=== PATIENT | female | born 1945 | race Caucasian/White ===

== ENCOUNTER → 2016-05-30 | Outpatient (CLI) | payer BC ==
[~2016-05-30] MED LIST: ACET-1256 PO; CALCIUM CITRATE PO; CHOL100027 PO; CHOL2000 PO; CIPR-255 PO; CYAN10005 PO; DENO60SO SC; DOXE100C4 PO; FESO8TAB PO; FURO-85 PO; GABA-113 PO; LSX20 PO; METO25TA56 PO; MIRA1TAB3 PO; MULT-360 PO; MULT-506 PO; ONDA4TAB10 SL; OXYC1TAB3 PO; OXYC7.5T65 PO; PHEN-1042 PO; PYRI100T4 PO; PYRI50TA77 PO; SNQ50 PO; ULT/50 PO; WARF-246 PO; WARF-284 PO
[2016-05-30 15:25] LABS: ALT/SGPT 25 U/L (12-78); AST/SGOT 19 U/L (15-37); BLOOD UREA NITROGEN 17 mg/dl (7-18); BUN/CREATININE RATIO 18.4 (10-20); CARBON DIOXIDE 31 mmol/L (21-32); CHLORIDE 105 mmol/L (98-107); CHOLESTEROL 163 mg/dl (0-200); CREATININE 0.92 mg/dl (0.60-1.20); GLUCOSE 112 mg/dl (70-99); POTASSIUM 4.3 mmol/L (3.5-5.1); SODIUM 142 mmol/L (136-145); TRIGLYCERIDES 124 mg/dl (0-150); VERY LOW DENSITY LIPOPROT CALC 25 mg/dl
[2016-05-30 15:27] LABS: ALB/GLOB RATIO 0.9 (0.9-2); ALKALINE PHOSPHATASE 77 U/L (45-117); CHOLESTEROL/HDL RATIO 3.9; HDL CHOLESTEROL 42 mg/dl; LDL CHOLESTEROL CALCULATED 96 mg/dl
[2016-05-31 05:49] LABS: ESTIMATED AVERAGE GLUCOSE 103 mg/dl; HA1C FLAG Normal (Normal)
== END | disposition home or self-care (01) ==
LOC: C.LAB1850 13:16
PROVIDERS: ATTEND Internal Medicine
DX: M81.0 Age-related osteoporosis without current pathological fracture (principal); R73.01 Impaired fasting glucose; E55.9 Vitamin D deficiency, unspecified

== ENCOUNTER → 2016-06-11 | Outpatient (CLI) | payer BC | END | disposition home or self-care (01) | LOC: C.MAMM 15:38 | PROVIDERS: ATTEND Internal Medicine | DX: M81.0 Age-related osteoporosis without current pathological fracture (principal); M85.89 Other specified disorders of bone density and structure, multiple sites ==

== ENCOUNTER 2016-06-12 02:07 | Emergency (ER) | payer BC ==
[~2016-06-12] VITALS: Ht 168.9 cm; Wt 124.0 kg
[~2016-06-12 02:07] MED LIST changes: -CHOL2000 PO; -DOXE100C4 PO; -FESO8TAB PO; -FURO-85 PO; -MIRA1TAB3 PO; -MULT-360 PO; -ONDA4TAB10 SL; -OXYC1TAB3 PO; -OXYC7.5T65 PO; -PYRI100T4 PO
[2016-06-12 02:13] VITALS: TEMP 36.4; Ht 168.9 cm; Wt 124.0 kg
[2016-06-12] MEDS ORDERED: SODIUM CHLORIDE 0.9% 1000ML 1,000 ML IV STA (02:37)
[2016-06-12] MEDS ORDERED: ONDANSETRON INJ 2 MG/ML 2 ML VIAL IV STA (02:37)
[2016-06-12] MEDS ORDERED: HYDROmorphone INJ 1 MG/ML SYR IV STA (02:37)
[2016-06-12 03:07] LABS: BASO % 0.1 %; BASO ABS # 0.01 K/uL (0-0.2); COMPLETE YES; EOS % 0.7 %; HEMATOCRIT 41.9 % (37-47); IG% 0.2 %; LYMPH % 8.9 %; LYMPH ABS # 0.73 K/uL (1.2-3.4); MEAN CORPUSCULAR HEMOGLOBIN 33.8 pg (25-34); MEAN CORPUSCULAR HGB CONC 35.6 g/dl (32-36); MEAN PLATELET VOLUME 10.7 fL (7.4-10.4); MONO % 3.5 %; NEUT % 86.6 %; PLATELET COUNT 120 K/uL (130-400); RED BLOOD COUNT 4.41 M/uL (4.2-5.4)
[2016-06-12 03:29] LABS: BUN/CREATININE RATIO 17.2 (10-20); CALCIUM 8.8 mg/dl (8.5-10.1); CREATININE 1.1 mg/dl (0.60-1.20); POTASSIUM 4.1 mmol/L (3.5-5.1)
[2016-06-12 03:50] LABS: URINE APPEARANCE CLEAR (CLEAR); URINE BILIRUBIN NEG (NEG); URINE COLOR YELLOW; URINE EPITHELIAL CELL AUTO >30 /lpf (0-5); URINE NITRITE NEG (NEG); URINE PH 6.5 (4.5-7.5); URINE SPECIFIC GRAVITY 1.024 (1.000-1.030); UROBILINOGEN NEG (NEG); ZZUR CULT IF INDIC CLEAN CATCH YES
[2016-06-12 03:51] LABS: MANUAL MICROSCOPIC REQUIRED? NO; REVIEW REQ? YES
[2016-06-12] MEDS ORDERED: MoRPHine SULFATE 4 MG/ML 1 ML CARP\\VIAL IV STA (04:10)
[2016-06-12] MEDS ORDERED: ONDANSETRON HOME PACK 4MG OD TAB PO ONE (04:15)
[2016-06-12] MEDS ORDERED: OXYCODONE IR HOME PACK PO ONE (04:15)
--- NOTE | 2016-06-12 04:15 | EMERGENCY ROOM VISIT NOTE ---
History Report prepared by Carlton: Low Harding Under the Supervision of: Dr. Pablito Gay M.D. First contact with patient: 02:22 Chief Complaint: ABDOMINAL PAIN Stated Complaint: LWR ABDOMINAL PAIN SPEADS TO LEFT SIDE,NAUSEA History of Present Illness The patient is a 70 year old female who presents to the Emergency Room with complaints of constant upper abdominal pain beginning five hours ago. She states that her pain occasionally radiates into her left side and back. She states that her pain began suddenly. The patient also complains of dry heaves. She has a history of similar symptoms occurring with kidney stones in the past, though the pain was located more on her sides. She denies any leg swelling, or chest pain. The patient has a history of a gastric bypass surgery. Source of History: patient Onset: five hours ago Position: abdomen (upper) Timing: constant Associated Symptoms: No chest pain Note: The patient also complains of dry heaves. She denies any leg swelling. Review of Systems See HPI for pertinent positives & negatives. A total of 10 systems reviewed and were otherwise negative. Past Medical & Surgical Medical Problems: (1) Atrial fibrillation (2) Benign hypertension (3) Diabetes mellitus (4) gastric bypass (5) panelectomy (6) Replacement of total knee joint Family History No pertinent family history stated. Social History Smoking Status: Never Smoker Alcohol Use: none Drug Use: none Marital Status: Housing Status: lives with significant other Occupation Status: unemployed Current/Historical Medications Scheduled Cholecalciferol (Vitamin D3), 2,000 UNIT PO BID Cyanocobalamin (Vitamin B-12), 1,000 MCG PO QAM Denosumab (Prolia), 1 DOSE SC Q6MON Doxepin Hcl (Doxepin), 100 MG PO QPM Gabapentin (Neurontin), 300 MG PO HS Metoprolol Tartrate (Lopressor) (Lopressor), 25 MG PO BID Multiple Minerals W/ Vitamins (Calcium Citrate +), 400 MG PO DAILY Multivitamin (Multivitamin), 1 TAB PO QAM Ondasetron Odt (Zofran Odt), 4-8 MG SL Q6H Pyridoxine Hcl (Vitamin B 6), 200 MG PO QAM Tramadol Hcl (Ultram), 50 MG PO BID Warfarin Sodium (Warfarin Sodium), 5 MG PO 6XWK Warfarin Sodium (Warfarin Sodium), 7.5 MG PO FRI Scheduled PRN Acetaminophen (Tylenol), 1,000 MG PO DAILY PRN for PRN Furosemide (Lasix), 20 MG PO DAILY PRN for EDEMA Oxycodone Immediate Rel Tab (Roxicodone Ir), 1-2 TAB PO Q4H PRN for Severe Pain Allergies Coded Allergies: Adhesives (Verified Allergy, Intermediate, RASH, BLISTERING, 06/12/16) PAPER TAPE OK Alendronate (Verified Allergy, Unknown, SICK TO STOMACH, 06/12/16) Latex (Unverified Allergy, Unknown, per PCP/cardio note, 06/12/16) Physical Exam Vital Signs Date Time Temp Pulse Resp B/P Pulse Ox O2 Delivery O2 Flow Rate FiO2 06/12/16 04:30 68 18 110/55 93 Room Air 06/12/16 03:33 80 18 149/72 94 Room Air 06/12/16 02:13 36.4 74 20 157/99 93 Room Air Physical Exam GENERAL: Patient is uncomfortable appearing and in moderate distress. HEENT: No acute trauma, normocephalic atraumatic, mucous membranes moist, no nasal congestion, no scleral icterus. NECK: No stridor, no adenopathy, no meningismus, trachea is midline. LUNGS: No dyspnea. Clear to auscultation and equal bilaterally. No wheeze, no rhonchi. HEART: Regular rate and rhythm. No murmurs, rubs, gallops appreciated. ABDOMEN: Soft, bowel sounds positive, no masses appreciated, no peritonitis. Vague left lateral abdominal tenderness to palpation. BACK: No midline tenderness, no CVA tenderness EXTREMITIES: Normal motion all extremities, no cyanosis, no edema. NEUROLOGIC: Alert and oriented, no acute motor or sensory deficits, no focal weakness, cranial nerves grossly intact. SKIN: No rash, no jaundice, no diaphoresis. Medical Decision & Procedures ER Provider Diagnostic Interpretation: CT results per statrad and my review. CT ABDOMEN & PELVIS: Compared to 01/13/15. Nephrolithiasis with a 4 mm obstructing stone in the proximal left ureter with moderate left hydronephrosis. Left perinephric stranding/fluid. Distended gallbladder with cholelithiasis. Moderate amount of stool in the colon. Additional incidental findings including varices, splenomegaly, and prior gastric bypass surgery. Laboratory Results 06/12/16 02:50 Red Blood Count 4.41, Mean Corpuscular Volume 95.0, Mean Corpuscular Hemoglobin 33.8, Mean Corpuscular Hemoglobin Concent 35.6, Mean Platelet Volume 10.7, Neutrophils (%) (Auto) 86.6, Lymphocytes (%) (Auto) 8.9, Monocytes (%) (Auto) 3.5, Eosinophils (%) (Auto) 0.7, Basophils (%) (Auto) 0.1, Neutrophils # (Auto) 7.09, Lymphocytes # (Auto) 0.73, Monocytes # (Auto) 0.29, Eosinophils # (Auto) 0.06, Basophils # (Auto) 0.01 06/12/16 02:50 Test 06/12/16 02:50 06/12/16 03:25 White Blood Count 8.20 K/uL (4.8-10.8) Red Blood Count 4.41 M/uL (4.2-5.4) Hemoglobin 14.9 g/dL (12.0-16.0) Hematocrit 41.9 % (37-47) Mean Corpuscular Volume 95.0 fL (80-100) Mean Corpuscular Hemoglobin 33.8 pg (25-34) Mean Corpuscular Hemoglobin Concent 35.6 g/dl (32-36) Platelet Count 120 K/uL (130-400) Mean Platelet Volume 10.7 fL (7.4-10.4) Neutrophils (%) (Auto) 86.6 % Lymphocytes (%) (Auto) 8.9 % Monocytes (%) (Auto) 3.5 % Eosinophils (%) (Auto) 0.7 % Basophils (%) (Auto) 0.1 % Neutrophils # (Auto) 7.09 K/uL (1.4-6.5) Lymphocytes # (Auto) 0.73 K/uL (1.2-3.4) Monocytes # (Auto) 0.29 K/uL (0.11-0.59) Eosinophils # (Auto) 0.06 K/uL (0-0.5) Basophils # (Auto) 0.01 K/uL (0-0.2) RDW Standard Deviation 47.9 fL (36.4-46.3) RDW Coefficient of Variation 13.8 % (11.5-14.5) Immature Granulocyte % (Auto) 0.2 % Immature Granulocyte # (Auto) 0.02 K/uL (0.00-0.02) Anion Gap 8.0 mmol/L (3-11) Est Creatinine Clear Calc Drug Dose 66.3 ml/min Estimated GFR () 59.7 Estimated GFR (Non- 51.5 BUN/Creatinine Ratio 17.2 (10-20) Calcium Level 8.8 mg/dl (8.5-10.1) Total Bilirubin 0.8 mg/dl (0.2-1) Direct Bilirubin 0.2 mg/dl (0-0.2) Aspartate Amino Transf (AST/SGOT) 21 U/L (15-37) Alanine Aminotransferase (ALT/SGPT) 24 U/L (12-78) Alkaline Phosphatase 77 U/L (45-117) Total Protein 7.4 gm/dl (6.4-8.2) Albumin 3.5 gm/dl (3.4-5.0) Lipase 72 U/L (73-393) Urine Color YELLOW Urine Appearance CLEAR (CLEAR) Urine pH 6.5 (4.5-7.5) Urine Specific [place] 1.024 (1.000-1.030) Urine Protein NEG (NEG) Urine Glucose (UA) NEG (NEG) Urine Ketones 2+ (NEG) Urine Occult Blood NEG (NEG) Urine Nitrite NEG (NEG) Urine Bilirubin NEG (NEG) Urine Urobilinogen NEG (NEG) Urine Leukocyte Esterase TRACE (NEG) Urine WBC (Auto) 1-5 /hpf (0-5) Urine RBC (Auto) 0-4 /hpf (0-4) Urine Hyaline Casts (Auto) 5-10 /lpf (0-5) Urine Epithelial Cells (Auto) >30 /lpf (0-5) Urine Bacteria (Auto) 2+ (NEG) Laboratory results as reviewed by me. Medications Administered Medications (Trade) Dose Ordered Sig/Tico Route Start Time Stop Time Status Last Admin Dose Admin Sodium Chloride (Nss 1000ml) 1,000 ml @ 999 mls/hr Q1H1M STAT IV 06/12/16 02:37 06/12/16 03:37 DC 06/12/16 03:03 999 MLS/HR Hydromorphone HCl (Dilaudid Inj) 1 mg NOW STAT IV 06/12/16 02:37 06/12/16 02:38 DC 06/12/16 03:03 1 MG Ondansetron HCl (Zofran Inj) 4 mg NOW STAT IV 06/12/16 02:37 06/12/16 02:38 DC 06/12/16 03:03 4 MG Morphine Sulfate (MoRPHine SULFATE INJ) 2 mg NOW STAT IV 06/12/16 04:10 06/12/16 04:11 DC 06/12/16 04:21 2 MG Oxycodone HCl (Roxicodone Immediate Rel 5MG Home Pack) 1 homepack UD ONCE PO 06/12/16 04:15 06/12/16 04:16 DC 06/12/16 04:21 1 HOMEPACK Ondansetron HCl (ZOFRAN ODT 4MG Home Pack) 1 homepack UD ONCE PO 06/12/16 04:15 06/12/16 04:16 DC 06/12/16 04:21 1 HOMEPACK ED Course 0232: The patient was evaluated in room B6. A complete history and physical exam was performed. 0237: Ordered Zofran Inj 4 mg IV, Dilaudid Inj 1 mg IV, Sodium Chloride 1000 ml @ 999 mls/hr. 0410: Ordered Morphine Sulfate 2 mg IV. 0415: Ordered Zofran Odt 4 mg homepack PO, Roxicodone Immediate Rel 5 mg homepack PO. Reevaluated the patient. She feels much better and would like to go home. She notes that she only has mild pain right now. The patient will follow up with her PCP. Discussed results and discharge instructions: she verbalized understanding and agreement. The patient is ready for discharge. Medical Decision Differential: Renal Colic, Pyelonephritis, Hydronephrosis, Appendicitis, Diverticulitis, Retroperitoneal Bleed/Infection, Aortic Pathology, MSK, Neurologic Pathology, amongst other pathologies entertained. 70 yr old female arrives for evaluation of left abdominal to left flank pain sudden onset with nausea and vomiting. CT with proximal left ureteral stone. Pain resolved with above and patient wishes to go home. No evidence of infection and patient denies any UTI symptoms. Abdomen is without peritonitis. Distended stone filled GB but she is not having symptoms consistent with cholecystitis nor impacted stone. She will discuss this with her PCP. Discussed BP being elevated on this visit as well. She is stable, feeling well and wants to get home. States she doesn't tolerate flomax well. Discussed symptoms requiring return. Impression Primary Impression: Ureteral calculus, left Additional Impressions: Hydronephrosis of left kidney Asymptomatic gallstones Hypertension Scribe Attestation The scribe's documentation has been prepared under my direction and personally reviewed by me in its entirety. I confirm that the note above accurately reflects all work, treatment, procedures, and medical decision making performed by me. Departure Information Dispostion Home / Self-Care Prescriptions Ondasetron Odt (ZOFRAN ODT) 4 Mg Tab 4-8 MG SL Q6H for Nausea, #15 TAB Prov: Pablito Gay M.D. 06/12/16 Oxycodone Immediate Rel Tab (ROXICODONE IR) 5 Mg Tab 1-2 TAB PO Q4H Y for Severe Pain, #15 TAB Prov: Pablito Gay M.D. 06/12/16 Referrals Nohemi Gunter C.R.N.PFrance (PCP) Patient Instructions Kidney Stones - [facility], My [facility] Additional Instructions It is very important you follow up with your primary care provider for further evaluation. You were found to have a large gallbladder with stones in it. This could be an early infection but with the location of your pain it is very unlikely. Please discuss having further testing of your gallbladder done with your primary care provider. Your blood pressure was elevated during this visit. This is quite common in many people who are being evaluated in the Emergency Department for many reasons. However, it is important that you have your Primary Care Provider recheck your blood pressure and discuss whether treatment will be needed. long term care social worker elevated blood pressure can lead to strokes, heart attacks, kidney failure amongst other medical issues. If you develop severe headaches, chest pain, weakness in arms or legs, or other concerning symptoms call 911. You have received a narcotic pain medication prescription. These medications may cause drowsiness and should not be used with other sedative medications. Do not drive, drink alcohol, perform dangerous activities, nor make important decisions after taking these medications. [facility] use or inappropriate use may lead to addiction. These medications cause constipation. Problem Qualifiers Additional Impressions: Hypertension Hypertension type: essential hypertension Qualified Codes: I10 - Essential ( primary) hypertension
[2016-06-12] MEDS ORDERED: ONDA4TAB10 SL (04:17)
[2016-06-12] MEDS ORDERED: OXYC1TAB3 PO (04:17)
[2016-06-12] MEDS ORDERED: CHOL2000 PO (04:21)
[2016-06-12] MEDS ORDERED: DOXE100C4 PO (04:23)
[2016-06-12] MEDS ORDERED: FURO-85 PO (04:23)
[2016-06-12] MEDS ORDERED: MULT-360 PO (04:24)
[2016-06-12 04:30] VITALS: BP 110/55; PULSE 68; O2SAT 93
--- NOTE | 2016-06-12 07:24 | DIAGNOSTIC IMAGING REPORT ---
CT SCAN OF THE ABDOMEN AND PELVIS WITHOUT IV CONTRAST CLINICAL HISTORY: Left flank pain. COMPARISON STUDY: Abdominal CT dated 01/13/2015. TECHNIQUE: CT scan of the abdomen and pelvis is performed from the lung bases to the proximal femora. Images are reviewed in the axial, sagittal, and coronal planes. IV contrast was not administered for this examination as per the referring clinician. The examination is degraded by large body habitus, and by streak artifact from the body wall abutting the CT gantry. The examination is also degraded by streak artifact from the arms which could not be elevated above the abdomen. Automated dose control exposure was utilized. CT DOSE: 2085.12 mGy.cm FINDINGS: Lung bases: The heart is mildly enlarged and without pericardial effusion. The lung bases are clear. Liver: Evaluation of the liver is degraded by streak artifact. The unenhanced liver is normal in size, contour, and attenuation. There is no intrahepatic biliary ductal dilatation. Gallbladder: The gallbladder is distended and filled with numerous gallstones. Spleen: The spleen is enlarged, measuring 15 cm in length. Numerous collateral vessels are seen in the left upper quadrant. 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 Pancreas: The unenhanced pancreas is moderately atrophic and grossly unremarkable. Adrenal glands: Unremarkable. Kidneys: The unenhanced kidneys demonstrate cortical atrophy. There is a 7 mm obstructing calculus in the proximal left ureter seen on axial image #246 at the level of L4. This causes mild to moderate left sided hydronephrosis. There are least 8 additional nonobstructing calculi within the left kidney and left renal pelvis measuring up to 13 mm. There are at least 2 nonobstructing right renal calculi measuring up to 3 mm. There is no evidence of contour deforming renal mass lesion. A retroaortic left renal vein is incidentally noted. Abdominal vasculature: The abdominal aorta is normal in course and caliber noting mild to moderate atherosclerotic calcification. Stomach and bowel: There is a tiny hiatal hernia. There are postoperative changes consistent with a Danielle-en-Y gastric bypass procedure. No bowel obstruction is seen. There is moderate colonic fecal retention. The appendix is not identified. Peritoneum: There is no intraperitoneal free air or abdominal ascites. Lymphadenopathy: None. Pelvic viscera: The bladder is normal in appearance. The uterus is surgically absent. No adnexal lesion is seen. Numerous phleboliths are identified in the pelvis. Findings suggest pelvic floor prolapse. Skeletal structures: The skeletal structures are osteopenic. There is moderate lumbosacral spondylosis. Degenerative change and partial fusion is noted in the sacroiliac joints. No lytic or blastic lesions are seen. Postoperative change is noted in the right proximal femur. IMPRESSION: 1. Significantly streak artifact degraded examination. 2. There is a 7 mm obstructing calculus in the left proximal ureter. This causes mild to moderate left-sided hydronephrosis. 3. Additional bilateral nonobstructing renal calculi as above. 4. There are postoperative changes consistent with a Danielle-en-Y gastric bypass procedure. No bowel obstruction is seen. 5. Moderate constipation. 6. Numerous collateral vessels are seen in the left upper quadrant and a splenorenal shunt is again noted. 7. The gallbladder is distended and there are numerous calcified gallstones. There is no convincing CT evidence of acute cholecystitis. If further assessment of the gallbladder is desired then ultrasound would be appropriate. 8. Cardiomegaly. 9. Splenomegaly. 10. Additional findings as above. Electronically signed by: Vince New M.D. 06/12/2016 7:22 AM Dictated Date/Time: 06/12/2016 7:13 AM
[2016-08-02] MEDS ORDERED: MIRA1TAB3 PO (14:39)
[2016-08-30] MEDS ORDERED: FESO8TAB PO (11:37)
[2016-08-30] MEDS ORDERED: PYRI100T4 PO (11:37)
[2016-09-06] MEDS ORDERED: OXYC7.5T65 PO (11:24)
== END 2016-06-12 04:33 | disposition home or self-care (01) ==
LOC: C.EDB 02:09
DX: N20.1 Calculus of ureter (principal); N13.30 Unspecified hydronephrosis; K80.20 Calculus of gallbladder without cholecystitis without obstruction; I10 Essential (primary) hypertension; I48.91 Unspecified atrial fibrillation; E11.9 Type 2 diabetes mellitus without complications; Z98.84 Bariatric surgery status; Z96.659 Presence of unspecified artificial knee joint; Z79.01 Long term (current) use of anticoagulants; Z79.899 Other long term (current) drug therapy

== ENCOUNTER → 2016-08-15 | Day surgery (SDC) | payer BC ==
[2016-08-02 14:37] VITALS: BMI 42.0
[~2016-08-15] VITALS: Ht 167.6 cm; Wt 120.9 kg
[~2016-08-15] MED LIST changes: -CALCIUM CITRATE PO; -CHOL100027 PO; +CHOL2000 PO; -CIPR-255 PO; +DOXE100C4 PO; +FESO8TAB PO; +FURO-85 PO; +LIDOCAINE HCL 2% 2 ML VIAL (20MG/ML) ONE; -LSX20 PO; +MIRA1TAB3 PO; +MULT-360 PO; +ONDA4TAB10 SL; +OXYC7.5T65 PO; -PHEN-1042 PO; +PROPOFOL IV EMULSION 10 MG/ML 20 ML VIAL IV ONE; +PYRI100T4 PO; -SNQ50 PO; +SODIUM CHLORIDE 0.9% 500ML 500 ML IV ONE
[2016-08-15 12:20] VITALS: Ht 167.6 cm; Wt 120.9 kg
--- NOTE | 2016-08-15 12:43 | Endo History and Physical ---
History & Physical Date of Service: Aug 15, 2016. Chief Complaint: F/U SCREENING Referring Physician: MALINI CHACKO History of Present Illness 70 yo CF who presents for screening colonoscopy. Past Medical History Atrial Fibrillation, Osteoporosis, Arthritis, CVA/TIA, Other Past Surgical History Hx Cardiac Surgery: No Hx Internal Defibrillator: No Hx Pacemaker: No Hx Abdominal Surgery: Yes (GASTRIC BYPASS, PANNICULECTOMY, ) Hx of Implantable Prosthesis: No Hx Post-Op Nausea and Vomiting: No Hx Cancer Surgery: No Hx Thoracic Surgery: No Hx Orthopedic: Yes (RT TKA, ORIF RT FEMUR, LEFT TSA) Hx Urinary Tract Surgery: Yes (CYSTOSCOPY WITH LITHOTRIPSY) Family History None Social History Smoking Status: Never Smoker Hx Substance Use: No Hx Alcohol Use: Yes (RARELY) Allergies Coded Allergies: Adhesives (Verified Allergy, Intermediate, RASH, BLISTERING, 08/15/16) PAPER TAPE OK Alendronate (Verified Allergy, Unknown, SICK TO STOMACH, 08/15/16) Latex (Unverified Allergy, Unknown, per PCP/cardio note, 08/15/16) Current Medications Reported Home Medications Medications Dose Route/Sig Max Daily Dose Days Date Category Dose Instructions Myrbetriq Er (Mirabegron) 50 Mg Tab 50 Mg PO QAM 08/02/16 Reported Calcium Citrate + (Multiple Minerals W/ Vitamins) 1 Tab Tab 400 Mg PO DAILY AFTERNOON 06/12/16 Reported Lasix (Furosemide) 20 Mg Tab 20 Mg PO DAILY PRN 06/12/16 Reported Doxepin (Doxepin Hcl) 100 Mg Cap 100 Mg PO QPM 06/12/16 Reported Vitamin D3 (Cholecalciferol) 2,000 Unit Cap 2,000 Unit PO BID 90 06/12/16 Reported Zofran Odt (Ondansetron HCl) 4 Mg Tab 4-8 Mg SL Q6H 06/12/16 Rx Tylenol (Acetaminophen) 500 Mg Tab 1,000 Mg PO DAILY PRN 07/20/14 Reported Warfarin Sodium 7.5 Mg Tab 7.5 Mg PO Fridays07/20/14 Reported Warfarin Sodium 5 Mg Tab 5 Mg PO 6XWK 07/20/14 Reported EVERY DAY EXCEPT FRIDAYS Prolia (Denosumab) 60 Mg/Ml Daina 1 Dose SC Q6MON 07/20/14 Reported Vitamin B 6 (Pyridoxine Hcl) 50 Mg Tab 200 Mg PO QAM 10/9/13 Reported Lopressor (Metoprolol Tartrate) 25 Mg Tab 25 Mg PO BID 12/09/12 Reported Vitamin B-12 (Cyanocobalamin) 1,000 Mcg Tab 1,000 Mcg PO QAM 12/09/12 Reported Ultram (Tramadol Hcl) 50 Mg Tab 50 Mg PO BID 01/08/12 Reported PRN PAIN Multivitamin (Multivitamins) Tab 1 Tab PO QAM 09/08/08 Reported Neurontin (Gabapentin) 300 Mg Cap 300 Mg PO HS 09/08/08 Reported Vital Signs Weight (Kilograms): 120.91 Height (Feet): 5 Height (Inches): 6 Physical Exam General Appearance: WD/WN, no apparent distress Respiratory/Chest: Auscultation: breath sounds normal Cardiovascular: Heart Auscultation: RRR Abdomen: Bowel Sounds: normal Inspection & Palpation: soft, non-distended, no tenderness, guarding & rebound Assessment and Plan Assessment: 70 yo CF who presents for screening colonoscopy. Plan: Proceed with colonoscopy.
--- NOTE | 2016-08-15 13:59 | Discharge Instructions ---
Endoscopy Patient Instructions Date / Procedure(s) Performed Aug 15, 2016. Colonoscopy Allergy Information Coded Allergies: Adhesives (Verified Allergy, Intermediate, RASH, BLISTERING, 08/15/16) PAPER TAPE OK Alendronate (Verified Allergy, Unknown, SICK TO STOMACH, 08/15/16) Latex (Unverified Allergy, Unknown, per PCP/cardio note, 08/15/16) Discharge Date / Findings Aug 15, 2016. Ascending colon polyp Diverticulosis Internal hemorrhoids Medication Instructions Stopped Medication(s): COUMADIN OK to resume all medications today as prescribed. Reported Home Medications Medications Dose Route/Sig Max Daily Dose Days Date Category Dose Instructions Myrbetriq Er (Mirabegron) 50 Mg Tab 50 Mg PO QAM 08/02/16 Reported Calcium Citrate + (Multiple Minerals W/ Vitamins) 1 Tab Tab 400 Mg PO DAILY AFTERNOON 06/12/16 Reported Lasix (Furosemide) 20 Mg Tab 20 Mg PO DAILY PRN 06/12/16 Reported Doxepin (Doxepin Hcl) 100 Mg Cap 100 Mg PO QPM 06/12/16 Reported Vitamin D3 (Cholecalciferol) 2,000 Unit Cap 2,000 Unit PO BID 90 06/12/16 Reported Zofran Odt (Ondansetron HCl) 4 Mg Tab 4-8 Mg SL Q6H 06/12/16 Rx Tylenol (Acetaminophen) 500 Mg Tab 1,000 Mg PO DAILY PRN 07/20/14 Reported Warfarin Sodium 7.5 Mg Tab 7.5 Mg PO Fridays07/20/14 Reported Warfarin Sodium 5 Mg Tab 5 Mg PO 6XWK 07/20/14 Reported EVERY DAY EXCEPT FRIDAYS Prolia (Denosumab) 60 Mg/Ml Daina 1 Dose SC Q6MON 07/20/14 Reported Vitamin B 6 (Pyridoxine Hcl) 50 Mg Tab 200 Mg PO QAM 12/09/12 Reported Lopressor (Metoprolol Tartrate) 25 Mg Tab 25 Mg PO BID 12/09/12 Reported Vitamin B-12 (Cyanocobalamin) 1,000 Mcg Tab 1,000 Mcg PO QAM 12/09/12 Reported Ultram (Tramadol Hcl) 50 Mg Tab 50 Mg PO BID 01/08/12 Reported PRN PAIN Multivitamin (Multivitamins) Tab 1 Tab PO QAM 09/08/08 Reported Neurontin (Gabapentin) 300 Mg Cap 300 Mg PO HS 09/08/08 Reported Provider Instructions Activity Restrictions - No exercising or heavy lifting for 24 hours. - Do not drink alcohol the day of the procedure. - Do not drive a car or operate machinery until the day after the procedure. - Do not make any important decisions or sign important papers in 24 hours after the procedure. Following Day: - Return to full activity which may include returning to work/school. Diet Start your diet with liquids and light foods (jello, soup, juice, toast). Then eat your usual diet if not nauseated. Treatment For Common After Affects For mild abdominal pain, bloating, or excessive gas: - Rest - Eat lightly - Lie on right side Follow-Up Information Follow-up with MALINI CHACKO as scheduled Anesthesia Information What You Should Know You have had a procedure that required some medicine to reduce anxiety and discomfort. This treatment is called moderate sedation. After receiving the treatment, you may be sleepy, but you will be able to breathe on your own. The effects of the treatment may last for several hours. Follow these instructions along with Activity/Diet recommendations noted above: * Do NOT do anything where dizziness or clumsiness would be dangerous. * Rest quietly at home today, then you can be up and about tomorrow. * Have a responsible person stay with you the rest of today. * You may have had an I.V. today. If so, you may take the dressing off later today. Recommendations Call your doctor if: * Trouble breathing * Continuous vomiting for more than 24 hours * Temperature above 101 degrees * Severe abdominal pain or bloating * Pain not relieved by pain medicine ordered * There is increased drainage or redness from any incision * A large amount of rectal bleeding greater than 2-3 tablespoons. (If you had a polyp/s removed or have hemorrhoids, a small amount of blood - from the rectum is to be expected.) * You have any unanswered questions or concerns. IN THE EVENT OF A SERIOUS EMERGENCY, GO TO THE NEAREST EMERGENCY ROOM Your discharge instructions were prepared by provider Juanjose Leung. Patient Instructions Signature Page Ami Hagen Patient (or Guardian) Signature/Date: I have read and understand the instructions given to me by my caregivers. Caregiver/RN/Doctor Signature/Date: The above-named patient and/or guardian has received patient instructions on this date. + Original Patient Signature Page (only) stays with chart. Please make copy for patient.
--- NOTE | 2016-08-15 14:05 | Anesthesiology Progress Note ---
Anesthesia Post Op Note Date & Time Aug 15, 2016 at 14:05 Vital Signs Pain Intensity: 0 Vital Signs Past 12 Hours Date Time Temp Pulse Resp B/P (MAP) Pulse Ox O2 Delivery O2 Flow Rate FiO2 08/15/16 12:40 36.6 69 20 145/71 (95) 95 Room Air Notes Mental Status: alert / awake / arousable, participated in evaluation Pt Amnestic to Procedure: Yes Nausea / Vomiting: adequately controlled Pain: adequately controlled Airway Patency, RR, SpO2: stable & adequate BP & HR: stable & adequate Hydration State: stable & adequate Anesthetic Complications: no major complications apparent
--- NOTE | 2016-08-15 14:07 | GI REPORT ---
Procedure Date: 08/15/2016 1:32 PM Procedure: Colonoscopy Indications: Screening for colorectal malignant neoplasm Medicines: Monitored Anesthesia Care Complications: No immediate complications. Estimated Blood Loss: Estimated blood loss: none. Procedure: Pre-Anesthesia Assessment: - Prior to the procedure, a History and Physical was performed, and patient medications and allergies were reviewed. The patient's tolerance of previous anesthesia was also reviewed. The risks and benefits of the procedure and the sedation options and risks were discussed with the patient. All questions were answered, and informed consent was obtained. Prior Anticoagulants: The patient has taken Coumadin (warfarin), last dose was 5 days prior to procedure. ASA Grade Assessment: III - A patient with severe systemic disease. After reviewing the risks and benefits, the patient was deemed in satisfactory condition to undergo the procedure. After I obtained informed consent, the scope was passed under direct vision. Throughout the procedure, the patient's blood pressure, pulse, and oxygen saturations were monitored continuously. The scope was introduced through the anus and advanced to the terminal ileum. The colonoscopy was performed without difficulty. The patient tolerated the procedure well. The quality of the bowel preparation was good. The terminal ileum, ileocecal valve, appendiceal orifice, and rectum were photographed. Findings: A 5 mm polyp was found in the ascending colon. The polyp was sessile. The polyp was removed with a hot snare. Resection and retrieval were complete. Multiple small-mouthed diverticula were found in the sigmoid colon. Non-bleeding internal hemorrhoids were found during retroflexion. The hemorrhoids were mild. Impression: - One 5 mm polyp in the ascending colon, removed with a hot snare. Resected and retrieved. - Diverticulosis in the sigmoid colon. - Non-bleeding internal hemorrhoids. Recommendation: - Resume previous diet. - Continue present medications. - Repeat colonoscopy for surveillance based on pathology results. - Return to primary care physician as previously scheduled. Juanjose Leung DO 08/15/2016 2:07:12 PM This report has been signed electronically. Note Initiated On: 08/15/2016 1:32 PM I attest to the content of the Intraoperative Record and orders documented therein, exceptions below
[2016-08-15 14:21] VITALS: BP 108/65; PULSE 65; O2SAT 95
== END | disposition home or self-care (01) ==
LOC: C.GI 12:00
PROVIDERS: ATTEND Internal Medicine
DX: Z12.11 Encounter for screening for malignant neoplasm of colon (principal); D12.2 Benign neoplasm of ascending colon; K57.30 Diverticulosis of large intestine without perforation or abscess without bleeding; K64.8 Other hemorrhoids; I48.91 Unspecified atrial fibrillation; M81.0 Age-related osteoporosis without current pathological fracture; Z86.73 Personal history of transient ischemic attack (TIA), and cerebral infarction without residual deficits; Z98.84 Bariatric surgery status; Z79.01 Long term (current) use of anticoagulants; Z79.899 Other long term (current) drug therapy

== ENCOUNTER → 2016-08-21 | Outpatient (CLI) | payer BC ==
[~2016-08-21] MED LIST changes: -LIDOCAINE HCL 2% 2 ML VIAL (20MG/ML) ONE; -PROPOFOL IV EMULSION 10 MG/ML 20 ML VIAL IV ONE; -SODIUM CHLORIDE 0.9% 500ML 500 ML IV ONE
--- NOTE | 2016-08-21 17:48 | DIAGNOSTIC IMAGING REPORT ---
KUB CLINICAL HISTORY: URINARY URGENCY KIDNEY STONES COMPARISON STUDY: 12/15/2015 , CT scan dated 06/12/2016 FINDINGS: There are calcifications project over the left renal shadow consistent with calculi. There are left upper quadrant suture lines, likely secondary to a prior gastric bypass. There is moderate fecal retention. There is sigmoid distention. There are mildly dilated left mid abdominal small bowel loops. There is a 5 mm calcification within the left abdomen at the L3-4 level. This could represent a proximal left ureteral calculus. There are multiple pelvic basin calcifications, likely representing phleboliths. Impression: 1. Suspected left-sided nephrolithiasis 2. 5 mm calcification within the left administered at the L3-4 level. This could represent a proximal left ureteral calculus. 3. Mild gaseous distention of the bowel, slightly more pronounced on the prior study. This may represent an ileus. Electronically signed by: Elliott Vidal M.D. 08/21/2016 5:47 PM Dictated Date/Time: 08/21/2016 5:43 PM
== END | disposition home or self-care (01) ==
LOC: C.RAD 17:04
PROVIDERS: ATTEND Urology
DX: R39.15 Urgency of urination (principal); R93.8 Abnormal findings on diagnostic imaging of other specified body structures

== ENCOUNTER → 2016-08-28 | Outpatient (CLI) | payer BC | END | disposition home or self-care (01) | LOC: C.LABSPEC 17:05 | PROVIDERS: ATTEND Nurse Practitioner Adult Health | DX: N20.0 Calculus of kidney (principal) ==

== ENCOUNTER → 2016-09-05 | Outpatient (CLI) | payer BC ==
[~2016-09-05] MED LIST changes: -MIRA1TAB3 PO; -MULT-360 PO; -ONDA4TAB10 SL; -PYRI50TA77 PO
--- NOTE | 2016-09-05 18:12 | DIAGNOSTIC IMAGING REPORT ---
K[facility] CLINICAL HISTORY: Nephrolithiasis. COMPARISON STUDY: 08/21/2016 FINDINGS: The renal shadows are largely obscured overlying bowel gas and fecal material. There is moderate fecal retention. There is a prominent gas-filled central abdominal bowel loop, likely representing sigmoid colon. This measures 14 cm transversely. There are postsurgical changes of a presumed gastric bypass. Pelvic basin calcifications remain similar to the preceding study. The previously queried proximal left ureteral calculus is not visualized the current study. IMPRESSION: 1. Limited study due to overlying bowel gas and fecal material. No definite urinary tract calculi identified 2. Moderate fecal retention. Electronically signed by: Elliott Vidal M.D. 09/05/2016 6:11 PM Dictated Date/Time: 09/05/2016 6:08 PM
== END | disposition home or self-care (01) ==
LOC: C.RAD 16:50
PROVIDERS: ATTEND Nurse Practitioner Adult Health
DX: N20.0 Calculus of kidney (principal); K59.00 Constipation, unspecified

== ENCOUNTER → 2016-09-06 | Day surgery (SDC) | payer BC ==
[2016-08-30 11:37] VITALS: Ht 167.6 cm; Wt 122.5 kg
--- NOTE | 2016-08-30 12:17 | PAT Medication Instructions ---
Service Date Aug 30, 2016. Current Home Medication List Acetaminophen (Tylenol), 1,000 MG PO DAILY PRN for PRN Cholecalciferol (Vitamin D3), 2,000 UNIT PO QPM Cyanocobalamin (Vitamin B-12), 1,000 MCG PO QAM Denosumab (Prolia), 1 DOSE SC Q6MON Doxepin Hcl (Doxepin), 100 MG PO QPM Fesoterodine Fumarate (Toviaz), 1 TAB PO QPM Furosemide (Lasix), 20 MG PO DAILY PRN for EDEMA Gabapentin (Neurontin), 300 MG PO HS Metoprolol Tartrate (Lopressor) (Lopressor), 25 MG PO BID Multivitamin (Multivitamin), 1 TAB PO QAM Pyridoxine (Vitamin B6), 100 MG PO QPM Tramadol Hcl (Ultram), 50 MG PO BID Warfarin Sodium (Warfarin Sodium), 5 MG PO 6XWK Warfarin Sodium (Warfarin Sodium), 7.5 MG PO FRIDAYS Medication Instructions For Your Scheduled Surgery Denosumab (Prolia), 1 DOSE SC Q6MON (continue as usual) Warfarin Sodium (Warfarin Sodium) (hold 5 days prior to surgery per surgeon instructions) - Hold the following medications the morning of surgery: Multivitamin (Multivitamin), 1 TAB PO QAM Furosemide (Lasix), 20 MG PO DAILY PRN for EDEMA Cyanocobalamin (Vitamin B-12), 1,000 MCG PO QAM - Take the following medications the morning of surgery with a sip of water: Tramadol Hcl (Ultram), 50 MG PO BID (can take up to four hours prior to surgery if needed) Metoprolol Tartrate (Lopressor) (Lopressor), 25 MG PO BID Acetaminophen (Tylenol), 1,000 MG PO DAILY PRN for PRN (if needed) - Take the following medications as scheduled the night before surgery: Tramadol Hcl (Ultram), 50 MG PO BID Pyridoxine (Vitamin B6), 100 MG PO QPM Metoprolol Tartrate (Lopressor) (Lopressor), 25 MG PO BID Gabapentin (Neurontin), 300 MG PO HS Fesoterodine Fumarate (Toviaz), 1 TAB PO QPM Doxepin Hcl (Doxepin), 100 MG PO QPM Cholecalciferol (Vitamin D3), 2,000 UNIT PO QPM Acetaminophen (Tylenol), 1,000 MG PO DAILY PRN for PRN If you have any questions please call us at [phone] or [phone] ( [place]) or [phone]
[2016-08-30 12:47] LABS: HEMATOCRIT 40.2 % (37-47); MEAN CELL VOLUME 100.5 fL (80-100); MEAN CORPUSCULAR HEMOGLOBIN 33.8 pg (25-34); MEAN CORPUSCULAR HGB CONC 33.6 g/dl (32-36); MEAN PLATELET VOLUME 10.3 fL (7.4-10.4); PLATELET COUNT 125 K/uL (130-400); WHITE BLOOD COUNT 4.66 K/uL (4.8-10.8)
--- NOTE | 2016-08-30 12:47 | DIAGNOSTIC IMAGING REPORT ---
CHEST 2 VIEWS ROUTINE HISTORY: Preop. COMPARISON: Chest 07/20/2014. FINDINGS: No pneumothorax. The heart remains borderline enlarged. Mild diffuse interstitial thickening, unchanged. This is likely chronic. No new focal lung consolidations. No evidence for pulmonary edema. Left shoulder arthroplasty. Old right humeral neck fracture and osteoarthritis at the glenohumeral joint remains unchanged. IMPRESSION: No significant change compared to the prior study. No acute process. Electronically signed by: Luis Parada M.D. 08/30/2016 12:46 PM Dictated Date/Time: 08/30/2016 12:44 PM
[2016-08-30 13:15] LABS: BUN/CREATININE RATIO 18.7 (10-20); CALCIUM 9.1 mg/dl (8.5-10.1); CREATININE 0.78 mg/dl (0.60-1.20); POTASSIUM 4.2 mmol/L (3.5-5.1)
[~2016-09-06] VITALS: Ht 167.6 cm; Wt 122.5 kg
[~2016-09-06] MED LIST changes: +ATROPINE SULFATE 0.1 MG/ML 5ML SYR IV PRN; +CIPROFLOXACIN 400MG / D5W IV SCH; +DEXAMETHASONE SOD INJ 4 MG/ML VIAL IV PRN; +DEXAMETHASONE SOD INJ 4 MG/ML VIAL ONE; +EpHEDrine SULFATE INJ 50 MG/ML AMP IV PRN; +EpHEDrine SULFATE INJ 50 MG/ML AMP ONE; +FENTANYL CITRATE INJ 50 MCG/1 ML 2 ML VIAL IV PRN; +FENTANYL CITRATE INJ 50 MCG/1 ML 2 ML VIAL ONE; +KETOROLAC TROMETHAMINE 30 MG/ML VIAL IV. PRN; +LABETALOL HCL IV 5 MG/ML 20ML IV PRN; +LACTATED RINGER'S 1000ML 1,000 ML IV SCH; +LIDOCAINE HCL 2% 2 ML VIAL (20MG/ML) ONE; +METOCLOPRAMIDE HCL INJ 5 MG/ML 2 ML VIAL IV PRN; +MIDAZOLAM HCL 1 MG/ML 2ML VIAL ONE; +MoRPHine SULFATE 10 MG/ML CARP/VIAL IV PRN; +ONDANSETRON INJ 2 MG/ML 2 ML VIAL IV PRN; +ONDANSETRON INJ 2 MG/ML 2 ML VIAL ONE; +OXYCODONE/ACETAMINOPHEN 5-325 TAB PO PRN; +PHENYLEPHRINE 100MCG/ML 5ML SYR IV PRN; +PROPOFOL IV EMULSION 10 MG/ML 20 ML VIAL IV ONE; +SODIUM CHLORIDE 0.9% INJ 10 ML VIAL ONE
[2016-09-06 09:22] LABS: INR 1.2 (0.9-1.1); PROTHROMBIN TIME (PATIENT) 13.1 SECONDS (9.0-12.0)
--- NOTE | 2016-09-06 09:57 | History & Physical Bridge Note ---
H&P Re-Evaluation Bridge Note: I have examined the patient, reviewed the History & Physical and in the interval since the performance of the History & Physical I have noted the following changes of clinical significance: No changes noted
--- NOTE | 2016-09-06 11:26 | Discharge Instructions ---
Discharge Instructions Date of Service Sep 06, 2016. Admission Reason for Admission: Stones Discharge Discharge Diagnosis / Problem: L renal stones s/p ESWL Discharge Goals Goal(s): Decrease discomfort, Improve function, Improve disease control, Therapeutic intervention Activity Recommendations Activity Limitations: as noted below Lifting Limitations: no more than 25 pounds, gradually increase as tolerated ( x 3-5 days) Exercise/Sports Limitations: rest today, gradually increase as tolerated (x 3- 5 days) May Resume Sexual Activity: when tolerated Shower/Bathe: no limitations Driving or Machine Use: resume 1 day after discharge . Instructions / Follow-Up Instructions / Follow-Up Follow-up as planned in office with [facility] Xray before visit Discharge Diet Recommended Diet: Regular Diet (good fluid intake) Procedures Procedures Performed: Left Extracorporeal Shock Wave Lithotripsy Pending Studies Studies pending at discharge: no Medical Emergencies . Who to Call and When: Medical Emergencies: If at any time you feel your situation is an emergency, please call 911 immediately. . Non-Emergent Contact Non-Emergency issues call your: Urologist Call Non-Emergent contact if: you have a fever, temperature is above 101, your pain is not controlled, your pain is worsening, your pain is unusual for you, your pain is concerning you, you have any medication questions . . "Provider Documentation" section prepared by Saman Santiago. . VTE Core Measure Inpt VTE Proph given/why not?: SCD's [place] Drug Monitoring Program Search Results: patient reviewed within database, see additional documentation (last narcotic Rx Jun 2016 via ER, regular tramadol)
--- NOTE | 2016-09-06 11:33 | [facility] Post Operative Brief Note ---
Immediate Operative Summary Operative Date Sep 06, 2016. Pre-Operative Diagnosis Left Renal Calculi Post-Operative Diagnosis Same Procedure(s) Performed Left Extracorporeal Shock Wave Lithotripsy Surgeon Dr. Madian Santiago Home Demonstrator Surgeon(s) None Estimated Blood Loss 0 Findings Good stone fragmentation on fluoro Specimens 0 Drains NA Anesthesia [facility] Complication(s) None Disposition Recovery Room / PACU
--- NOTE | 2016-09-06 11:35 | [facility] Operative Report ---
Operative Report Operative Date Sep 06, 2016. Pre-Operative Diagnosis Left Renal Calculi Post-Operative Diagnosis Same Procedure(s) Performed Left Extracorporeal Shock Wave Lithotripsy Surgeon Dr. Madina Santiago Government Relations Manager Surgeon(s) None Estimated Blood Loss 0 Findings Good fragmentation of lower pole renal stones Specimens 0 Drains NA Anesthesia [facility] Complication(s) None Disposition Recovery Room / PACU Indications Left renal stones Description of Procedure : The patient was brought to the litho suite. He was correctly identified and the stone was visualized on his most recent x-rays. After the correct time out was performed the patient was positioned over the therapy head. An adequate level of anesthesia was administered. The extracorporeal shockwave lithotripsy treatment was then commenced. Please see the [facility] sheet for complete treatment summary. After completion of the procedure the patient was taken to the recovery room in stable condition. I attest to the content of the Intraoperative Record and any orders documented therein. Any exceptions are noted below.
[2016-09-06 12:00] VITALS: TEMP 37
[2016-09-06 12:24] VITALS: BP 117/71; PULSE 66; O2SAT 95
--- NOTE | 2016-09-06 12:31 | Anesthesia Progress Nt - [facility] ---
Anesthesia Post Op Note Date & Time Sep 06, 2016 at 12:31 Vital Signs Pain Intensity: 0 Vital Signs Past 12 Hours Date Time Temp Pulse Resp B/P (MAP) Pulse Ox O2 Delivery O2 Flow Rate FiO2 09/06/16 12:24 66 16 117/71 (86) 94 Room Air 09/06/16 12:00 37.0 72 16 112/70 (84) 94 Room Air 09/06/16 11:56 120/66 09/06/16 11:55 36.9 14 93 Room Air 09/06/16 11:52 69 13 09/06/16 11:52 69 13 93 09/06/16 11:51 69 13 115/66 93 09/06/16 11:51 69 13 09/06/16 11:46 72 14 91 09/06/16 11:46 72 14 09/06/16 11:45 124/72 09/06/16 11:43 76 14 09/06/16 11:43 76 14 94 09/06/16 11:41 106/58 09/06/16 11:38 78 15 09/06/16 11:38 77 15 97 09/06/16 11:35 137/71 09/06/16 11:34 124/74 09/06/16 11:33 36.5 78 16 124/74 98 Mask 6 09/06/16 09:11 132/65 (87) 09/06/16 08:36 36.7 65 18 181/117 (138) 94 Room Air Notes Mental Status: alert / awake / arousable, participated in evaluation Pt Amnestic to Procedure: Yes Nausea / Vomiting: adequately controlled Pain: adequately controlled Airway Patency, RR, SpO2: stable & adequate BP & HR: stable & adequate Hydration State: stable & adequate Anesthetic Complications: no major complications apparent
== END | disposition home or self-care (01) ==
LOC: X.SURG 08:25
PROVIDERS: ATTEND Urology
DX: N20.0 Calculus of kidney (principal); M19.90 Unspecified osteoarthritis, unspecified site; E66.01 Morbid (severe) obesity due to excess calories; I10 Essential (primary) hypertension; M81.0 Age-related osteoporosis without current pathological fracture; E11.42 Type 2 diabetes mellitus with diabetic polyneuropathy; I48.0 Paroxysmal atrial fibrillation; Z98.84 Bariatric surgery status; Z86.73 Personal history of transient ischemic attack (TIA), and cerebral infarction without residual deficits; Z90.710 Acquired absence of both cervix and uterus; Z79.01 Long term (current) use of anticoagulants

== ENCOUNTER → 2016-09-15 | Outpatient (CLI) | payer BC ==
[~2016-09-15] MED LIST changes: -ATROPINE SULFATE 0.1 MG/ML 5ML SYR IV PRN; -CIPROFLOXACIN 400MG / D5W IV SCH; -DEXAMETHASONE SOD INJ 4 MG/ML VIAL IV PRN; -DEXAMETHASONE SOD INJ 4 MG/ML VIAL ONE; -EpHEDrine SULFATE INJ 50 MG/ML AMP IV PRN; -EpHEDrine SULFATE INJ 50 MG/ML AMP ONE; -FENTANYL CITRATE INJ 50 MCG/1 ML 2 ML VIAL IV PRN; -FENTANYL CITRATE INJ 50 MCG/1 ML 2 ML VIAL ONE; -KETOROLAC TROMETHAMINE 30 MG/ML VIAL IV. PRN; -LABETALOL HCL IV 5 MG/ML 20ML IV PRN; -LACTATED RINGER'S 1000ML 1,000 ML IV SCH; -LIDOCAINE HCL 2% 2 ML VIAL (20MG/ML) ONE; -METOCLOPRAMIDE HCL INJ 5 MG/ML 2 ML VIAL IV PRN; -MIDAZOLAM HCL 1 MG/ML 2ML VIAL ONE; -MoRPHine SULFATE 10 MG/ML CARP/VIAL IV PRN; -ONDANSETRON INJ 2 MG/ML 2 ML VIAL IV PRN; -ONDANSETRON INJ 2 MG/ML 2 ML VIAL ONE; -OXYCODONE/ACETAMINOPHEN 5-325 TAB PO PRN; -PHENYLEPHRINE 100MCG/ML 5ML SYR IV PRN; -PROPOFOL IV EMULSION 10 MG/ML 20 ML VIAL IV ONE; -SODIUM CHLORIDE 0.9% INJ 10 ML VIAL ONE
--- NOTE | 2016-09-15 19:39 | DIAGNOSTIC IMAGING REPORT ---
KUB CLINICAL HISTORY: N20.0 Nephrolithiasis COMPARISON STUDY: 09/05/2016 FINDINGS: Persistent increase in bowel content consistent with fecal stasis. Distention appears described is considerably diminished and/or complex resolved. Mild reactive ileus. Due to the extensive overlying bowel content accurate evaluation of nephrocalcinosis is not possible. IMPRESSION: 1. Extensive fecal material throughout the colon effectively obscuring the kidneys. 2. Considerable fecal load throughout the colon consistent with fecal stasis. 3. Mild nonobstructive ileus. The above report was generated using voice recognition software. It may contain grammatical, syntax or spelling errors. Electronically signed by: Luis Villegas M.D. 09/15/2016 7:38 PM Dictated Date/Time: 09/15/2016 7:36 PM
== END ==
LOC: C.RAD 19:08
PROVIDERS: ATTEND Nurse Practitioner Adult Health
DX: N20.0 Calculus of kidney (principal)

== ENCOUNTER → 2016-09-16 | Outpatient (CLI) | payer BC | END | disposition home or self-care (01) | LOC: C.LABSPEC 11:03 | PROVIDERS: ATTEND Nurse Practitioner Adult Health | DX: N20.1 Calculus of ureter (principal) ==

== ENCOUNTER → 2016-09-23 | Outpatient (CLI) | payer BC ==
[~2016-09-23] MED LIST changes: +OPTIRAY 300 IV PRN
--- NOTE | 2016-09-23 17:56 | DIAGNOSTIC IMAGING REPORT ---
IVP CLINICAL HISTORY: Left ureteral calculus. COMPARISON STUDY: IVP December 15, 2015, CT of the abdomen and pelvis June 12, 2016 and KUB September 15, 2016. TECHNIQUE: Injury, document preparer microfilming KUB was obtained. Intravenous pyelogram was then performed following intravenous injection of 100 cc of Optiray 300. FINDINGS: Manager Quality images demonstrate innumerable left renal calculi that measure up to 8 mm. No ureteral calculi are identified on this exam. Pelvic calcifications are unchanged and reflect phleboliths. There is no hydronephrosis or hydroureter. This study is compromised by suboptimal penetration. There is a suspected 4 mm right renal calculus. No upper tract filling defects are identified. Bladder is suboptimally assessed on this exam but no post void residual was noted. IMPRESSION: 1. Extensive left-sided nephrolithiasis and a 4 mm right renal calculus. No ureteral calculi identified. 2. No hydronephrosis or hydroureter. Electronically signed by: Zaire Mcduffie M.D. 09/23/2016 5:55 PM Dictated Date/Time: 09/23/2016 3:24 PM
== END | disposition home or self-care (01) ==
LOC: C.RAD 13:54
PROVIDERS: ATTEND Nurse Practitioner Adult Health
DX: N20.0 Calculus of kidney (principal)

== ENCOUNTER → 2017-01-06 | Outpatient (CLI) | payer BC ==
[~2017-01-06] MED LIST changes: -OPTIRAY 300 IV PRN
[2017-01-06 17:59] LABS: BASO % 0.6 %; BASO ABS # 0.03 K/uL (0-0.2); COMPLETE YES; EOS % 2.8 %; HEMATOCRIT 41.8 % (37-47); LYMPH % 28.3 %; LYMPH ABS # 1.39 K/uL (1.2-3.4); MEAN CELL VOLUME 100.5 fL (80-100); MEAN CORPUSCULAR HEMOGLOBIN 34.4 pg (25-34); MEAN CORPUSCULAR HGB CONC 34.2 g/dl (32-36); MEAN PLATELET VOLUME 10.7 fL (7.4-10.4); MONO % 9.3 %; PLATELET COUNT 142 K/uL (130-400); RED BLOOD COUNT 4.16 M/uL (4.2-5.4); WHITE BLOOD COUNT 4.92 K/uL (4.8-10.8)
[2017-01-06 18:08] LABS: ALT/SGPT 27 U/L (12-78); AST/SGOT 21 U/L (15-37); BLOOD UREA NITROGEN 20 mg/dl (7-18); BUN/CREATININE RATIO 21.5 (10-20); CARBON DIOXIDE 27 mmol/L (21-32); CHLORIDE 108 mmol/L (98-107); CREATININE 0.93 mg/dl (0.60-1.20); GLUCOSE 108 mg/dl (70-99); POTASSIUM 3.8 mmol/L (3.5-5.1); SODIUM 141 mmol/L (136-145)
[2017-01-06 18:11] LABS: ALB/GLOB RATIO 0.9 (0.9-2); ALKALINE PHOSPHATASE 88 U/L (45-117); CHOLESTEROL 133 mg/dl (0-200); HDL CHOLESTEROL 45 mg/dl; LDL CHOLESTEROL CALCULATED 68 mg/dl; TRIGLYCERIDES 98 mg/dl (0-150); VERY LOW DENSITY LIPOPROT CALC 20 mg/dl
== END | disposition home or self-care (01) ==
LOC: C.LABBFT 15:00
PROVIDERS: ATTEND Nurse Practitioner
DX: Z11.59 Encounter for screening for other viral diseases (principal); N20.0 Calculus of kidney; R73.01 Impaired fasting glucose; K90.9 Intestinal malabsorption, unspecified

== ENCOUNTER → 2017-02-20 | Outpatient (CLI) | payer BC ==
[2017-02-20 16:34] LABS: CALCIUM 9.1 mg/dl (8.5-10.1)
[2017-02-20 16:45] LABS: CALCIUM URINE 16.9 mg/dl
[2017-02-25 17:16] LABS: ALBUMIN 3.5 G/DL (3.8-4.8); GAMMA GLOBULIN 1.2 G/DL (0.8-1.7); TOTAL PROTEIN 6.5 G/DL (6.2-8.3)
== END | disposition home or self-care (01) ==
LOC: C.LAB1850 15:09
PROVIDERS: ATTEND Internal Medicine Rheumatology
DX: M81.0 Age-related osteoporosis without current pathological fracture (principal); E55.9 Vitamin D deficiency, unspecified; Z87.81 Personal history of (healed) traumatic fracture; K91.89 Other postprocedural complications and disorders of digestive system

== ENCOUNTER → 2017-03-20 | Outpatient (CLI) | payer BC ==
[~2017-03-20] MED LIST changes: -OXYC7.5T65 PO
--- NOTE | 2017-03-20 15:07 | DIAGNOSTIC IMAGING REPORT ---
KUB HISTORY: N39.0 UTI (urinary tract infection)[id number] COMPARISON: KUB 09/15/2016. FINDINGS: Distended loop of bowel within the midabdomen. This measures up to 12 cm in diameter. This was demonstrated to be focal distention of the sigmoid colon on the 06/12/[address] and is similar in appearance. Large amount of well-formed stool seen throughout the colon rectum, unchanged. Multiple left renal calculi which are partially obscured by the overlying bowel. The right kidney is most obscured by overlying bowel. No definite right renal or ureteral calculi identified. Multiple pelvic calcifications remain unchanged and likely represent phleboliths. No pneumoperitoneum or pneumatosis. IMPRESSION: 1. Left-sided nephrolithiasis is again noted. No ureteral calculi identified. 2. Distended loop of large bowel within the midabdomen consistent with the sigmoid colon. This is similar to the most recent abdomen and pelvis CT. 3. Large amount well-formed stool seen throughout the colon and rectum. Electronically signed by: Luis Parada M.D. 03/20/2017 3:05 PM Dictated Date/Time: 03/20/2017 2:59 PM
== END | disposition home or self-care (01) ==
LOC: C.RAD 14:42
PROVIDERS: ATTEND Urology
DX: N39.0 Urinary tract infection, site not specified (principal); N20.0 Calculus of kidney

== ENCOUNTER → 2017-05-28 | Outpatient (CLI) | payer BC ==
[2017-05-28 16:44] LABS: HEMOGLOBIN A1C 5.1 % (4.5-5.6)
[2017-05-28 17:08] LABS: HEMOGLOBIN 14.3 g/dL (12.0-16.0); MEAN CELL VOLUME 98.6 fL (80-100); MEAN CORPUSCULAR HEMOGLOBIN 33.6 pg (25-34); MEAN PLATELET VOLUME 10.2 fL (7.4-10.4); PLATELET COUNT 114 K/uL (130-400); RED CELL DISTRIBUTION WIDTH CV 14.2 % (11.5-14.5); RED CELL DISTRIBUTION WIDTH SD 50.5 fL (36.4-46.3); WHITE BLOOD COUNT 4.48 K/uL (4.8-10.8)
[2017-05-28 17:34] LABS: ALBUMIN 3.4 gm/dl (3.4-5.0); ALT/SGPT 25 U/L (12-78); BLOOD UREA NITROGEN 17 mg/dl (7-18); CALCIUM 8.8 mg/dl (8.5-10.1); CARBON DIOXIDE 29 mmol/L (21-32); CHOLESTEROL 154 mg/dl (0-200); CREATININE 0.82 mg/dl (0.60-1.20); GLUCOSE 107 mg/dl (70-99); SODIUM 139 mmol/L (136-145)
[2017-05-28 17:38] LABS: ALKALINE PHOSPHATASE 80 U/L (45-117); AST/SGOT 23 U/L (15-37); LDL CHOLESTEROL CALCULATED 87 mg/dl; TOTAL PROTEIN 7.3 gm/dl (6.4-8.2)
== END | disposition home or self-care (01) ==
LOC: C.LAB1850 15:56
PROVIDERS: ATTEND Nurse Practitioner
DX: E55.9 Vitamin D deficiency, unspecified (principal); R73.01 Impaired fasting glucose; D69.6 Thrombocytopenia, unspecified; I10 Essential (primary) hypertension

== ENCOUNTER → 2017-06-26 | Outpatient (CLI) | payer BC | END | disposition home or self-care (01) | LOC: C.LABSPEC 16:46 | PROVIDERS: ATTEND Urology | DX: N39.0 Urinary tract infection, site not specified (principal) ==

== ENCOUNTER 2020-06-12 03:30 | Inpatient (IN) ==
[2020-06-12] MEDS ORDERED: SODIUM CHLORIDE 0.9% 1000ML 1,000 ML IV ONE ×3 (03:38→04:55)
--- NOTE | 2020-06-12 03:45 | Emergency Department Note ---
Impression & Plan Septic shock, Acute UTI (urinary tract infection), Lactic acidosis, Atrial fibrillation with RVR ED Provider Note Name: LAURA EVANS Age: 74 Sex: F Arrives Via: Ambulance Informant: Patient, EMS, ED Provider: Pablito Gay MD Chief Complaint: AMS Impression: Septic Shock Acute UTI Lactic Acidosis Atrial Fibrillation with RVR Medical Decision Makin yr old female with history afib on coumadin, previous cva, htn, neuropathy amongst others arrives for evaluation of worsening confusion since 5pm yesterday. Feels febrile though no fever on initial check. Is quite tachy and irregular on arrival. Per concern she did not take her evening medications. As presenting with high concern for sepsis blood cultures and lactate obtained while IV fluids started. Initially 1 L given and with OK BP given 5mg IV lopressor which brought HR down to 120s and patient immediately much more conversant and interactive. Sent to CT where head negative for acute findings. On return from CT HR starting to come back up, thus further fluids ordered. Bp started trending down and around this time Lactic Acid returned significantly elevated. Broad spectrum abx ordered along with a 3rd L NSS bolus. Known CHF but in setting of septic shock and dehydrated by exam felt this was necessary. Given the patients BMI >30, IBW was used to calculate the primary 30ml/kg fluid bolus and further fluids added to continue resuscitation. BP starting to trend up a bit and HR stable in 110s-120s irregular. Trop positive likely secondary to sepsis rather than primary acs at this time. Patient without chest pain and is not significantly short of breath. Per patient and she passed a kidney stone last week. States she has had no back nor flank pain since. She has no pain currently. Her abdominal exam is benign without peritonitis. No nuchal rigidity and I do not feel LP indicated at this time. Previously mentioned buttock ulcer being followed in clinic does not seem to be factor at this time. While awaiting admission patient started complaining of back pain for which I ordered CT abd/pel wo con. On my review of CT it appears there is a left ureteral obstructing stone. I contacted [facility] to make them aware of findings and the likely need for Urology evaluation once final read CT completed. Prior Medical Record and Triage/Nursing Notes reviewed by Me Additional history obtained from chart Differentials:Viral syndrome, otitis, pharyngitis, pneumonia, influenza, meningitis, urinary tract infection, sepsis, bacteremia, as well as other pathologies. Vital Signs: reviewed and remarkable for febrile, tachy Interventions: Saline lock, nss bolus, cefepime iv, vanco iv, lopressor iv Labs:Reviewed and remarkable for lactic acidosis, ua dirty Imaging:X ray results are stated below per my interpretation: Chest: 1 view: possible infiltrate RLL, no effusion, enlarged cardiac border. EKG:Per My Interpretation: Indication AMS: Afib RVR [address] abnormalities, qtc 499. EKG from 08/30/16 there is acute changes with previous being NSR. Cardiac/Tele Monitoring: Cardiac Monitoring: An Order was placed for continuous cardiac monitoring. The monitor shows a rate of 120 with an afib rhythm. Consults:Dr Mekhi ALVARADO hospitalist Zachary from [facility] team aware of critically ill patient. Plan: Disposition:Hospitalization. Condition: Critically ill History of Present Illness:74 yr old female arrives for evaluation of ams. 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 Continued confusion throughout the night thus called 911 due to no improvement. Patient may have fallen earlier while using walker b ut this was after confusion started. She was noted to be febrile and tachycardic for EMS without hypoxia. Patient is known to be on coumadin and metoprolol, though no meds CAR STORER reported. Unknown if any sick contacts. ROS patient states everything is positive and I am unable to get proper ROS comp leted. ROS: Unable to obtain as all systems positive on discussion and patient is confused. Past Medical History:Paroxysmal Afib, Chronic pain, htn, stroke, kidney stones, neuropathy Past Surgical History:See Below Family History:See Below Social History:See Below Home Medications:See Below Allergies:adhesive, alendronate, latex Vitals:Blood Pressure: 120/60, Pulse 146, RR 20, T 36.7C, O2 95% on 2L NC Physical Exam: GENERAL: Patient is chronically unwell appearing and in mild distress. Periodically moaning loudly though unclear why or where uncomfortable. Warm to touch EYES: No scleral icterus, unremarkable pupils. ENT: Mucous membranes moist, no nasal congestion. NECK: No masses appreciated, nomeningismus, trachea is midline. RESPIRATORY: No dyspnea. Clear to auscultation and equal bilaterally. No wheeze, no rhonchi. CARDIOVASCULAR: Irregular.No murmurs, rubs, gallops appreciated. GASTROINTESTINAL: Extensive old scarring. Abdomen soft, non-tender, no peritonitis.Bowel sounds positive.No masses appreciated. : Large amount of stool throughout perineal area. BACK: No midline tenderness, no CVA tenderness EXTREMITIES: Normal motion all extremities, no cyanosis, no edema. NEUROLOGIC: Confused, periodically yelling out, says yes to everything, no acute motor or sensory deficits, no focal weakness, cranial nerves grossly intact. SKIN: No rash, no jaundice, no diaphoresis. PSYCH: Confused GCS: 14 ED Course: Times/Reassessments: multiple bedside evaluations, patient vastly improved with initial fluids/Lopressor, though after some time BP started trending down, further fluids initiated with broad spectrum abx Critical Care: I have personally spent 45 minutes of critical care time in the direct management of this patient. Septic Shock with afib RVR, hypotension and lactic acidosis. This was a life/limb threatening event. This 45 minutes is in excess of all separately billable procedures. Pablito Gay MD Past Med/Surg History Medical History (Updated 06/12/20 @ 09:19 by Lizette Churchill MD) Anticoagulant long-term use Atrial fibrillation with RVR Hypertension Incontinence of urine Lactic acidosis Paroxysmal atrial fibrillation Septic shock Stroke x2. both 10 years ago. pt w/ intermittent numbness to right hand. no neurologist. Ureteral stone with hydronephrosis Surgical History History of colonoscopy w/ polypectomy History of dilatation and curettage History of gastric bypass History of hysterectomy History of surgery right leg r/t femur injury History of total knee replacement rt knee History of total shoulder replacement left Hx of cataract surgery right Family History Grandfather Family history of diabetes mellitus Daughter Family history of esophageal cancer Other Coronary heart disease Ovarian cancer Denies family history of Prostate cancer Lung cancer Colorectal cancer Social History Smoking Status: Never smoker Second Hand Exposure: No; Hx Alcohol Use: No Hx Substance Use: No Preferred Language: Marshallese Communication Ability: Effective Vegetable Grader Required: No Beliefs That Will Affect Care: None Current Living Situation: Spouse Feels Safe at Home: Yes Seatbelt Use: always Assistive Devices: Oxygen - Continuous Allergies Allergies Allergy/AdvReac Type Severity Reaction Status Date / Time adhesive Allergy Intermediate RASH, Verified 05/25/20 15:10 BLISTERING alendronate sodium Allergy Unknown SICK TO Verified 05/25/20 15:10 STOMACH latex Allergy Unknown SKIN Verified 05/25/20 15:10 TEARING Home Meds Home Medications Medication Instructions Recorded Confirmed cyanocobalamin (vitamin B-12) 1,000 mcg PO QAM 01/19/18 05/25/20 [Vitamin B-12] denosumab [Prolia] 1 dose SUBCUT UD 01/19/18 05/25/20 multivitamin 1 tab PO QAM 01/19/18 05/25/20 acetaminophen 500 mg tablet 1,000 mg PO TID tab 10/07/18 05/25/20 cholecalciferol (vitamin D3) 50 2,000 unit PO DAILY tab 10/07/18 05/25/20 mcg (2,000 unit) tablet nystatin-triamcinolone 100,000 1 appln TOPICAL BID PRN #1 gm 01/25/19 05/25/20 unit/g-0.1 % topical cream warfarin 5 mg tablet 5 mg PO QPM 04/13/19 05/25/20 Previous Rx's Medication Instructions Recorded doxepin 25 mg capsule See Rx Instructions PO HS PRN #180 01/25/19 cap metoprolol tartrate 50 mg tablet 50 mg PO BID #180 tab 07/06/19 warfarin 5 mg tablet 5 mg PO DAILY #100 tab 07/06/19 menthol 0.44 %-zinc oxide 20.6 % 1 applic TOPICAL QID PRN #71 g 11/03/19 topical ointment furosemide 20 mg tablet 20 mg PO DAILY PRN #90 tab 02/22/20 nystatin 100,000 unit/gram topical See Rx Instructions TOPICAL DAILY 02/22/20 powder #60 g acetaminophen 300 mg-codeine 30 mg See Rx Instructions PO Q6H PRN 03/21/20 tablet #240 tab gabapentin 300 mg capsule 300 mg PO QPM #90 cap 05/03/20 Results & Data (ED) Vital Signs Vital Signs - 24 hr 06/12/20 03:49 06/12/20 03:54 06/12/20 04:23 Temperature 36.7 C Temperature Source Oral Pulse Rate 148 H Pulse Rate [Bilateral Apical] 121 H Respiratory Rate 20 20 Blood Pressure 126/66 Blood Pressure [Left Arm] 105/48 L Blood Pressure Mean 86 Blood Pressure Mean [Left Arm] 67 Blood Pressure Position Lying Pulse Oximetry 90 94 93 Oxygen Delivery Method Room Air Nasal Cannula Nasal Cannula Oxygen Flow Rate 2 Sepsis Recent Fever Within 48 Hours No Sepsis New/Unexplained Change in Mental Status N/A Sepsis Action Taken by Nursing No Action Required 06/12/20 04:50 06/12/20 05:14 06/12/20 05:20 Temperature Temperature Source Pulse Rate Pulse Rate [Bilateral Apical] 122 H 120 H 120 H Respiratory Rate 20 20 20 Blood Pressure Blood Pressure [Left Arm] 77/59 L 82/56 L 82/52 L Blood Pressure Mean Blood Pressure Mean [Left Arm] 65 64 62 Blood Pressure Position Pulse Oximetry 96 95 96 Oxygen Delivery Method Nasal Cannula Nasal Cannula Nasal Cannula Oxygen Flow Rate 2 2 2 Sepsis Recent Fever Within 48 Hours Sepsis New/Unexplained Change in Mental Status Sepsis Action Taken by Nursing 06/12/20 05:43 Temperature Temperature Source Pulse Rate Pulse Rate [Bilateral Apical] 122 H Respiratory Rate 20 Blood Pressure Blood Pressure [Left Arm] 82/59 L Blood Pressure Mean Blood Pressure Mean [Left Arm] 66 Blood Pressure Position Pulse Oximetry 96 Oxygen Delivery Method Nasal Cannula Oxygen Flow Rate Sepsis Recent Fever Within 48 Hours Sepsis New/Unexplained Change in Mental Status Sepsis Action Taken by Nursing Laboratory Data Result diagrams: 06/12/20 04:11 06/12/20 15:48 Lab Results 06/12/20 06/12/20 06/12/20 Range/Units 03:45 03:45 04:11 WBC (4.8-10.8) K/uL RBC (4.2-5.4) M/uL Hgb (12.0-16.0) g/dL Hct (37-47) % MCV (80-100) fL MCH (25-34) pg MCHC (32-36) g/dL RDW Std Deviation (36.4-46.3) fL RDW Coeff of Sonia (11.5-14.5) % Plt Count (130-400) K/uL MPV (7.4-10.4) fL Immature Gran % (Auto) % Neut % (Auto) % Lymph % (Auto) % Jones % (Auto) % Eos % (Auto) % Baso % (Auto) % Neut # (Auto) (1.4-6.5) K/uL Lymph # (Auto) (1.2-3.4) K/uL Jones # (Auto) (0.11-0.59) K/uL Eos # (Auto) (0-0.5) K/uL Baso # (Auto) (0-0.2) K/uL Immature Gran # (Auto) (0.00-0.02) K/uL Platelet Estimate (Normal) RBC Morphology Peripher Smr Path Cons PT (9.0-12.0) Seconds INR (0.9-1.1) Sodium (136-145) mmol/L Potassium (3.5-5.1) mmol/L Chloride (98-107) mmol/L Carbon Dioxide (21-32) mmol/L Anion Gap (3-11) BUN (7-18) mg/dl Creatinine (0.6-1.2) mg/dl Est Cr Clr Drug Dosing ml/min Est GFR ( Amer) Est GFR (Non-Af Amer) BUN/Creatinine Ratio (10-20) Glucose (70-99) mg/dl Lactate 6.5 H* (0.4-2.0) mmol/L Calcium (8.5-10.1) mg/dl Magnesium (1.8-2.4) mg/dl Total Bilirubin (0.2-1) mg/dl Direct Bilirubin (0-0.2) mg/dl AST (15-37) U/L ALT (12-78) U/L Alkaline Phosphatase (45-117) U/L Troponin I (0-0.045) ng/ml Total Protein (6.4-8.2) gm/dl Albumin (3.4-5.0) gm/dl Lipase (73-393) U/L Procalcitonin (0-0.5) ng/ml COVID-19 Eval Order [facility]Rsv at [facility] SARS-CoV-2 (PCR) NEGATIVE (Negative) Influenza Type A (PCR) Negative (Neg) Influenza Type B (PCR) Negative (Neg) RSV (RT-PCR) Negative (Neg) 06/12/20 06/12/20 06/12/20 Range/Units 04:11 04:11 04:11 WBC 13.90 H (4.8-10.8) K/uL RBC 4.54 (4.2-5.4) M/uL Hgb 15.6 (12.0-16.0) g/dL Hct 45.1 (37-47) % MCV 99.3 (80-100) fL MCH 34.4 H (25-34) pg MCHC 34.6 (32-36) g/dL RDW Std Deviation 51.7 H (36.4-46.3) fL RDW Coeff of Sonia 14.4 (11.5-14.5) % Plt Count 79 L (130-400) K/uL MPV 10.7 H (7.4-10.4) fL Immature Gran % (Auto) 0.4 % Neut % (Auto) 95.1 % Lymph % (Auto) 1.4 % Jones % (Auto) 3.1 % Eos % (Auto) 0.0 % Baso % (Auto) 0.0 % Neut # (Auto) 13.22 H (1.4-6.5) K/uL Lymph # (Auto) 0.19 L (1.2-3.4) K/uL Jones # (Auto) 0.43 (0.11-0.59) K/uL Eos # (Auto) 0.00 (0-0.5) K/uL Baso # (Auto) 0.00 (0-0.2) K/uL Immature Gran # (Auto) 0.06 H (0.00-0.02) K/uL Platelet Estimate Decreased L (Normal) RBC Morphology Unremarkable Peripher Smr Path Cons PT 28.7 H (9.0-12.0) Seconds INR 3.1 H (0.9-1.1) Sodium 141 (136-145) mmol/L Potassium 3.4 L (3.5-5.1) mmol/L Chloride 108 H (98-107) mmol/L Carbon Dioxide 23 (21-32) mmol/L Anion Gap 10.0 (3-11) BUN 26 H (7-18) mg/dl Creatinine 1.54 H (0.6-1.2) mg/dl Est Cr Clr Drug Dosing 41.9 ml/min Est GFR ( Amer) 38.7 Est GFR (Non-Af Amer) 33.4 BUN/Creatinine Ratio 17.2 (10-20) Glucose 164 H (70-99) mg/dl Lactate (0.4-2.0) mmol/L Calcium 8.4 L (8.5-10.1) mg/dl Magnesium 1.6 L (1.8-2.4) mg/dl Total Bilirubin 1.3 H (0.2-1) mg/dl Direct Bilirubin 0.5 H (0-0.2) mg/dl AST 49 H (15-37) U/L ALT 29 (12-78) U/L Alkaline Phosphatase 69 (45-117) U/L Troponin I 0.187 H* (0-0.045) ng/ml Total Protein 7.3 (6.4-8.2) gm/dl Albumin 3.2 L (3.4-5.0) gm/dl Lipase 68 L (73-393) U/L Procalcitonin (0-0.5) ng/ml COVID-19 Eval Order SARS-CoV-2 (PCR) (Negative) Influenza Type A (PCR) (Neg) Influenza Type B (PCR) (Neg) RSV (RT-PCR) (Neg) 06/12/20 06/12/20 Range/Units 04:11 05:55 WBC (4.8-10.8) K/uL RBC (4.2-5.4) M/uL Hgb (12.0-16.0) g/dL Hct (37-47) % MCV (80-100) fL MCH (25-34) pg MCHC (32-36) g/dL RDW Std Deviation (36.4-46.3) fL RDW Coeff of Sonia (11.5-14.5) % Plt Count (130-400) K/uL MPV (7.4-10.4) fL Immature Gran % (Auto) % Neut % (Auto) % Lymph % (Auto) % Jones % (Auto) % Eos % (Auto) % Baso % (Auto) % Neut # (Auto) (1.4-6.5) K/uL Lymph # (Auto) (1.2-3.4) K/uL Jones # (Auto) (0.11-0.59) K/uL Eos # (Auto) (0-0.5) K/uL Baso # (Auto) (0-0.2) K/uL Immature Gran # (Auto) (0.00-0.02) K/uL Platelet Estimate (Normal) RBC Morphology Peripher Smr Path Cons PT (9.0-12.0) Seconds INR (0.9-1.1) Sodium (136-145) mmol/L Potassium (3.5-5.1) mmol/L Chloride (98-107) mmol/L Carbon Dioxide (21-32) mmol/L Anion Gap (3-11) BUN (7-18) mg/dl Creatinine (0.6-1.2) mg/dl Est Cr Clr Drug Dosing ml/min Est GFR ( Amer) Est GFR (Non-Af Amer) BUN/Creatinine Ratio (10-20) Glucose (70-99) mg/dl Lactate 4.1 H* (0.4-2.0) mmol/L Calcium (8.5-10.1) mg/dl Magnesium (1.8-2.4) mg/dl Total Bilirubin (0.2-1) mg/dl Direct Bilirubin (0-0.2) mg/dl AST (15-37) U/L ALT (12-78) U/L Alkaline Phosphatase (45-117) U/L Troponin I (0-0.045) ng/ml Total Protein (6.4-8.2) gm/dl Albumin (3.4-5.0) gm/dl Lipase (73-393) U/L Procalcitonin 19.20 H (0-0.5) ng/ml COVID-19 Eval Order SARS-CoV-2 (PCR) (Negative) Influenza Type A (PCR) (Neg) Influenza Type B (PCR) (Neg) RSV (RT-PCR) (Neg) Administered Medications Cyanocobalamin (Cyanocobalamin 500 Mcg Tablet (Vitamin B-12)) 1,000 mcg PO QAM MICHAEL Stop: 07/12/20 08:59 Last Admin: 06/12/20 09:00 Dose: Not Given Documented by: [id number] Gabapentin (Gabapentin 100 Mg Cap) 100 mg PO QPM MICHAEL Stop: 07/12/20 20:59 Last Admin: 06/12/20 19:49 Dose: Not Given Documented by: [id number] Norepinephrine Bitartrate (Levophed/D5w) 8 mg in 508 mls @ 24.003 mls/hr IV .[id number] MICHAEL; Protocol Stop: 07/12/20 06:14 Last Titration: 06/12/20 08:15 Dose: 0 mcg/kg/min, 0 mls/hr Documented by: [id number] Admin: 06/12/20 06:14 Dose: 0.05 mcg/kg/min, 24 mls/hr Documented by: [id number] Cosigned by: [id number] Piperacillin Sod/Tazobactam (Sod 4.5 gm/ Dextrose) 120 mls @ 30 mls/hr IV Q8H MICHAEL; Protocol Stop: 06/22/20 11:59 Last Infusion: 06/12/20 23:32 Dose: 0 mls/hr Documented by: [id number] Admin: 06/12/20 20:00 Dose: 30 mls/hr Documented by: [id number] Infusion: 06/12/20 16:37 Dose: 0 mls/hr Documented by: [id number] Admin: 06/12/20 12:34 Dose: 30 mls/hr Documented by: [id number] Parenteral Electrolytes (Normosol-R) 1,000 mls @ 100 mls/hr IV .Q10H MICHAEL Stop: 07/12/20 08:59 Last Admin: 06/12/20 20:00 Dose: 100 mls/hr Documented by: [id number] Infusion: 06/12/20 20:00 Dose: 100 mls/hr Documented by: [id number] Admin: 06/12/20 10:31 Dose: 100 mls/hr Documented by: [id number] Metoprolol Tartrate (Metoprolol Tartrate 25 Mg Tab) 25 mg PO BID MICHAEL Stop: 07/12/20 20:59 Last Admin: 06/12/20 19:48 Dose: Not Given Documented by: [id number] Multivitamins (Multivitamin Tab) 1 tab PO QAM MICHAEL Stop: 07/12/20 08:59 Last Admin: 06/12/20 09:00 Dose: Not Given Documented by: [id number] Nystatin (Nystatin Powder 15gm Btl) 1 appln EXT DAILY MICHAEL Stop: 07/12/20 08:59 Last Admin: 06/12/20 10:36 Dose: 1 appln Documented by: [id number] Ondansetron HCl (Ondansetron Inj 2 Mg/Ml 2 Ml Vial) 4 mg IV Q6H PRN PRN Reason: Nausea And Vomiting Stop: 07/12/20 17:16 Last Admin: 06/12/20 17:27 Dose: 4 mg Documented by: [id number] Vitamin D (Cholecalciferol 1,000 Units 25 Mcg Tab) 2,000 units PO DAILY MICHAEL Stop: 07/12/20 08:59 Last Admin: 06/12/20 09:00 Dose: Not Given Documented by: [id number] Discontinued Medications Sodium Chloride (Nss 1000ml) 1,000 mls @ 999 mls/hr IV .Q1H1M ONE Stop: 06/12/20 04:38 Last Infusion: 06/12/20 05:16 Dose: 0 mls/hr Documented by: [id number] Admin: 06/12/20 04:01 Dose: 999 mls/hr Documented by: [id number] Cefepime HCl (Maxipime) 2,000 mg in 20 mls @ 5 mls/min IV NOW STA Stop: 06/12/20 04:39 Last Admin: 06/12/20 04:46 Dose: 5 mls/min Documented by: [id number] Sodium Chloride (Nss 1000ml) 1,000 mls @ 999 mls/hr IV .Q1H1M ONE Stop: 06/12/20 05:43 Last Infusion: 06/12/20 05:44 Dose: 0 mls/hr Documented by: [id number] Admin: 06/12/20 04:49 Dose: 999 mls/hr Documented by: [id number] Sodium Chloride (Nss 1000ml) 1,000 mls @ 999 mls/hr IV .Q1H1M ONE Stop: 06/12/20 05:55 Last Infusion: 06/12/20 06:01 Dose: 0 mls/hr Documented by: [id number] Admin: 06/12/20 05:08 Dose: 999 mls/hr Documented by: [id number] Vancomycin HCl 2,500 mg/ (Sodium Chloride) 550 mls @ 180 mls/hr IV NOW ONE Stop: 06/12/20 08:03 Last Infusion: 06/12/20 08:57 Dose: 0 mls/hr Documented by: [id number] Admin: 06/12/20 05:10 Dose: 180 mls/hr Documented by: [id number] Acetaminophen (Ofirmev) 1,000 mg in 100 mls @ 400 mls/hr IV NOW STA Stop: 06/12/20 06:07 Last Infusion: 06/12/20 06:18 Dose: 0 mls/hr Documented by: [id number] Admin: 06/12/20 06:00 Dose: 400 mls/hr Documented by: [id number] Sodium Chloride (Nss 1000ml) 1,000 mls @ 125 mls/hr IV .Q8H MICHAEL Stop: 07/12/20 05:59 Last Infusion: 06/12/20 10:41 Dose: 0 mls/hr Documented by: [id number] Infusion: 06/12/20 08:58 Dose: 0 mls/hr Documented by: [id number] Admin: 06/12/20 06:00 Dose: 125 mls/hr Documented by: [id number] Magnesium Sulfate/Dextrose (Magnesium Sulfate / D5w) 1 gm in 100 mls @ 50 mls/hr IV Q2H MICHAEL Stop: 06/12/20 10:59 Last Infusion: 06/12/20 12:25 Dose: 0 mls/hr Documented by: [id number] Admin: 06/12/20 10:17 Dose: 50 mls/hr Documented by: [id number] Potassium Chloride (K Jeff / Wtr) 10 meq in 100 mls @ 100 mls/hr IV Q1H MICHAEL Stop: 06/12/20 08:44 Last Infusion: 06/12/20 11:25 Dose: 0 mls/hr Documented by: [id number] Admin: 06/12/20 10:17 Dose: 100 mls/hr Documented by: [id number] Potassium Chloride (K Jeff / Wtr) 10 meq in 100 mls @ 100 mls/hr IV ONE STA Stop: 06/12/20 07:40 Last Infusion: 06/12/20 10:36 Dose: 0 mls/hr Documented by: [id number] Admin: 06/12/20 08:10 Dose: 100 mls/hr Documented by: [id number] Magnesium Sulfate/Dextrose (Magnesium Sulfate / D5w) 1 gm in 100 mls @ 50 mls/hr IV ONE STA Stop: 06/12/20 08:41 Last Infusion: 06/12/20 10:42 Dose: 0 mls/hr Documented by: [id number] Admin: 06/12/20 08:11 Dose: 50 mls/hr Documented by: [id number] Sodium Chloride (Nss 1000ml) 1,000 mls @ 200 mls/hr IV .Q5H MICHAEL Stop: 07/12/20 07:38 Last Admin: 06/12/20 08:50 Dose: Not Given Documented by: [id number] Famotidine 20 mg/ Syringe 5 mls @ 2.5 mls/min IV Q12H ONE Stop: 06/12/20 08:01 Last Admin: 06/12/20 09:36 Dose: 2.5 mls/min Documented by: [id number] Sodium Chloride (Nss 1000ml) 500 mls @ 999 mls/hr IV .Q31M ONE Stop: 06/12/20 22:03 Last Infusion: 06/12/20 22:01 Dose: 0 mls/hr Documented by: [id number] Admin: 06/12/20 21:20 Dose: 999 mls/hr Documented by: [id number] Metoprolol Tartrate (Metoprolol Tartrate 1 Mg/Ml Vial) 5 mg IV NOW STA Stop: 06/12/20 03:48 Last Admin: 06/12/20 04:00 Dose: 5 mg Documented by: [id number] Metoprolol Tartrate (Metoprolol Tartrate 25 Mg Tab) 25 mg PO ONE ONE Stop: 06/12/20 13:42 Last Admin: 06/12/20 14:51 Dose: 25 mg Documented by: [id number] Piperacillin Sod/Tazobactam Sod (Piperacillin/Tazobactam 4.5 Gm/120ml D5w) Confirm Administered Dose 4.5 gm .ROUTE .STK-MED ONE Stop: 06/12/20 06:41 Last Admin: 06/12/20 06:41 Dose: 4.5 gm Documented by: [id number] Discharge Plan Visit Data Chief Complaint: Altered Mental Status Stated Complaint: ALTERED MENTAL STATUS ED Provider: Pablito Gay Discharge Problem: Septic shock, Acute UTI (urinary tract infection), Lactic acidosis, Atrial fibrillation with RVR Patient Disposition: Admitted As Inpatient Discharge Instructions Interventions: ED Discharge Assessment Last Done: 06/12/20 06:56
[2020-06-12] MEDS ORDERED: METOPROLOL TARTRATE 1 MG/ML VIAL IV STA (03:47)
[2020-06-12 03:58] LABS: Appearance Urine Cloudy (Clear); Bacteria Urine Automated 4+ (Negative); Bilirubin Urine Negative (Negative); Blood Urine 3+ (Negative); Color Urine Dark Yellow; Glucose Urine UA Negative (Negative); Ketones Urine 1+ (Negative); Leukocyte Esterase Urine Trace (Negative); Nitrite Urine Positive (Negative); Protein Urine 2+ (Negative); Specific Gravity Urine 1.022 (1.000-1.030); Urobilinogen Urine Negative (Negative)
[2020-06-12 04:30] LABS: Cast Urine Automated 0 /lpf (0-5)
[2020-06-12 04:31] LABS: INR 3.1 (0.9-1.1); Prothrombin Time 28.7 Seconds (9.0-12.0)
[2020-06-12] MEDS ORDERED: CEFEPIME 2,000 MG/20 ML VIAL IV STA (04:36)
[2020-06-12 04:39] LABS: Albumin Level 3.2 gm/dl (3.4-5.0); BUN Creatinine Ratio 17.2 (10-20); Bilirubin Direct 0.5 mg/dl (0-0.2); Calcium 8.4 mg/dl (8.5-10.1); Creatinine Clr Calc Pharmacy 41.9 ml/min; Est GFR (African American) 38.7; Est GFR (Non-African American) 33.4; Magnesium 1.6 mg/dl (1.8-2.4); Potassium 3.4 mmol/L (3.5-5.1)
[2020-06-12 04:42] LABS: Influenza A virus by PCR Negative (Neg); Influenza B virus by PCR Negative (Neg); RSV by PCR Negative (Neg); SARS CoV2 RNA(COVID-19) InHosp NEGATIVE (Negative)
[2020-06-12 04:45] LABS: Bilirubin,Total 1.3 mg/dl (0.2-1); Total Protein 7.3 gm/dl (6.4-8.2); Troponin I 0.187 ng/ml (0-0.045)
[2020-06-12] MEDS ORDERED: VANCOMYCIN CONSULT ACTIVE PRN ×2 (04:49→06:30)
[2020-06-12] MEDS ORDERED: VANCOMYCIN HCL 2,000 MG in SODIUM CHLORIDE 0.9% 500 ML IV ONE (04:49)
[2020-06-12 04:52] LABS: Hematocrit (blood only) 45.1 % (37-47); Hemoglobin 15.6 g/dL (12.0-16.0); Mean Corpuscular Hemoglobin 34.4 pg (25-34); Mean Corpuscular Hgb Conc 34.6 g/dL (32-36); Mean Corpuscular Volume 99.3 fL (80-100); Mean Platelet Volume 10.7 fL (7.4-10.4); Platelet Count 79 K/uL (130-400); RDW Coefficient of Variation 14.4 % (11.5-14.5); RDW Standard Deviation 51.7 fL (36.4-46.3); Red Blood Count 4.54 M/uL (4.2-5.4)
[2020-06-12 04:53] LABS: Immature Granulocytes # (auto) 0.06 K/uL (0.00-0.02); Immature Granulocytes % (auto) 0.4 %; Lymphocytes # (auto) 0.19 K/uL (1.2-3.4); Lymphocytes % (auto) 1.4 %; Monocytes # (auto) 0.43 K/uL (0.11-0.59); Monocytes % (auto) 3.1 %; Neutrophils # (auto) 13.22 K/uL (1.4-6.5); Neutrophils % (auto) 95.1 %; Platelet Estimate Decreased (Normal); RBC Morphology Unremarkable
[2020-06-12] MEDS ORDERED: VANCOMYCIN HCL 2,500 MG in SODIUM CHLORIDE 0.9% 500 ML IV ONE (05:00)
[2020-06-12] MEDS ORDERED: ACETAMINOPHEN 1,000 MG/100 ML VIAL IV STA (05:53)
[2020-06-12] MEDS ORDERED: SODIUM CHLORIDE 0.9% 1000ML 1,000 ML IV SCH ×2 (06:00→07:39)
[2020-06-12] MEDS ORDERED: STAT IV Infusion **Titration per Protocol STA (06:05)
[2020-06-12] MEDS: NOREPINEPHRINE/D5W 8 MG/508 ML BAG IV SCH (06:14)
[2020-06-12] MEDS ORDERED: PIPERACILL/TAZOBAC CONSULT ACTIVE PRN (06:30)
--- NOTE | 2020-06-12 06:31 | History & Physical Report ---
Date of Service June 12, 2020 Assessment & Plan (1) Septic shock: Septic shock/secondary to UTI/recent passage of kidney stone/admit to intensive care unit- Follow urine culture and sensitivities Follow blood culture and sensitivity received vancomycin IV and cefepime IV in ED. Admit on vancomycin IV and Zosyn IV per pharmacokinetic monitoring Received 2 L normal saline in the ED, will continue NSS at 200 mils per hour Levophed infusion being started in the ED Order CT of abdomen pelvis chest with possible additional kidney stones Consult eye care professional and staff Present on Admission?: Yes (2) Acute UTI (urinary tract infection): See above Present on Admission?: Yes (3) Atrial fibrillation with RVR: Hold metoprolol due to hypotension. Continue fluid resuscitation Give magnesium sulfate 2 g IV for magnesium 1.6 Give standard 10 mEq potassium chloride riders x2 for potassium 3.4. Monitor closely with creatinine 1.54, which should be okay after having received 2 L normal saline Present on Admission?: Yes (4) Impaired fasting glucose: Placed on ICU hyperglycemic protocol Present on Admission?: Yes (5) Hypertension: Holding all meds due to hypotension Present on Admission?: Yes (6) Anticoagulant long-term use: INR 3.1 upon admission. I want to repeat INR prior to dosing warfarin for the day, or would likely change to IV heparin Present on Admission?: Yes (7) Admitted to intensive care unit: See above Present on Admission?: Yes History of Present Illness Chief Complaint: The patient presents to the emergency department with her , with complaint of worsening confusion over the past 24 hours, passage of a kidney stone during the during that interval, and increased urinary frequency and abdominal/pelvic discomfort. Primary Care Provider: TEX Fountain The patient is a 74-year-old female with a past medical history including intertrigo, mild cognitive impairment, pressure ulcer, urinary incontinence, intestinal malabsorption, idiopathic peripheral neuropathy, impaired fasting glucose, nephrolithiasis, venous insufficiency, vitamin D deficiency, stroke, overactive bladder, osteoporosis, osteoarthritis, hypertension, atrial fibrillation, long-term use of anticoagulation, paroxysmal atrial fibrillation and shoulder DJD. She is reports that she not uncommonly will pass kidney stone, and did pass one earlier in the day prior to arrival in the ED. In the emergency department despite adequate fluid resuscitation with 2+ liters of IV fluid, patient systolic blood pressure dropped into the upper 70s low 80s, Levophed was started, and patient was taken to the ICU for further treatment Allergies Allergy/AdvReac Type Severity Reaction Status Date / Time adhesive Allergy Intermediate RASH, Verified 05/25/20 15:10 BLISTERING alendronate sodium Allergy Unknown SICK TO Verified 05/25/20 15:10 STOMACH latex Allergy Unknown SKIN Verified 05/25/20 15:10 TEARING Home Medications Medication Instructions Recorded Confirmed Type cyanocobalamin (vitamin B-12) 1,000 mcg PO QAM 01/19/18 05/25/20 History [Vitamin B-12] denosumab [Prolia] 1 dose SUBCUT UD 01/19/18 05/25/20 History multivitamin 1 tab PO QAM 01/19/18 05/25/20 History acetaminophen 500 mg tablet 1,000 mg PO TID tab 10/07/18 05/25/20 History cholecalciferol (vitamin D3) 50 2,000 unit PO DAILY tab 10/07/18 05/25/20 History mcg (2,000 unit) tablet doxepin 25 mg capsule See Rx Instructions PO HS PRN #180 01/25/19 05/25/20 Rx cap nystatin-triamcinolone 100,000 1 appln TOPICAL BID PRN #1 gm 01/25/19 05/25/20 History unit/g-0.1 % topical cream warfarin 5 mg tablet 5 mg PO QPM 04/13/19 05/25/20 History metoprolol tartrate 50 mg tablet 50 mg PO BID #180 tab 07/06/19 05/25/20 Rx warfarin 5 mg tablet 5 mg PO DAILY #100 tab 07/06/19 05/25/20 Rx menthol 0.44 %-zinc oxide 20.6 % 1 applic TOPICAL QID PRN #71 g 11/03/19 05/25/20 Rx topical ointment furosemide 20 mg tablet 20 mg PO DAILY PRN #90 tab 02/22/20 05/25/20 Rx nystatin 100,000 unit/gram topical See Rx Instructions TOPICAL DAILY 02/22/20 05/25/20 Rx powder #60 g acetaminophen 300 mg-codeine 30 mg See Rx Instructions PO Q6H PRN 03/21/20 05/25/20 Rx tablet #240 tab gabapentin 300 mg capsule 300 mg PO QPM #90 cap 05/03/20 05/25/20 Rx Past Med/Surg History Medical History (Updated 06/12/20 @ 06:34 by Samir Gaming MD) Incontinence of urine Stroke x2. both 10 years ago. pt w/ intermittent numbness to right hand. no neurologist. Surgical History History of colonoscopy w/ polypectomy History of dilatation and curettage History of gastric bypass History of hysterectomy History of surgery right leg r/t femur injury History of total knee replacement rt knee History of total shoulder replacement left Hx of cataract surgery right Family History (Updated 01/10/20 @ 15:25 by TEX Vasquez) Grandfather Family history of diabetes mellitus Daughter Family history of esophageal cancer Other Coronary heart disease Ovarian cancer Denies family history of Prostate cancer Lung cancer Colorectal cancer Social History Smoking Status: Never smoker Second Hand Exposure: No; Hx Alcohol Use: No Hx Substance Use: No Preferred Language: Turkish Communication Ability: Effective Pump Rebuilder Required: No Beliefs That Will Affect Care: None Current Living Situation: Spouse Feels Safe at Home: Yes Seatbelt Use: always Assistive Devices: Cane Review of Systems Review of Systems: The patient denies chest pain, palpitations, cough, lower extremity swelling, fevers, chills, sweats, nausea, vomiting, diarrhea , constipation, blood in urine or stool, lightheadedness, dizziness, headache, memory loss, loss of consciousness, rash, abnormal bruising or bleeding, focal weakness, numbness or tingling in arms or legs, generalized arthralgias or myalgias, back or neck pain, or night sweats. The review of systems is otherwise negative other than for that already noted above, and at least 10 systems have been reviewed. Physical Exam Physical Exam: The patient is awake, alert, responds slowly to questions, normocephalic and atraumatic, lying in bed and in no acute distress. HEENT--PERRL, EOMI, mucous membranes and oropharynx dry. Neck--supple. No JVD. No bruits. Thyroid normal, trachea midline, no adenopathy. Heart--normal S1 and S2. No murmurs, rubs or gallops. Lungs--decreased breath sounds throughout. No respiratory distress, no accessory muscle use. Abdomen--normal bowel sounds and soft. Nontender. Nondistended, morbidly obese Extremities--no cyanosis or clubbing. 1+ bilateral pretibial pitting edema. Dermatologic--scattered mild eczematous rash Neurologic--cranial nerves II through XII grossly intact. Rheumatologic-limited range of motion due to body habitus Psychiatric--normal affect. Results & Data Results & Data ([facility]) Vital Signs (Past 12 Hours) Vital Signs Temp Pulse Pulse Resp BP BP Pulse Ox 06/12/20 05:43 122 H 20 82/59 L 96 06/12/20 05:20 120 H 20 82/52 L 96 06/12/20 05:14 120 H 20 82/56 L 95 06/12/20 04:50 122 H 20 77/59 L 96 06/12/20 04:23 121 H 20 105/48 L 93 06/12/20 03:54 94 06/12/20 03:49 98.1 F 148 H 20 126/66 90 Laboratory Results Laboratory Results WBC 13.90 K/uL (4.8-10.8) H 06/12/20 04:11 RBC 4.54 M/uL (4.2-5.4) 06/12/20 04:11 Hgb 15.6 g/dL (12.0-16.0) 06/12/20 04:11 Hct 45.1 % (37-47) 06/12/20 04:11 MCV 99.3 fL (80-100) 06/12/20 04:11 MCH 34.4 pg (25-34) H 06/12/20 04:11 MCHC 34.6 g/dL (32-36) 06/12/20 04:11 RDW Std Deviation 51.7 fL (36.4-46.3) H 06/12/20 04:11 RDW Coeff of Sonia 14.4 % (11.5-14.5) 06/12/20 04:11 Plt Count 79 K/uL (130-400) L 06/12/20 04:11 MPV 10.7 fL (7.4-10.4) H 06/12/20 04:11 Immature Gran % (Auto) 0.4 % 06/12/20 04:11 Neut % (Auto) 95.1 % 06/12/20 04:11 Lymph % (Auto) 1.4 % 06/12/20 04:11 [place] % (Auto) 3.1 % 06/12/20 04:11 Eos % (Auto) 0.0 % 06/12/20 04:11 Baso % (Auto) 0.0 % 06/12/20 04:11 Neut # (Auto) 13.22 K/uL (1.4-6.5) H 06/12/20 04:11 Lymph # (Auto) 0.19 K/uL (1.2-3.4) L 06/12/20 04:11 [place] # (Auto) 0.43 K/uL (0.11-0.59) 06/12/20 04:11 Eos # (Auto) 0.00 K/uL (0-0.5) 06/12/20 04:11 Baso # (Auto) 0.00 K/uL (0-0.2) 06/12/20 04:11 Immature Gran # (Auto) 0.06 K/uL (0.00-0.02) H 06/12/20 04:11 Platelet Estimate Decreased (Normal) L 06/12/20 04:11 RBC Morphology Unremarkable 06/12/20 04:11 PT 28.7 Seconds (9.0-12.0) H 06/12/20 04:11 INR 3.1 (0.9-1.1) H 06/12/20 04:11 Sodium 141 mmol/L (136-145) 06/12/20 04:11 Potassium 3.4 mmol/L (3.5-5.1) L 06/12/20 04:11 Chloride 108 mmol/L (98-107) H 06/12/20 04:11 Carbon Dioxide 23 mmol/L (21-32) 06/12/20 04:11 Anion Gap 10.0 (3-11) 06/12/20 04:11 BUN 26 mg/dl (7-18) H 06/12/20 04:11 Creatinine 1.54 mg/dl (0.6-1.2) H 06/12/20 04:11 Est Cr Clr Drug Dosing 41.9 ml/min 06/12/20 04:11 Est GFR ( Amer) 38.7 06/12/20 04:11 Est GFR (Non-Af Amer) 33.4 06/12/20 04:11 BUN/Creatinine Ratio 17.2 (10-20) 06/12/20 04:11 Glucose 164 mg/dl (70-99) H 06/12/20 04:11 Lactate 4.1 mmol/L (0.4-2.0) H* 06/12/20 05:55 Calcium 8.4 mg/dl (8.5-10.1) L 06/12/20 04:11 Magnesium 1.6 mg/dl (1.8-2.4) L 06/12/20 04:11 Total Bilirubin 1.3 mg/dl (0.2-1) H 06/12/20 04:11 Direct Bilirubin 0.5 mg/dl (0-0.2) H 06/12/20 04:11 AST 49 U/L (15-37) H 06/12/20 04:11 ALT 29 U/L (12-78) 06/12/20 04:11 Alkaline Phosphatase 69 U/L (45-117) 06/12/20 04:11 Troponin I 0.187 ng/ml (0-0.045) H* 06/12/20 04:11 Total Protein 7.3 gm/dl (6.4-8.2) 06/12/20 04:11 Albumin 3.2 gm/dl (3.4-5.0) L 06/12/20 04:11 Lipase 68 U/L (73-393) L 06/12/20 04:11 Procalcitonin 19.20 ng/ml (0-0.5) H 06/12/20 04:11 Urine Color Dark Yellow 06/12/20 Unknown Urine Appearance Cloudy (Clear) A 06/12/20 Unknown Urine pH 5.0 (4.5-7.5) 06/12/20 Unknown Ur Specific [place] 1.022 (1.000-1.030) 06/12/20 Unknown Urine Protein 2+ (Negative) H 06/12/20 Unknown Urine Glucose (UA) Negative (Negative) 06/12/20 Unknown Urine Ketones 1+ (Negative) H 06/12/20 Unknown Urine Blood 3+ (Negative) H 06/12/20 Unknown Urine Nitrite Positive (Negative) A 04/12/21 Unknown Urine Bilirubin Negative (Negative) 06/12/20 Unknown Urine Urobilinogen Negative (Negative) 06/12/20 Unknown Ur Leukocyte Esterase Trace (Negative) H 06/12/20 Unknown Urine WBC (Auto) 10-30 /hpf (0-5) H 06/12/20 Unknown Urine RBC (Auto) 10-30 /hpf (0-4) H 06/12/20 Unknown U Hyaline Cast (Auto) 0 /lpf (0-5) 06/12/20 Unknown U Epithel Cells (Auto) 10-20 /lpf (0-5) H 06/12/20 Unknown Urine Bacteria (Auto) 4+ (Negative) H 06/12/20 Unknown COVID-19 Eval Order CovFluRsv at [facility] 06/12/20 03:45 SARS-CoV-2 (PCR) NEGATIVE (Negative) 06/12/20 03:45 Influenza Type A (PCR) Negative (Neg) 06/12/20 03:45 Influenza Type B (PCR) Negative (Neg) 06/12/20 03:45 RSV (RT-PCR) Negative (Neg) 06/12/20 03:45 Code Status & VTE Plan Code Status Full code VTE Prophylaxis Plan VTE Prophylaxis will be ordered: Yes Critical Care Time Critical Care Time: Yes Total Critical Care Time: 45 Total critical care time was 45 minutes PG Care Time/CCT Total # of Minutes Spent Total Time Spent with Patient: Total time spent is greater than 50% in coordination of care (as documented) at patient's floor/unit and/or counseling patient: Critical Care Time: Yes Total Critical Care Time: 45 Coding Level of Care Code 58946 Initial Inpt Care Lvl 3 Diagnoses Septic shock A41.9; R65.21 Acute UTI (urinary tract infection) N39.0 Atrial fibrillation with RVR I48.91 Impaired fasting glucose R73.01 Hypertension I10 Anticoagulant long-term use Z79.01 Admitted to intensive care unit Z78.9 Additional Codes Critical Care Time - Critical Care Time: Yes ([id number]) Time Spent (min) 45
[2020-06-12] MEDS ORDERED: PIPERACILLIN/TAZOBACTAM 4.5 GM/120ML D5W ONE (06:40)
[2020-06-12] MEDS ORDERED: POTASSIUM CHLORIDE / WTR 10 MEQ/100 ML PLCT IV STA (06:41)
[2020-06-12] MEDS ORDERED: MAGNESIUM SULFATE / D5W 1 GM/100 ML BAG IV STA (06:42)
[2020-06-12] MEDS ORDERED: PIPERACILLIN/TAZOBACTAM 4.5 GM in DEXTROSE 5% 100 ML IV STA (06:47)
--- NOTE | 2020-06-12 06:56 | XRay Report ---
XR chest 1V portable HISTORY: 74 years-old Female ams acutely altered mental status COMPARISON: Chest radiograph 08/30/2016 TECHNIQUE: Portable AP view of the chest FINDINGS: Cardiac silhouette is enlarged. Mild bibasilar densities. Pulmonary vascular congestion. No pneumotho rax, large pleural effusion or overt pulmonary edema. Degenerative changes of the right shoulder and spine. Reverse left shoulder total joint arthroplasty. IMPRESSION: 1. Cardiomegaly. 2. Mild bibasilar opacities suggestive of atelectasis. ACT 112: Negative or not required by law. The above report was generated using voice recognition software. It may contain grammatical, syntax o r spelling errors. Electronically signed by: Carson Henry M.D. 06/12/2020 6:55 AM
--- NOTE | 2020-06-12 06:58 | CT Scan Report ---
CT head/brain wo con CLINICAL HISTORY: 74 years-old Female with AMS. Acutely altered mental status TECHNIQUE: Multiple axial CT images of the head were obtained without contrast. A dose lowering tech nique was utilized adhering to the principles of ALARA. CT DOSE: 614.27 mGy.cm COMPARISON: None. FINDINGS: No acute intracranial hemorrhage, midline shift, intracranial mass, hydrocephalus, territorial ischem ia or abnormal extra-axial collection. Mild age-related involutional changes. The calvarium is intact. Mastoid air cells are clear. Moderate mucoperiosteal thickening of the left maxillary sinus with partially calcified 12 mm area of polypoid mucosal thickening. Mild mucosal thi ckening of the ethmoid air cells. Prior bilateral lens repair. IMPRESSION: No acute intracranial abnormality. ACT 112: Negative or not required by law. The above report was generated using voice recognition software. It may contain grammatical, syntax o r spelling errors. Electronically signed by: Carson Henry M.D. 06/12/2020 6:57 AM
--- NOTE | 2020-06-12 07:11 | CT Scan Report ---
ABDOMEN AND PELVIS CT WITHOUT CONTRAST CT DOSE: 2046.33 mGy.cm HISTORY: Acute low back pain low back pain TECHNIQUE: Multiaxial CT images of the abdomen and pelvis were performed without contrast. A dose lo wering technique was utilized adhering to the principles of ALARA. COMPARISON STUDY: CT abdomen and pelvis 06/12/2016 FINDINGS: Cardiomegaly. Mild bibasilar densities suggestive of atelectasis. Limited exam secondary to upper ext remity positioning and lack of contrast. Patient body habitus also limits the study with portions of the anatomy outside the [id number]. There is no pneumatosis or pneumoperitoneum. Splenomegaly, 15. 3 cm. Collateral vessels of the abdominal left upper quadrant redemonstrated with associated splenore nal shunt. Retroaortic left renal vein. Unremarkable appearance of the mildly atrophic pancreas. Unre markable adrenal glands. Distended gallbladder with layering cholelithiasis in the gallbladder neck. This appears similar to comparison study. No definitive gallbladder wall thickening. Trace pericholec ystic infiltration. Unremarkable liver. Bilateral perinephric stranding. Punctate nonobstructing calculus of the inferior pole right kidney. There is a 1.3 x 1.0 x 1.4 cm calculus of the superior pole left kidney. 2 additional left-sided mena l calculi measure up to 9 mm. Mild to moderate left-sided hydroureteronephrosis secondary to an obstr ucting 7 x 5 x 7 mm calculus of the left hemipelvis present at the level of the left mid sacrum. Part ially decompressed urinary bladder. Hysterectomy with pelvic floor relaxation and rectocele. No adnex al mass lesion. Calcified plaque the abdominal aorta without aneurysm. No adenopathy. Prior Danielle-en-Y gastric bypass. No bowel obstruction or bowel wall thickening. The appendix is not vi sualized. No secondary signs of acute appendicitis. Unremarkable soft tissues. Degenerative changes o f the spine, pelvis and hips. Partially imaged ORIF hardware of the proximal right femur. IMPRESSION: 1. Mild to moderate left-sided hydroureteronephrosis secondary to an obstructing 7 mm calculus of the distal left ureter. 2. Left greater than right nonobstructing bilateral nephrolithiasis. 3. Cholelithiasis with distended gallbladder appears similar to the [address] evidence of acute cholecystitis. 4. No bowel obstruction or bowel wall thickening. 5. Additional findings as above. ACT 112: Negative or not required by law. The above report was generated using voice recognition software. It may contain grammatical, syntax o r spelling errors. Electronically signed by: Carson Henry M.D. 06/12/2020 7:10 AM
[2020-06-12] MEDS ORDERED: DOXEPIN HCL 25 MG CAPSULE PO PRN (07:39)
[2020-06-12] MEDS ORDERED: ICU PROTOCOL FOR HYPERGLYCEMIA PRN (07:39)
[2020-06-12] MEDS ORDERED: ALBUT/IPRATROP 3MG/0.5MG NEB 3 ML VIAL INH PRN (07:39)
[2020-06-12] MEDS ORDERED: POTASSIUM CHLORIDE / WTR 10 MEQ/100 ML PLCT IV SCH (07:45)
[2020-06-12] MEDS ORDERED: FAMOTIDINE 20 MG in SYRINGE 3 ML IV ONE (08:00)
[2020-06-12] MEDS ORDERED: ETOMIDATE 2 MG/ML 20 ML VIAL IV ONE (08:15)
--- NOTE | 2020-06-12 08:23 | Urology Consultation ---
Date of Consultation June 12, 2020 Assessment & Plan (1) Ureteral stone with hydronephrosis: 74yo F admitted with acute UTI/Sepsis secondary to an obstructing 7mm left ureteral calculus with hydronephrosis. -Plan of care reviewed with Dr. Ferreira. -Afebrile. -Labs reviewed, Wbc elevated to 13.9 and creatinine 1.54. -Urine and blood cultures pending, continue broad spectrum antibiotics. -CT abdomen pelvis reviewed and interpreted with Dr. Ferreira and remarkable for ureteral obstruction with significant hydronephrosis. -Keep NPO. -Given her acute UTI/Sepsis in the context of an obstructing 7mm stone, will proceed with OR for Cystoscopy, Left stent placement depending on findings. Risks and benefits to be reviewed with patient by . OR notified. On IV Vanco and Zosyn. ATTENDING NOTE. Independently assessed, evaluated, and interviewed. Agree with above note. Risks and benefits discussed at length for procedure. These include bleeding, infection, injury to surrounding tissues or organs, and risks associated with anesthesia. Patient states understanding and agrees to proceed. Will sign consent and schedule. On pressors. On volume replacement. Critical management. Septic. Broad sp ectrum abx. Plan to proceed with emergent Cystoscopy with left stent. (2) Septic shock: (3) Acute UTI (urinary tract infection): History of Present Illness Attending Physician: Darrius Ascencio DO History of Present Illness 74yo F with a PMHx including intertrigo, mild cognitive impairment, pressure ulcer, urinary incontinence, intestinal malabsorption, idiopathic peripheral neuropathy, impaired fasting glucose, nephrolithiasis, venous insufficiency, vitamin D deficiency, stroke, overactive bladder, osteoporosis, osteoarthritis, hypertension, atrial fibrillation, long-term use of anticoagulation, paroxysmal atrial fibrillation and shoulder DJD who presented to the ED with her with complaints of worsening confusion over the past 24 hours. She also reported recent passage of a kidney stone, increased urinary frequency, and abdominal/pelvic discomfort. On presentation to the ER, she was Afebrile, Wbc 13.90, Hgb 15.6, Cr 1.54. 2+ liters of IVF given. Levophed infusion started. IV Vanco and Cefepime given in ED. CT abdomen pelvis IMPRESSION: 1. Mild to moderate left-sided hydroureteronephrosis secondary to an obstructing 7 mm calculus of the distal left ureter. 2. Left greater than right nonobstructing bilateral nephrolithiasis. 3. Cholelithiasis with distended gallbladder appears similar to the [address] evidence of acute cholecystitis. 4. No bowel obstruction or bowel wall thickening. 5. Additional findings as above. Urgent/emergent consultation for acutely ill and septic patient with UTI/Pyelo, discomfort, and ill feelings. Patient developed sudden onset of pain into flank going down and radiating into groin and back in waves comes and goes. Can be severe at times. Altered mental status due to acute illness Discussed and reviewed patient's personal medical, surgical, social, and family history for any history of issues, infections, and disease. Also, discussed patient's medical/surgery history especially related to any history of urinary issues or stone disease. Patient is undergoing intense/critical management for acute illness and is being admitted to undergo critical care. Hospitalist/ICU team has admitted and is undergoing observation with broad spectrum IV antibiotics. Patient examined at bedside this morning with Dr. Ferreira. Awake, resting in bed on arrival. No acute distress. Answering questions appropriately. No fever or chills. No nausea or vomiting. She reports some b/l lower back pain. Denies flank and suprapubic pain. Denies hematuria and dysuria. She reports she is mostly incontinent of urine. She goes through 6-9ppd. Hx of nephrolithiasis. She previously followed with Dr. Santiago. She has been made NPO. On IV Vanco and Zosyn. Urine and blood cultures pending. Covid test negative. Allergies Allergy/AdvReac Type Severity Reaction Status Date / Time adhesive Allergy Intermediate RASH, Verified 05/25/20 15:10 BLISTERING alendronate sodium Allergy Unknown SICK TO Verified 05/25/20 15:10 STOMACH latex Allergy Unknown SKIN Verified 05/25/20 15:10 TEARING Home Medications Medication Instructions Recorded Confirmed Type cyanocobalamin (vitamin B-12) 1,000 mcg PO QAM 01/19/18 05/25/20 History [Vitamin B-12] denosumab [Prolia] 1 dose SUBCUT UD 01/19/18 05/25/20 History multivitamin 1 tab PO QAM 01/19/18 05/25/20 History acetaminophen 500 mg tablet 1,000 mg PO TID tab 10/07/18 05/25/20 History cholecalciferol (vitamin D3) 50 2,000 unit PO DAILY tab 10/07/18 05/25/20 History mcg (2,000 unit) tablet doxepin 25 mg capsule See Rx Instructions PO HS PRN #180 01/25/19 05/25/20 Rx cap nystatin-triamcinolone 100,000 1 appln TOPICAL BID PRN #1 gm 01/25/19 05/25/20 History unit/g-0.1 % topical cream warfarin 5 mg tablet 5 mg PO QPM 04/13/19 05/25/20 History metoprolol tartrate 50 mg tablet 50 mg PO BID #180 tab 07/06/19 05/25/20 Rx warfarin 5 mg tablet 5 mg PO DAILY #100 tab 07/06/19 05/25/20 Rx menthol 0.44 %-zinc oxide 20.6 % 1 applic TOPICAL QID PRN #71 g 11/03/19 05/25/20 Rx topical ointment furosemide 20 mg tablet 20 mg PO DAILY PRN #90 tab 02/22/20 05/25/20 Rx nystatin 100,000 unit/gram topical See Rx Instructions TOPICAL DAILY 02/22/20 05/25/20 Rx powder #60 g acetaminophen 300 mg-codeine 30 mg See Rx Instructions PO Q6H PRN 03/21/20 05/25/20 Rx tablet #240 tab gabapentin 300 mg capsule 300 mg PO QPM #90 cap 05/03/20 05/25/20 Rx Patient History Medical History (Updated 06/12/20 @ 08:21 by Toño Ferreira DO) Incontinence of urine Stroke x2. both 10 years ago. pt w/ intermittent numbness to right hand. no neurologist. Surgical History History of colonoscopy w/ polypectomy History of dilatation and curettage History of gastric bypass History of hysterectomy History of surgery right leg r/t femur injury History of total knee replacement rt knee History of total shoulder replacement left Hx of cataract surgery right Family History Grandfather Family history of diabetes mellitus Daughter Family history of esophageal cancer Other Coronary heart disease Ovarian cancer Denies family history of Prostate cancer Lung cancer Colorectal cancer Social History Smoking Status: Never smoker Second Hand Exposure: No; Hx Alcohol Use: No Hx Substance Use: No Preferred Language: Romansh Communication Ability: Effective Digital Associate Required: No Beliefs That Will Affect Care: None Current Living Situation: Spouse Feels Safe at Home: Yes Seatbelt Use: always Assistive Devices: Cane Review of Systems Review of Systems: All systems reviewed & are unremarkable except as noted in HPI & below Limited due to patient illness Physical Exam Physical Exam: General: Acutely ill. Undergoing critical care management for acute severe infection HEENT: Normocephalic Atraumatic. Inspection normal. Cranial Nerves 2-12 Grossly intact. Nares are clear. Neck is supple. Normal inspection of face. Normal inspection of neck. Neurologic: No deficits on inspection. Baseline for motor function and sensory. Psychologic: Anxious, acute delirium secondary to illness Respiratory: Mild labored. No use of accessory muscles. No severe dyspnea. Cardiovascular: tachycardia Skin: Leth[place] and Dry. No rashes or visible lesions. Febrile Extremities: Moving without issues. No motor deficits on inspection Lymphatics: Mild edema Abdomen: Mildly distended. No rebound or guarding. Mild suprapubic/flank tenderness Results & Data ([facility]) Vital Signs (Past 12 Hours) Vital Signs Temp Pulse Pulse Resp BP BP Pulse Ox 06/12/20 06:51 121 H 20 97/54 L 94 06/12/20 06:32 120 H 20 95/67 L 94 06/12/20 05:43 122 H 20 82/59 L 96 06/12/20 05:20 120 H 20 82/52 L 96 06/12/20 05:14 120 H 20 82/56 L 95 06/12/20 04:50 122 H 20 77/59 L 96 06/12/20 04:23 121 H 20 105/48 L 93 06/12/20 03:54 94 06/12/20 03:49 36.7 C 148 H 20 126/66 90 PG Care Time/CCT Total # of Minutes Spent Total Time Spent with Patient: Total time spent is greater than 50% in coordination of care (as documented) at patient's floor/unit and/or counseling patient: Coding Level of Care Code 88038 Initial Inpt Care Lvl 3 Diagnoses Ureteral stone with hydronephrosis N13.2 Septic shock A41.9; R65.21 Acute UTI (urinary tract infection) N39.0
--- NOTE | 2020-06-12 08:25 | Critical Care Consultation ---
Date of Consultation June 12, 2020 Assessment & Plan (1) Septic shock: Reason Critically Ill: Ami is a 74-year-old female with a known history of nephrolithiasis, persistent atrial fibrillation on metoprolol and Warfarin, chronic venous insufficiency, hypertension, s/p Danielle-en-Y gastric bypass, and previous stroke who presented for ongoing AMS since 06/11, subsequently found to be in septic shock with suspected origin from obstructing stone in left renal pelvis. Infectious Disease # Septic Shock from Urologic Source -- - with evidence of end-organ damage: metabolic encephalopathy, PETR, consumptive coagulopathy, elevated troponins - Suspected origination from obstructing L sided renal calculus resulting in hydroureteronephrosis as demonstrated on CT-A/P - Admission WBCs to ~14 with L shift, Lactate 4.1, procalc 19.2 - BP support -- now normotensive with MAPs in 80s - s/p 3L NSS in ED - continue Normosol 100cc/hr with close monitoring for fluid overload - Will trial discontinuation of Levophed 0.8 -- resume as needed - Await BCX, UCX - Continue broad spectrum coverage for now -- Zosyn - Discontinue vancomycin -- can consider re-adding based on cultures - CBCd, lactate, procalc qAM - Uro consult as below - Trend fever curve Neuro Sedation: None Analgesia: Tylenol # Metabolic encephalopathy - Likely 2/2 ongoing urosepsis with septic shock and metabolic derangements - Low suspicion home RX could be contributory -- low dose gabapentin, Doxepin nightly - Replete K (3.4) and Mg (1.6) - Regular MS checks - CMP, Mg, Ca qAM - Sepsis treatment as above # History of CVA - Noted on review of chart -- occurred > 10 years ago, no neurologist - Residual deficits noted as intermittent numbness to R hand - Reduce nightly gabapentin 300 --> 100mg qPM Other: Hold nightly doxepin Cardiac # Hypotension -- secondary to septic shock - Suspected 2/2 septic shock in setting of obstructing renal stone - Continue normosol 100cc/hr with monitoring for overload - Trial off Levophed -- resume p.r.n. - Hold home metoprolol # Permanent AF, now with RVR -- follows with Dr. Dorman - Noted to be in AF w/ RVR on admission - Suspect RVR component is secondary to infectious/inflammatory state - Will continue supportive measures for now -- hydration - Hold home metoprolol - Replete lytes as above # Elevated Troponin -- Patient did report mild chest discomfort while in ED, resolved here - Appreciated on admission to 0.187 - Suspect 2/2 demand ischemia in setting of septic shock - Trend troponins - TTE ordered Respiratory # Acute Hypoxemic Respiratory Failure - Mildly tachypneic in low 20s with SpO2 >94% on 2L NC - CXR with evidence of pulmonary vascular congestion, bibasilar consolidations - atelectasis vs. ?possible effusion - In setting of RVR and septic shock, obtain echo as above - Continue oximetry - Careful rehydration - consider diuresis if needed GI - # Diet - In lieu of upcoming urologic procedure, will make NPO - Advance as tolerated thereafter RENAL/LYTES - # Obstructing ureteral calculus with hydroureteronephrosis - Patient with known history of nephrolithiasis - CT-A/P demonstrating 7mm obstructing stone w/i L renal pelvis with numerous other b/l nephroliths - Consult urology -- anticipate stenting - Continue gentle hydration # PETR -- baseline Cr 0.8 - BUN 26, Cr 1.5, ratio 17.2 - Suspect intrarenal origin - likely ATN from septic shock, HoTN - Continue gentle diuresis - Procedure as above - Mcmahon to monitor UOP - CMP qAM as above - Renal dosing for meds # Hypokalemia, Hypomagnesiemia -- 3.4 and 1.6 respectively - Replete as needed - No concerns at this time. - Mcmahon in place ENDO - ICU Hyperglycemia protocol HEME - - Stable H&H # Thrombocytopenia (79) - Suspect consumptive coagulopathy in setting of septic shock - In setting of supratherapeutic INR (3.1) --> peripheral smear to r/o DIC - CBC qAM # Supratherapeutic INR - On Coumadin for AFib - Given INR 3.1 upon arrival, will hold for now - Can consider transitioning to Heparin gtt / switching back to warfarin when appropriate - PT/INR qAM INTEGUMENTARY - No concerns at this time LINES/IV ACCESS - 2x 20-gauge PIVs in place - If need for further pressors, consider central line placement DVT PROPHYLAXIS - - Given supratherapeutic INR hold home Warfarin for now - Can consider transitioning to Heparin gtt / switching back to warfarin when appropriate Thank you for allowing us to be part of this patient's care. Please refer to Dr. Perez's documentation for any further recommendations. (2) Ureteral stone with hydronephrosis: (3) Atrial fibrillation with RVR: (4) Mild cognitive impairment: (5) Idiopathic peripheral neuropathy: (6) Nephrolithiasis: (7) Venous insufficiency: (8) Atrial fibrillation: (9) Osteoarthritis: (10) Stroke: (11) Anticoagulant long-term use: Supervising Physician Co-Signing Physician Notes Dr. Dela Cruz was the resident-physician during care of patient. I separately evaluated patient for jacobs portions of the history and the exam. I was present during the critical portion of medical decision making, and I discussed the case with the resident. I generally agree with the findings and plan except for any additions/exceptions noted. 74-year-old female with recurrent kidney stones presented to the hospital due to septic shock from a complicated UTI and obstructive uropathy. She briefly required pressors in the ICU and Levophed was titrated off. She is also in atrial fibrillation with rapid ventricular response. I will restart half dose metoprolol tartrate 25 mg twice daily compared to her home dose of 50 twice daily. Hold warfarin today. INR is therapeutic. And consider restarting tomorrow. She received a double-J stent by urology. She is doing well post operatively. Continue broad-spectrum antibiotics with Zosyn. MRSA screen was negative. Vancomycin was discontinued. Urine cultures and blood cultures pending. I have personally spent 33 minutes of critical care time in the direct management of this patient. This is a life/limb threatening event. This includes time spent evaluating patient, direct bedside care, chart review, placing orders, interpretation of diagnostic studies, discussion with consultants, patient, and/or family members regarding treatment decisions, as well as other required patient management activities. This time is exclusive of all separately billable procedures, and teaching time and separate from and in addition to any other critical care service time. History of Present Illness Attending Physician: Darrius Ascencio DO Ami is a 74-year-old female with a known history of nephrolithiasis, persistent atrial fibrillation on metoprolol and Warfarin, chronic venous insufficiency, hypertension, s/p Danielle-en-Y gastric bypass, and previous stroke who presented to [facility] ER on 06/12 early in the AM for evaluation of confusion since 5PM yesterday. Patient notes that approx. 1 week ago, passed a kidney stone without much difficulty. Since that time, she personally reported feeling mostly OK, however over the last two days did start feeling more ill/febrile. Since 5PM yesterday, experienced progressive confusion - while she personally doesn't remember much, denies any syncope, weakness in one part of her body, sensory disturbances. called 911. EMS noted that she was febrile and tachycardic. Upon arrival to ED, she was found to be hypotensive to the ~70/40s as well as in AFib w/ RVR. No temperature elevation upon her initial assessment. Labs obtained did demonstrate lactate elevation to 4.1, leukocytosis to 19 with left shift, procalc 19.2. UA notable for 2+ protein, 3+ blood, trace LE, nitrites, 10-30 WBCs, 4+ bacteria. Thrombocytopenia 79, supratherapeutic INR 3.1, troponin elevated to 0.18. ECG demonstrating AF w/ RVR, PVCs, unchanged RBBB. Given concern for possible septic shock, she was started on IVF, cefepime (later changed to Zosyn), and vanc. BCX, UCX also obtained. CT-Head negative. CT-A/P revealing of [id number] obstructing calculus within the left hemipelvis resulting in mild-moderate L hydroureteronephrosis, as well as other b/l nonobstructive nephrolithiasis. Stat uro consult was arranged. BPs trended downward again towards 70-80s/40-50s requiring an additional 2L NSS and initiation of Levophed 0.5, which she did respond well to. Miller Apprentice consulted for further management of septic shock, AFib RVR. Upon arrival here, endorses pain in her back, L>R. Also endorsed now-resolved mild substernal CP in the ER. Endorses mild SOB while supine. No double vision. Allergies Allergy/AdvReac Type Severity Reaction Status Date / Time adhesive Allergy Intermediate RASH, Verified 05/25/20 15:10 BLISTERING alendronate sodium Allergy Unknown SICK TO Verified 05/25/20 15:10 STOMACH latex Allergy Unknown SKIN Verified 05/25/20 15:10 TEARING Home Medications Medication Instructions Recorded Confirmed Type cyanocobalamin (vitamin B-12) 1,000 mcg PO QAM 01/19/18 05/25/20 History [Vitamin B-12] denosumab [Prolia] 1 dose SUBCUT UD 01/19/18 05/25/20 History multivitamin 1 tab PO QAM 01/19/18 05/25/20 History acetaminophen 500 mg tablet 1,000 mg PO TID tab 10/07/18 05/25/20 History cholecalciferol (vitamin D3) 50 2,000 unit PO DAILY tab 10/07/18 05/25/20 History mcg (2,000 unit) tablet doxepin 25 mg capsule See Rx Instructions PO HS PRN #180 01/25/19 05/25/20 Rx cap nystatin-triamcinolone 100,000 1 appln TOPICAL BID PRN #1 gm 01/25/19 05/25/20 History unit/g-0.1 % topical cream warfarin 5 mg tablet 5 mg PO QPM 04/13/19 05/25/20 History metoprolol tartrate 50 mg tablet 50 mg PO BID #180 tab 07/06/19 05/25/20 Rx warfarin 5 mg tablet 5 mg PO DAILY #100 tab 07/06/19 05/25/20 Rx menthol 0.44 %-zinc oxide 20.6 % 1 applic TOPICAL QID PRN #71 g 11/03/19 05/25/20 Rx topical ointment furosemide 20 mg tablet 20 mg PO DAILY PRN #90 tab 02/22/20 05/25/20 Rx nystatin 100,000 unit/gram topical See Rx Instructions TOPICAL DAILY 02/22/20 05/25/20 Rx powder #60 g acetaminophen 300 mg-codeine 30 mg See Rx Instructions PO Q6H PRN 03/21/20 05/25/20 Rx tablet #240 tab gabapentin 300 mg capsule 300 mg PO QPM #90 cap 05/03/20 05/25/20 Rx Patient History Medical History (Updated 06/12/20 @ 09:19 by Lizette Churchill MD) Anticoagulant long-term use Atrial fibrillation with RVR Hypertension Incontinence of urine Lactic acidosis Paroxysmal atrial fibrillation Septic shock Stroke x2. both 10 years ago. pt w/ intermittent numbness to right hand. no neurologist. Ureteral stone with hydronephrosis Surgical History History of colonoscopy w/ polypectomy History of dilatation and curettage History of gastric bypass History of hysterectomy History of surgery right leg r/t femur injury History of total knee replacement rt knee History of total shoulder replacement left Hx of cataract surgery right Family History Grandfather Family history of diabetes mellitus Daughter Family history of esophageal cancer Other Coronary heart disease Ovarian cancer Denies family history of Prostate cancer Lung cancer Colorectal cancer Social History Smoking Status: Never smoker Second Hand Exposure: No; Hx Alcohol Use: No Hx Substance Use: No Preferred Language: Yakut Communication Ability: Effective Resident Service Coordinator Required: No Beliefs That Will Affect Care: None Current Living Situation: Spouse Feels Safe at Home: Yes Seatbelt Use: always Assistive Devices: Cane and Glasses Review of Systems Constitutional: no chills and no sweats Eyes: no diplopia Ear, Nose, Mouth, Throat: no sore throat and no dysphagia Respiratory: + dyspnea (mild) Cardiovascular: + chest pain (resolved, was mild prior) Gastrointestinal: no nausea and no vomiting (did experience nausea last night) Genitourinary: no dysuria, no urinary frequency and no urinary urgency Musculoskeletal: + back pain Neurologic: + generalized weakness and + confusion; no headache(s) Physical Exam Constitutional: + ill appearing and + diaphoretic Eyes: PERRL, conjunctivae normal, anicteric sclerae ENMT: external ear and nose normal, oropharynx normal mucous membranes mildly dry appearing Neck: trachea midline, no thyromegaly Respiratory: normal respiratory effort, lungs clear to auscultation Cardiovascular: tachycardic with irregular rhythm. s1/s2 present without m/r/g Gastrointestinal (Abdomen): hypoactive BS. Small ecchymoses on abdomen. Abdomen is soft, nontender, and nondistended to palpation. Mild flank pain, L worse than R. Skin: no rashes, warm and dry Neurologic: Oriented to person, place, reason for admission; not oriented to time. CN II-XII grossly in-tact. No dysarthria or aphasia. Upper extremity strength is grossly equal, ~4/5 b/l. Sensation to light touch is grossly intact in upper and lower extremities. Biceps, brachioradialis, Achilles reflexes 1+ b/l. Evidence of TKA on right - patellar reflex on left 1+. Results & Data Results & Data ([facility]) Vital Signs (Past 12 Hours) Vital Signs Temp Pulse Pulse Resp BP BP Pulse Ox 06/12/20 06:51 121 H 20 97/54 L 94 06/12/20 06:32 120 H 20 95/67 L 94 06/12/20 05:43 122 H 20 82/59 L 96 06/12/20 05:20 120 H 20 82/52 L 96 06/12/20 05:14 120 H 20 82/56 L 95 06/12/20 04:50 122 H 20 77/59 L 96 06/12/20 04:23 121 H 20 105/48 L 93 06/12/20 03:54 94 06/12/20 03:49 36.7 C 148 H 20 126/66 90 Vital signs labs and imaging reviewed. Resident Activity Tracking Resident Involvement: Resident Care Provided Care Provided: [facility]
[2020-06-12] MEDS: CHOLECALCIFEROL 1,000 UNITS 25 MCG TAB PO SCH (09:00)
[2020-06-12] MEDS: MULTIVITAMIN TAB PO SCH (09:00)
[2020-06-12] MEDS: CYANOCOBALAMIN 500 MCG TABLET (VITAMIN B-12) PO SCH (09:00)
[2020-06-12] MEDS ORDERED: VANCOMYCIN HCL 1,000 MG in SODIUM CHLORIDE 0.9% 250 ML IV SCH (09:00)
[2020-06-12] MEDS ORDERED: MAGNESIUM SULFATE / D5W 1 GM/100 ML BAG IV SCH (09:00)
[2020-06-12] MEDS ORDERED: ACETAMINOPHEN HOME PACK 500 MG TABLET PO SCH (09:00)
[2020-06-12] MEDS ORDERED: ONDANSETRON INJ 2 MG/ML 2 ML VIAL ONE (09:08)
[2020-06-12] MEDS ORDERED: LIDOCAINE HCL 2% 2 ML VIAL/AMP(20MG/ML) INFIL ONE (09:08)
[2020-06-12] MEDS ORDERED: PROPOFOL IV EMULSION 10 MG/ML 20 ML VIAL IV ONE (09:08)
[2020-06-12] MEDS ORDERED: fentaNYL citrate 100 MCG/2 ML VIAL ONE (09:08)
--- NOTE | 2020-06-12 09:20 | Anesthesiology Consultation ---
Date of Service June 12, 2020 History Surgery Operation Date: 06/12/20 12:25 Proposed Procedures p Cystoscopy Ureteral Stent Insertion Left - Toño Ferreira, Height/Weight Height: 5 ft 2 in Weight: 126 kg Allergies Allergy/AdvReac Type Severity Reaction Status Date / Time adhesive Allergy Intermediate RASH, Verified 05/25/20 15:10 BLISTERING alendronate sodium Allergy Unknown SICK TO Verified 05/25/20 15:10 STOMACH latex Allergy Unknown SKIN Verified 05/25/20 15:10 TEARING Medications Home Medications Medication Instructions Recorded Confirmed Last Taken cyanocobalamin (vitamin B-12) 1,000 mcg PO QAM 01/19/18 05/25/20 02/17/18 12:00 [Vitamin B-12] denosumab [Prolia] 1 dose SUBCUT UD 01/19/18 05/25/20 02/03/18 multivitamin 1 tab PO QAM 01/19/18 05/25/20 02/17/18 12:00 acetaminophen 500 mg tablet 1,000 mg PO TID tab 10/07/18 05/25/20 Unknown cholecalciferol (vitamin D3) 50 2,000 unit PO DAILY tab 10/07/18 05/25/20 Unknown mcg (2,000 unit) tablet doxepin 25 mg capsule See Rx Instructions PO HS PRN #180 01/25/19 05/25/20 Unknown cap nystatin-triamcinolone 100,000 1 appln TOPICAL BID PRN #1 gm 01/25/19 05/25/20 Unknown unit/g-0.1 % topical cream warfarin 5 mg tablet 5 mg PO QPM 04/13/19 05/25/20 Unknown metoprolol tartrate 50 mg tablet 50 mg PO BID #180 tab 07/06/19 05/25/20 Unknown warfarin 5 mg tablet 5 mg PO DAILY #100 tab 07/06/19 05/25/20 Unknown menthol 0.44 %-zinc oxide 20.6 % 1 applic TOPICAL QID PRN #71 g 11/03/19 05/25/20 Unknown topical ointment furosemide 20 mg tablet 20 mg PO DAILY PRN #90 tab 02/22/20 05/25/20 Unknown nystatin 100,000 unit/gram topical See Rx Instructions TOPICAL DAILY 02/22/20 05/25/20 Unknown powder #60 g acetaminophen 300 mg-codeine 30 mg See Rx Instructions PO Q6H PRN 03/21/20 05/25/20 Unknown tablet #240 tab gabapentin 300 mg capsule 300 mg PO QPM #90 cap 05/03/20 05/25/20 Unknown Active Medications Generic Name Dose Route Start Last Admin Trade Name Fretyra PRN Reason Stop Dose Admin Sodium Chloride 1,000 mls @ 125 mls/hr 06/12/20 06:00 06/12/20 08:58 Nss 1000ml IV 07/12/20 05:59 0 mls/hr .Q8H MICHAEL Infusion Norepinephrine Bitartrate 8 mg in 508 mls @ 24.003 mls/hr 06/12/20 06:15 06/12/20 08:15 Levophed/D5w IV 07/12/20 06:14 0 mcg/kg/min .[id number] MICHAEL 0 mls/hr Titration Protocol 0.05 MCG/KG/MIN Sodium Chloride 1,000 mls @ 200 mls/hr 06/12/20 07:39 06/12/20 08:50 Nss 1000ml IV 07/12/20 07:38 Not Given .Q5H MICHAEL NPO Date Last Intake of Fluids: 06/11/20 Time Last Intake of Fluids: 23:55 Date Last Intake of Solids: 06/11/20 Time Last Intake of Solids: 23:55 Past Medical History Medical History (Updated 06/12/20 @ 09:19 by Lizette Churchill MD) Anticoagulant long-term use Atrial fibrillation with RVR Hypertension Incontinence of urine Lactic acidosis Paroxysmal atrial fibrillation Septic shock Stroke x2. both 10 years ago. pt w/ intermittent numbness to right hand. no neurologist. Ureteral stone with hydronephrosis Past Family History Family History Grandfather Family history of diabetes mellitus Daughter Family history of esophageal cancer Other Coronary heart disease Ovarian cancer Denies family history of Prostate cancer Lung cancer Colorectal cancer Past Surgical History Surgical History History of colonoscopy w/ polypectomy History of dilatation and curettage History of gastric bypass History of hysterectomy History of surgery right leg r/t femur injury History of total knee replacement rt knee History of total shoulder replacement left Hx of cataract surgery right Social History Smoking Status: Never smoker Hx Alcohol Use: No Hx Substance Use: No substance use type: does not use Physical Exam Vital Signs Last Vital Signs Temp 37 C 06/12/20 08:55 Pulse 103 H 06/12/20 08:55 Resp 22 06/12/20 08:55 BP 106/68 06/12/20 08:55 Pulse Ox 96 06/12/20 08:55 Testing Laboratory Results 06/12/20 04:11 06/12/20 04:11 PT 28.7 Seconds (9.0-12.0) H 06/12/20 04:11 INR 3.1 (0.9-1.1) H 06/12/20 04:11 Urine Color Dark Yellow 06/12/20 Unknown Urine Appearance Cloudy (Clear) A 06/12/20 Unknown Urine pH 5.0 (4.5-7.5) 06/12/20 Unknown Ur Specific Thornton 1.022 (1.000-1.030) 06/12/20 Unknown Urine Protein 2+ (Negative) H 06/12/20 Unknown Urine Glucose (UA) Negative (Negative) 06/12/20 Unknown Urine Ketones 1+ (Negative) H 06/12/20 Unknown Urine Nitrite Positive (Negative) A 06/12/20 Unknown Ur Leukocyte Esterase Trace (Negative) H 06/12/20 Unknown Urine WBC (Auto) 10-30 /hpf (0-5) H 06/12/20 Unknown Urine RBC (Auto) 10-30 /hpf (0-4) H 06/12/20 Unknown U Hyaline Cast (Auto) 0 /lpf (0-5) 06/12/20 Unknown U Epithel Cells (Auto) 10-20 /lpf (0-5) H 06/12/20 Unknown Urine Bacteria (Auto) 4+ (Negative) H 06/12/20 Unknown 06/12/20 07:54 POC Glucose 156 H Electrocardiogram Date: 06/12/20 Undetermined rhythm Right axis deviation Incomplete right bundle branch block Right ventricular hypertrophy Marked ST abnormality, possible inferolateral subendocardial injury Abnormal ECG When compared with ECG of 30-AUG-2016 12:26, Current undetermined rhythm precludes rhythm comparison, needs review Incomplete right bundle branch block has replaced Right bundle branch block 25mm/s 10mm/mV 150Hz 9.0.9 12SL 241 JES: 10 Referred by: REFERRED SELF Unconfirmed Chest X-Ray Date: 06/12/20 IMPRESSION: 1. Cardiomegaly. 2. Mild bibasilar opacities suggestive of atelectasis.
[2020-06-12] MEDS ORDERED: ONDANSETRON INJ 2 MG/ML 2 ML VIAL IV PRN (09:36)
[2020-06-12] MEDS ORDERED: fentaNYL citrate 100 MCG/2 ML VIAL IV PRN (09:36)
[2020-06-12] MEDS ORDERED: HYDROmorphone INJ 1 MG/ML SYRINGE IV PRN (09:36)
[2020-06-12] MEDS ORDERED: ATROPINE SULFATE 0.1 MG/ML 10ML SYR IV PRN (09:36)
[2020-06-12] MEDS ORDERED: ePHEDrine sulfate 50 MG/ML AMP IV PRN (09:36)
[2020-06-12] MEDS ORDERED: ESMOLOL HCL INJ 10 MG/ML 10ML VIAL IV ONE (09:50)
--- NOTE | 2020-06-12 10:06 | Operative Report ---
PG Post Operative Report Pre & Post Diagnosis Operation Date: 06/12/20 12:25 Pre-Op Diagnosis: Ureteral stone with hydronephrosis Post-Op Diagnosis: Ureteral stone with hydronephrosis I identified the patient and participated in the time-out.: Yes Procedure Operation Date: 06/12/20 12:25 Actual Procedures p Cystoscopy with Left Stone extraction, Retrograde pyelogram, aspiration, and Ureteral Stent Insertion Left(Left) - Toño Ferreira, Surgeon Toño Ferreira, II, DO Hearing Aid Repairer None Estimated Blood Loss 1 Findings Consistent with Post-Op Diagnosis Stent placed in good position. Severe hydronephrosis. Dark red cloudy urine renal pelvis. Small stone at UO removed. Specimens Urine Left renal Pelvis Ureteral Stone Left UO Drains 6 Fr Multilength on left 18 Fr silicon kumar Anesthesia Type MAC Complications none Disposition Disposition: Recovery Room Indications Patient with obstruction. Risks and benefits discussed at length. Description of Procedure Patient was consented and brought back to the operating room. Patient was placed under anesthesia in the supine position and moved to the dorsal lithotomy position. Patient was prepped and draped in the regular sterile fashion. A time out was completed. A 30degree Cystoscope was placed into the bladder and the entire bladder was examined. The UO's were identified. A small stone was discovered in the UO and it was grasped and removed from the left UO. The UO was cannulized with a catheter which was then manipulated up to the renal pelvis past the large midureteral stone, urine was aspirated, and a retrograde pyelogram was completed. A wire was then placed. With the wire in place, a 6 Fr Double J stent was placed. It was confirmed with fluoroscopy. With the stent in place, the bladder was emptied. The scope was removed. A 18 Fr Silicon kumar was placed. The patient was cleaned, aroused from anesthesia, and transferred to the pacu in stable condition having tolerated the procedure well with no complications. I was present and participated in all aspects of the procedure. The patient will be monitored in the PACU until transferred. I attest to the content of the Intraoperative Record and any orders documented therein. Any exceptions are noted below.
[2020-06-12] MEDS: NORMOSOL-R 1,000 ML IV SCH ×2 (10:31→20:00)
--- NOTE | 2020-06-12 10:32 | Fluoroscopy Report ---
FL KUB CLINICAL HISTORY: CYSTO LT STENT COMPARISON STUDY: CT of the abdomen and pelvis June 12, 2020. FLUOROSCOPY TIME: 53 seconds. FLUOROSCOPIC IMAGES: 3 FINDINGS: Fluoroscopy was provided during cytoscopy, left retrograde exam with ureteral stent inserti on. Stent is appropriately positioned. IMPRESSION: Fluoroscopy provided during cystoscopy, left retrograde exam and left ureteral stent ins ertion. ACT 112: Negative or not required by law. Electronically signed by: Zaire Mcduffie M.D. 06/12/2020 10:30 AM
[2020-06-12] MEDS: NYSTATIN POWDER 15GM BTL EXT SCH (10:36)
--- NOTE | 2020-06-12 12:00 | Anesthesiology Progress Note ---
Date of Service June 12, 2020 Anesthesia Post Procedure Vital Signs Vital Signs: Temp Pulse Pulse Resp BP BP Pulse Ox 06/12/20 10:14 26 H 109/79 90 06/12/20 09:00 107 H 20 121/83 93 06/12/20 08:55 37 C 103 H 22 106/68 96 06/12/20 08:30 103 H 30 H 106/68 94 06/12/20 08:00 104 H 29 H 111/73 92 06/12/20 07:39 06/12/20 07:30 107 H 26 H 103/54 L 92 06/12/20 07:15 36.6 C 103 H 20 92 06/12/20 07:14 122 H 29 H 123/71 92 06/12/20 06:51 121 H 20 97/54 L 94 06/12/20 06:32 120 H 20 95/67 L 94 06/12/20 05:43 122 H 20 82/59 L 96 06/12/20 05:20 120 H 20 82/52 L 96 06/12/20 05:14 120 H 20 82/56 L 95 06/12/20 04:50 122 H 20 77/59 L 96 06/12/20 04:23 121 H 20 105/48 L 93 06/12/20 03:54 94 06/12/20 03:49 36.7 C 148 H 20 126/66 90 Pulse Ox 06/12/20 10:14 06/12/20 09:00 06/12/20 08:55 06/12/20 08:30 06/12/20 08:00 06/12/20 07:39 94 06/12/20 07:30 06/12/20 07:15 06/12/20 07:14 06/12/20 06:51 06/12/20 06:32 06/12/20 05:43 06/12/20 05:20 06/12/20 05:14 06/12/20 04:50 06/12/20 04:23 06/12/20 03:54 06/12/20 03:49 Pain Intensity Generalized: Pain Intensity: 3 Transfer of Care Handoff Completed per policy Notes Mental Status: alert / awake / arousable and participated in evaluation Patient Amnestic to Procedure: Yes Nausea / Vomiting: adequately controlled Pain: adequately controlled Airway Patency, RR, SpO2: stable & adequate BP & HR: stable & adequate Hydration State: stable & adequate Anesthetic Complications: no major complications apparent and Pt Satisfied with anesthetic care
[2020-06-12] MEDS: PIPERACILLIN/TAZOBACTAM 4.5 GM in DEXTROSE 5% 100 ML IV SCH ×2 (12:34→20:00)
[2020-06-12] MEDS ORDERED: METOPROLOL TARTRATE 25 MG TAB PO ONE (13:41)
--- NOTE | 2020-06-12 13:42 | Billing Data ---
Date of Service June 12, 2020 Coding Level of Care Code Critical Care 1st 30-74 mins Time Spent (min) 35
--- NOTE | 2020-06-12 14:03 | XCELERA ---
[id number]
--- NOTE | 2020-06-12 15:47 | History & Physical Bridge Note ---
Date of Service June 12, 2020 History & Physical Bridge Note I have examined the patient, reviewed the History & Physical and in the interval since the performance of the History & Physical I have noted the following changes of clinical significance: patient taken for cystoscopy, left ureteral stent, left stone extraction by Dr. Ferreira she is doing better, less pain, she is alert making smith colored urine via kumar no fever, she is off the levophed at this time appreciate industry segment specialist consultation checking labs this afternoon
[2020-06-12 16:50] LABS: Troponin I 0.511 ng/ml (0-0.045)
[2020-06-12 17:02] LABS: BUN Creatinine Ratio 18.2 (10-20); Calcium 7.4 mg/dl (8.5-10.1); Creatinine Clr Calc Pharmacy 36.5 ml/min; Est GFR (African American) 32.7; Est GFR (Non-African American) 28.2; Potassium 4.2 mmol/L (3.5-5.1)
[2020-06-12] MEDS: ONDANSETRON INJ 2 MG/ML 2 ML VIAL IV PRN (17:27)
[2020-06-12] MEDS: METOPROLOL TARTRATE 25 MG TAB PO SCH (19:48)
[2020-06-12] MEDS: GABAPENTIN 100 MG CAP PO SCH (19:49)
[2020-06-12] MEDS ORDERED: GABAPENTIN 300 MG CAP PO SCH (21:00)
[2020-06-12] MEDS ORDERED: SODIUM CHLORIDE 0.9% 1000ML 500 ML IV ONE (21:33)
[2020-06-13] MEDS ORDERED: fentaNYL citrate 100 MCG/2 ML VIAL IV ONE (03:28)
[2020-06-13] MEDS: NOREPINEPHRINE/D5W 8 MG/508 ML BAG IV SCH (03:39)
[2020-06-13] MEDS: PIPERACILLIN/TAZOBACTAM 4.5 GM in DEXTROSE 5% 100 ML IV SCH ×3 (03:40→20:14)
[2020-06-13] MEDS ORDERED: METOPROLOL TARTRATE 1 MG/ML VIAL IV STA (04:07)
[2020-06-13] MEDS: NORMOSOL-R 1,000 ML IV SCH (04:51)
--- NOTE | 2020-06-13 05:31 | Electrocardiogram Report ---
Test Reason : Blood Pressure : / mmHG Vent. Rate : 171 BPM Atrial Rate : 032 BPM P-R Int : 000 ms QRS Dur : 098 ms QT Int : 296 ms P-R-T Axes : 000 111 266 degrees QTc Int : 499 ms Atrial fibrillation with rapid ventricular response Right axis deviation Incomplete right bundle branch block Right ventricular hypertrophy Nonspecific ST and T wave abnormality Abnormal ECG When compared with ECG of 30-AUG-2016 12:26, Atrial fibrillation has replaced Sinus rhythm Incomplete right bundle branch block has replaced Right bundle branch block HR has increased by 103 bpm Confirmed by Froy Mims ([id number]) on 06/13/2020 5:31:34 AM Referred By: REFERRED SELF Confirmed By:Froy Mims
[2020-06-13 05:53] LABS: Hematocrit (blood only) 43.8 % (37-47); Hemoglobin 14.6 g/dL (12.0-16.0); Mean Corpuscular Hemoglobin 34.1 pg (25-34); Mean Corpuscular Hgb Conc 33.3 g/dL (32-36); Mean Corpuscular Volume 102.3 fL (80-100); Mean Platelet Volume 11.8 fL (7.4-10.4); Platelet Count 46 K/uL (130-400); RDW Coefficient of Variation 15.5 % (11.5-14.5); Red Blood Count 4.28 M/uL (4.2-5.4); White Blood Count 24.84 K/uL (4.8-10.8)
--- NOTE | 2020-06-13 05:54 | Electrocardiogram Report ---
Test Reason : Blood Pressure : / mmHG Vent. Rate : 097 BPM Atrial Rate : 088 BPM P-R Int : 000 ms QRS Dur : 136 ms QT Int : 394 ms P-R-T Axes : 000 074 004 degrees QTc Int : 500 ms Atrial fibrillation Right bundle branch block Abnormal ECG When compared with ECG of 12-JUN-2020 03:45, HR has decreased by [address] no longer depressed in Inferior leads ST no longer depressed in Anterolateral leads T wave inversion less evident in Inferior leads Confirmed by Froy Mims ([id number]) on 06/13/2020 5:54:17 AM Referred By: REFERRED SELF Confirmed By:Froy Mims
[2020-06-13 06:01] LABS: Basophils # (auto) 0.01 K/uL (0-0.2); Dohle Bodies 1+; Eosinophils # (auto) 0.01 K/uL (0-0.5); Immature Granulocytes # (auto) 0.68 K/uL (0.00-0.02); Immature Granulocytes % (auto) 2.7 %; Lymphocytes # (auto) 0.72 K/uL (1.2-3.4); Lymphocytes % (auto) 2.9 %; Monocytes # (auto) 1.25 K/uL (0.11-0.59); Neutrophils # (auto) 22.17 K/uL (1.4-6.5); Neutrophils % (auto) 89.4 %; Toxic Vacuolation 1+
[2020-06-13 06:06] LABS: Albumin Level 2.6 gm/dl (3.4-5.0); BUN Creatinine Ratio 19.3 (10-20); Bilirubin Direct 0.5 mg/dl (0-0.2); Calcium 7.1 mg/dl (8.5-10.1); Creatinine Clr Calc Pharmacy 28.2 ml/min; Est GFR (African American) 23.9; Est GFR (Non-African American) 20.7; Magnesium 2.2 mg/dl (1.8-2.4); Potassium 4.1 mmol/L (3.5-5.1)
[2020-06-13 06:08] LABS: Partial Thromboplastin Ratio 1.7; Prothrombin Time 36.5 Seconds (9.0-12.0)
[2020-06-13 06:09] LABS: Bilirubin,Total 1.3 mg/dl (0.2-1); Phosphorus 5.8 mg/dl (2.5-4.9); Total Protein 6.5 gm/dl (6.4-8.2)
--- NOTE | 2020-06-13 06:57 | Critical Care Progress Note ---
Date of Service June 13, 2020 Assessment & Plan (1) Ureteral stone with hydronephrosis: Ami is a 74-year-old female with a known history of nephrolithiasis, persistent atrial fibrillation on metoprolol and Warfarin, chronic venous insufficiency, hypertension, s/p Danielle-en-Y gastric bypass, and previous stroke who presented for ongoing AMS since 06/11, subsequently found to be in septic shock with suspected origin from obstructing stone in left renal pelvis. Infectious Disease # Septic Shock from Urologic Source -- with evidence of end-organ damage: metabolic encephalopathy, PETR, consumptive coagulopathy, elevated troponins - Suspected origination from obstructing L sided renal calculus resulting in hydroureteronephrosis as demonstrated on CT-A/P - Increasing leukocytosis with left shift appreciated (14 --> 25) - BCX, UCX demonstrating GNBs -- await characterization, sensitivities - Hemodynamic support: - BPs 80-90s/40-50s overnight, requiring 500cc bolus with good response - mIVF - 100cc/hr - Not requiring Levophed -Continue Zosyn, narrow as cultures characterize - Continue to trend fever curve RENAL/LYTES # Obstructing ureteral calculus with hydroureteronephrosis - Patient with known history of nephrolithiasis - CT-A/P demonstrating 7mm obstructing stone w/i L renal pelvis with numerous other b/l nephroliths - Now s/p double-J stent placement by urology - Analgesia # Intrarenal PETR -- baseline Cr 0.8 - Rising Cr on daily labs - 1.5 --> 2.3 ; BUN/Cr 19 - Suspect intrarenal origin - likely infection-driven w/ ATN from septic shock, also possibly worsened by contrast from procedure - Also considered - TTP, HUS, ?EHEC - UOP still poor - 0.2 mL/kg/hr - Continue careful observation right now. Monitor UOP. - Renal dosing for meds # Hypokalemia, Hypomagnesiemia -- 3.4 and 1.6 respectively - Replete as needed Cardiac # Hypotension -- secondary to septic shock - Normotensive at present -- however did require 500cc bolus last night for pressures 80-90s/40-50s - Will stop normosol for now as pressures have improved # Permanent AF, with RVR -- follows with Dr. Dorman - Noted to be in AF w/ RVR on admission - Suspect RVR component is secondary to infectious/inflammatory state - Resume home metoprolol 25mg PO b.i.d. # Elevated Troponin -- Patient did report mild chest discomfort while in ED, resolved here - Appreciated on admission, peaked at 0.51 early AM of 06/12, now downtrending - Suspect 2/2 demand ischemia in setting of septic shock, contribution from PETR Respiratory # Acute Hypoxemic Respiratory Failure - Tachypneic in mid-20s now requiring 3Lpm NC, increased from 2Lpm yesterday - W/U as follows: - CXR with evidence of pulmonary vascular congestion, bibasilar consolidations - atelectasis vs. possible effusion - Echo demonstrating normal LV size/function. EF 60-65% w/o RWMAs - I+Os demonstrating poor UOP -- approx. 0.2mL/kg/hr over last 24. - Physical exam revealing of 2+ pitting edema in lower extremities - As there may be a component of volume overload --> attempt Lasix 20 IV x 1 + d/c mIVF - Continuous pulse oximetry Neuro Sedation: None Analgesia: Tylenol # Metabolic encephalopathy -- stable; increased confusion noted last night with good resolution - Likely 2/2 ongoing urosepsis with septic shock and metabolic derangements - Regular MS checks - CMP, Mg, Ca qAM - Sepsis treatment as above # History of CVA - Noted on review of chart -- occurred > 10 years ago, no neurologist - Residual deficits noted as intermittent numbness to R hand - Gabapentin 100mg qHS Other: Hold nightly doxepin GI -- no major concerns at this point # Diet - Heart healthy diet # Transaminitis - AST 362, ALT 99 this AM - In setting of septic shock, do suspect this transient transaminitis is likely shock liver vs. toxin hepatitis - Rhabdo considered given AST predominance and renal failure but seems less likely given urine appearance and lack of new pain / swelling -- will add on CPK for tomorrow AM labs - As below, TTP also considered as possibility should this continue to increase despite supportive therapy - Trend daily - No concerns at this time. - Mcmahon in place ENDO - ICU Hyperglycemia protocol HEME - Stable H&H # Thrombocytopenia (79) - Suspect consumptive coagulopathy in setting of septic shock as primary etiology - However, in setting of mild transaminitis, abdominal pain, and fever, also consider- TTP, ITP, HUS, EHEC - Peripheral smear without schistocytes - lower concern for DIC - CBC qAM # Supratherapeutic INR - On Coumadin for AFib -- suspect delayed warfarin effect as primary etiology - INR 3.1 --> 4 - Suspect delayed Warfarin effect as primary etiology - DIC seems less likely at this time given stable H&H, normal smear, clinical a ppearance - Can consider transitioning to Heparin gtt / switching back to warfarin when appropriate - PT/INR qAM INTEGUMENTARY - No concerns at this time LINES/IV ACCESS - 2x 20-gauge PIVs in place - If need for further pressors, consider central line placement DVT PROPHYLAXIS - - Given supratherapeutic INR hold home Warfarin for now (4 on labs today) - Can consider transitioning to Heparin gtt / switching back to warfarin when appropriate Thank you for allowing us to be part of this patient's care. Please refer to Dr. Perez's documentation for any further recommendations. (2) Mild cognitive impairment: (3) Idiopathic peripheral neuropathy: (4) Nephrolithiasis: (5) Venous insufficiency: (6) Atrial fibrillation: (7) Osteoarthritis: (8) Stroke: Admission and Anticipated Discharge Date Admission Date: June 12, 2020 Supervising Physician Co-Signing Physician Notes Dr. Dela Cruz was the resident-physician during care of patient. I separately evaluated patient for jacobs portions of the history and the exam. I was present during the critical portion of medical decision making, and I discussed the case with the resident. I generally agree with the findings and plan except for any additions/exceptions noted. Patient now growing gram-negative rods from her urine and blood cultures. Hypotension has resolved. She has ongoing and worsening PETR. We will give a dose of 20 mg IV Lasix today to help improve her urine output. We are stopping IV fluids. We are restarting her regular dose of metoprolol with atrial fibrillation with rapid ventricular response. Continue with Zosyn and narrow coverage as culture data returns. She also has altered mental status likely related to sepsis and metabolic encephalopathy. We will continue to reorient the patient and provide delirium precautions. CT head obtained overnight with no acute findings. Ongoing thrombocytopenia is noted likely due to coagulopathy from sepsis. No schistocytes seen on the peripheral smear. We will hold on warfarin as her INR is supratherapeutic. She is on this for atrial fibrillation. LFTs are mildly elevated likely related to hypotension. Will trend. Subjective Last night, BPs did trend downwards towards the 80-90/40 range with good improvement following a 1-time 500cc bolus NSS. Also reporting persistent pain in her back- unchanged since yesterday. She did get fentanyl last night x 1 which helped significantly from her perspective. Denies any chest pain this AM. Notes mild SOB. Limited history could be obtained otherwise given mentation. Review of Systems Review of Systems: as per HPI Physical Exam Constitutional: + ill appearing and + diaphoretic Neck: Neck veins flat. Given body habitus, technically difficult to assess for JVD - however, no appreciable distention seen. Respiratory: Mildly increased respiratory effort with symmetric expansion of the chest. Lungs CTAB w/o crackles or wheezes Cardiovascular: Tachycardic with irregular rhythm. S1/S2 present w/o m/r/g. Gastrointestinal (Abdomen): Normoactive BS. Abdomen is soft, nontender, and nondistended to palpation. Skin: Scattered petechiae appreciated in the right and left shoulder regions. Psychiatric: Patient oriented to person only. Did know she was in a hospital, but not where. Did not know year or time of day. Did identify president. No true aphasia but certainly confused throughout conversation - increased latency of speech with some incorrect word choices / repetition. Genitourinary: Mcmahon draining yellow urine. Results & Data Results & Data ([facility]) Vital Signs (Past 12 Hours) Vital Signs Temp Pulse Resp BP Pulse Ox 06/13/20 06:15 36.6 C 111 H 27 H 113/62 95 06/13/20 05:45 115 H 33 H 108/72 94 06/13/20 05:15 106 H 29 H 116/67 94 06/13/20 05:00 108 H 27 H 103/59 L 96 06/13/20 04:13 117 H 107/58 L 06/13/20 04:00 36.6 C 125 H 21 107/58 L 93 06/13/20 03:30 36.6 C 127 H 32 H 115/63 94 06/13/20 03:04 124 H 37 H 113/67 06/13/20 03:00 135 H 31 H 113/67 04/13/21 02:00 123 H 28 H 100/51 L 93 06/13/20 00:59 37.0 C 120 H 29 H 99/51 L 93 06/13/20 00:30 36.9 C 116 H 26 H 103/45 L 93 06/13/20 00:00 111 H 24 88/48 L 93 06/12/20 23:30 109 H 26 H 112/54 L 93 06/12/20 23:00 36.8 C 95 H 23 90/49 L 93 06/12/20 22:30 104 H 23 95/46 L 94 06/12/20 22:01 36.8 C 107 H 27 H 99/45 L 93 06/12/20 22:00 106 H 23 91/44 L 94 06/12/20 21:30 103 H 28 H 87/50 L 93 06/12/20 21:00 105 H 34 H 85/46 L 91 06/12/20 20:00 37.2 C 105 H 32 H 110/59 L 92 06/12/20 19:10 37.6 C H 103 H 28 H 95/54 L 92 Resident Activity Tracking Resident Involvement: Resident Care Provided Care Provided: Adult Hospital Medicine
--- NOTE | 2020-06-13 07:11 | CT Scan Report ---
CT head/brain wo con CLINICAL HISTORY: 74 years-old Female with Headache, AMS. Acute headache with altered mental status TECHNIQUE: Multiple axial CT images of the head were obtained without contrast. A dose lowering tech nique was utilized adhering to the principles of ALARA. CT DOSE: 614.27 mGy.cm COMPARISON: Head CT 06/12/2020 FINDINGS: No acute intracranial hemorrhage, midline shift, intracranial mass, hydrocephalus, territorial ischem ia or abnormal extra-axial collection. Mild age-related involutional changes. The calvarium is intact . Mastoid air cells are clear. Moderate mucoperiosteal thickening of the left maxillary sinus with pa rtially calcified 12 mm area of polypoid mucosal thickening. Mild mucosal thickening of the ethmoid a ir cells. Prior bilateral lens repair. IMPRESSION: No acute intracranial abnormality. ACT 112: Negative or not required by law. The above report was generated using voice recognition software. It may contain grammatical, syntax o r spelling errors. Electronically signed by: Carson Henry M.D. 06/13/2020 7:09 AM
[2020-06-13] MEDS ORDERED: FUROSEMIDE 20 MG in SYRINGE 0 ML IV ONE (09:30)
[2020-06-13] MEDS: NYSTATIN POWDER 15GM BTL EXT SCH (10:32)
[2020-06-13] MEDS: METOPROLOL TARTRATE 25 MG TAB PO SCH ×2 (10:32→20:14)
[2020-06-13] MEDS: CYANOCOBALAMIN 500 MCG TABLET (VITAMIN B-12) PO SCH (10:33)
[2020-06-13] MEDS: CHOLECALCIFEROL 1,000 UNITS 25 MCG TAB PO SCH (10:34)
[2020-06-13] MEDS: MULTIVITAMIN TAB PO SCH (10:34)
[2020-06-13] MEDS: FAMOTIDINE 20 MG in SYRINGE 3 ML IV SCH (10:35)
--- NOTE | 2020-06-13 11:25 | Hospitalist Progress Note ---
Date of Service June 13, 2020 Assessment & Plan (1) Septic shock: Septic shock/secondary to UTI/recent passage of kidney stone/admit to intensive care unit- urine and blood cultures growing gram neg bacilli off of Levophed since yesterday fluids stopped this morning, did get a 500cc bolus last night continue Zosyn until final cultures come back, h/o E coli infection no longer in shock but she does have severe sepsis with acute kidney injury, low platelets (2) Acute kidney injury: Cr continues to rise from 1.3 to 1.7 to 2.29 urine output is suboptimal, off fluids for now electrolytes stable treat infection, supportive care and follow BMP closely renally dose medications (3) Acute UTI (urinary tract infection): due to ureteral stone, hydronephrosis urine and blood culture with GN bacilli continue zosyn for now no fever, WBC is 24k (4) Atrial fibrillation with RVR: initially RVR due to infection HR is better, resumed metoprolol INR is 4.0 (5) Impaired fasting glucose: Placed on ICU hyperglycemic protocol management per pharmacy sugars better today (6) Hypertension: BP stable, back on metoprolol for afib (7) Anticoagulant long-term use: INR 3.1 upon admission. up to 4.0 despite holding Coumadin can start heparin drip once INR is < 2 (8) Thrombocytopenia: consumptive due to sepsis, follow closely (9) Elevated INR: Admission and Anticipated Discharge Date Admission Date: June 12, 2020 Subjective patient feels weak, short of breath this morning, no appetite no fever/chills, BP was soft over night and required a 500cc bolus, fluids stopped this morning Cr rising to 2.29, K 4.1, Mg 2.2, Phos 5.8 WBC up to 24k, 46k, INR 4.[address] Perez, keep ICU status for now urine culture growing gram negative bacilli and both sets of blood cultures growing gram negative bacilli Review of Systems Review of Systems: All systems reviewed & are unremarkable except as noted in Subjective Constitutional: + fatigue and + weakness; no fever Respiratory: + dyspnea and + dyspnea on exertion; no cough, no sputum production and no wheezing Cardiovascular: no chest pain, no palpitations and no edema Gastrointestinal: + early satiety (no appetite); no abdominal pain, no nausea, no vomiting, no constipation and no diarrhea/loose stools Physical Exam Constitutional: + ill appearing and + obese; no acute distress Neck: trachea midline, no thyromegaly + thick neck Respiratory: normal respiratory effort, lungs clear to auscultation Cardiovascular: Rate/Rhythm: + tachycardic and + irregularly irregular Heart Sounds: normal S1 and normal S2; no murmur Vessels: no JVD Extremities: normal capillary refill; no edema Gastrointestinal (Abdomen): normal bowel sounds, soft, nontender, no hepatosplenomegaly Musculoskeletal: no cyanosis or clubbing, extremities motor strength 5/5 Skin: no rashes, warm and dry + ecchymosis Neurologic: patellar DTR's 2+ bilat, sensation intact and PERRL, EOMI, accommodation nl, no face palsy, no dysarthria Psychiatric: A+Ox3, euthymic affect Lymphatic: no cervical or axillary lymphadenopathy Results & Data Results & Data ([facility]) Vital Signs (Past 12 Hours) Vital Signs Temp Pulse Resp BP Pulse Ox 06/13/20 06:15 36.6 C 111 H 27 H 113/62 95 06/13/20 05:45 115 H 33 H 108/72 94 06/13/20 05:15 106 H 29 H 116/67 94 06/13/20 05:00 108 H 27 H 103/59 L 96 06/13/20 04:13 117 H 107/58 L 06/13/20 04:00 36.6 C 125 H 21 107/58 L 93 06/13/20 03:30 36.6 C 127 H 32 H 115/63 94 06/13/20 03:04 124 H 37 H 113/67 06/13/20 03:00 135 H 31 H 113/67 06/13/20 02:00 123 H 28 H 100/51 L 93 06/13/20 00:59 37.0 C 120 H 29 H 99/51 L 93 06/13/20 00:30 36.9 C 116 H 26 H 103/45 L 93 06/13/20 00:00 111 H 24 88/48 L 93 06/12/20 23:30 109 H 26 H 112/54 L 93 Laboratory Results Laboratory Results - last 24 hr 06/12/20 06/12/20 06/12/20 09:59 12:45 15:48 WBC RBC Hgb Hct MCV MCH MCHC RDW Std Deviation RDW Coeff of Sonia Plt Count MPV Immature Gran % (Auto) Neut % (Auto) Lymph % (Auto) [place] % (Auto) Eos % (Auto) Baso % (Auto) Neut # (Auto) Lymph # (Auto) [place] # (Auto) Eos # (Auto) Baso # (Auto) Immature Gran # (Auto) Toxic Vacuolation Dohle Bodies PT INR APTT PTT Ratio Sodium Potassium Chloride Carbon Dioxide Anion Gap BUN Creatinine Est Cr Clr Drug Dosing Est GFR ( Amer) Est GFR (Non-Af Amer) BUN/Creatinine Ratio Glucose POC Glucose 134 H Calcium Phosphorus Magnesium 2.0 Total Bilirubin Direct Bilirubin AST ALT Alkaline Phosphatase Troponin I 0.511 H* Total Protein Albumin Stone Source Pending Stone Weight Pending Stone Composition Pending Stone Composition 2 Pending 06/12/20 06/12/20 06/13/20 15:48 23:59 04:43 WBC 24.84 H RBC 4.28 Hgb 14.6 Hct 43.8 MCV 102.3 H MCH 34.1 H MCHC 33.3 RDW Std Deviation 58.0 H RDW Coeff of Sonia 15.5 H Plt Count 46 L MPV 11.8 H Immature Gran % (Auto) 2.7 Neut % (Auto) 89.4 Lymph % (Auto) 2.9 [place] % (Auto) 5.0 Eos % (Auto) 0.0 Baso % (Auto) 0.0 Neut # (Auto) 22.17 H Lymph # (Auto) 0.72 L [place] # (Auto) 1.25 H Eos # (Auto) 0.01 Baso # (Auto) 0.01 Immature Gran # (Auto) 0.68 H Toxic Vacuolation 1+ Dohle Bodies 1+ PT INR APTT PTT Ratio Sodium 142 Potassium 4.2 D Chloride 109 H Carbon Dioxide 22 Anion Gap 11.0 BUN 32 H Creatinine 1.77 H Est Cr Clr Drug Dosing 36.5 Est GFR ( Amer) 32.7 Est GFR (Non-Af Amer) 28.2 BUN/Creatinine Ratio 18.2 Glucose 141 H POC Glucose 107 H Calcium 7.4 L Phosphorus Magnesium Total Bilirubin Direct Bilirubin AST ALT Alkaline Phosphatase Troponin I Total Protein Albumin Stone Source Stone Weight Stone Composition Stone Composition 2 06/13/20 06/13/20 06/13/20 04:43 04:43 04:43 WBC RBC Hgb Hct MCV MCH MCHC RDW Std Deviation RDW Coeff of Sonia Plt Count MPV Immature Gran % (Auto) Neut % (Auto) Lymph % (Auto) [place] % (Auto) Eos % (Auto) Baso % (Auto) Neut # (Auto) Lymph # (Auto) [place] # (Auto) Eos # (Auto) Baso # (Auto) Immature Gran # (Auto) Toxic Vacuolation Dohle Bodies PT 36.5 H INR 4.0 H APTT 46.0 H* PTT Ratio 1.7 Sodium 142 Potassium 4.1 Chloride 109 H Carbon Dioxide 23 Anion Gap 10.0 BUN 44 H Creatinine 2.29 H D Est Cr Clr Drug Dosing 28.2 Est GFR ( Amer) 23.9 Est GFR (Non-Af Amer) 20.7 BUN/Creatinine Ratio 19.3 Glucose 102 H POC Glucose Calcium 7.1 L Phosphorus 5.8 H Magnesium 2.2 Total Bilirubin 1.3 H Direct Bilirubin 0.5 H AST 362 H ALT 99 H Alkaline Phosphatase 55 Troponin I 0.500 H* Total Protein 6.5 Albumin 2.6 L Stone Source Stone Weight Stone Composition Stone Composition 2 06/13/20 06/13/20 05:56 07:27 WBC RBC Hgb Hct MCV MCH MCHC RDW Std Deviation RDW Coeff of Sonia Plt Count MPV Immature Gran % (Auto) Neut % (Auto) Lymph % (Auto) [place] % (Auto) Eos % (Auto) Baso % (Auto) Neut # (Auto) Lymph # (Auto) [place] # (Auto) Eos # (Auto) Baso # (Auto) Immature Gran # (Auto) Toxic Vacuolation Dohle Bodies PT INR APTT PTT Ratio Sodium Potassium Chloride Carbon Dioxide Anion Gap BUN Creatinine Est Cr Clr Drug Dosing Est GFR ( Amer) Est GFR (Non-Af Amer) BUN/Creatinine Ratio Glucose POC Glucose 106 H 110 H Calcium Phosphorus Magnesium Total Bilirubin Direct Bilirubin AST ALT Alkaline Phosphatase Troponin I Total Protein Albumin Stone Source Stone Weight Stone Composition Stone Composition 2 Microbiology 06/12/20 Unknown Urine,Ureter Urine Culture - Preliminary Gram negative bacilli 06/12/20 04:11 Blood Aerobic Blood Culture - Preliminary Gram negative bacilli 06/12/20 04:11 Blood Anaerobic Blood Culture - Preliminary Gram negative bacilli 06/12/20 04:38 Blood Aerobic Blood Culture - Preliminary Gram negative bacilli 06/12/20 04:38 Blood Anaerobic Blood Culture - Preliminary Gram negative bacilli 06/12/20 Unknown Urine,Straight Cath Urine Culture - Preliminary Gram negative bacilli Medications Administered Current Inpatient Medications Albuterol (Albut/Ipratrop 3mg/0.5mg Neb 3 Ml Vial) 3 ml INH Q2H PRN PRN Reason: Dyspnea Stop: 07/12/20 07:38 Cyanocobalamin (Cyanocobalamin 500 Mcg Tablet (Vitamin B-12)) 1,000 mcg PO QAM [facility] Stop: 07/12/20 08:59 Last Admin: 06/13/20 10:33 Dose: 1,000 mcg Documented by: Gabapentin (Gabapentin 100 Mg Cap) 100 mg PO QPM MICHAEL Stop: 07/12/20 20:59 Last Admin: 06/12/20 19:49 Dose: Not Given Documented by: Piperacillin Sod/Tazobactam (Sod 4.5 gm/ Dextrose) 120 mls @ 30 mls/hr IV Q8H [facility]; Protocol Stop: 06/22/20 11:59 Last Infusion: 06/13/20 09:06 Dose: Infused Documented by: Famotidine 20 mg/ Syringe 5 mls @ 2.5 mls/min IV QAM [facility] Stop: 07/13/20 08:59 Last Admin: 06/13/20 10:35 Dose: 2.5 mls/min Documented by: Metoprolol Tartrate (Metoprolol Tartrate 25 Mg Tab) 25 mg PO BID [facility] Stop: 07/12/20 20:59 Last Admin: 06/13/20 10:32 Dose: 25 mg Documented by: Miscellaneous (Icu Protocol For Hyperglycemia) 1 ea N/A PRN PRN; Protocol PRN Reason: Hyperglycemia Protocol Stop: 06/14/20 07:38 Miscellaneous Information (Piperacill/Tazobac Consult Active) 1 ea N/A UD PRN PRN Reason: Consult Stop: 07/12/20 06:29 Multivitamins (Multivitamin Tab) 1 tab PO QAM [facility] Stop: 07/12/20 08:59 Last Admin: 06/13/20 10:34 Dose: 1 tab Documented by: Nystatin (Nystatin Powder 15gm Btl) 1 appln EXT DAILY [facility] Stop: 07/12/20 08:59 Last Admin: 06/13/20 10:32 Dose: 1 appln Documented by: Ondansetron HCl (Ondansetron Inj 2 Mg/Ml 2 Ml Vial) 4 mg IV Q6H PRN PRN Reason: Nausea And Vomiting Stop: 07/12/20 17:16 Last Admin: 06/12/20 17:27 Dose: 4 mg Documented by: Vitamin D (Cholecalciferol 1,000 Units 25 Mcg Tab) 2,000 units PO DAILY MICHAEL Stop: 07/12/20 08:59 Last Admin: 06/13/20 10:34 Dose: 2,000 units Documented by: PG Care Time/CCT Total # of Minutes Spent Total Time Spent with Patient: Total time spent is greater than 50% in coordination of care (as documented) at patient's floor/unit and/or counseling patient: Coding Level of Care Code 44690 Subseq Hosp Care Lvl 3 Diagnoses Septic shock A41.9; R65.21 Acute kidney injury N17.9 Acute UTI (urinary tract infection) N39.0 Atrial fibrillation with RVR I48.91 Impaired fasting glucose R73.01 Hypertension I10 Anticoagulant long-term use Z79.01 Thrombocytopenia D69.6 Elevated INR R79.1
--- NOTE | 2020-06-13 11:39 | Billing Data ---
Date of Service June 13, 2020 Coding Level of Care Code 39786 Subseq Hosp Care Lvl 3
--- NOTE | 2020-06-13 12:13 | Urology Progress Note ---
Date of Service June 13, 2020 Assessment & Plan (1) Acute UTI (urinary tract infection): (2) Acute kidney injury: (3) Ureteral stone with hydronephrosis: 74yo F admitted with acute UTI/Sepsis secondary to an obstructing 7mm left ureteral calculus with hydronephrosis. - Postop day #1 s/p Cystoscopy with Left Stone extraction, Retrograde pyelogram, aspiration, and Ureteral Stent Insertion with Dr. Ferreira - Afebrile - Labs reviewed, Wbc elevated to 24.84 today and creatinine up to 2.29 - Will continue to trend - Urine and blood cultures preliminary gram negative bacilli - Tolerating Mcmahon catheter, maintain for now - Continue supportive care and antibiotic therapy, follow cultures - Will continue to follow Admission and Anticipated Discharge Date Admission Date: June 12, 2020 Subjective Pt examined at bedside this AM. Awake, alert, appears fatigued. Resting in bed on arrival. No reports of pain at this time. No fevers or chills. Denies nausea/vomiting. Mcmahon catheter intact, draining yellow urine. She reports a poor appetite. Denies CP/SOB. Chart review: Afebrile, Wbc 24.84 (previously 13.91), Hgb 14.6, Cr 2.29 (previously 1.77) Urine and blood cultures growing gram neg bacilli On IV Zosyn Off of Levophed since yesterday Review of Systems Constitutional: as per Subjective / HPI Gastrointestinal: as per Subjective / HPI Genitourinary: as per Subjective / HPI Physical Exam Constitutional: + ill appearing and + obese; no acute distress Respiratory: no respiratory distress and no labored breathing Gastrointestinal (Abdomen): Percussion/Palpation: abdomen soft; abdomen nontender and no guarding Musculoskeletal: Head/Neck/Chest: normocephalic Skin: no rashes, warm and dry Neurologic: awake Psychiatric: Orientation: alert and oriented to person Genitourinary: Mcmahon catheter intact Results & Data ([facility]) Vital Signs (Past 12 Hours) Vital Signs Temp Pulse Resp BP Pulse Ox 06/13/20 06:15 36.6 C 111 H 27 H 113/62 95 06/13/20 05:45 115 H 33 H 108/72 94 06/13/20 05:15 106 H 29 H 116/67 94 06/13/20 05:00 108 H 27 H 103/59 L 96 06/13/20 04:13 117 H 107/58 L 06/13/20 04:00 36.6 C 125 H 21 107/58 L 93 06/13/20 03:30 36.6 C 127 H 32 H 115/63 94 06/13/20 03:04 124 H 37 H 113/67 06/13/20 03:00 135 H 31 H 113/67 06/13/20 02:00 123 H 28 H 100/51 L 93 06/13/20 00:59 37.0 C 120 H 29 H 99/51 L 93 06/13/20 00:30 36.9 C 116 H 26 H 103/45 L 93 PG Care Time/CCT Total # of Minutes Spent Total Time Spent with Patient: Total time spent is greater than 50% in coordination of care (as documented) at patient's floor/unit and/or counseling patient: Coding Level of Care Code 25660 Subseq Hosp Care Lvl 2 Diagnoses Acute UTI (urinary tract infection) N39.0 Acute kidney injury N17.9 Ureteral stone with hydronephrosis N13.2
[2020-06-13] MEDS ORDERED: FUROSEMIDE 60 MG in SYRINGE 0 ML IV ONE (14:45)
--- NOTE | 2020-06-13 14:55 | Nephrology Consultation ---
Date of Consultation June 13, 2020 Assessment & Plan (1) Acute kidney injury: Admitted with Confusion, back pain due to left sided hydronephrosis, sepsis with UTI. Initially Cr 1.5 with b/l cr 0.8. Cr worsened to 2.3, electrolyte acceptable. UO has been low. PETR most likely secondary to pre renal etiology vs ATN with urosepsis, hypotension. Has been on IV fluid with net + >7 L and having some SOB. --OK to use diuretics as UO has been low. --hopefully renal function will start to improve in next 24 /48 hours, continue hemodynamic support --no other w/u indicated at this time. --unclear etiology for abdominal pain, no cholecystitis on CT. ? gastritis Will follow Thank you for the consult. (2) Hydronephrosis concurrent with and due to calculi of kidney and ureter: (3) Acute UTI (urinary tract infection): History of Present Illness Reason for Consultation: PETR Attending Physician: Darrius Ascencio DO History of Present Illness Mrs Ami Hagen with past medical history of nephrolithiasis, no CKD admitted to the hospital with urosepsis and obstructive uropathy. Nephrology consult was requested to manage PETR. EMR records were reviewed in detail during visit. Ami was brought to ER on 06/12/20 as she was found to be confused at home. On arrival she was found to be hypotensive and tachycardic, BP was as low as 85/46. She required pressor briefly. Lactate was elevated at 6.5 -->4.1. She was given IV bolus with improvement in her mental status. CT head was unremarkable. However immediately after arrival she started complaining of lower back pain, CT abdomen pelvis without contrast showed showed left-sided hydronephrosis with 7 mm left ureteral stone in addition to bilateral multiple nephrolithiasis. Urinalysis showed low-grade proteinuria, microscopic hematuria and 4+ bacteriuria, eventually culture was growing Gram-negative bacilli. She was empirically started on vancomycin and Zosyn. Lab showed PETR initially creatinine was 1.5 ( b/l cr 0.8) ,further worsened to 2.3 this morning. Urine output has been minimum, 7.6 L positive. She was taken to OR yesterday, had cystoscopy, stone extraction and left ureteral stent placed. Currently lethargic but awake, alert. BP improved , off of pressor. Continues to be somewhat confused and c/o mild SOB and abdominal pain. Allergies Allergy/AdvReac Type Severity Reaction Status Date / Time adhesive Allergy Intermediate RASH, Verified 05/25/20 15:10 BLISTERING alendronate sodium Allergy Unknown SICK TO Verified 05/25/20 15:10 STOMACH latex Allergy Unknown SKIN Verified 05/25/20 15:10 TEARING Home Medications Medication Instructions Recorded Confirmed Type cyanocobalamin (vitamin B-12) 1,000 mcg PO QAM 01/19/18 05/25/20 History [Vitamin B-12] denosumab [Prolia] 1 dose SUBCUT UD 01/19/18 05/25/20 History multivitamin 1 tab PO QAM 01/19/18 05/25/20 History acetaminophen 500 mg tablet 1,000 mg PO TID tab 10/07/18 05/25/20 History cholecalciferol (vitamin D3) 50 2,000 unit PO DAILY tab 10/07/18 05/25/20 History mcg (2,000 unit) tablet doxepin 25 mg capsule See Rx Instructions PO HS PRN #180 01/25/19 05/25/20 Rx cap nystatin-triamcinolone 100,000 1 appln TOPICAL BID PRN #1 gm 01/25/19 05/25/20 History unit/g-0.1 % topical cream warfarin 5 mg tablet 5 mg PO QPM 04/13/19 05/25/20 History metoprolol tartrate 50 mg tablet 50 mg PO BID #180 tab 07/06/19 05/25/20 Rx warfarin 5 mg tablet 5 mg PO DAILY #100 tab 07/06/19 05/25/20 Rx menthol 0.44 %-zinc oxide 20.6 % 1 applic TOPICAL QID PRN #71 g 11/03/19 05/25/20 Rx topical ointment furosemide 20 mg tablet 20 mg PO DAILY PRN #90 tab 02/22/20 05/25/20 Rx nystatin 100,000 unit/gram topical See Rx Instructions TOPICAL DAILY 02/22/20 05/25/20 Rx powder #60 g acetaminophen 300 mg-codeine 30 mg See Rx Instructions PO Q6H PRN 03/21/20 05/25/20 Rx tablet #240 tab gabapentin 300 mg capsule 300 mg PO QPM #90 cap 05/03/20 05/25/20 Rx Patient History Medical History (Updated 06/13/20 @ 15:13 by Opal Contreras MD) Anticoagulant long-term use Atrial fibrillation with RVR Hydronephrosis concurrent with and due to calculi of kidney and ureter Hypertension Incontinence of urine Lactic acidosis Paroxysmal atrial fibrillation Septic shock Stroke x2. both 10 years ago. pt w/ intermittent numbness to right hand. no neurologist. Ureteral stone with hydronephrosis Surgical History History of colonoscopy w/ polypectomy History of dilatation and curettage History of gastric bypass History of hysterectomy History of surgery right leg r/t femur injury History of total knee replacement rt knee History of total shoulder replacement left Hx of cataract surgery right Family History Grandfather Family history of diabetes mellitus Daughter Family history of esophageal cancer Other Coronary heart disease Ovarian cancer Denies family history of Prostate cancer Lung cancer Colorectal cancer Social History Smoking Status: Never smoker Second Hand Exposure: No; Hx Alcohol Use: No Hx Substance Use: No Preferred Language: Bengali Communication Ability: Impaired Composition Roll Maker And Cutter Required: No Beliefs That Will Affect Care: None Current Living Situation: Spouse Feels Safe at Home: Yes Seatbelt Use: always Assistive Devices: Oxygen - Continuous Review of Systems Review of Systems: Unobtainable due to cognitive status Physical Exam Constitutional: WD/WN, vitals as above + ill appearing, + obese and + lethargic; no acute distress Eyes: PERRL, conjunctivae normal, anicteric sclerae ENMT: Ears: no hearing impairment Neck: trachea midline Respiratory: normal respiratory effort, lungs clear to auscultation no cough Auscultation: no crackles, no rales and no wheezes Cardiovascular: RRR, no murmur, no edema Gastrointestinal (Abdomen): Inspection/Auscultation: abdomen normal to inspection and normal bowel sounds Percussion/Palpation: + abdomen tender and abdomen soft; no guarding and abdomen not rigid Musculoskeletal: Extremities: extremities normal to inspection Skin: no rashes, warm and dry Neurologic: + confused; no focal motor deficits Psychiatric: A+Ox3, euthymic affect Results & Data ([facility]) Vital Signs (Past 12 Hours) Vital Signs Temp Pulse Resp BP Pulse Ox 06/13/20 06:15 36.6 C 111 H 27 H 113/62 95 06/13/20 05:45 115 H 33 H 108/72 94 06/13/20 05:15 106 H 29 H 116/67 94 06/13/20 05:00 108 H 27 H 103/59 L 96 06/13/20 04:13 117 H 107/58 L 06/13/20 04:00 36.6 C 125 H 21 107/58 L 93 06/13/20 03:30 36.6 C 127 H 32 H 115/63 94 06/13/20 03:04 124 H 37 H 113/67 06/13/20 03:00 135 H 31 H 113/67 PG Care Time/CCT Total # of Minutes Spent Total Time Spent with Patient: Total time spent is greater than 50% in coordination of care (as documented) at patient's floor/unit and/or counseling patient: Coding Level of Care Code 44842 Initial Inpt Care Lvl 3 Diagnoses Acute kidney injury N17.9 Hydronephrosis concurrent with and due to calculi of kidney and ureter N13.2 Acute UTI (urinary tract infection) N39.0
[2020-06-13 19:46] LABS: BUN Creatinine Ratio 17.2 (10-20); Calcium 7.2 mg/dl (8.5-10.1); Creatinine Clr Calc Pharmacy 20.6 ml/min; Est GFR (African American) 16.3; Est GFR (Non-African American) 14.1; Potassium 4.4 mmol/L (3.5-5.1)
[2020-06-13] MEDS: GABAPENTIN 100 MG CAP PO SCH (20:14)
[2020-06-13] MEDS ORDERED: FUROSEMIDE 100 MG in SYRINGE 0 ML IV ONE (23:10)
[2020-06-14] MEDS: PIPERACILLIN/TAZOBACTAM 4.5 GM in DEXTROSE 5% 100 ML IV SCH (03:53)
[2020-06-14 04:55] LABS: Hematocrit (blood only) 42.3 % (37-47); Hemoglobin 14.5 g/dL (12.0-16.0); Mean Corpuscular Hemoglobin 34.8 pg (25-34); Mean Corpuscular Hgb Conc 34.3 g/dL (32-36); Mean Corpuscular Volume 101.4 fL (80-100); RDW Coefficient of Variation 15.8 % (11.5-14.5); RDW Standard Deviation 59.5 fL (36.4-46.3); Red Blood Count 4.17 M/uL (4.2-5.4); White Blood Count 21.22 K/uL (4.8-10.8)
[2020-06-14 04:58] LABS: Mean Platelet Volume 11.8 fL (7.4-10.4); Platelet Count 43 K/uL (130-400)
[2020-06-14 05:13] LABS: Albumin Level 2.4 gm/dl (3.4-5.0); Creatinine Clr Calc Pharmacy 17.8 ml/min; Est GFR (African American) 13.7; Est GFR (Non-African American) 11.8; Magnesium 2.3 mg/dl (1.8-2.4); Potassium 4.6 mmol/L (3.5-5.1)
[2020-06-14 05:15] LABS: Basophils # (auto) 0.01 K/uL (0-0.2); Dohle Bodies 1+; Echinocytes 1+; Eosinophils # (auto) 0.01 K/uL (0-0.5); Immature Granulocytes # (auto) 0.09 K/uL (0.00-0.02); Immature Granulocytes % (auto) 0.4 %; Lymphocytes # (auto) 0.94 K/uL (1.2-3.4); Lymphocytes % (auto) 4.4 %; Monocytes % (auto) 3.8 %; Neutrophils # (auto) 19.37 K/uL (1.4-6.5); Neutrophils % (auto) 91.4 %
[2020-06-14 05:20] LABS: Partial Thromboplastin Ratio 1.8; Prothrombin Time 44.4 Seconds (9.0-12.0)
[2020-06-14 05:27] LABS: Partial Thromboplastin Time 47.5 Seconds (21.0-31.0)
[2020-06-14 05:29] LABS: Bilirubin Direct 0.5 mg/dl (0-0.2); Phosphorus 7.4 mg/dl (2.5-4.9); Total Protein 6.6 gm/dl (6.4-8.2)
--- NOTE | 2020-06-14 06:18 | Electrocardiogram Report ---
Test Reason : Blood Pressure : / mmHG Vent. Rate : 117 BPM Atrial Rate : 082 BPM P-R Int : 000 ms QRS Dur : 134 ms QT Int : 366 ms P-R-T Axes : 000 052 000 degrees QTc Int : 510 ms Atrial fibrillation with rapid ventricular response with premature ventricular or aberrantly conducte d complexes Right bundle branch block Abnormal ECG When compared with ECG of 12-JUN-2020 11:09, No significant change was found Confirmed by Froy Mims [id number]) on 06/14/2020 6:18:30 AM Referred By: REFERRED SELF Confirmed By:Froy Mims
--- NOTE | 2020-06-14 08:09 | Critical Care Progress Note ---
Date of Service June 14, 2020 Assessment & Plan (1) Ureteral stone with hydronephrosis: Ami is a 74-year-old female with a known history of nephrolithiasis, persistent atrial fibrillation on metoprolol and Warfarin, chronic venous insufficiency, hypertension, s/p Danielle-en-Y gastric bypass, and previous stroke who presented for ongoing AMS since 06/11, subsequently found to be in septic shock with suspected origin from obstructing stone in left renal pelvis. Infectious Disease # Septic Shock from Urologic Source -- with evidence of end-organ damage: metabolic encephalopathy, PETR, consumptive coagulopathy, elevated troponins - Suspected origination from obstructing L sided renal calculus resulting in hydroureteronephrosis as demonstrated on CT-A/P - Leukocytosis with left shift appreciated (14 --> 25), persistent through this AM - BCX, UCX demonstrating mora-sensative E. coli - Hemodynamic support: Not requiring Levophed or fluids - Zosyn --> CFTX given characterization - Repeat BCX RENAL/LYTES # Obstructing ureteral calculus with hydroureteronephrosis - Patient with known history of nephrolithiasis - CT-A/P demonstrated 7mm obstructing stone w/i L renal pelvis with numerous other b/l nephroliths - Now s/p double-J stent placement by urology - US Abdomen to visualize kidneys # Acute Kidney Injury -- likely prerenal in origin, baseline Cr 0.8 - Rising Cr on daily labs - 1.5 --> 2.3 --> 3.6 // BUN at 62 this AM - Suspect intrarenal origin - likely infection-driven w/ ATN from septic shock, also possibly worsened by contrast from procedure - UOP still persistently poor - Nephrology consulted for participation in care - Received 100mg IV Lasix last night - Bumex 4mg IV today - Renal dosing for meds # Hyperphosphatemia, hypocalcemia - Suspect due to acute renal failure - Anticipate possible addition of a phosphate binder Cardiac # Hypotension -- secondary to septic shock - Normotensive at present -- continue to monitor # Permanent AF, with RVR -- follows with Dr. Dorman - Noted to be in AF w/ RVR on admission, continuing throughout -- rates primarily <110-120 at this point - Suspect RVR component is secondary to infectious/inflammatory state - Given NPO, transition and increase dose to tartrate 5mg IV t.i.d. # Elevated Troponin -- Patient did report mild chest discomfort while in ED, resolved here - Appreciated on admission, peaked at 0.51 early AM of 06/12, now downtrending - Suspect 2/2 demand ischemia in setting of septic shock, contribution from PETR Respiratory # Acute Hypoxemic, Hypercapnic Respiratory Failure - Decreasing respiratory rate overnight - now 15-20, SpO2s stable on NC previously - Now with hypercapnic predominance -- pCO2 50, pH 7.25 - W/U as follows: - CXR with evidence of pulmonary vascular congestion, bibasilar consolidations - atelectasis vs. possible effusion - Echo demonstrating normal LV size/function. EF 60-65% w/o RWMAs - I+Os with persistently poor UOP despite diuresis - Net positive +7L since admission - Physical exam revealing of 2+ pitting edema in lower extremities, JVD, hepatojugular reflex - Suspect this is likely d/t volume overload in the setting of acute and worsening renal failure - Will transition to BiPAP for continued support - Continuous pulse oximetry Neuro Sedation: None Analgesia: Tylenol # Metabolic encephalopathy -- worsening; increased confusion noted last night with good resolution - Responsive to tactile stimuli, but unable to respond to questions - Likely 2/2 ongoing urosepsis with septic shock and metabolic derangements, i ncluding acidosis - Repeat BCX, ammonia level - Regular MS checks - Sepsis treatment as above # History of CVA - Noted on review of chart -- occurred > 10 years ago, no neurologist - Residual deficits noted as intermittent numbness to R hand - Gabapentin 100mg qHS Other: Hold nightly doxepin GI -- no major concerns at this point # Diet - NPO -- don't suspect she is adequately able to protect her airway with current mentation # Transaminitis - With some improvement this morning; AST 283/ALT 105 - In setting of septic shock, do suspect this transient transaminitis is likely shock liver vs. toxin hepatitis - Rhabdo seems unlikely given CPK ~3000 despite AST predominance, but considered - As below, TTP also considered as possibility; however, MAHA not appreciated and does seem less likely - Trend daily # Abdominal Pain - Grimacing and moaning to palpation of abdomen today - no rebound or guarding - While could certainly be d/t recent stones/obstruction, other causes considered - including acalculous cholecystitis - Initial CT-A/P demonstrated mildly distended gallbladder - Obtain repeat US-Abdomen complete to visualize kidneys and gallbladder - No concerns at this time. - Mcmahon in place, monitor UOP ENDO - ICU Hyperglycemia protocol HEME - Stable H&H # Thrombocytopenia (43) - Suspect consumptive coagulopathy in setting of septic shock as primary etiology - However, in setting of mild transaminitis, abdominal pain, and fever, also consider- TTP, ITP, HUS, EHEC - Peripheral smear without schistocytes - lower concern for DIC - Without visualized active bleeding - Continue to monitor # Supratherapeutic INR (5) - Was on Coumadin for AFib -- suspect delayed warfarin effect as primary etiology - INR 3.1 --> 4 --> 5 - Suspect delayed Warfarin effect as primary etiology in setting of consumptive coagulopathy - DIC seems less likely at this time given stable H&H, normal smear, clinical appearance - Will do a one-time dose of Vitamin K 2.5mg IV - PT/INR qAM INTEGUMENTARY - No concerns at this time LINES/IV ACCESS - 2x 20-gauge PIVs in place - If need for further pressors, consider central line placement DVT PROPHYLAXIS - - Supratherapeutic INR - plan as above - Can consider transitioning to Heparin gtt / switching back to warfarin when appropriate Thank you for allowing us to be part of this patient's care. Please refer to Dr. Perez's documentation for any further recommendations. (2) Mild cognitive impairment: (3) Idiopathic peripheral neuropathy: (4) Nephrolithiasis: (5) Venous insufficiency: (6) Atrial fibrillation: (7) Osteoarthritis: (8) Stroke: Admission and Anticipated Discharge Date Admission Date: June 12, 2020 Supervising Physician Co-Signing Physician Notes Dr. Dela Cruz was the resident-physician during care of patient. I separately evaluated patient for jacobs portions of the history and the exam. I was present during the critical portion of medical decision making, and I discussed the case with the resident. I generally agree with the findings and plan except for any additions/exceptions noted. Patient has ongoing PETR with worsening creatinine and decreased urine output overnight. She is status post 100 mg Lasix overnight with minimal urine output. I did personally discuss the case with the nephrology attending and we agreed upon 4 mg of IV Bumex as a trial to help improve her urine output. She likely has ongoing ischemic ATN. She may require dialysis if she has no significant increase in her urine output in the next 12 to 24 hours. She also has worsening hypercapnic respiratory failure and has been placed on a BiPAP. She also has a concommitent metabolic acidosis and we are going to give her 2 A of bicarb and initiate a slow bicarb drip at 75 cc an hour. She has a high likelihood of respiratory decompensation and requiring mechanical ventilation. Will discuss with her family. I have personally spent 33 minutes of critical care time in the direct management of this patient. This is a life/limb threatening event. This includes time spent evaluating patient, direct bedside care, chart review, placing orders, interpretation of diagnostic studies, discussion with consultants, patient, and/or family members regarding treatment decisions, as well as other required patient management activities. This time is exclusive of all separately billable procedures, and teaching time and separate from and in addition to any other critical care service time. Subjective Patient did receive an additional 100 mg Lasix IV last night, with a urine output of only approximately 75 cc. Otherwise no acute events overnight reported. At the bedside this morning, patient does moan to tactile stimuli and occasionally responds, but is mostly unable to answer questions. She does follow some commands, including taking deep breaths, squeezing my hands. While she initially did not endorse pain, on reassessment she endorsed having some abdominal pain. Review of Systems Review of Systems: Unobtainable due to cognitive status Physical Exam Constitutional: Ill-appearing 74-year-old female who is lying back in her hospital bed, somnolent upon my arrival. While she does respond with nodding to some tactile stimuli, she infrequently responds to questions. No acute distress. Eyes: Pupils are equal, round, and reactive to light. Neck: Jugular venous distention is appreciated to about 2 to 3 fingerbreadths above the clavicle. Hepatojugular reflex is positive. Respiratory: Mildly increased respiratory effort with symmetric expansion of the chest. No use of accessory muscles. Auscultation does reveal intermittent crackles heard primarily throughout the lower lung deluna, with diminished breath sounds throughout. Cardiovascular: Tachycardic with irregular rhythm. S1 and S2 are present without murmurs rubs or gallops. Gastrointestinal (Abdomen): Hypoactive bowel sounds. Abdomen is mildly distended, with intermittent nonspecific tenderness primarily on the right upper and lower quadrants. No rebound or guarding. Results & Data Results & Data ([facility]) Vital Signs (Past 12 Hours) Vital Signs Temp Pulse Resp BP Pulse Ox 06/14/20 06:00 108 H 20 117/71 96 06/14/20 05:30 110 H 17 94 06/14/20 05:00 98 H 16 106/64 94 06/14/20 04:30 112 H 21 94 06/14/20 04:00 36.9 C 110 H 20 97/61 L 95 06/14/20 03:30 117 H 26 H 95 06/14/20 03:00 108 H 20 108/69 96 06/14/20 02:30 113 H 21 95 06/14/20 02:00 100 H 24 102/77 95 06/14/20 01:30 107 H 26 H 95 06/14/20 01:00 102 H 21 120/72 96 06/14/20 00:30 110 H 28 H 95 06/14/20 00:00 37.2 C 99 H 22 117/92 95 06/13/20 23:30 117 H 26 H 94 06/13/20 23:00 120 H 20 108/69 93 06/13/20 22:30 118 H 26 H 95 06/13/20 22:00 113 H 20 108/67 95 06/13/20 21:30 107 H 20 94 06/13/20 21:00 117 H 26 H 101/74 94 06/13/20 20:30 117 H 28 H 95 Resident Activity Tracking Resident Involvement: Resident Care Provided Care Provided: Adult Hospital Medicine
[2020-06-14] MEDS ORDERED: PHYTONADIONE 2.5 MG in SODIUM CHLORIDE 0.9% 50 ML IV ONE (08:15)
[2020-06-14 08:42] LABS: iSTAT Arterial Blood Gas HCO3 22 meg/L (19-24); iSTAT Arterial Blood Gas pCO2 50 mmHg (35-46); iSTAT Arterial Blood Gas pH 7.25 (7.35-7.45); iSTAT Arterial Blood Gas pO2 81 mmHg (80-95); iSTAT Carbon Dioxide 24 mmol/L (24-31); iSTAT Hematocrit 42 % (37-47); iSTAT Hemoglobin 14.3 g/dl (12.0-16.0); iSTAT Potassium 4.5 mmol/L (3.3-5.0); iSTAT Sodium 139 mmol/L (135-144)
[2020-06-14] MEDS ORDERED: METOPROLOL TARTRATE 25 MG TAB PO SCH (09:00)
--- NOTE | 2020-06-14 09:23 | Urology Progress Note ---
Date of Service June 14, 2020 Assessment & Plan (1) Acute kidney injury: (2) Acute UTI (urinary tract infection): (3) Ureteral stone with hydronephrosis: 74yo F admitted with acute UTI/Sepsis secondary to an obstructing 7mm left ureteral calculus with hydronephrosis. - Postop day #2 s/p Cystoscopy with Left Stone extraction, Retrograde pyelogram, aspiration, and Ureteral Stent Insertion with Dr. Ferreira - Plan of care reviewed with Dr. Álvarez - Patient without clinical improvement post stent placement - Remains afebrile - Labs reviewed, Wbc 19.65. Creatinine up to 3.63. Nephrology following, will continue to trend - Urine and blood cultures with E.coli, mora sensitive -Repeat blood cultures pending - Abdominal ultrasound showed no hydronephrosis; Left-sided nephrolithiasis - Maintain Mcmahon catheter - Continue supportive care and antibiotic therapy - Will continue to follow Admission and Anticipated Discharge Date Admission Date: June 12, 2020 Subjective Pt examined at bedside this AM in ICU. Minimally responsive. Lethargic and confused. Currently on BIPAP. Mcmahon catheter intact- draining clear, yellow urine Chart review: Afebrile Wbc 21.22 (previously 24.84) Hgb 14.5 Cr 3.63 (previously 3.14) Urine and blood cultures with E.coli (mora sensitive), on IV Ceftriaxone Repeat blood cultures pending Decreased urine output overnight - 75ml Abdominal ultrasound 06/14: 1. Distended gallbladder containing multiple small stones. No gallbladder wall thickening. This remains unchanged. 2. Left-sided nephrolithiasis. No hydronephrosis. 3. Small right pleural effusion. Review of Systems Review of Systems: Unobtainable due to cognitive status Physical Exam Constitutional: + ill appearing, + obese and + lethargic; no acute distress Respiratory: no labored breathing and does not use accessory muscles Gastrointestinal (Abdomen): Inspection/Auscultation: abdomen normal to ins pection Percussion/Palpation: abdomen soft Musculoskeletal: Head/Neck/Chest: normocephalic Skin: no rashes, warm and dry Neurologic: + obtunded Genitourinary: Mcmahon catheter intact Results & Data ([facility]) Vital Signs (Past 12 Hours) Vital Signs Temp Pulse Resp BP Pulse Ox 06/14/20 08:30 104 H 22 94 06/14/20 06:00 108 H 20 117/71 96 06/14/20 05:30 110 H 17 94 06/14/20 05:00 98 H 16 106/64 94 06/14/20 04:30 112 H 21 94 06/14/20 04:00 36.9 C 110 H 20 97/61 L 95 06/14/20 03:30 117 H 26 H 95 06/14/20 03:00 108 H 20 108/69 96 06/14/20 02:30 113 H 21 95 06/14/20 02:00 100 H 24 102/77 95 06/14/20 01:30 107 H 26 H 95 06/14/20 01:00 102 H 21 120/72 96 06/14/20 00:30 110 H 28 H 95 06/14/20 00:00 37.2 C 99 H 22 117/92 95 06/13/20 23:30 117 H 26 H 94 06/13/20 23:00 120 H 20 108/69 93 06/13/20 22:30 118 H 26 H 95 06/13/20 22:00 113 H 20 108/67 95 06/13/20 21:30 107 H 20 94 PG Care Time/CCT Total # of Minutes Spent Total Time Spent with Patient: Total time spent is greater than 50% in coordination of care (as documented) at patient's floor/unit and/or counseling patient: Coding Level of Care Code 77611 Subseq Hosp Care Lvl 2 Diagnoses Acute kidney injury N17.9 Acute UTI (urinary tract infection) N39.0 Ureteral stone with hydronephrosis N13.2
[2020-06-14] MEDS: MULTIVITAMIN TAB PO SCH (09:54)
[2020-06-14] MEDS: CYANOCOBALAMIN 500 MCG TABLET (VITAMIN B-12) PO SCH (09:54)
[2020-06-14] MEDS: CHOLECALCIFEROL 1,000 UNITS 25 MCG TAB PO SCH (09:54)
[2020-06-14] MEDS: FAMOTIDINE 20 MG in SYRINGE 3 ML IV SCH (10:06)
[2020-06-14] MEDS: cefTRIAXone SODIUM 2,000 MG in DEXTROSE 5% 50 ML IV SCH (10:06)
[2020-06-14] MEDS: METOPROLOL TARTRATE 1 MG/ML VIAL IV SCH ×2 (10:07→18:26)
[2020-06-14] MEDS: NYSTATIN POWDER 15GM BTL EXT SCH (10:08)
[2020-06-14] MEDS ORDERED: BUMETANIDE 4 MG in SYRINGE 0 ML IV ONE (10:20)
--- NOTE | 2020-06-14 10:37 | Ultrasound Report ---
ABDOMINAL ULTRASOUND COMPLETE HISTORY: Left-sided abdominal pain. visualize gallbladder, kidneys - not eaten. COMPARISON: Abdomen and pelvis CT 06/12/2020. FINDINGS: Pancreas: The pancreatic head and tail are obscured by overlying bowel gas. The remaining portions of the pancreas are within normal limits. Liver: Unremarkable. Gallbladder: Distended gallbladder containing multiple small stones. This remains unchanged. No gallb ladder wall thickening. CBD: 7 mm. This is at the upper limits of normal for age. Kidneys: No hydronephrosis. A few small right renal cysts measuring up to 1.2 cm. Left-sided nephroli thiasis with the dominant stone measuring 8 mm. Spleen: Normal in size. Aorta: The visualized aorta is normal in caliber. IVC: Patent. Miscellaneous: Small right pleural effusion. IMPRESSION: 1. Distended gallbladder containing multiple small stones. No gallbladder wall thickening. This remai ns unchanged. 2. Left-sided nephrolithiasis. No hydronephrosis. 3. Small right pleural effusion. ACT 112: Negative or not required by law. Electronically signed by: Luis Parada M.D. 06/14/2020 10:36 AM
--- NOTE | 2020-06-14 10:46 | Nephrology Progress Note ---
Date of Service June 14, 2020 Assessment & Plan (1) Acute kidney injury: Admitted with Confusion, back pain due to left sided hydronephrosis, sepsis with UTI. Initially Cr 1.5 with b/l cr 0.8. Cr worsened to 2.3, electrolyte acceptable. UO has been low. PETR most likely secondary to dense ATN with urosepsis, hypotension. Rapid worsening of renal function with creatinine up to 3.6 today compared to 2.3 yesterday. Urine output continues to be low, net positive, blood pressure stable. --Bumex 4 mg IV x1 dose now continue to monitor urine output, if no increase in urine output in next few hours, will plan for urgent dialysis with temporary dialysis catheter this afternoon. Will follow Thank you for the consult. (2) Hydronephrosis concurrent with and due to calculi of kidney and ureter: (3) Acute UTI (urinary tract infection): Admission and Anticipated Discharge Date Admission Date: June 12, 2020 Subjective Ami has been overall doing poorly, minimally responsive. Currently on BiPAP. Renal function continues to worsen rapidly, creatinine 3.6, potassium normal, urine output has been low for more than 24 hours despite getting Lasix 100 mg IV yesterday. Blood pressure has been relatively stable. Afebrile. Review of Systems Review of Systems: Unobtainable due to mental health condition Physical Exam Constitutional: + ill appearing and + lethargic; no acute distress Respiratory: no cough Auscultation: + diminished lung sounds; no crackles and no rales Cardiovascular: RRR, no murmur, no edema Gastrointestinal (Abdomen): Inspection/Auscultation: abdomen normal to inspection and normal bowel sounds Percussion/Palpation: + abdomen tender and abdomen soft; no guarding and abdomen not rigid Neurologic: + obtunded Results & Data ([facility]) Vital Signs (Past 12 Hours) Vital Signs Temp Pulse Resp BP Pulse Ox Pulse Ox 06/14/20 10:07 99 H 114/68 06/14/20 08:30 104 H 22 94 06/14/20 08:00 95 H 06/14/20 07:00 94 06/14/20 06:00 108 H 20 117/71 96 06/14/20 05:30 110 H 17 94 06/14/20 05:00 98 H 16 106/64 94 06/14/20 04:30 112 H 21 94 06/14/20 04:00 36.9 C 110 H 20 97/61 L 95 06/14/20 03:30 117 H 26 H 95 06/14/20 03:00 108 H 20 108/69 96 06/14/20 02:30 113 H 21 95 06/14/20 02:00 100 H 24 102/77 95 06/14/20 01:30 107 H 26 H 95 06/14/20 01:00 102 H 21 120/72 96 06/14/20 00:30 110 H 28 H 95 06/14/20 00:00 37.2 C 99 H 22 117/92 95 06/13/20 23:30 117 H 26 H 94 06/13/20 23:00 120 H 20 108/69 93 PG Care Time/CCT Total # of Minutes Spent Total Time Spent with Patient: Total time spent is greater than 50% in coordination of care (as documented) at patient's floor/unit and/or counseling patient: Coding Level of Care Code 80372 Subseq Hosp Care Lvl 3 Diagnoses Acute kidney injury N17.9 Hydronephrosis concurrent with and due to calculi of kidney and ureter N13.2 Acute UTI (urinary tract infection) N39.0
--- NOTE | 2020-06-14 10:53 | Billing Data ---
Date of Service June 14, 2020 Coding Level of Care Code Critical Care 1st 30-74 mins Time Spent (min) 33
[2020-06-14] MEDS ORDERED: SODIUM BICARB 8.4% INJ 50 MEQ/50 ML SYR IV ONE (10:58)
[2020-06-14] MEDS ORDERED: STAT IV STA (11:00)
[2020-06-14 11:13] LABS: iSTAT Arterial Blood Gas HCO3 21 meg/L (19-24); iSTAT Arterial Blood Gas pCO2 49 mmHg (35-46); iSTAT Arterial Blood Gas pH 7.25 (7.35-7.45); iSTAT Arterial Blood Gas pO2 80 mmHg (80-95); iSTAT Carbon Dioxide 23 mmol/L (24-31)
[2020-06-14] MEDS ORDERED: SODIUM BICARBONATE 8.4% INJ 50 MEQ/50 ML VIAL IV ONE (11:48)
[2020-06-14] MEDS: SODIUM BICARBONATE 8.4% 150 MEQ in DEXTROSE 5% 1,000 ML IV SCH (11:50)
--- NOTE | 2020-06-14 11:58 | Hospitalist Progress Note ---
Date of Service June 14, 2020 Assessment & Plan (1) Septic shock: Septic shock/secondary to UTI/recent passage of kidney stone/admit to intensive care unit- urine and blood cultures growing gram neg bacilli - E coli, mora sensitive off of Levophed for two days fluids stopped downgrade to Rocephin from Zosyn based on sensitivities no longer in shock but she does have severe sepsis with acute kidney injury, low platelets (2) Acute kidney injury: Cr continues to rise from 1.3 to 1.7 to 2.29 and now 3.6, BUN is 60's K is stable urine output is suboptimal, challenged with Bumex 4mg IV but not a great response likely going to need a temp HD catheter and HD this afternoon for ultrafiltration treat infection, supportive care and follow BMP closely renally dose medications (3) Acute UTI (urinary tract infection): due to ureteral stone, hydronephrosis urine and blood culture with GN bacilli - E coli continue ceftriaxone IV no fever, WBC is 21k (4) Atrial fibrillation with RVR: initially RVR due to infection HR is better, continue metoprolol INR is 5 (5) Impaired fasting glucose: Placed on ICU hyperglycemic protocol management per pharmacy sugars better today (6) Hypertension: BP stable, back on metoprolol for afib (7) Anticoagulant long-term use: INR 3.1 upon admission. up to 5 despite holding Coumadin can start heparin drip once INR is < 2 (8) Thrombocytopenia: consumptive due to sepsis, follow closely, down to 43k (9) Elevated INR: (10) Altered mental status: multifactorial, CO2 retention and PETR and infection place on BIPAP, pH is 7.2 ICU managing Admission and Anticipated Discharge Date Admission Date: June 12, 2020 Subjective patient is lethargic and confused this morning, blood gas with CO2 retention, placed on BIPAP Cr is rising, went from 2.3 to 3.6, not making urine appreciate nephrology recommendations, gave Bumex 4mg IV but not responding yet likely will need temp HD catheter and HD this afternoon urine/blood cultures with E coli, mora sensitive reviewed labs, WBC is 21k, Hb 14.5, plts 43k, INR 5.0 K 4.5, Cr 3.6, BUN 62, AST 283, ALT [address] Perez, he is managing Review of Systems Review of Systems: Unobtainable due to reduced consciousness (lethargic) Physical Exam Constitutional: + ill appearing, + obese and + lethargic; no acute distress Neck: trachea midline, no thyromegaly + thick neck Respiratory: normal respiratory effort, lungs clear to auscultation Cardiovascular: Rate/Rhythm: regular rate and + irregularly irregular Heart Sounds: normal S1 and normal S2; no murmur Vessels: no JVD Extremities: normal capillary refill; no edema Gastrointestinal (Abdomen): normal bowel sounds, soft, nontender, no hepatosplenomegaly Musculoskeletal: Head/Neck/Chest: normocephalic, head atraumatic and neck supple Extremities: + abnormal strength (generalized weakness) Skin: no rashes, warm and dry + ecchymosis Neurologic: CN's II-XI intact bilaterally; no focal motor deficits Psychiatric: Orientation: oriented to person; + not alert (lethargic), + not oriented to place and + not oriented to time Lymphatic: no cervical or axillary lymphadenopathy Results & Data Results & Data ([facility]) Vital Signs (Past 12 Hours) Vital Signs Temp Pulse Resp BP Pulse Ox Pulse Ox 06/14/20 10:58 99 H 26 H 96 06/14/20 10:07 99 H 114/68 06/14/20 08:30 104 H 22 94 06/14/20 08:00 95 H 06/14/20 07:00 94 06/14/20 06:00 108 H 20 117/71 96 06/14/20 05:30 110 H 17 94 06/14/20 05:00 98 H 16 106/64 94 06/14/20 04:30 112 H 21 94 06/14/20 04:00 36.9 C 110 H 20 97/61 L 95 06/14/20 03:30 117 H 26 H 95 06/14/20 03:00 108 H 20 108/69 96 06/14/20 02:30 113 H 21 95 06/14/20 02:00 100 H 24 102/77 95 06/14/20 01:30 107 H 26 H 95 06/14/20 01:00 102 H 21 120/72 96 06/14/20 00:30 110 H 28 H 95 06/14/20 00:00 37.2 C 99 H 22 117/92 95 Laboratory Results Laboratory Results - last 24 hr 0406/13/20 06/13/20 11:44 16:24 19:22 WBC RBC Hgb POC Hgb Hct POC Hct MCV MCH MCHC RDW Std Deviation RDW Coeff of Sonia Plt Count MPV Immature Gran % (Auto) Neut % (Auto) Lymph % (Auto) Keith % (Auto) Eos % (Auto) Baso % (Auto) Neut # (Auto) Lymph # (Auto) Keith # (Auto) Eos # (Auto) Baso # (Auto) Immature Gran # (Auto) Dohle Bodies Echinocytes PT INR APTT PTT Ratio POC pH POC pCO2 POC pO2 POC HCO3 POC Total CO2 POC Base Excess POC ABG O2 Sat POC Sodium Sodium 138 POC Potassium Potassium 4.4 Chloride 108 H Carbon Dioxide 23 Anion Gap 8.0 BUN 54 H Creatinine 3.14 H D Est Cr Clr Drug Dosing 20.6 Est GFR ( Amer) 16.3 Est GFR (Non-Af Amer) 14.1 BUN/Creatinine Ratio 17.2 Glucose 177 H POC Glucose 108 H 136 H Lactate Calcium 7.2 L Phosphorus Magnesium Total Bilirubin Direct Bilirubin AST ALT Alkaline Phosphatase Ammonia Total Creatine Kinase Total Protein Albumin 06/14/20 06/14/20 06/14/20 04:43 04:43 04:43 WBC 21.22 H RBC 4.17 L Hgb 14.5 POC Hgb Hct 42.3 POC Hct MCV 101.4 H MCH 34.8 H MCHC 34.3 RDW Std Deviation 59.5 H RDW Coeff of Sonia 15.8 H Plt Count 43 L MPV 11.8 H Immature Gran % (Auto) 0.4 Neut % (Auto) 91.4 Lymph % (Auto) 4.4 Keith % (Auto) 3.8 Eos % (Auto) 0.0 Baso % (Auto) 0.0 Neut # (Auto) 19.37 H Lymph # (Auto) 0.94 L Keith # (Auto) 0.80 H Eos # (Auto) 0.01 Baso # (Auto) 0.01 Immature Gran # (Auto) 0.09 H Dohle Bodies 1+ Echinocytes 1+ PT 44.4 H INR 5.0 H APTT 47.5 H* PTT Ratio 1.8 POC pH POC pCO2 POC pO2 POC HCO3 POC Total CO2 POC Base Excess POC ABG O2 Sat POC Sodium Sodium 140 POC Potassium Potassium 4.6 Chloride 107 Carbon Dioxide 24 Anion Gap 9.0 BUN 62 H Creatinine 3.63 H D Est Cr Clr Drug Dosing 17.8 Est GFR ( Amer) 13.7 Est GFR (Non-Af Amer) 11.8 BUN/Creatinine Ratio 17.0 Glucose 134 H POC Glucose Lactate Calcium 7.0 L Phosphorus 7.4 H D Magnesium 2.3 Total Bilirubin 1.0 Direct Bilirubin 0.5 H AST 283 H ALT 105 H Alkaline Phosphatase 65 Ammonia Total Creatine Kinase 3266 H Total Protein 6.6 Albumin 2.4 L 06/14/20 06/14/20 06/14/20 08:20 08:45 08:45 WBC RBC Hgb POC Hgb 14.3 Hct POC Hct 42 MCV MCH MCHC RDW Std Deviation RDW Coeff of Sonia Plt Count MPV Immature Gran % (Auto) Neut % (Auto) Lymph % (Auto) Keith % (Auto) Eos % (Auto) Baso % (Auto) Neut # (Auto) Lymph # (Auto) Keith # (Auto) Eos # (Auto) Baso # (Auto) Immature Gran # (Auto) Dohle Bodies Echinocytes PT INR APTT PTT Ratio POC pH 7.25 L POC pCO2 50 H POC pO2 81 POC HCO3 22 POC Total CO2 24 POC Base Excess -5.0 POC ABG O2 Sat 94.0 POC Sodium 139 Sodium POC Potassium 4.5 Potassium Chloride Carbon Dioxide Anion Gap BUN Creatinine Est Cr Clr Drug Dosing Est GFR ( Amer) Est GFR (Non-Af Amer) BUN/Creatinine Ratio Glucose POC Glucose Lactate 1.8 Calcium Phosphorus Magnesium Total Bilirubin Direct Bilirubin AST ALT Alkaline Phosphatase Ammonia 25.7 Total Creatine Kinase Total Protein Albumin 06/14/20 06/14/20 10:55 11:19 WBC RBC Hgb POC Hgb Hct POC Hct MCV MCH MCHC RDW Std Deviation RDW Coeff of Sonia Plt Count MPV Immature Gran % (Auto) Neut % (Auto) Lymph % (Auto) Keith % (Auto) Eos % (Auto) Baso % (Auto) Neut # (Auto) Lymph # (Auto) Keith # (Auto) Eos # (Auto) Baso # (Auto) Immature Gran # (Auto) Dohle Bodies Echinocytes PT INR APTT PTT Ratio POC pH 7.25 L POC pCO2 49 H POC pO2 80 POC HCO3 21 POC Total CO2 23 L POC Base Excess -6.0 POC ABG O2 Sat 93.0 POC Sodium Sodium POC Potassium Potassium Chloride Carbon Dioxide Anion Gap BUN Creatinine Est Cr Clr Drug Dosing Est GFR ( Amer) Est GFR (Non-Af Amer) BUN/Creatinine Ratio Glucose POC Glucose 122 H Lactate Calcium Phosphorus Magnesium Total Bilirubin Direct Bilirubin AST ALT Alkaline Phosphatase Ammonia Total Creatine Kinase Total Protein Albumin Medications Administered Current Inpatient Medications Albuterol (Albut/Ipratrop 3mg/0.5mg Neb 3 Ml Vial) 3 ml INH Q2H PRN PRN Reason: Dyspnea Stop: 07/12/20 07:38 Cyanocobalamin (Cyanocobalamin 500 Mcg Tablet (Vitamin B-12)) 1,000 mcg PO QAM [facility] Stop: 07/12/20 08:59 Last Admin: 06/14/20 09:54 Dose: Not Given Documented by: Gabapentin (Gabapentin 100 Mg Cap) 100 mg PO QPM MICHAEL Stop: 07/12/20 20:59 Last Admin: 06/13/20 20:14 Dose: 100 mg Documented by: Famotidine 20 mg/ Syringe 5 mls @ 2.5 mls/min IV QAM [facility] Stop: 07/13/20 08:59 Last Admin: 06/14/20 10:06 Dose: 2.5 mls/min Documented by: Ceftriaxone Sodium 2,000 mg/ (Dextrose) 70 mls @ 100 mls/hr IV DAILY [facility]; Protocol Stop: 06/28/20 08:59 Last Infusion: 06/14/20 10:56 Dose: Infused Documented by: Sodium Bicarbonate 150 meq/ (Dextrose) 1,150 mls @ 80 mls/hr IV .[id number] [facility] Stop: 07/14/20 10:59 Last Admin: 06/14/20 11:50 Dose: 80 mls/hr Documented by: Metoprolol Tartrate (Metoprolol Tartrate 1 Mg/Ml Vial) 5 mg IV Q8H MICHAEL Stop: 07/14/20 08:59 Last Admin: 06/14/20 10:07 Dose: 5 mg Documented by: Multivitamins (Multivitamin Tab) 1 tab PO QAM [facility] Stop: 07/12/20 08:59 Last Admin: 06/14/20 09:54 Dose: Not Given Documented by: Nystatin (Nystatin Powder 15gm Btl) 1 appln EXT DAILY [facility] Stop: 07/12/20 08:59 Last Admin: 06/14/20 10:08 Dose: 1 appln Documented by: Ondansetron HCl (Ondansetron Inj 2 Mg/Ml 2 Ml Vial) 4 mg IV Q6H PRN PRN Reason: Nausea And Vomiting Stop: 07/12/20 17:16 Last Admin: 06/12/20 17:27 Dose: 4 mg Documented by: Sodium Bicarbonate (Sodium Bicarbonate 8.4% Inj 50 Meq/50 Ml Vial) 100 meq IV ONCE ONE Stop: 06/14/20 11:49 Vitamin D (Cholecalciferol 1,000 Units 25 Mcg Tab) 2,000 units PO DAILY MICHAEL Stop: 07/12/20 08:59 Last Admin: 06/14/20 09:54 Dose: Not Given Documented by: PG Care Time/CCT Total # of Minutes Spent Total Time Spent with Patient: Total time spent is greater than 50% in coordination of care (as documented) at patient's floor/unit and/or counseling patient: Coding Level of Care Code 06481 Subseq Hosp Care Lvl 3 Diagnoses Septic shock A41.9; R65.21 Acute kidney injury N17.9 Acute UTI (urinary tract infection) N39.0 Atrial fibrillation with RVR I48.91 Impaired fasting glucose R73.01 Hypertension I10 Anticoagulant long-term use Z79.01 Thrombocytopenia D69.6 Elevated INR R79.1 Altered mental status R41.82
[2020-06-14] MEDS ORDERED: RAPID SEQUENCE INDUCTION BAG ONE (13:30)
[2020-06-14 13:32] LABS: Hematocrit (blood only) 40.5 % (37-47); Hemoglobin 13.6 g/dL (12.0-16.0); Mean Corpuscular Hemoglobin 34.1 pg (25-34); Mean Corpuscular Hgb Conc 33.6 g/dL (32-36); Mean Corpuscular Volume 101.5 fL (80-100); RDW Coefficient of Variation 15.6 % (11.5-14.5); RDW Standard Deviation 58.3 fL (36.4-46.3); Red Blood Count 3.99 M/uL (4.2-5.4); White Blood Count 19.65 K/uL (4.8-10.8)
[2020-06-14 13:40] LABS: iSTAT Arterial Blood Gas HCO3 24 meg/L (19-24); iSTAT Arterial Blood Gas pCO2 49 mmHg (35-46); iSTAT Arterial Blood Gas pO2 80 mmHg (80-95); iSTAT Carbon Dioxide 25 mmol/L (24-31)
[2020-06-14 13:42] LABS: Basophils # (auto) 0.01 K/uL (0-0.2); Basophils % (auto) 0.1 %; Eosinophils # (auto) 0.02 K/uL (0-0.5); Eosinophils % (auto) 0.1 %; Immature Granulocytes # (auto) 0.09 K/uL (0.00-0.02); Immature Granulocytes % (auto) 0.5 %; Lymphocytes # (auto) 0.51 K/uL (1.2-3.4); Lymphocytes % (auto) 2.6 %; Mean Platelet Volume 11.6 fL (7.4-10.4); Monocytes # (auto) 0.81 K/uL (0.11-0.59); Monocytes % (auto) 4.1 %; Neutrophils # (auto) 18.21 K/uL (1.4-6.5); Neutrophils % (auto) 92.6 %; Platelet Count 42 K/uL (130-400)
[2020-06-14] MEDS ORDERED: STAT IV Infusion **Titration per Protocol STA (13:42)
[2020-06-14 13:50] LABS: INR 3.8 (0.9-1.1); Prothrombin Time 34.5 Seconds (9.0-12.0)
--- NOTE | 2020-06-14 14:02 | Procedure Note ---
Procedure Note Date of Service June 14, 2020 Note INTUBATION PROCEDURE NOTE: Dr. Fly Perez A time-out was completed verifying correct patient, procedure, site, positioning. Patient was evaluated and required intubation for altered mental status and acute hypercapnic respiratory failure. Sedative agent used: 25 mg of etomidate Paralysis agent used: None Emergent consent was implied given patients rapidly declining clinical status and need for airway protection. Number of attempts: 1 The patient was prepared in the appropriate fashion. Sedation was achieved utilizing 25 mg of etomidate. The patient was easily ventilated using [id number] to achieve adequate oxygenation. A 7.5 Nepalese endotracheal tube was placed under video laryngoscope guidance to 22 cm at the lip. The stylette was removed and balloon was inflated with 10mL of air. Appropriate Colorimetric change was appreciated. Bilateral breath sounds were heard without air sounds in the abdomen. Post intubation Chest X-ray ordered Patient tolerated the procedure well and there were no immediate complications. Coding CPT Codes Resuscitation - Resuscitation: 11315 Endotracheal Intubation, emergency ([id number]) [facility] Procedure Codes (Charges) Resuscitation Resuscitation: 65677 Endotracheal Intubation, emergency
[2020-06-14 14:10] LABS: Echinocytes 1+
[2020-06-14] MEDS ORDERED: SODIUM CHLORIDE 0.9% 250 ML IV PRN (14:10)
[2020-06-14] MEDS: fentaNYL DRIP 1,250 MCG/250 ML BAG IV SCH (14:19)
[2020-06-14] MEDS: DEXMEDETOMIDINE HCL 200 MCG in SODIUM CHLORIDE 0.9% 48 ML IV SCH ×2 (14:21→20:59)
--- NOTE | 2020-06-14 14:26 | XRay Report ---
XR chest 1V portable HISTORY: 74 years-old Female s/p intubation acute respiratory failure COMPARISON: Chest radiograph 06/12/2020 TECHNIQUE: Supine AP view the chest FINDINGS: Endotracheal tube overlies the midline, 5.2 cm superior to the meg. Enteric tube courses below the diaphragm distal tip not visualized. Cardiomegaly with pulmonary vascular congestion and progressive interstitial coarsening. Layering ple ural effusions with new bibasilar consolidation. Degenerative changes of the spine and right shoulder . Versed left shoulder total joint arthroplasty. IMPRESSION: 1. Endotracheal and enteric tube placement as above. 2. Cardiomegaly with pulmonary edema. 3. Layering pleural effusions with progressive bibasilar consolidation suggestive of atelectasis vers us pneumonitis. ACT 112: Negative or not required by law. The above report was generated using voice recognition software. It may contain grammatical, syntax o r spelling errors. Electronically signed by: Carson Henry M.D. 06/14/2020 2:25 PM
--- NOTE | 2020-06-14 14:33 | XRay Report ---
KUB CLINICAL HISTORY: s/p OG tube COMPARISON STUDY: CT of the abdomen and pelvis June 12, 2020. FINDINGS: The tip of the orogastric tube is within the body of the stomach. Left ureteral stent is in place. Several left renal calculi measure up to 1.3 cm. There is a probable 5 mm mid left ureteral c alculus adjacent to the stent. IMPRESSION: 1. Tip of orogastric tube within the body of the stomach. 2. Left ureteral stent in place. Left-sided nephrolithiasis and a suspected 5 mm mid left ureteral ca lculus. ACT 112: Negative or not required by law. Electronically signed by: Zaire Mcduffie M.D. 06/14/2020 2:32 PM
--- NOTE | 2020-06-14 16:57 | Procedure Note ---
Procedure Note Date of Service June 14, 2020 Note Right-sided dialysis IJdual-lumen catheter: Procedure: Internal Jugular Central Line Placement Indication: Central Drug Administration, Poor Venous Access, Multiple Lab Draws Necessary, etc. Anesthesia: Continuous Precedex and fentanyl were running none/5 lidocaine 1% Consent was signed and placed on the chart prior to procedure. Indication, risks, and benefits were explained at length. A time-out was completed verifying correct patient, procedure, site, positioning, and implants(s) or special equipment if applicable. Patients right neck was cleansed and draped in the typical sterile fashion using Chloraprep. The Internal Jugular Vein and Carotid Artery were identified using ultrasound. The superficial tissue was anesthetized using 5 mL of 1% lidocaine without epinephrine under direct visualization with the ultrasound. After adequate anesthetization was achieved, the Internal Jugular vein was cannulated under direct ultrasound guidance using an introducer needle on a syringe. Good venous blood return was maintained prior to removal of syringe from introducer needle. Using Seldinger Technique, a guide wire was advanced through the introducer needle without resistance. The introducer needle was removed and ultrasound images were obtained of the guide wire within the Internal Jugular Vein and saved to the patients medical record. A small incision was made in penetrating fashion at the guide wire insertion site utilizing an 11 blade scalpel. The dilator was advanced to the vessel without resistance. The dilator was exchanged for the double lumen catheter which was advanced into the vessel without resistance. The guide wire was removed intact from the catheter without issue. Claves were placed on each catheter tip with confirmation of good blood flow from each lumen. Each port was easily flushed with sterile saline. The catheter was placed at 15 cm and sutured in place. BioPatch was applied to the catheter and a sterile Tegaderm dressing was applied over the catheter with careful attention to sterility. Patient tolerated procedure well. No immediate complications were met. Postprocedure chest x-ray is pending. Images obtained are saved for permanent record Coding CPT Codes Tubes, Drains, and Vasc Access - Tubes, Drains, and Vasc Access: [id number] Insertion of cannula for hemodialysis ([id number]) Tubes, Drains, and Vasc Access - Tubes, Drains, and Vasc Access: [id number] Ultrasonic Guide For Needle Placement ([id number]) [facility] Procedure Codes (Charges) Tubes, Drains, and Vasc Access Procedure 1: Tubes, Drains, and Vasc Access: [id number] Insertion of cannula for hemodialysis Procedure 2: Tubes, Drains, and Vasc Access: [id number] Ultrasonic Guide For Needle Placement
[2020-06-14 16:59] LABS: Hepatitis B Surface Ab Quant < 3.10 mIU/mL (>or=10mIU/mL Immune); Hepatitis B Surface Antibody Non-Immune
[2020-06-14 17:09] LABS: Hepatitis B Surf Ag Rflx Conf Neg (Neg)
--- NOTE | 2020-06-14 17:11 | XRay Report ---
XR chest 1V portable CLINICAL HISTORY: HD cath verification COMPARISON STUDY: Chest radiograph performed earlier today. FINDINGS: There is no pneumothorax following placement of a dual lumen right internal jugular dialysi s catheter. Catheter tip projects over the cavoatrial junction. Tip of endotracheal tube is 3.8 cm ab ove the meg. Tip of nasogastric tube is below the lower aspect of this image but at least within t he stomach. Small bilateral pleural effusions persist. Bibasilar opacities, greater on the left, have slightly progressed. There is mild pulmonary edema. IMPRESSION: 1. No pneumothorax following placement of a right internal jugular dual lumen catheter. 2. Increase in bibasilar opacities which could reflect pneumonia or atelectasis. 3. Satisfactory positioning of lines and tubes. 4. Mild pulmonary edema. ACT 112: Negative or not required by law. Electronically signed by: Zaire Mcduffie M.D. 06/14/2020 5:10 PM
[2020-06-15] MEDS: METOPROLOL TARTRATE 1 MG/ML VIAL IV SCH ×3 (01:28→16:13)
[2020-06-15] MEDS: SODIUM BICARBONATE 8.4% 150 MEQ in DEXTROSE 5% 1,000 ML IV SCH (01:42)
[2020-06-15] MEDS: DEXMEDETOMIDINE HCL 400 MCG in 0.9 % SODIUM CHLORIDE 96 ML IV SCH ×2 (02:02→08:45)
[2020-06-15] MEDS: DEXMEDETOMIDINE HCL 200 MCG in SODIUM CHLORIDE 0.9% 48 ML IV SCH (02:13)
[2020-06-15 03:46] LABS: Component 2 DNR; Source URETER
[2020-06-15 04:56] LABS: Hematocrit (blood only) 38.6 % (37-47); Hemoglobin 13.1 g/dL (12.0-16.0); Mean Corpuscular Hgb Conc 33.9 g/dL (32-36); Mean Corpuscular Volume 100.3 fL (80-100); RDW Standard Deviation 55.3 fL (36.4-46.3); Red Blood Count 3.85 M/uL (4.2-5.4); White Blood Count 12.15 K/uL (4.8-10.8)
[2020-06-15 05:08] LABS: Mean Platelet Volume 11.4 fL (7.4-10.4); Platelet Count 42 K/uL (130-400)
[2020-06-15 05:21] LABS: INR 1.5 (0.9-1.1); Partial Thromboplastin Ratio 1.1; Partial Thromboplastin Time 29.8 Seconds (21.0-31.0); Prothrombin Time 14.6 Seconds (9.0-12.0)
[2020-06-15 05:28] LABS: iSTAT Arterial Blood Gas HCO3 24 meg/L (19-24); iSTAT Arterial Blood Gas pCO2 42 mmHg (35-46); iSTAT Arterial Blood Gas pH 7.37 (7.35-7.45); iSTAT Arterial Blood Gas pO2 64 mmHg (80-95); iSTAT Carbon Dioxide 25 mmol/L (24-31)
[2020-06-15] MEDS: fentaNYL DRIP 1,250 MCG/250 ML BAG IV SCH (05:30)
[2020-06-15 05:31] LABS: Albumin Level 2.2 gm/dl (3.4-5.0); BUN Creatinine Ratio 13.7 (10-20); Calcium 7.1 mg/dl (8.5-10.1); Creatinine Clr Calc Pharmacy 19.7 ml/min; Est GFR (African American) 15.9; Est GFR (Non-African American) 13.7; Magnesium 2.2 mg/dl (1.8-2.4); Potassium 3.7 mmol/L (3.5-5.1)
[2020-06-15 05:36] LABS: Bilirubin Direct 0.7 mg/dl (0-0.2); Bilirubin,Total 1.6 mg/dl (0.2-1); Phosphorus 4.2 mg/dl (2.5-4.9); Total Protein 6.3 gm/dl (6.4-8.2)
[2020-06-15 05:38] LABS: Basophils # (auto) 0.01 K/uL (0-0.2); Basophils % (auto) 0.1 %; Dohle Bodies 1+; Eosinophils # (auto) 0.11 K/uL (0-0.5); Eosinophils % (auto) 0.9 %; Immature Granulocytes # (auto) 0.04 K/uL (0.00-0.02); Immature Granulocytes % (auto) 0.3 %; Lymphocytes # (auto) 0.51 K/uL (1.2-3.4); Lymphocytes % (auto) 4.2 %; Monocytes # (auto) 0.97 K/uL (0.11-0.59); Neutrophils # (auto) 10.51 K/uL (1.4-6.5); Neutrophils % (auto) 86.5 %
--- NOTE | 2020-06-15 07:50 | XRay Report ---
XR chest 1V portable HISTORY: hypoxia, resp failure COMPARISON: Chest 06/14/2020. FINDINGS: The endotracheal tube terminates 2.9 cm from the meg. The nasogastric tube terminates be low the diaphragm. The tip is not included on this study. Right jugular catheter terminates at the SV C. No pneumothorax. Cardiomegaly and mild interstitial pulmonary edema persists. There are small bila teral pleural effusions and bibasilar densities which are also unchanged. There are low lung volumes. Postoperative changes again noted within the left shoulder. IMPRESSION: 1. Satisfactory support line placement. 2. No change in the pulmonary edema, small bilateral pleural effusions, and bibasilar densities. ACT 112: Negative or not required by law. Electronically signed by: Luis Parada M.D. 06/15/2020 7:49 AM
--- NOTE | 2020-06-15 08:03 | Critical Care Progress Note ---
Date of Service June 15, 2020 Assessment & Plan (1) Ureteral stone with hydronephrosis: Ami is a 74-year-old female with a known history of nephrolithiasis, persistent atrial fibrillation on metoprolol and Warfarin, chronic venous insufficiency, hypertension, s/p Danielle-en-Y gastric bypass, and previous stroke who presented for ongoing AMS since 06/11, subsequently found to be in septic shock with suspected origin from obstructing stone in left renal pelvis. Her course has been complicated by acute renal failure requiring hemodialysis x 1. Infectious Disease # Septic Shock from Urologic Source -- with evidence of end-organ damage: metabolic encephalopathy, PETR, consumptive coagulopathy, elevated troponins - Suspected origination from obstructing L sided renal calculus resulting in hydroureteronephrosis as demonstrated on CT-A/P - Leukocytosis appreciated, now downtrending (20 --> 12.1 this AM) - BCX, UCX demonstrating mora-sensative E. coli - Hemodynamic support: Not requiring Levophed or fluids - Continue daily CFTX - Trend repeat BCX RENAL/LYTES # Obstructing ureteral calculus with hydroureteronephrosis - Patient with known history of nephrolithiasis - CT-A/P demonstrated 7mm obstructing stone w/i L renal pelvis with numerous other b/l nephroliths - Now s/p double-J stent placement by urology - US Abdomen to visualize kidneys # Acute Kidney Injury -- likely prerenal in origin, baseline Cr 0.8 - Suspect prerenal vs. intrarenal origin - likely infection-driven w/ ATN from septic shock, also possibly worsened by contrast from procedure - Cr at 3.2 this AM from 3.6 yesterday, s/p HD; BUN at 44 from 62 - Nephrology consulted for participation in care - Despite Bumex 4mg IV x 1 06/14 and Lasix total 160mg IV on 06/13, UOP remained minimal - Urgent HD yesterday --> removed ~3.5 L of fluid - Anticipate another round of dialysis today - UOP still persistently poor through this AM - strict I+Os - Renal dosing for meds # Hyperphosphatemia - Resolved on labs this AM s/p HD Cardiac # Hypotension -- secondary to septic shock - Normotensive at present -- continue to monitor # Permanent AF, with RVR -- RVR resolved - Noted to be in AF w/ RVR on admission, continued initially throughout admission - likely precipitated by septic shock - Now out of RVR - rates stable in the 70-80s - Continue Lopressor 5mg IV t.i.d. until tomorrow - if passes swallow study, then convert back to PO # Elevated Troponin -- Patient did report mild chest discomfort while in ED, resolved here - Appreciated on admission, peaked at 0.51 early AM of 06/12, downtrended - Suspect 2/2 demand ischemia in setting of septic shock with exacerbation by PETR - No longer trending Respiratory # Acute Hypoxemic, Hypercapnic Respiratory Failure - Did require intubation and mechanical ventilation yesterday (from BiPAP) for progressing hypercapnia, hypoxemia, and AMS - Suspect secondary to volume overload in setting of acute and worsening renal failure - Persistently poor UOP despite diuresis - Net positive ~5.5 L since admission, even after dialysis - With continued evidence of volume overload on exam (pitting edema, JVD) - Echo demonstrating normal LV size/function. EF 60-65% w/o RWMAs - Given stability on ventilator and hemodynamic perspective, anticipate trial of extubation today - Continuous pulse oximetry Neuro Sedation, Analgesia: Overnight on Precedex, Fentanyl while intubated, ventilated # Metabolic encephalopathy -- unable to assess at this time on sedation/analgesia; increased confusion up to point of intubation - Likely 2/2 hypercapnia and acidosis with ongoing urosepsis with septic shock and metabolic derangements - Responsive to tactile stimuli, but unable to respond to questions - Ammonia level grossly WNL - Infectious treatment as above - Regular MS checks # History of CVA - Noted on review of chart -- occurred > 10 years ago, no neurologist - Residual deficits noted as intermittent numbness to R hand - Hold gabapentin Other: Hold nightly doxepin GI -- no major concerns at this point # Diet - NPO -- don't suspect she is adequately able to protect her airway with current mentation - Will require INSULATION APPLICATOR evaluation / swallow-study tomorrow before restarting PO meds # Transaminitis - With persistent improvement from day-to-day - In setting of septic shock, do suspect this transient transaminitis is predominantly due to shock liver vs. toxin hepatitis - May be small component of rhabdo given elevated CPK and AST predominance, but unlikely the primary origin of transaminitis - Trend daily # Abdominal Pain - Less noticeable today on exam - While could certainly be d/t recent stones/obstruction, other causes considered - US Abdomen obtained 06/14 with unchanged distention of gallbladder without inflammation, nonobstructing calculi in L kidney - Continue to monitor - No concerns at this time. - Mcmahon in place, monitor UOP ENDO - ICU Hyperglycemia protocol HEME - Stable H&H # Thrombocytopenia (42) - Plt # unchanged from 06/14 - Suspect consumptive coagulopathy in setting of septic shock as primary etiology - However, in setting of mild transaminitis, abdominal pain, and fever, also consider- TTP, ITP, HUS, EHEC - Peripheral smear without schistocytes - lower concern for DIC - Without visualized active bleeding - Did receive a unit of FFP yesterday prior to intubation # Supratherapeutic INR -- Resolved at present - Was on Coumadin for AFib -- suspect delayed warfarin effect as primary etiology + consumptive coagulopathy - DIC seems less unlikely at this time given stable H&H, normal smear, clinical appearance - INR 3.1 --> 4 --> 5 --> back to 1.5 on 06/15 - S/P Vitamin K 2.5mg x 1 on 06/14 - Continue to hold anticoagulation at this time given thrombocytopenia INTEGUMENTARY - No concerns at this time LINES/IV ACCESS - 2x 20-gauge PIVs in place; Right-sided dialysis IJdual-lumen catheter DVT PROPHYLAXIS - - SCDs - Continue to hold anticoagulation in setting of thrombocytopenia Thank you for allowing us to be part of this patient's care. Please refer to Dr. Perez's documentation for any further recommendations. (2) Mild cognitive impairment: (3) Idiopathic peripheral neuropathy: (4) Nephrolithiasis: (5) Venous insufficiency: (6) Atrial fibrillation: (7) Osteoarthritis: (8) Stroke: Admission and Anticipated Discharge Date Admission Date: June 12, 2020 Supervising Physician Co-Signing Physician Notes Dr. Dela Cruz was the resident-physician during care of patient. I separately evaluated patient for jacobs portions of the history and the exam. I was present during the critical portion of medical decision making, and I discussed the case with the resident. I generally agree with the findings and plan except for any additions/exceptions noted. Dialysis was able to remove 3.5 L of fluid in the patient yesterday. She is more responsive today on the ventilator. We will wean the Precedex and fentanyl off. She is doing well on spontaneous breathing trials and we will proceed to extubation. She will get another treatment of dialysis today. Urine output has still been very poor. Unclear whether she will require long-term dialysis. Continue rate control strategy for atrial fibrillation with metoprolol. She continues to have severe thrombocytopenia likely related to sepsis. We will hold on warfarin today. She did receive 1 unit of platelets and 1 unit of FFP yesterday. INR is 1.5 today. I have personally spent 32 minutes of critical care time in the direct management of this patient. This is a life/limb threatening event. This includes time spent evaluating patient, direct bedside care, chart review, placing orders, interpretation of diagnostic studies, discussion with consultants, patient, and/or family members regarding treatment decisions, as well as other required patient management activities. This time is exclusive of all separately billable procedures, and teaching time and separate from and in addition to any other critical care service time. Subjective No acute events overnight. At the bedside this morning, patient is comfortable appearing and resting. She did undergo hemodialysis yesterday successfully without any complications, 3.5 L of fluid were removed. Review of Systems Review of Systems: as per HPI Physical Exam Constitutional: Tired and ill-appearing 74-year-old Female who is lying back in her hospital bed, intubated, and sleeping upon my arrival. She does nod her head with tactile stimulation when I say her name. Eyes: Pupils are approximately 3 mm bilaterally. They are equal and responsive to light, but somewhat sluggish. Neck: Line in place on the right neck. Unable to assess for JVD properly on t he left side due to habitus, however no bulging neck veins are seen Respiratory: Ventilated. Equal chest rise. No upper airway sounds appreciated. Auscultation of the lungs does reveal a transmission of air without crackles or wheezes. Cardiovascular: Normal rate, irregular rhythm. S1 and S2 are present without murmurs rubs or gallops. Gastrointestinal (Abdomen): Hypoactive bowel sounds. Abdomen is mildly distended to palpation, no facial grimacing appreciated during palpation. Musculoskeletal: There is 1+ pitting edema in the lower extremities bilaterally. Psychiatric: Patient does arise to tactile and verbal stimulation. She is able to nod her head when asked yes or no questions. She does intermittently doze off between commands, however. Genitourinary: Mcmahon catheter in place. Minimal drainage of yellow urine Results & Data Results & Data ([facility]) Vital Signs (Past 12 Hours) Vital Signs Temp Pulse Pulse Resp BP BP Pulse Ox 06/15/20 06:55 79 22 94 06/15/20 06:17 37.1 C 75 152/86 H 92 06/15/20 06:02 37.2 C 72 145/80 H 95 06/15/20 06:00 37.2 C 77 94 06/15/20 05:47 37.2 C 75 140/77 94 06/15/20 05:32 37.3 C 76 141/72 H 94 06/15/20 05:17 37.4 C 75 136/68 93 06/15/20 05:02 81 118/74 93 06/15/20 05:00 74 93 06/15/20 04:48 80 115/75 92 06/15/20 04:32 79 130/81 91 06/15/20 04:17 77 128/73 92 06/15/20 04:02 77 140/76 91 06/15/20 04:00 79 91 06/15/20 03:47 87 129/76 91 06/15/20 03:44 87 123/96 85 L 06/15/20 03:32 80 22 92 06/15/20 03:17 37.3 C 81 146/95 H 92 06/15/20 03:02 37.3 C 75 152/91 H 06/15/20 03:00 37.3 C 75 100 06/15/20 02:47 37.4 C 76 149/84 H 93 06/15/20 02:32 37.4 C 75 152/82 H 100 06/15/20 02:17 37.4 C 75 139/89 100 06/15/20 02:02 37.4 C 77 142/88 H 100 06/15/20 02:00 37.4 C 73 99 06/15/20 01:47 37.4 C 78 139/77 97 06/15/20 01:32 37.4 C 83 122/74 93 06/15/20 01:28 80 143/80 H 06/15/20 01:17 37.3 C 81 143/80 H 92 06/15/20 01:02 37.3 C 81 149/83 H 90 06/15/20 01:00 37.3 C 79 06/15/20 00:47 37.3 C 82 134/91 06/15/20 00:32 37.3 C 77 138/80 06/15/20 00:17 37.2 C 79 141/73 H 93 06/15/20 00:02 37.1 C 80 127/81 93 06/15/20 00:00 37.1 C 83 93 06/14/20 23:47 37.1 C 80 137/70 93 06/14/20 23:44 79 06/14/20 23:32 37.0 C 76 137/81 93 06/14/20 23:17 36.9 C 83 128/76 93 06/14/20 23:02 36.9 C 81 127/71 92 06/14/20 23:00 36.9 C 77 23 92 06/14/20 22:47 36.9 C 80 111/82 93 06/14/20 22:32 36.8 C 80 115/78 92 06/14/20 22:17 36.7 C 79 116/73 92 06/14/20 22:02 36.6 C 81 132/74 93 06/14/20 22:00 36.6 C 79 97 06/14/20 21:47 36.3 C L 80 119/77 95 06/14/20 21:32 36.2 C L 76 139/85 94 06/14/20 21:17 36.1 C L 82 122/74 95 06/14/20 21:10 36.8 C 71 130/76 06/14/20 21:01 36.0 C L 75 130/76 93 06/14/20 21:00 36.1 C L 71 101/68 94 06/14/20 20:47 36.1 C L 77 99/67 L 92 06/14/20 20:45 76 94/67 L 06/14/20 20:31 36.2 C L 71 119/67 94 06/14/20 20:30 73 119/67 06/14/20 20:16 36.3 C L 86 96/61 L 94 06/14/20 20:15 80 96/61 L 06/14/20 20:01 36.3 C L 80 110/69 95 Resident Activity Tracking Resident Involvement: Resident Care Provided Care Provided: Adult Hospital Medicine
[2020-06-15] MEDS: FAMOTIDINE 20 MG in SYRINGE 3 ML IV SCH (08:43)
[2020-06-15] MEDS: cefTRIAXone SODIUM 2,000 MG in DEXTROSE 5% 50 ML IV SCH (08:43)
[2020-06-15] MEDS: MULTIVITAMIN TAB PO SCH (08:44)
[2020-06-15] MEDS: NYSTATIN POWDER 15GM BTL EXT SCH (08:44)
[2020-06-15] MEDS: CYANOCOBALAMIN 500 MCG TABLET (VITAMIN B-12) PO SCH (08:44)
[2020-06-15] MEDS: CHOLECALCIFEROL 1,000 UNITS 25 MCG TAB PO SCH (08:44)
--- NOTE | 2020-06-15 10:28 | Urology Progress Note ---
Date of Service June 15, 2020 Assessment & Plan (1) Acute kidney injury: (2) Acute UTI (urinary tract infection): (3) Hydronephrosis concurrent with and due to calculi of kidney and ureter: 74yo F admitted with acute UTI/Sepsis secondary to an obstructing 7mm left ureteral calculus with hydronephrosis. - Postop day #3 s/p Cystoscopy with Left Stone extraction, Retrograde pyelogram, aspiration, and Ureteral Stent Insertion with Dr. Ferreira - Plan of care reviewed with Dr. Strong - Patient with some clinical improvement, extubated this morning - Remains afebrile - Labs reviewed, Wbc down to 12.15 and creatinine 3.22 today. Received dialysis. Nephrology following. -Will continue to trend - Urine and blood cultures with E.coli, mora sensitive -Repeat blood cultures pending - Maintain Mcmahon catheter, continue to monitor output - Continue supportive care and antibiotic therapy - Will continue to follow peripherally Admission and Anticipated Discharge Date Admission Date: June 12, 2020 Subjective Pt extubated this morning. On O2 via facemask. Awake, answering yes or no questions. Currently receiving dialysis at bedside. Denies any pain or discomfort at this time. Mcmahon catheter intact with minimal urine output. Chart review: Afebrile, VSS. Wbc 12.15 (previously 19.65) Hgb 13.1 Cr 3.22 (previously 3.63) Hemodialysis yesterday, 3.5 L of fluid removed. Urine and blood cultures with E.coli, On IV Ceftriaxone Repeat blood cultures pending Review of Systems Constitutional: as per Subjective / HPI Respiratory: as per Subjective / HPI Genitourinary: as per Subjective / HPI Neurologic: as per Subjective / HPI Physical Exam Constitutional: + ill appearing and + obese; no acute distress Respiratory: no labored breathing and does not use accessory muscles On O2 via facemask. Gastrointestinal (Abdomen): Inspection/Auscultation: abdomen normal to inspection Musculoskeletal: Head/Neck/Chest: normocephalic Skin: No visible rashes or lesions. Neurologic: awake Answers yes or no questions. Genitourinary: Mcmahon catheter intact with minimal urine output Results & Data ([facility]) Vital Signs (Past 12 Hours) Vital Signs Temp Pulse Resp BP Pulse Ox 06/15/20 09:03 37.3 C 78 132/91 94 06/15/20 08:44 79 140/73 06/15/20 08:33 73 06/15/20 08:31 71 06/15/20 08:02 37.2 C 70 146/85 H 97 06/15/20 07:02 37.2 C 77 143/90 H 95 06/15/20 06:55 79 22 94 06/15/20 06:17 37.1 C 75 152/86 H 92 06/15/20 06:02 37.2 C 72 145/80 H 95 06/15/20 06:00 37.2 C 77 94 06/15/20 05:47 37.2 C 75 140/77 94 06/15/20 05:32 37.3 C 76 141/72 H 94 06/15/20 05:17 37.4 C 75 136/68 93 06/15/20 05:02 81 118/74 93 06/15/20 05:00 74 93 06/15/20 04:48 80 115/75 92 06/15/20 04:32 79 130/81 91 06/15/20 04:17 77 128/73 92 06/15/20 04:02 77 140/76 91 06/15/20 04:00 79 91 06/15/20 03:47 87 129/76 91 06/15/20 03:44 87 123/96 85 L 06/15/20 03:32 80 22 92 06/15/20 03:17 37.3 C 81 146/95 H 92 06/15/20 03:02 37.3 C 75 152/91 H 06/15/20 03:00 37.3 C 75 100 06/15/20 02:47 37.4 C 76 149/84 H 93 06/15/20 02:32 37.4 C 75 152/82 H 100 06/15/20 02:17 37.4 C 75 139/89 100 06/15/20 02:02 37.4 C 77 142/88 H 100 06/15/20 02:00 37.4 C 73 99 06/15/20 01:47 37.4 C 78 139/77 97 06/15/20 01:32 37.4 C 83 122/74 93 06/15/20 01:28 80 143/80 H 06/15/20 01:17 37.3 C 81 143/80 H 92 06/15/20 01:02 37.3 C 81 149/83 H 90 06/15/20 01:00 37.3 C 79 06/15/20 00:47 37.3 C 82 134/91 06/15/20 00:32 37.3 C 77 138/80 06/15/20 00:17 37.2 C 79 141/73 H 93 06/15/20 00:02 37.1 C 80 127/81 93 06/15/20 00:00 37.1 C 83 93 06/14/20 23:47 37.1 C 80 137/70 93 06/14/20 23:44 79 06/14/20 23:32 37.0 C 76 137/81 93 06/14/20 23:17 36.9 C 83 128/76 93 06/14/20 23:02 36.9 C 81 127/71 92 06/14/20 23:00 36.9 C 77 23 92 06/14/20 22:47 36.9 C 80 111/82 93 06/14/20 22:32 36.8 C 80 115/78 92 PG Care Time/CCT Total # of Minutes Spent Total Time Spent with Patient: Total time spent is greater than 50% in coordination of care (as documented) at patient's floor/unit and/or counseling patient: Coding Level of Care Code 76012 Subseq Hosp Care Lvl 2 Diagnoses Acute kidney injury N17.9 Acute UTI (urinary tract infection) N39.0 Hydronephrosis concurrent with and due to calculi of kidney and ureter N13.2
--- NOTE | 2020-06-15 10:56 | Billing Data ---
Date of Service June 15, 2020 Coding Level of Care Code Critical Care 1st 30-74 mins Time Spent (min) 32
--- NOTE | 2020-06-15 12:13 | Nephrology Progress Note ---
Date of Service June 15, 2020 Assessment & Plan (1) Acute kidney injury: Admitted with Confusion, back pain due to left sided hydronephrosis, sepsis with UTI. Initially Cr 1.5 with b/l cr 0.8. Cr worsened to 2.3, electrolyte acceptable. UO has been low. PETR most likely secondary to dense ATN with urosepsis, hypotension. Had 1st dialysis treatment on 06/14/2020 for rapid worsening of renal function, with oliguria and volume overload. She was intubated yesterday afternoon for respiratory failure however she is doing better this morning requiring low FiO2. --since urine output still low, plan for dialysis today, aim for 3 L UF as tolerated. Continue to monitor for renal recovery, if urine output remained low will plan for dialysis tomorrow and monitor over the weekend. If no improvement will plan for tunneled dialysis catheter Friday Will follow (2) Hydronephrosis concurrent with and due to calculi of kidney and ureter: (3) Acute UTI (urinary tract infection): Admission and Anticipated Discharge Date Admission Date: June 12, 2020 Viktoriya Mueller was seen this morning while she was still intubated. Blood pressure has been acceptable. Had dialysis yesterday, electrolyte acceptable. Remained oligo anuric. Review of Systems Review of Systems: Unobtainable due to endotracheal tube Physical Exam Constitutional: + ill appearing and + mechanically ventilated; no acute distress Neck: trachea midline Respiratory: normal respiratory effort, lungs clear to auscultation no cough Auscultation: + diminished lung sounds; no crackles and no rales Cardiovascular: RRR, no murmur, no edema Gastrointestinal (Abdomen): Inspection/Auscultation: abdomen normal to inspection and normal bowel sounds Percussion/Palpation: abdomen soft; no guarding and abdomen not rigid Musculoskeletal: Extremities: extremities normal to inspection Skin: no rashes, warm and dry Neurologic: Could not be assessed. Results & Data ([facility]) Vital Signs (Past 12 Hours) Vital Signs Temp Pulse Pulse Resp BP Pulse Ox 06/15/20 12:00 88 159/88 H 06/15/20 11:40 79 171/110 H 06/15/20 11:20 81 140/73 06/15/20 11:16 36.9 C 85 85 140/73 06/15/20 10:30 37.4 C 79 140/73 94 06/15/20 10:00 37.4 C 79 93 06/15/20 09:03 37.3 C 78 132/91 94 06/15/20 08:44 79 140/73 06/15/20 08:33 73 06/15/20 08:31 71 06/15/20 08:02 37.2 C 70 146/85 H 97 06/15/20 07:02 37.2 C 77 143/90 H 95 06/15/20 06:55 79 22 94 06/15/20 06:17 37.1 C 75 152/86 H 92 06/15/20 06:02 37.2 C 72 145/80 H 95 06/15/20 06:00 37.2 C 77 94 06/15/20 05:47 37.2 C 75 140/77 94 06/15/20 05:32 37.3 C 76 141/72 H 94 06/15/20 05:17 37.4 C 75 136/68 93 06/15/20 05:02 81 118/74 93 06/15/20 05:00 74 93 06/15/20 04:48 80 115/75 92 06/15/20 04:32 79 130/81 91 06/15/20 04:17 77 128/73 92 06/15/20 04:02 77 140/76 91 06/15/20 04:00 79 91 06/15/20 03:47 87 129/76 91 06/15/20 03:44 87 123/96 85 L 06/15/20 03:32 80 22 92 06/15/20 03:17 37.3 C 81 146/95 H 92 06/15/20 03:02 37.3 C 75 152/91 H 06/15/20 03:00 37.3 C 75 100 06/15/20 02:47 37.4 C 76 149/84 H 93 06/15/20 02:32 37.4 C 75 152/82 H 100 06/15/20 02:17 37.4 C 75 139/89 100 06/15/20 02:02 37.4 C 77 142/88 H 100 06/15/20 02:00 37.4 C 73 99 06/15/20 01:47 37.4 C 78 139/77 97 06/15/20 01:32 37.4 C 83 122/74 93 06/15/20 01:28 80 143/80 H 06/15/20 01:17 37.3 C 81 143/80 H 92 06/15/20 01:02 37.3 C 81 149/83 H 90 06/15/20 01:00 37.3 C 79 06/15/20 00:47 37.3 C 82 134/91 06/15/20 00:32 37.3 C 77 138/80 06/15/20 00:17 37.2 C 79 141/73 H 93 PG Care Time/CCT Total # of Minutes Spent Total Time Spent with Patient: Total time spent is greater than 50% in coordination of care (as documented) at patient's floor/unit and/or counseling patient: Coding Level of Care Code 63389 Subseq Hosp Care Lvl 3 Diagnoses Acute kidney injury N17.9 Hydronephrosis concurrent with and due to calculi of kidney and ureter N13.2 Acute UTI (urinary tract infection) N39.0
--- NOTE | 2020-06-15 18:00 | Hospitalist Progress Note ---
Date of Service June 15, 2020 Assessment & Plan (1) Septic shock: Septic shock/secondary to UTI/recent passage of kidney stone/admit to intensive care unit initially in shock, required Levophed but now off for 3 days urine and blood cultures growing gram neg bacilli - E coli, mora sensitive continue Rocephin no longer in shock but she does have severe sepsis with acute kidney injury, low platelets keep in ICU (2) Acute hypercapnic respiratory failure: developed on 06/14, did not improve with BIPAP electively intubated on 06/14 pH this morning is 7.37 successfully extubated 06/15, breathing well, more alert now that she had HD (3) Acute kidney injury: Cr stephan from 1.3 to 1.7 to 2.29, peaked at 3.6 on 06/14 K is stable urine output is suboptimal, challenged with Bumex 4mg IV but not a great response temp HD catheter placed and HD on 06/15 with UF goal of 3L treat infection, supportive care and follow BMP closely renally dose medications recheck BMP in the morning, depending on renal recovery may need HD again tomorrow (4) Acute UTI (urinary tract infection): due to ureteral stone, hydronephrosis urine and blood culture with GN bacilli - E coli continue ceftriaxone IV no fever, WBC is down to 12k (5) Atrial fibrillation with RVR: initially RVR due to infection HR is better, continue metoprolol INR reversed, now 1.5 (6) Impaired fasting glucose: Placed on ICU hyperglycemic protocol management per pharmacy sugars better today (7) Hypertension: BP stable, back on metoprolol for afib (8) Anticoagulant long-term use: INR 3.1 upon admission. up to 5 despite holding Coumadin can start heparin drip once INR is < 2 (9) Thrombocytopenia: consumptive due to sepsis, follow closely, down to 42k (10) Elevated INR: reversed in morning on 06/14 when it was 5 today it is 1.5 (11) Altered mental status: multifactorial, CO2 retention and PETR and infection resolved after 24 hours of intubation and mechanical ventilation also, treated PETR with HD today she is alert and oriented this afternoon Admission and Anticipated Discharge Date Admission Date: June 12, 2020 Subjective patient tolerated HD today she was successfully extubated, doing okay, breathing low flow nasal canula, no distress she is alert and oriented now after HD and ventilation corrected CO2 narcosis drinking fluids d/w Dr. Contreras and Dr. Perez, appreciate their input reviewed labs, WBC 12k, Hb 13, plts 42k K 3.7, Cr 3.22 (prior to HD) urine culture with E coli, mora sensitive Review of Systems Review of Systems: All systems reviewed & are unremarkable except as noted in Subjective Constitutional: + fatigue and + weakness; no fever Respiratory: + dyspnea on exertion; no cough and no dyspnea Cardiovascular: + edema; no chest pain, no palpitations and no syncope Gastrointestinal: no abdominal pain, no nausea and no vomiting Physical Exam Constitutional: well developed and + obese; no acute distress Neck: trachea midline, no thyromegaly + thick neck Respiratory: normal respiratory effort, lungs clear to auscultation Cardiovascular: Rate/Rhythm: regular rate and + irregularly irregular Heart Sounds: normal S1 and normal S2; no murmur Vessels: no JVD Extremities: normal capillary refill; no edema Gastrointestinal (Abdomen): normal bowel sounds, soft, nontender, no hepatosplenomegaly Musculoskeletal: no cyanosis or clubbing, extremities motor strength 5/5 Head/Neck/Chest: normocephalic, head atraumatic and neck supple Extremities: + abnormal strength (generalized weakness) Skin: no rashes, warm and dry + ecchymosis Neurologic: CN's II-XI intact bilaterally; no focal motor deficits Psychiatric: A+Ox3, euthymic affect Lymphatic: no cervical or axillary lymphadenopathy Results & Data Results & Data ([facility]) Vital Signs (Past 12 Hours) Vital Signs Temp Pulse Pulse Pulse Resp BP BP 06/15/20 17:01 37.5 C 81 24 140/78 06/15/20 16:13 98 H 133/78 06/15/20 16:01 37.5 C 95 H 20 133/78 06/15/20 15:17 37.2 C 90 90 156/70 H 156/70 H 06/15/20 15:07 37.4 C 82 18 137/89 06/15/20 15:00 77 122/71 06/15/20 14:52 37.4 C 75 15 122/71 06/15/20 14:40 76 143/113 H 06/15/20 14:20 84 129/74 06/15/20 14:07 37.3 C 85 17 129/74 06/15/20 14:00 90 136/73 06/15/20 13:40 81 120/96 06/15/20 13:20 79 116/77 06/15/20 13:07 37.3 C 80 17 116/77 06/15/20 13:00 81 120/84 06/15/20 12:40 88 119/76 06/15/20 12:22 37.3 C 98 H 19 137/87 06/15/20 12:20 91 H 137/87 06/15/20 12:00 37.4 C 87 18 159/88 H 06/15/20 11:40 79 171/110 H 06/15/20 11:20 81 140/73 06/15/20 11:16 36.9 C 85 85 140/73 06/15/20 10:30 37.4 C 79 140/73 06/15/20 10:00 37.4 C 79 06/15/20 09:03 37.3 C 78 132/91 06/15/20 08:44 79 140/73 06/15/20 08:33 73 06/15/20 08:31 71 06/15/20 08:02 37.2 C 70 146/85 H 06/15/20 07:02 37.2 C 77 143/90 H 06/15/20 06:55 79 22 06/15/20 06:17 37.1 C 75 152/86 H 06/15/20 06:02 37.2 C 72 145/80 H 06/15/20 06:00 37.2 C 77 Pulse Ox 06/15/20 17:01 97 06/15/20 16:13 06/15/20 16:01 97 06/15/20 15:17 06/15/20 15:07 95 06/15/20 15:00 06/15/20 14:52 95 06/15/20 14:40 06/15/20 14:20 06/15/20 14:07 94 06/15/20 14:00 06/15/20 13:40 06/15/20 13:20 06/15/20 13:07 95 06/15/20 13:00 06/15/20 12:40 06/15/20 12:22 95 06/15/20 12:20 06/15/20 12:00 93 06/15/20 11:40 06/15/20 11:20 06/15/20 11:16 06/15/20 10:30 94 06/15/20 10:00 93 06/15/20 09:03 94 06/15/20 08:44 06/15/20 08:33 06/15/20 08:31 06/15/20 08:02 97 06/15/20 07:02 95 06/15/20 06:55 94 06/15/20 06:17 92 06/15/20 06:02 95 06/15/20 06:00 94 Laboratory Results Laboratory Results - last 24 hr 06/12/20 06/14/20 06/15/20 09:59 22:35 04:44 WBC 12.15 H RBC 3.85 L Hgb 13.1 Hct 38.6 MCV 100.3 H MCH 34.0 MCHC 33.9 RDW Std Deviation 55.3 H RDW Coeff of Sonia 15.0 H Plt Count 42 L MPV 11.4 H Immature Gran % (Auto) 0.3 Neut % (Auto) 86.5 Lymph % (Auto) 4.2 [place] % (Auto) 8.0 Eos % (Auto) 0.9 Baso % (Auto) 0.1 Neut # (Auto) 10.51 H Lymph # (Auto) 0.51 L [place] # (Auto) 0.97 H Eos # (Auto) 0.11 Baso # (Auto) 0.01 Immature Gran # (Auto) 0.04 H Dohle Bodies 1+ PT INR APTT PTT Ratio POC pH POC pCO2 POC pO2 POC HCO3 POC Total CO2 POC Base Excess POC ABG O2 Sat Sodium Potassium Chloride Carbon Dioxide Anion Gap BUN Creatinine Est Cr Clr Drug Dosing Est GFR ( Amer) Est GFR (Non-Af Amer) BUN/Creatinine Ratio Glucose POC Glucose 82 Calcium Phosphorus Magnesium Total Bilirubin Direct Bilirubin AST ALT Alkaline Phosphatase Total Protein Albumin Stone Source URETER Stone Weight 0.001 Stone Composition SEE NOTE Stone Composition 2 DNR 06/15/20 06/15/20 06/15/20 04:44 04:44 05:14 WBC RBC Hgb Hct MCV MCH MCHC RDW Std Deviation RDW Coeff of Sonia Plt Count MPV Immature Gran % (Auto) Neut % (Auto) Lymph % (Auto) [place] % (Auto) Eos % (Auto) Baso % (Auto) Neut # (Auto) Lymph # (Auto) [place] # (Auto) Eos # (Auto) Baso # (Auto) Immature Gran # (Auto) Dohle Bodies PT 14.6 H INR 1.5 H APTT 29.8 PTT Ratio 1.1 POC pH 7.37 POC pCO2 42 POC pO2 64 L POC HCO3 24 POC Total CO2 25 POC Base Excess -1.0 POC ABG O2 Sat 91.0 Sodium 140 Potassium 3.7 D Chloride 105 Carbon Dioxide 28 Anion Gap 7.0 BUN 44 H Creatinine 3.22 H D Est Cr Clr Drug Dosing 19.7 Est GFR ( Amer) 15.9 Est GFR (Non-Af Amer) 13.7 BUN/Creatinine Ratio 13.7 Glucose 115 H POC Glucose Calcium 7.1 L Phosphorus 4.2 D Magnesium 2.2 Total Bilirubin 1.6 H D Direct Bilirubin 0.7 H AST 157 H ALT 86 H Alkaline Phosphatase 58 Total Protein 6.3 L Albumin 2.2 L Stone Source Stone Weight Stone Composition Stone Composition 2 06/15/20 11:05 WBC RBC Hgb Hct MCV MCH MCHC RDW Std Deviation RDW Coeff of Sonia Plt Count MPV Immature Gran % (Auto) Neut % (Auto) Lymph % (Auto) [place] % (Auto) Eos % (Auto) Baso % (Auto) Neut # (Auto) Lymph # (Auto) [place] # (Auto) Eos # (Auto) Baso # (Auto) Immature Gran # (Auto) Dohle Bodies PT INR APTT PTT Ratio POC pH POC pCO2 POC pO2 POC HCO3 POC Total CO2 POC Base Excess POC ABG O2 Sat Sodium Potassium Chloride Carbon Dioxide Anion Gap BUN Creatinine Est Cr Clr Drug Dosing Est GFR ( Amer) Est GFR (Non-Af Amer) BUN/Creatinine Ratio Glucose POC Glucose 112 H Calcium Phosphorus Magnesium Total Bilirubin Direct Bilirubin AST ALT Alkaline Phosphatase Total Protein Albumin Stone Source Stone Weight Stone Composition Stone Composition 2 Medications Administered Current Inpatient Medications Albuterol (Albut/Ipratrop 3mg/0.5mg Neb 3 Ml Vial) 3 ml INH Q2H PRN PRN Reason: Dyspnea Stop: 07/12/20 07:38 Cyanocobalamin (Cyanocobalamin 500 Mcg Tablet (Vitamin B-12)) 1,000 mcg PO QAM MICHAEL Stop: 07/12/20 08:59 Last Admin: 06/15/20 08:44 Dose: Not Given Documented by: Fentanyl Citrate (Fentanyl Bolus From Bag) 50 mcg IV Q60M PRN PRN Reason: Pain or Agitation Stop: 06/28/20 13:41 Gabapentin (Gabapentin 100 Mg Cap) 100 mg PO QPM [facility] Stop: 07/12/20 20:59 Last Admin: 06/13/20 20:14 Dose: 100 mg Documented by: Famotidine 20 mg/ Syringe 5 mls @ 2.5 mls/min IV QAM [facility] Stop: 07/13/20 08:59 Last Admin: 06/15/20 08:43 Dose: 2.5 mls/min Documented by: Ceftriaxone Sodium 2,000 mg/ (Dextrose) 70 mls @ 100 mls/hr IV DAILY [facility]; Protocol Stop: 06/28/20 08:59 Last Infusion: 06/15/20 09:53 Dose: Infused Documented by: Fentanyl Citrate (Fentanyl Drip) 1,250 mcg in 250 mls @ 0 mls/hr IV .Q0M [facility]; Protocol Stop: 06/28/20 13:44 Last Titration: 06/15/20 16:13 Dose: Infused Documented by: Dexmedetomidine HCl 400 mcg/ (Sodium Chloride) 100 mls @ 0 mls/hr IV .Q0M [facility]; Protocol Stop: 06/19/20 01:59 Last Titration: 06/15/20 16:14 Dose: Infused Documented by: Metoprolol Tartrate (Metoprolol Tartrate 1 Mg/Ml Vial) 5 mg IV Q8H [facility] Stop: 07/14/20 08:59 Last Admin: 06/15/20 16:13 Dose: 5 mg Documented by: Multivitamins (Multivitamin Tab) [facility] [place] Stop: 07/12/20 08:59 Last Admin: 06/15/20 08:44 Dose: Not Given Documented by: Nystatin (Nystatin Powder 15gm Btl) 1 appln EXT DAILY [facility] Stop: 07/12/20 08:59 Last Admin: 06/15/20 08:44 Dose: 1 appln Documented by: Ondansetron HCl (Ondansetron Inj 2 Mg/Ml 2 Ml Vial) 4 mg IV Q6H PRN PRN Reason: Nausea And Vomiting Stop: 07/12/20 17:16 Last Admin: 06/12/20 17:27 Dose: 4 mg Documented by: Vitamin D (Cholecalciferol 1,000 Units 25 Mcg Tab) 2,000 units PO DAILY MICHAEL Stop: 07/12/20 08:59 Last Admin: 06/15/20 08:44 Dose: Not Given Documented by: PG Care Time/CCT Total # of Minutes Spent Total Time Spent with Patient: Total time spent is greater than 50% in coordination of care (as documented) at patient's floor/unit and/or counseling patient: Coding Level of Care Code 00889 Subseq Hosp Care Lvl 3 Diagnoses Septic shock A41.9; R65.21 Acute hypercapnic respiratory failure J96.02 Acute kidney injury N17.9 Acute UTI (urinary tract infection) N39.0 Atrial fibrillation with RVR I48.91 Impaired fasting glucose R73.01 Hypertension I10 Anticoagulant long-term use Z79.01 Thrombocytopenia D69.6 Elevated INR R79.1 Altered mental status R41.82
[2020-06-16] MEDS: METOPROLOL TARTRATE 1 MG/ML VIAL IV SCH ×2 (00:42→08:37)
[2020-06-16 04:31] LABS: Hematocrit (blood only) 40.9 % (37-47); Hemoglobin 13.7 g/dL (12.0-16.0); Mean Corpuscular Hemoglobin 33.9 pg (25-34); Mean Corpuscular Hgb Conc 33.5 g/dL (32-36); Mean Corpuscular Volume 101.2 fL (80-100); RDW Coefficient of Variation 14.6 % (11.5-14.5); RDW Standard Deviation 54.2 fL (36.4-46.3); Red Blood Count 4.04 M/uL (4.2-5.4)
[2020-06-16 04:48] LABS: INR 1.1 (0.9-1.1); Prothrombin Time 11.5 Seconds (9.0-12.0)
[2020-06-16 04:49] LABS: Mean Platelet Volume 11.7 fL (7.4-10.4); Platelet Count 52 K/uL (130-400)
[2020-06-16 04:54] LABS: Albumin Level 2.2 gm/dl (3.4-5.0); BUN Creatinine Ratio 11.4 (10-20); Bilirubin Direct 0.6 mg/dl (0-0.2); Calcium 7.5 mg/dl (8.5-10.1); Est GFR (African American) 16.2; Est GFR (Non-African American) 13.9; Magnesium 2.2 mg/dl (1.8-2.4); Potassium 3.8 mmol/L (3.5-5.1)
[2020-06-16 04:57] LABS: Bilirubin,Total 1.3 mg/dl (0.2-1); Phosphorus 3.9 mg/dl (2.5-4.9); Total Protein 6.4 gm/dl (6.4-8.2)
[2020-06-16 04:58] LABS: Basophils # (auto) 0.01 K/uL (0-0.2); Basophils % (auto) 0.1 %; Dohle Bodies 1+; Eosinophils # (auto) 0.07 K/uL (0-0.5); Eosinophils % (auto) 0.6 %; Immature Granulocytes # (auto) 0.05 K/uL (0.00-0.02); Immature Granulocytes % (auto) 0.4 %; Lymphocytes # (auto) 0.51 K/uL (1.2-3.4); Monocytes # (auto) 1.43 K/uL (0.11-0.59); Monocytes % (auto) 11.3 %; Neutrophils # (auto) 10.53 K/uL (1.4-6.5); Neutrophils % (auto) 83.6 %
--- NOTE | 2020-06-16 06:52 | Critical Care Progress Note ---
Date of Service June 16, 2020 Assessment & Plan (1) Ureteral stone with hydronephrosis: Ami is a 74-year-old female with a known history of nephrolithiasis, persistent atrial fibrillation on metoprolol and Warfarin, chronic venous insufficiency, hypertension, s/p Danielle-en-Y gastric bypass, and previous stroke who presented for ongoing AMS since 06/11, subsequently found to be in septic shock with suspected origin from obstructing stone in left renal pelvis. Her course has been complicated by acute renal failure requiring hemodialysis x 1. Infectious Disease # Septic Shock from Urologic Source -- with evidence of end-organ damage: metabolic encephalopathy, PETR, consumptive coagulopathy, elevated troponins - Suspected origination from obstructing L sided renal calculus resulting in hydroureteronephrosis as demonstrated on CT-A/P - Leukocytosis appreciated, overall downtrending (20 --> 12) - BCX, UCX demonstrating mora-sensative E. coli - Hemodynamic support: no longer requiring - Continue daily CFTX for at least two weeks to cover for E. coli bacteremia - Repeat BCX demonstrating NG RENAL/LYTES # Obstructing ureteral calculus with hydroureteronephrosis - Patient with known history of nephrolithiasis - CT-A/P demonstrated 7mm obstructing stone w/i L renal pelvis with numerous other b/l nephroliths - Now s/p double-J stent placement by urology - US Abdomen to visualize kidneys # Acute Kidney Injury -- likely prerenal in origin, baseline Cr 0.8 - Suspect prerenal vs. intrarenal origin - likely infection-driven w/ ATN from septic shock, also possibly worsened by contrast from procedure - Cr very mildly improved this morning 3.2 --> 3.17, received dialysis yesterday - Nephrology consulted for participation in care - HD again yesterday, 3L removed - HD again today - Unclear at this point if renal function will recover or will require long-term dialysis - UOP still persistently poor through this AM - continue strict I+Os - Renal dosing for meds # Hyperphosphatemia - Resolved on labs this AM s/p HD Cardiac # Hypotension -- secondary to septic shock - Normotensive at present -- continue to monitor # Permanent AF, with RVR -- RVR resolved - Noted to be in AF w/ RVR on admission, continued initially throughout admission - likely precipitated by septic shock - Now out of RVR - rates stable in the 70-80s - Metoprolol tartrate 25mg PO t.i.d. - Heparin therapeutic # Elevated Troponin -- Patient did report mild chest discomfort while in ED, resolved here - Appreciated on admission, peaked at 0.51 early AM of 06/12, downtrended - Suspect 2/2 demand ischemia in setting of septic shock with exacerbation by PETR # LLE Swelling - Concern for DVT - Disproportionate swelling and pain in LLE when compared to RLE, c/f DVT this AM - could possibly just represent fluid-overload related edema too - Doppler LLE to r/o DVT - unrevealing for DVT - Continue SCDs for now - Now on heparin Respiratory # Acute Hypoxemic, Hypercapnic Respiratory Failure - Did initially require intubation and mechanical ventilation yesterday - Now only utilizing small amounts of O2 via NC - Suspect secondary to volume overload in setting of acute and worsening renal failure - Persistently poor UOP despite diuresis - Echo demonstrating normal LV size/function. EF 60-65% w/o RWMAs - Continue HD, diuresis p.r.n. - Continuous pulse oximetry Neuro Sedation, Analgesia: Overnight on Precedex, Fentanyl while intubated, ventilated # Metabolic encephalopathy -- much improved compared to prior exams - Likely was 2/2 hypercapnia and acidosis with ongoing urosepsis with septic shock and metabolic derangements. Ammonia wnl. - Much improved - now fully alert and oriented, responding to questions appropriately overall - Continue sepsis treatment - Continue to monitor # History of CVA - Noted on review of chart -- occurred > 10 years ago, no neurologist - Residual deficits noted as intermittent numbness to R hand - Continue to hold gabapentin Other: Hold nightly doxepin GI -- no major concerns at this point # Diet - Speech eval this morning s/p extubation - if passes, initiate renal diet # Transaminitis - Continued improvement from day-to-day - In setting of septic shock, do suspect this transient transaminitis is predominantly due to shock liver vs. toxin hepatitis -- possibly with component of muscle breakdown with mildly elevated CPK and AST predominance - Trend daily # Abdominal Pain - Patient not c/o this today / no concerning signs on physical exam - US Abdomen obtained 06/14 with unchanged distention of gallbladder without inflammation, nonobstructing calculi in L kidney - Continue to monitor - No concerns at this time. - Mcmahon in place, monitor UOP ENDO - ICU Hyperglycemia protocol HEME - Stable H&H # Thrombocytopenia (42 --> 53) -- received 1U FFP prior to intuation - Mildly improved this AM (53 from 42) - Suspect consumptive coagulopathy in setting of septic shock as primary etiology - Peripheral smear without schistocytes - lower concern for DIC - Without visualized active bleeding # Supratherapeutic INR -- Resolved at present - See previous notes for details. Resolved at this point. INTEGUMENTARY - No concerns at this time LINES/IV ACCESS - 2x 20-gauge PIVs in place; Right-sided dialysis IJdual-lumen catheter DVT PROPHYLAXIS - - Initiate heparin normal weight-based - therapeutic given AF Thank you for allowing us to be part of this patient's care. Please refer to Dr. Perez's documentation for any further recommendations. (2) Mild cognitive impairment: (3) Idiopathic peripheral neuropathy: (4) Nephrolithiasis: (5) Venous insufficiency: (6) Atrial fibrillation: (7) Osteoarthritis: (8) Stroke: Admission and Anticipated Discharge Date Admission Date: June 12, 2020 Supervising Physician Co-Signing Physician Notes Dr. Dela Cruz was the resident-physician during care of patient. I separately evaluated patient for jacobs portions of the history and the exam. I was present during the critical portion of medical decision making, and I discussed the case with the resident. I generally agree with the findings and plan except for any additions/exceptions noted. Patient's mental status is improved substantially. She is still in oliguric renal failure with minimal urine output. Nephrology is following the patient. Plan for hemodialysis today. Continue with ceftriaxone for total of 2 weeks given E. coli bacteremia from complicated urinary tract infection. Started on a heparin drip given history of atrial fibrillation. Will defer to the hospitalist regarding oral anticoagulation. Stable for transfer to floor. Subjective feeling good this morning - watching TV no pain or discomfort eager to eat / drink - aware speech is coming by today no chest pain or shortness of breath endorses getting sleep alert and oriented to person, place, time, event responds to questions appropriately 3L removed by dialysis yesterday - tolerated well Review of Systems Review of Systems: as per HPI Physical Exam Physical Exam: General: Tired appearing 74-year-old female who is lying back in her hospital bed, watching TV upon my arrival. She responds to questions ap propriately, and is fully alert and oriented this morning. No acute distress HEENT: Mild JVD, about 1-2 finger breadths above the clavicle this AM. Mucous membranes are moist. Cardiac: Mildly tachycardic, irregular rhythm persists. S1 and S2 are present without murmurs rubs or gallops Pulmonary: Easy respiratory effort with symmetric expansion of the chest. Ovaries are clear to auscultation bilaterally without crackles or wheezes Abdomen; normoactive bowel sounds. Abdomen is soft, nontender, nondistended to palpation Lower extremities: The right lower extremity does demonstrate 1+ pitting edema without any tenderness to palpation. Examination of the left lower extremity does reveal 2-3+ pitting edema, increased firmness, and tenderness to palpation upon calf squeeze. Homans mildly positive. Dorsalis pedis pulse palpable 1+ on the side. Results & Data Results & Data ([facility]) Vital Signs (Past 12 Hours) Vital Signs Temp Pulse Resp BP Pulse Ox 06/16/20 06:01 93 H 19 104/52 L 95 06/16/20 05:01 97 H 24 113/64 97 06/16/20 04:01 97 H 28 H 111/53 L 94 06/16/20 04:00 36.9 C 06/16/20 03:01 100 H 24 125/65 94 06/16/20 02:01 94 H 27 H 110/54 L 94 06/16/20 02:00 97 H 31 H 95 06/16/20 01:01 94 H 21 98/58 L 96 06/16/20 01:00 95 H 21 96 06/16/20 00:42 103 H 111/54 L 06/16/20 00:01 37.7 C H 97 H 19 111/54 L 93 06/16/20 00:00 93 H 06/15/20 23:01 37.6 C H 96 H 17 133/53 L 93 06/15/20 22:00 37.7 C H 97 H 27 H 110/60 94 06/15/20 21:01 37.6 C H 92 H 22 103/58 L 94 06/15/20 20:01 37.6 C H 91 H 17 108/56 L 93 06/15/20 19:01 37.6 C H 96 H 18 118/59 L 95 Resident Activity Tracking Resident Involvement: Resident Care Provided Care Provided: Adult [facility] Medicine
--- NOTE | 2020-06-16 07:08 | XRay Report ---
XR chest 1V portable CLINICAL HISTORY: f/u COMPARISON STUDY: Chest radiograph June 15, 2020. FINDINGS: The endotracheal and nasogastric tubes have been removed. Right internal jugular dual lumen catheter remains in place. There is no pneumothorax. Cardiomegaly is unchanged. Mild pulmonary edema is noted. This has likely slightly improved. There are persistent small bilateral pleural effusions and bibasilar opacities. Right basilar opacity is improved. Old proximal right humeral fracture is in cidentally noted. Left femoral arthroplasty is partially imaged. IMPRESSION: 1. Interval improvement in small bilateral pleural effusions, bibasilar opacities and pulmonary edema . 2. Interval removal of the endotracheal and nasogastric tubes. ACT 112: Negative or not required by law. Electronically signed by: Zaire Mcduffie M.D. 06/16/2020 7:07 AM
[2020-06-16] MEDS ORDERED: Heparin IV Adult Wt-Based Standard WITH Bolus Protocol IV SCH (07:28)
[2020-06-16] MEDS ORDERED: HEPARIN IV BOLUS 6,000 UNITS in SYRINGE 0 ML IV ONE (08:15)
--- NOTE | 2020-06-16 08:27 | Ultrasound Report ---
LEFT LOWER EXTREMITY VENOUS DOPPLER CLINICAL HISTORY: r/o DVT - increased swelling and pain COMPARISON STUDY: No previous studies for comparison. TECHNIQUE: Sonography of the deep venous system of the left lower extremity was performed. Compressi on and augmentation were evaluated. FINDINGS: This exam is compromised by suboptimal penetration. The left common femoral, superficial fe moral and popliteal veins were compressible. Augmentation was normal. Flow was shown within the deep calf vessels. IMPRESSION: Technically compromised exam but no evidence of deep venous thrombus within the left lowe r extremity. ACT 112: Negative or not required by law. Electronically signed by: Zaire Mcduffie M.D. 06/16/2020 8:26 AM
[2020-06-16 08:36] LABS: Partial Thromboplastin Ratio 0.9; Partial Thromboplastin Time 24.8 Seconds (21.0-31.0)
[2020-06-16] MEDS: FAMOTIDINE 20 MG in SYRINGE 3 ML IV SCH (08:36)
[2020-06-16] MEDS: cefTRIAXone SODIUM 2,000 MG in DEXTROSE 5% 50 ML IV SCH (08:36)
[2020-06-16] MEDS: HEPARIN SODIUM/DEXTROSE 25,000 UNITS/500 ML BAG IV SCH ×2 (08:36→23:56)
[2020-06-16] MEDS: CHOLECALCIFEROL 1,000 UNITS 25 MCG TAB PO SCH (08:37)
[2020-06-16] MEDS: CYANOCOBALAMIN 500 MCG TABLET (VITAMIN B-12) PO SCH (08:37)
[2020-06-16] MEDS: NYSTATIN POWDER 15GM BTL EXT SCH (08:37)
[2020-06-16] MEDS: MULTIVITAMIN TAB PO SCH (08:37)
--- NOTE | 2020-06-16 10:36 | Nephrology Progress Note ---
Date of Service June 16, 2020 Assessment & Plan (1) Acute kidney injury: Admitted with Confusion, back pain due to left sided hydronephrosis, sepsis with UTI. Initially Cr 1.5 with b/l cr 0.8. Cr worsened to 2.3, electrolyte acceptable. UO has been low. PETR most likely secondary to dense ATN with urosepsis, hypotension. Had 1st dialysis treatment on 06/14/2020 for rapid worsening of renal function, with oliguria and volume overload. She was intubated on 06/14 for respiratory failure but successfully extubated on 06/15. Urine output remained low, no clear sign of renal recovery yet. --dialysis today for 4 hours, aim for 3 L UF as tolerated. Continue to monitor for renal recovery, if urine output remained low over the weekend, plan for tunneled dialysis catheter Friday Will follow (2) Hydronephrosis concurrent with and due to calculi of kidney and ureter: (3) Acute UTI (urinary tract infection): Admission and Anticipated Discharge Date Admission Date: June 12, 2020 Subjective Ami has been feeling well today, after extubation yesterday. Denies any shortness of breath or chest pain. Urine output remained low, blood pressure stable, electrolyte acceptable. Review of Systems Review of Systems: All systems reviewed & are unremarkable except as noted in Subjective Physical Exam Constitutional: WD/WN, vitals as above no acute distress ENMT: Ears: no hearing impairment Neck: trachea midline Respiratory: normal respiratory effort, lungs clear to auscultation no cough Auscultation: + diminished lung sounds; no crackles and no rales Cardiovascular: RRR, no murmur, no edema Skin: no rashes, warm and dry Neurologic: awake; no focal motor deficits and not confused Psychiatric: A+Ox3, euthymic affect Results & Data ([facility]) Vital Signs (Past 12 Hours) Vital Signs Temp Pulse Resp BP Pulse Ox 06/16/20 09:01 97 H 24 135/65 91 06/16/20 08:37 98 H 144/82 H 06/16/20 08:01 102 H 20 144/82 H 92 06/16/20 08:00 36.9 C 06/16/20 07:20 98 H 27 H 118/72 94 06/16/20 07:01 102 H 23 118/72 94 04/16/21 06:01 93 H 19 104/52 L 95 06/16/20 05:01 97 H 24 113/64 97 06/16/20 04:01 97 H 28 H 111/53 L 94 06/16/20 04:00 36.9 C 06/16/20 03:01 100 H 24 125/65 94 06/16/20 02:01 94 H 27 H 110/54 L 94 06/16/20 02:00 97 H 31 H 95 06/16/20 01:01 94 H 21 98/58 L 96 06/16/20 01:00 95 H 21 96 06/16/20 00:42 103 H 111/54 L 06/16/20 00:01 37.7 C H 97 H 19 111/54 L 93 06/16/20 00:00 93 H 06/15/20 23:01 37.6 C H 96 H 17 133/53 L 93 PG Care Time/CCT Total # of Minutes Spent Total Time Spent with Patient: Total time spent is greater than 50% in coordination of care (as documented) at patient's floor/unit and/or counseling patient: Coding Level of Care Code 00714 Subseq Hosp Care Lvl 3 Diagnoses Acute kidney injury N17.9 Hydronephrosis concurrent with and due to calculi of kidney and ureter N13.2 Acute UTI (urinary tract infection) N39.0
--- NOTE | 2020-06-16 11:41 | Billing Data ---
Date of Service June 16, 2020 Coding Level of Care Code 60773 Initial Inpt Care Lvl 2
[2020-06-16] MEDS: METOPROLOL TARTRATE 25 MG TAB PO SCH ×2 (14:04→20:55)
--- NOTE | 2020-06-16 15:07 | Hospitalist Progress Note ---
Date of Service June 16, 2020 Assessment & Plan (1) Acute hypercapnic respiratory failure: developed on 06/14, did not improve with BIPAP electively intubated on 06/14 successfully extubated 06/15, breathing well, more alert now that she had HD no signs of narcosis today (2) Acute kidney injury: Cr stephan from 1.3 to 1.7 to 2.29, peaked at 3.6 on 06/14 K is stable urine output is suboptimal, challenged with Bumex 4mg IV on 06/14 but not a great response temp HD catheter placed and HD on 06/15 with UF goal of 3L 2nd HD session on 06/16, tolerated well treat infection, supportive care and follow BMP closely renally dose medications recheck BMP in the morning per nephrology, if she continues to require HD will consider tunneled HD catheter Friday (3) Acute UTI (urinary tract infection): due to ureteral stone, hydronephrosis urine and blood culture with GN bacilli - E coli continue ceftriaxone IV no fever, WBC is down to 12.6k (4) Impaired fasting glucose: Placed on ICU hyperglycemic protocol management per pharmacy sugars better today (5) Hypertension: BP stable, back on metoprolol for afib (6) Thrombocytopenia: consumptive due to sepsis, follow closely, down to 42k (7) Elevated INR: reversed in morning on 06/14 when it was 5 today it is 1.1 (8) Altered mental status: multifactorial, CO2 retention and PETR and infection resolved after 24 hours of intubation and mechanical ventilation also, treated PETR with HD today she is alert and oriented this afternoon (9) Atrial fibrillation with RVR: use metoprolol for rate control Admission and Anticipated Discharge Date Admission Date: June 12, 2020 Subjective patient doing okay today, tolerated another session of HD today eating well, no dyspnea, participating in therapy d/w Dr. Perez in ICU and Dr. Contreras, nephrology labs reviewed, WBC 12k, Hb 13.7, plt count 52k INR 1.1 Cr 3.17, electrolytes stable CXR today with improvement in effusions, venous doppler left leg negative for DVT Review of Systems Review of Systems: All systems reviewed & are unremarkable except as noted in Subjective Constitutional: + fatigue and + weakness; no fever Respiratory: + dyspnea on exertion; no cough and no dyspnea Cardiovascular: no chest pain and no edema Gastrointestinal: no abdominal pain, no nausea, no vomiting, no constipation and no diarrhea/loose stools Physical Exam Constitutional: well developed and + obese; no acute distress Neck: trachea midline, no thyromegaly + thick neck Cardiovascular: Rate/Rhythm: + tachycardic and + irregularly irregular Heart Sounds: normal S1 and normal S2; no murmur Vessels: no JVD Extremities: normal capillary refill; no edema Gastrointestinal (Abdomen): normal bowel sounds, soft, nontender, no hepatosplenomegaly Musculoskeletal: Head/Neck/Chest: normocephalic, head atraumatic and neck supple Extremities: + abnormal strength (generalized weakness) Skin: no rashes, warm and dry + ecchymosis Neurologic: patellar DTR's 2+ bilat, sensation intact and PERRL, EOMI, accommodation nl, no face palsy, no dysarthria CN's II-XI intact bilaterally; no focal motor deficits Psychiatric: A+Ox3, euthymic affect Lymphatic: no cervical or axillary lymphadenopathy Results & Data Results & Data ([facility]) Vital Signs (Past 12 Hours) Vital Signs Temp Pulse Pulse Pulse Resp BP BP 06/16/20 14:41 37.1 C 104 H 23 152/89 H 06/16/20 13:57 112 H 15 139/73 06/16/20 13:40 36.5 C 99 H 138/80 06/16/20 13:30 101 H 155/72 H 06/16/20 13:15 107 H 147/47 H 06/16/20 13:13 114 H 16 147/47 H 06/16/20 13:00 109 H 136/78 06/16/20 12:45 102 H 122/83 06/16/20 12:15 105 H 136/66 06/16/20 12:12 36.8 C 102 H 26 H 136/66 06/16/20 12:00 110 H 147/71 H 06/16/20 11:45 103 H 144/65 H 06/16/20 11:30 96 H 152/63 H 06/16/20 11:15 103 H 142/59 H 06/16/20 11:00 98 H 116/65 06/16/20 10:45 93 H 137/65 06/16/20 10:30 100 H 123/81 06/16/20 10:15 97 H 137/84 06/16/20 10:00 101 H 122/72 06/16/20 09:45 98 H 135/72 06/16/20 09:30 36.5 C 99 H 85 06/16/20 09:01 97 H 24 135/65 06/16/20 08:37 98 H 144/82 H 06/16/20 08:01 102 H 20 144/82 H 06/16/20 08:00 36.9 C 06/16/20 07:20 98 H 27 H 118/72 06/16/20 07:01 102 H 23 118/72 06/16/20 06:01 93 H 19 104/52 L 06/16/20 05:01 97 H 24 113/64 06/16/20 04:01 97 H 28 H 111/53 L 06/16/20 04:00 36.9 C Pulse Ox 06/16/20 14:41 92 06/16/20 13:57 87 L 06/16/20 13:40 06/16/20 13:30 06/16/20 13:15 06/16/20 13:13 90 06/16/20 13:00 06/16/20 12:45 06/16/20 12:15 06/16/20 12:12 90 06/16/20 12:00 06/16/20 11:45 06/16/20 11:30 06/16/20 11:15 06/16/20 11:00 06/16/20 10:45 06/16/20 10:30 06/16/20 10:15 06/16/20 10:00 06/16/20 09:45 06/16/20 09:30 06/16/20 09:01 91 06/16/20 08:37 06/16/20 08:01 92 06/16/20 08:00 06/16/20 07:20 94 06/16/20 07:01 94 06/16/20 06:01 95 06/16/20 05:01 97 06/16/20 04:01 94 06/16/20 04:00 Laboratory Results Laboratory Results - last 24 hr 06/15/20 06/15/20 06/16/20 18:01 22:48 04:11 WBC 12.60 H RBC 4.04 L Hgb 13.7 Hct 40.9 MCV 101.2 H MCH 33.9 MCHC 33.5 RDW Std Deviation 54.2 H RDW Coeff of Sonia 14.6 H Plt Count 52 L MPV 11.7 H Immature Gran % (Auto) 0.4 Neut % (Auto) 83.6 Lymph % (Auto) 4.0 [place] % (Auto) 11.3 Eos % (Auto) 0.6 Baso % (Auto) 0.1 Neut # (Auto) 10.53 H Lymph # (Auto) 0.51 L [place] # (Auto) 1.43 H Eos # (Auto) 0.07 Baso # (Auto) 0.01 Immature Gran # (Auto) 0.05 H Dohle Bodies 1+ PT INR APTT PTT Ratio Sodium Potassium Chloride Carbon Dioxide Anion Gap BUN Creatinine Est Cr Clr Drug Dosing Est GFR ( Amer) Est GFR (Non-Af Amer) BUN/Creatinine Ratio Glucose POC Glucose 82 93 Calcium Phosphorus Magnesium Total Bilirubin Direct Bilirubin AST ALT Alkaline Phosphatase Total Protein Albumin 06/16/20 06/16/20 06/16/20 04:11 04:11 07:46 WBC RBC Hgb Hct MCV MCH MCHC RDW Std Deviation RDW Coeff of Sonia Plt Count MPV Immature Gran % (Auto) Neut % (Auto) Lymph % (Auto) [place] % (Auto) Eos % (Auto) Baso % (Auto) Neut # (Auto) Lymph # (Auto) [place] # (Auto) Eos # (Auto) Baso # (Auto) Immature Gran # (Auto) Dohle Bodies PT 11.5 INR 1.1 APTT 24.8 PTT Ratio 0.9 Sodium 142 Potassium 3.8 Chloride 105 Carbon Dioxide 28 Anion Gap 9.0 BUN 36 H Creatinine 3.17 H Est Cr Clr Drug Dosing 20.0 Est GFR ( Amer) 16.2 Est GFR (Non-Af Amer) 13.9 BUN/Creatinine Ratio 11.4 Glucose 109 H POC Glucose Calcium 7.5 L Phosphorus 3.9 Magnesium 2.2 Total Bilirubin 1.3 H Direct Bilirubin 0.6 H AST 94 H ALT 75 Alkaline Phosphatase 73 Total Protein 6.4 Albumin 2.2 L Medications Administered Current Inpatient Medications Albuterol (Albut/Ipratrop 3mg/0.5mg Neb 3 Ml Vial) 3 ml INH Q2H PRN PRN Reason: Dyspnea Stop: 07/12/20 07:38 Cyanocobalamin (Cyanocobalamin 500 Mcg Tablet (Vitamin B-12)) 1,000 mcg PO QAM [facility] Stop: 07/12/20 08:59 Last Admin: 06/16/20 08:37 Dose: 1,000 mcg Documented by: Gabapentin (Gabapentin 100 Mg Cap) 100 mg PO QPM [facility] Stop: 07/12/20 20:59 Last Admin: 06/13/20 20:14 Dose: 100 mg Documented by: Famotidine 20 mg/ Syringe 5 mls @ 2.5 mls/min IV QAM [facility] Stop: 07/13/20 08:59 Last Admin: 06/16/20 08:36 Dose: 2.5 mls/min Documented by: Ceftriaxone Sodium 2,000 mg/ (Dextrose) 70 mls @ 100 mls/hr IV DAILY [facility]; Protocol Stop: 06/28/20 08:59 Last Infusion: 06/16/20 09:30 Dose: Infused Documented by: Heparin Sodium/Dextrose (Heparin Sodium/Dextrose) 25,000 units in 500 mls @ 28 mls/hr IV .[id number] [facility]; Protocol Stop: 07/16/20 07:29 Last Admin: 06/16/20 08:36 Dose: 1,400 units/hr, 28 mls/hr Documented by: Metoprolol Tartrate (Metoprolol Tartrate 25 Mg Tab) 25 mg PO TID [facility] Stop: 07/16/20 13:59 Last Admin: 06/16/20 14:04 Dose: 25 mg Documented by: Multivitamins ([facility]ivitamin Tab) [facility] [place]: 07/12/20 08:59 Last Admin: 06/16/20 08:37 Dose: 1 tab Documented by: Nystatin (Nystatin Powder 15gm Btl) 1 appln EXT DAILY [facility] Stop: 07/12/20 08:59 Last Admin: 06/16/20 08:37 Dose: 1 appln Documented by: Ondansetron HCl (Ondansetron Inj 2 Mg/Ml 2 Ml Vial) 4 mg IV Q6H PRN PRN Reason: Nausea And Vomiting Stop: 07/12/20 17:16 Last Admin: 06/12/20 17:27 Dose: 4 mg Documented by: Vitamin D (Cholecalciferol 1,000 Units 25 Mcg Tab) 2,000 units PO DAILY [facility] Stop: 07/12/20 08:59 Last Admin: 06/16/20 08:37 Dose: 2,000 units Documented by: PG Care Time/CCT Total # of Minutes Spent Total Time Spent with Patient: Total time spent is greater than 50% in coordination of care (as documented) at patient's floor/unit and/or counseling patient: Coding Level of Care Code 72996 Subseq Hosp Care Lvl 3 Diagnoses Acute hypercapnic respiratory failure J96.02 Acute kidney injury N17.9 Acute UTI (urinary tract infection) N39.0 Impaired fasting glucose R73.01 Hypertension I10 Thrombocytopenia D69.6 Elevated INR R79.1 Altered mental status R41.82 Atrial fibrillation with RVR I48.91
[2020-06-16 15:49] LABS: Partial Thromboplastin Ratio 1.6; Partial Thromboplastin Time 43.2 Seconds (21.0-31.0)
[2020-06-16 23:09] LABS: Partial Thromboplastin Ratio 1.3; Partial Thromboplastin Time 34.1 Seconds (21.0-31.0)
[2020-06-16] MEDS ORDERED: HEPARIN IV BOLUS 3,000 UNITS in SYRINGE 0 ML IV ONE (23:44)
[2020-06-17 06:00] LABS: Hematocrit (blood only) 38.8 % (37-47); Hemoglobin 13.5 g/dL (12.0-16.0); Mean Corpuscular Hemoglobin 34.2 pg (25-34); Mean Corpuscular Hgb Conc 34.8 g/dL (32-36); Mean Corpuscular Volume 98.2 fL (80-100); RDW Coefficient of Variation 14.1 % (11.5-14.5); Red Blood Count 3.95 M/uL (4.2-5.4); White Blood Count 10.96 K/uL (4.8-10.8)
[2020-06-17 06:11] LABS: Partial Thromboplastin Ratio 1.6; Partial Thromboplastin Time 42.1 Seconds (21.0-31.0)
[2020-06-17 06:17] LABS: BUN Creatinine Ratio 9.9 (10-20); Calcium 7.6 mg/dl (8.5-10.1); Creatinine Clr Calc Pharmacy 19.1 ml/min; Est GFR (African American) 14.9; Est GFR (Non-African American) 12.9; Magnesium 2.1 mg/dl (1.8-2.4); Potassium 3.6 mmol/L (3.5-5.1)
[2020-06-17 06:18] LABS: Phosphorus 2.6 mg/dl (2.5-4.9)
[2020-06-17 06:22] LABS: Mean Platelet Volume 11.6 fL (7.4-10.4); Platelet Count 72 K/uL (130-400)
[2020-06-17 06:23] LABS: Basophils # (auto) 0.03 K/uL (0-0.2); Basophils % (auto) 0.3 %; Eosinophils # (auto) 0.12 K/uL (0-0.5); Eosinophils % (auto) 1.1 %; Immature Granulocytes # (auto) 0.09 K/uL (0.00-0.02); Immature Granulocytes % (auto) 0.8 %; Lymphocytes # (auto) 0.82 K/uL (1.2-3.4); Lymphocytes % (auto) 7.5 %; Monocytes # (auto) 1.77 K/uL (0.11-0.59); Monocytes % (auto) 16.1 %; Neutrophils # (auto) 8.13 K/uL (1.4-6.5); Neutrophils % (auto) 74.2 %; Platelet Estimate Decreased (Normal)
[2020-06-17] MEDS: HEPARIN SODIUM/DEXTROSE 25,000 UNITS/500 ML BAG IV SCH ×3 (07:36→13:44)
[2020-06-17] MEDS: CYANOCOBALAMIN 500 MCG TABLET (VITAMIN B-12) PO SCH (07:39)
[2020-06-17] MEDS: METOPROLOL TARTRATE 25 MG TAB PO SCH ×3 (07:39→19:52)
[2020-06-17] MEDS: MULTIVITAMIN TAB PO SCH (07:39)
[2020-06-17] MEDS: CHOLECALCIFEROL 1,000 UNITS 25 MCG TAB PO SCH (07:40)
[2020-06-17] MEDS: FAMOTIDINE 20 MG in SYRINGE 3 ML IV SCH (07:40)
[2020-06-17] MEDS: cefTRIAXone SODIUM 2,000 MG in DEXTROSE 5% 50 ML IV SCH (07:40)
[2020-06-17] MEDS: NYSTATIN POWDER 15GM BTL EXT SCH (07:40)
--- NOTE | 2020-06-17 07:51 | Critical Care Progress Note ---
Date of Service June 17, 2020 Assessment & Plan (1) Ureteral stone with hydronephrosis: Ami is a 74-year-old female with a known history of nephrolithiasis, persistent atrial fibrillation on metoprolol and Warfarin, chronic venous insufficiency, hypertension, s/p Danielle-en-Y gastric bypass, and previous stroke who presented for ongoing AMS since 06/11, subsequently found to be in septic shock with suspected origin from obstructing stone in left renal pelvis. Her course has been complicated by acute renal failure requiring hemodialysis x 1. Infectious Disease # Septic Shock from Urologic Source -- with evidence of end-organ damage: metabolic encephalopathy, PETR, consumptive coagulopathy, elevated troponins - Suspected origination from obstructing L sided renal calculus resulting in hydroureteronephrosis as demonstrated on CT-A/P - Leukocytosis appreciated, overall downtrending (20 --> 11) - BCX, UCX demonstrating mora-sensative E. coli - Hemodynamic support: no longer requiring - Continue daily CFTX for at least two weeks to cover for E. coli bacteremia - Repeat BCX demonstrating NG RENAL/LYTES # Obstructing ureteral calculus with hydroureteronephrosis - Patient with known history of nephrolithiasis - CT-A/P demonstrated 7mm obstructing stone w/i L renal pelvis with numerous other b/l nephroliths - Now s/p double-J stent placement by urology - US Abdomen to visualize kidneys # Acute Kidney Injury -- likely prerenal in origin, baseline Cr 0.8 - Suspect prerenal vs. intrarenal origin - likely infection-driven w/ ATN from septic shock, also possibly worsened by contrast from procedure - Cr slightly elevated this AM from 3.17 --> 3.4 despite HD yesterday, BUN just mildly improved - Nephrology consulted for participation in care - HD x 3 over the last 3 days, total of ~9.5 L removed - Anticipate HD again over this weekend or early next week - UOP still persistently poor -- suspect possible placement of tunneled cath on Friday, await recs from nephrology - Renal dosing for meds # Hyperphosphatemia - Resolved on labs this AM s/p HD Cardiac # Hypotension -- secondary to septic shock - Normotensive at present -- continue to monitor # Permanent AF, with RVR -- RVR resolved - Noted to be in AF w/ RVR on admission, continued initially throughout admiss ion - likely precipitated by septic shock - RVR resolved, but still on high-end of normal - rates in upper 90s, low 100s - Metoprolol tartrate 25mg PO t.i.d. for now, consider increase to 50 b.i.d. - Heparin gtt - Should consider transition to Warfarin when appropriate # Elevated Troponin -- Patient did report mild chest discomfort while in ED, resolved here - Appreciated on admission, peaked at 0.51 early AM of 06/12, downtrended - Suspect 2/2 demand ischemia in setting of septic shock with exacerbation by PETR # LLE Swelling - DVT not present on Doppler 06/17 - Swelling and pain in LLE when compared to RLE, initial c/f DVT - unrevealing on Doppler - Suspect multifactorial- dependent edema + venous stasis - Continue PT - Continue SCDs - On heparin gtt Respiratory # Acute Hypoxemic, Hypercapnic Respiratory Failure - Resolving - Initially required intubation, mechanical ventilation - Now only utilizing small amounts of O2 via NC - CXR demonstrating interval improvements in small b/l effusions, pulm edema - Suspect secondary to volume overload in setting of acute and worsening renal failure - Persistently poor UOP despite diuresis - Echo demonstrating normal LV size/function. EF 60-65% w/o RWMAs - Continue HD - Continuous pulse oximetry Neuro Sedation, Analgesia: Overnight on Precedex, Fentanyl while intubated, ventilated # Metabolic encephalopathy -- much improved, with some residual confusion - Likely was 2/2 hypercapnia and acidosis with ongoing urosepsis with septic shock and metabolic derangements. Ammonia wnl. - Much improved - responding to questions appropriately overall; still deficits with regards to identifying time of day, current year - Continue sepsis treatment - Continue to monitor # History of CVA - Noted on review of chart -- occurred > 10 years ago, no neurologist - Residual deficits noted as intermittent numbness to R hand - Continue to hold gabapentin Other: Hold nightly doxepin GI -- no major concerns at this point # Diet - Speech eval this morning s/p extubation - if passes, initiate renal diet # Transaminitis - Continued improvement from day-to-day - In setting of septic shock, do suspect this transient transaminitis is predominantly due to shock liver vs. toxin hepatitis -- possibly with component of muscle breakdown with mildly elevated CPK and AST predominance - Trend daily # Abdominal Pain - Resolved - US Abdomen obtained 06/14 with unchanged distention of gallbladder without inflammation, nonobstructing calculi in L kidney - No concerns at this time. - Mcmahon in place, monitor UOP ENDO - ICU Hyperglycemia protocol HEME - Stable H&H # Thrombocytopenia (53 --> 72) - Demonstrating mild improvements day-to-day - Suspect consumptive coagulopathy in setting of septic shock as primary etiol ogy - Peripheral smear without schistocytes - lower concern for DIC - Without visualized active bleeding INTEGUMENTARY - No concerns at this time LINES/IV ACCESS - 2x 20-gauge PIVs in place; Right-sided dialysis IJdual-lumen catheter DVT PROPHYLAXIS - - Initiate heparin normal weight-based - therapeutic given AF - When appropriate, anticipate transition to Warfarin Thank you for allowing us to be part of this patient's care. Please refer to Dr. Perez's documentation for any further recommendations. (2) Mild cognitive impairment: (3) Idiopathic peripheral neuropathy: (4) Nephrolithiasis: (5) Venous insufficiency: (6) Atrial fibrillation: (7) Osteoarthritis: (8) Stroke: Admission and Anticipated Discharge Date Admission Date: June 12, 2020 Supervising Physician Co-Signing Physician Notes Dr. Dela Cruz was the resident-physician during care of patient. I separately evaluated patient for jacobs portions of the history and the exam. I was present during the critical portion of medical decision making, and I discussed the case with the resident. I generally agree with the findings and plan except for any additions/exceptions noted. Patient stable for transfer to floor. Continue Rocephin for E. coli bacteremia. Continue heparin for atrial fibrillation. Defer oral anticoagulation to hospitalist service. Nephrology service following regarding dialysis. Will likely need a tunneled catheter to be placed on Friday. ICU will sign off. Thank you for allowing us to participate in the care. Subjective Reports feeling well this morning. Denies any pain. Denies any shortness of breath. Tolerated hemodialysis well yesterday, participating in therapy. Looking forward to breakfast. No other concerns from her part this morning. She is aware that I tried to reach her twice yesterday, and recommended that we try again this later afternoon. Review of Systems Review of Systems: As per HPI Physical Exam Constitutional: Tired, but more energetic 74-year-old female who is sitting up in her hospital bed, getting ready for breakfast upon my arrival. She converses freely without any acute distress. She is oriented to person and place. When asked about time, she says that we are in the 1970s. She is aware and able to restate current events, such as who is president. Neck: Neck veins are flat this morning. No appreciable JVD. Catheter in place, with bandage clean dry and intact on the right side of the neck. Respiratory: Easy respiratory effort with symmetric expansion of the chest. Lungs are clear to auscultation bilaterally without crackles or wheezes. Cardiovascular: Mildly tachycardic with irregular rhythm. S1 and S2 are present without murmurs rubs or gallops. Gastrointestinal (Abdomen): Normoactive bowel sounds. Abdomen is soft, nontender, and nondistended to palpation. Musculoskeletal: There continues to be 1+ pitting edema on the right leg, 2+ on the left. Both legs are tender to palpation this morning. Compared to yesterday's exam, no significant change Results & Data Results & Data ([facility]) Vital Signs (Past 12 Hours) Vital Signs Temp Pulse Resp BP Pulse Ox 06/17/20 06:43 127/72 06/17/20 06:00 96 H 17 94 06/17/20 05:43 96 H 17 103/64 93 06/17/20 04:42 94 H 19 128/66 92 06/17/20 04:00 37.2 C 102 H 22 94 06/17/20 03:42 102 H 26 H 125/77 95 06/17/20 02:42 90 19 115/72 95 06/17/20 01:42 98 H 22 110/76 93 06/17/20 00:43 23 114/66 91 06/17/20 00:16 102 H 06/17/20 00:00 37.0 C 101 H 18 93 06/16/20 23:42 97 H 31 H 108/63 96 06/16/20 22:42 98 H 22 106/65 91 06/16/20 22:02 99 H 18 90 06/16/20 22:00 98 H 19 90 06/16/20 21:42 109 H 20 124/71 89 L 06/16/20 20:42 122 H 19 120/63 88 L 06/16/20 20:00 36.9 C Resident Activity Tracking Resident Involvement: Resident Care Provided Care Provided: Adult [facility]
[2020-06-17 08:54] LABS: INR 1.1 (0.9-1.1); Prothrombin Time 11.3 Seconds (9.0-12.0)
--- NOTE | 2020-06-17 09:14 | XRay Report ---
XR chest 1V portable CLINICAL HISTORY: Follow-up. Sepsis. COMPARISON STUDY: 06/16/2020 FINDINGS: The heart remains enlarged. Left hemidiaphragm remains obscured suggesting a small left ple ural effusion and/or left lower lobe atelectasis/consolidation[. There are right basilar opacity stat istically atelectatic. There is a suspected trace right pleural effusion. There is improving intersti tial edema. There is an old proximal right humeral fracture. There is a reverse total left shoulder a rthroplasty. IMPRESSION: 1. Resolving interstitial edema 2. Persistent small left pleural effusion with associated left basilar atelectasis/consolidation 3. Persistent right basilar opacities likely atelectatic. Suspected trace right pleural effusion ACT 112: Negative or not required by law. Electronically signed by: Elliott Vidal M.D. 06/17/2020 9:12 AM
--- NOTE | 2020-06-17 10:43 | Hospitalist Progress Note ---
Date of Service June 17, 2020 Assessment & Plan (1) Acute kidney injury: Cr stephan from 1.3 to 1.7 to 2.29, peaked at 3.6 on 06/14 K is stable urine output is suboptimal, challenged with Bumex 4mg IV on 06/14 but not a great response temp HD catheter placed and HD on 06/15 with UF goal of 3L 2nd HD session on 06/16, tolerated well 3rd HD session on 06/17, met goal for UF treat infection, supportive care and follow BMP closely renally dose medications at this point there are no signs of renal recovery per nephrology, if she continues to require HD will consult vascular surgery for tunneled HD catheter Friday (2) Acute hypercapnic respiratory failure: developed on 06/14, did not improve with BIPAP electively intubated on 06/14 successfully extubated 06/15, breathing well, more alert now that she had HD patient remains alert, ventilating well, no more concerns for respiratory acidosis (3) Acute UTI (urinary tract infection): due to ureteral stone, hydronephrosis urine and blood culture with GN bacilli - E coli continue ceftriaxone IV for 10-14 days due to complicated infection no fever, WBC is normal (4) Impaired fasting glucose: Placed on ICU hyperglycemic protocol management per pharmacy sugars better today stop ICU protocol on transfer today (5) Hypertension: BP stable, back on metoprolol for afib (6) Thrombocytopenia: consumptive due to sepsis, follow closely, slowly improving (7) Elevated INR: reversed in morning on 06/14 when it was 5 (8) Altered mental status: multifactorial, CO2 retention and PETR and infection resolved after 24 hours of intubation and mechanical ventilation also, treated PETR with HD today she is alert and oriented this afternoon (9) Atrial fibrillation with RVR: use metoprolol for rate control place on heparin drip with plans for possible tunneled HD catheter prior to admission she was on Coumadin will resume once she has tunneled HD cath and okay from surgery perspective Admission and Anticipated Discharge Date Admission Date: June 12, 2020 Subjective patient doing reasonably well tolerated HD again today, plan to hold tomorrow and check labs per nephrology safe to downgrade to medical floor per ICU, will transfer reviewed labs, Cr still elevated, electrolytes stable, remains oliguric, no signs of renal recovery no fever, no chest pain PT/OT started Review of Systems Review of Systems: All systems reviewed & are unremarkable except as noted in Subjective Constitutional: + fatigue and + weakness; no fever Respiratory: + dyspnea on exertion; no cough and no dyspnea Cardiovascular: + edema; no chest pain Gastrointestinal: no abdominal pain, no nausea, no vomiting, no constipation and no diarrhea/loose stools Physical Exam Constitutional: well developed and + obese; no acute distress Neck: trachea midline, no thyromegaly + thick neck Respiratory: normal respiratory effort, lungs clear to auscultation Cardiovascular: Rate/Rhythm: regular rate and + irregularly irregular Heart Sounds: normal S1 and normal S2; no murmur Vessels: no JVD Extremities: normal capillary refill; no edema Gastrointestinal (Abdomen): normal bowel sounds, soft, nontender, no hepatosplenomegaly Musculoskeletal: no cyanosis or clubbing, extremities motor strength 5/5 Head/Neck/Chest: normocephalic, head atraumatic and neck supple Extremities: + abnormal strength (generalized weakness) Skin: no rashes, warm and dry + ecchymosis Neurologic: patellar DTR's 2+ bilat, sensation intact and PERRL, EOMI, accommodation nl, no face palsy, no dysarthria CN's II-XI intact bilaterally; no focal motor deficits Psychiatric: A+Ox3, euthymic affect Lymphatic: no cervical or axillary lymphadenopathy Results & Data Results & Data ([facility]) Vital Signs (Past 12 Hours) Vital Signs Temp Pulse Resp BP Pulse Ox 06/17/20 10:00 97 H 19 06/17/20 09:43 85 24 115/75 95 06/17/20 08:43 37.4 C 88 21 117/62 94 06/17/20 07:43 100 H 18 126/64 06/17/20 06:43 127/72 06/17/20 06:00 96 H 17 94 06/17/20 05:43 96 H 17 103/64 93 06/17/20 04:42 94 H 19 128/66 92 06/17/20 04:00 37.2 C 102 H 22 94 06/17/20 03:42 102 H 26 H 125/77 95 06/17/20 02:42 90 19 115/72 95 06/17/20 01:42 98 H 22 110/76 93 06/17/20 00:43 23 114/66 91 06/17/20 00:16 102 H 04/17/21 00:00 37.0 C 101 H 18 93 06/16/20 23:42 97 H 31 H 108/63 96 Laboratory Results Laboratory Results - last 24 hr 06/16/20 06/16/20 06/17/20 15:04 22:50 05:50 WBC RBC Hgb Hct MCV MCH MCHC RDW Std Deviation RDW Coeff of Sonia Plt Count MPV Immature Gran % (Auto) Neut % (Auto) Lymph % (Auto) [place] % (Auto) Eos % (Auto) Baso % (Auto) Neut # (Auto) Lymph # (Auto) [place] # (Auto) Eos # (Auto) Baso # (Auto) Immature Gran # (Auto) Platelet Estimate PT INR APTT 43.2 H 34.1 H 42.1 H PTT Ratio 1.6 1.3 1.6 Sodium Potassium Chloride Carbon Dioxide Anion Gap BUN Creatinine Est Cr Clr Drug Dosing Est GFR ( Amer) Est GFR (Non-Af Amer) BUN/Creatinine Ratio Glucose Calcium Phosphorus Magnesium 06/17/20 06/17/20 06/17/20 05:50 05:50 08:36 WBC 10.96 H RBC 3.95 L Hgb 13.5 Hct 38.8 MCV 98.2 MCH 34.2 H MCHC 34.8 RDW Std Deviation 51.0 H RDW Coeff of Sonia 14.1 Plt Count 72 L MPV 11.6 H Immature Gran % (Auto) 0.8 Neut % (Auto) 74.2 Lymph % (Auto) 7.5 [place] % (Auto) 16.1 Eos % (Auto) 1.1 Baso % (Auto) 0.3 Neut # (Auto) 8.13 H Lymph # (Auto) 0.82 L [place] # (Auto) 1.77 H Eos # (Auto) 0.12 Baso # (Auto) 0.03 Immature Gran # (Auto) 0.09 H Platelet Estimate Decreased L PT 11.3 INR 1.1 APTT PTT Ratio Sodium 138 Potassium 3.6 Chloride 102 Carbon Dioxide 27 Anion Gap 9.0 BUN 34 H Creatinine 3.39 H Est Cr Clr Drug Dosing 19.1 Est GFR ( Amer) 14.9 Est GFR (Non-Af Amer) 12.9 BUN/Creatinine Ratio 9.9 L Glucose 118 H Calcium 7.6 L Phosphorus 2.6 D Magnesium 2.1 Medications Administered Current Inpatient Medications Albuterol (Albut/Ipratrop 3mg/0.5mg Neb 3 Ml Vial) 3 ml INH Q2H PRN PRN Reason: Dyspnea Stop: 07/12/20 07:38 Cyanocobalamin (Cyanocobalamin 500 Mcg Tablet (Vitamin B-12)) 1,000 mcg PO QAM [facility] Stop: 07/12/20 08:59 Last Admin: 06/17/20 07:39 Dose: 1,000 mcg Documented by: Gabapentin (Gabapentin 100 Mg Cap) 100 mg PO QPM [facility] Stop: 07/12/20 20:59 Last Admin: 06/13/20 20:14 Dose: 100 mg Documented by: Famotidine 20 mg/ Syringe 5 mls @ 2.5 mls/min IV QAM [facility] Stop: 07/13/20 08:59 Last Admin: 06/17/20 07:40 Dose: 2.5 mls/min Documented by: Ceftriaxone Sodium 2,000 mg/ (Dextrose) 70 mls @ 100 mls/hr IV DAILY [facility]; Protocol Stop: 06/28/20 08:59 Last Infusion: 06/17/20 08:49 Dose: Infused Documented by: Heparin Sodium/Dextrose (Heparin Sodium/Dextrose) 25,000 units in 500 mls @ 35 mls/hr IV .[id number] [facility]; Protocol Stop: 07/16/20 07:29 Last Admin: 06/17/20 07:36 Dose: Not Given Documented by: Metoprolol Tartrate (Metoprolol Tartrate 25 Mg Tab) 25 mg PO TID [facility] Stop: 07/16/20 13:59 Last Admin: 06/17/20 07:39 Dose: 25 mg Documented by: Multivitamins (Multivitamin Tab) [facility] Stop: 07/12/20 08:59 Last Admin: 06/17/20 07:39 Dose: 1 tab Documented by: Nystatin (Nystatin Powder 15gm Btl) 1 appln EXT DAILY [facility] Stop: 07/12/20 08:59 Last Admin: 06/17/20 07:40 Dose: 1 appln Documented by: Ondansetron HCl (Ondansetron Inj 2 Mg/Ml 2 Ml Vial) 4 mg IV Q6H PRN PRN Reason: Nausea And Vomiting Stop: 07/12/20 17:16 Last Admin: 06/12/20 17:27 Dose: 4 mg Documented by: Vitamin D (Cholecalciferol 1,000 Units 25 Mcg Tab) 2,000 units PO DAILY [facility] Stop: 07/12/20 08:59 Last Admin: 06/17/20 07:40 Dose: 2,000 units Documented by: PG Care Time/CCT Total # of Minutes Spent Total Time Spent with Patient: Total time spent is greater than 50% in coordination of care (as documented) at patient's floor/unit and/or counseling patient: Coding Level of Care Code 70380 Subseq Hosp Care Lvl 3 Diagnoses Acute kidney injury N17.9 Acute hypercapnic respiratory failure J96.02 Acute UTI (urinary tract infection) N39.0 Impaired fasting glucose R73.01 Hypertension I10 Thrombocytopenia D69.6 Elevated INR R79.1 Altered mental status R41.82 Atrial fibrillation with RVR I48.91
--- NOTE | 2020-06-17 11:30 | Nephrology Progress Note ---
Date of Service June 17, 2020 Assessment & Plan (1) Acute kidney injury: PETR attributed to ATN in the setting of left sided hydronephrosis and sepsis. Started HD 06/14. Remains oliguric. No evidence of renal recovery. BP and volume status are currently acceptable. Obligatory intake acceptable. Tolerated HD well yesterday with good clearance and UF. Electrolytes are acceptable. Will hold HD today and repeat assessment tomorrow morning. Document strict I/O's. Check metabolic profile daily. Medications appropriately dosed for kidney dysfunction. If no renal recovery by Friday, will consult vascular for TDC placement at that time. (2) Hydronephrosis concurrent with and due to calculi of kidney and ureter: Postop day #5 s/p cystoscopy with Left stone extraction, retrograde pyelogram, and ureteral stent. Urology following. (3) Acute UTI (urinary tract infection): Remains on ceftriaxone. Admission and Anticipated Discharge Date Admission Date: June 12, 2020 Subjective No acute events overnight. Ami was seen and evaluated in the ICU this AM. Plan of care was reviewed with Dr. Dela Cruz and Dr. Perez. Ami is breathing comfortably. She denies any pain. Tolerated HD yesterday without complications. Net UF 3 L yesterday. Ami was not oriented and was slightly confused this AM. Review of Systems Review of Systems: All systems reviewed & are unremarkable except as noted in HPI & below Physical Exam Constitutional: well developed; no acute distress Eyes: no scleral abnormality and no corneal abnormality ENMT: Mouth: no oral mucosal abnormality and oral mucous membranes not dry Neck: normal visual inspection and trachea midline RIJ TDC Respiratory: normal respiratory effort Auscultation: lungs clear to auscultation bilaterally and + rales (few scattered) Cardiovascular: Rate/Rhythm: regular rate Heart Sounds: normal S1 and normal S2 Extremities: + edema Musculoskeletal: Extremities: no cyanosis and no clubbing Skin: normal turgor; no lesions Neurologic: Motor/Sensory: no tremor and no asterixis Psychiatric: Orientation: alert; + not oriented x 3 Insight: + poor insight Results & Data ([facility]) Vital Signs (Past 12 Hours) Vital Signs Temp Pulse Resp BP Pulse Ox 06/17/20 11:05 36.9 C 95 H 17 93 06/17/20 10:00 97 H 19 06/17/20 09:43 85 24 115/75 95 04/17/21 08:43 37.4 C 88 21 117/62 94 06/17/20 07:43 100 H 18 126/64 06/17/20 06:43 127/72 06/17/20 06:00 96 H 17 94 06/17/20 05:43 96 H 17 103/64 93 06/17/20 04:42 94 H 19 128/66 92 06/17/20 04:00 37.2 C 102 H 22 94 06/17/20 03:42 102 H 26 H 125/77 95 06/17/20 02:42 90 19 115/72 95 06/17/20 01:42 98 H 22 110/76 93 06/17/20 00:43 23 114/66 91 06/17/20 00:16 102 H 06/17/20 00:00 37.0 C 101 H 18 93 06/16/20 23:42 97 H 31 H 108/63 96 Laboratory Results Laboratory Results - last 24 hr 06/16/20 06/16/20 06/17/20 15:04 22:50 05:50 WBC RBC Hgb Hct MCV MCH MCHC RDW Std Deviation RDW Coeff of Sonia Plt Count MPV Immature Gran % (Auto) Neut % (Auto) Lymph % (Auto) Martin % (Auto) Eos % (Auto) Baso % (Auto) Neut # (Auto) Lymph # (Auto) [place] # (Auto) Eos # (Auto) Baso # (Auto) Immature Gran # (Auto) Platelet Estimate PT INR APTT 43.2 H 34.1 H 42.1 H PTT Ratio 1.6 1.3 1.6 Sodium Potassium Chloride Carbon Dioxide Anion Gap BUN Creatinine Est Cr Clr Drug Dosing Est GFR ( Amer) Est GFR (Non-Af Amer) BUN/Creatinine Ratio Glucose Calcium Phosphorus Magnesium 06/17/20 06/17/20 06/17/20 05:50 05:50 08:36 WBC 10.96 H RBC 3.95 L Hgb 13.5 Hct 38.8 MCV 98.2 MCH 34.2 H MCHC 34.8 RDW Std Deviation 51.0 H RDW Coeff of Sonia 14.1 Plt Count 72 L MPV 11.6 H Immature Gran % (Auto) 0.8 Neut % (Auto) 74.2 Lymph % (Auto) 7.5 [place] % (Auto) 16.1 Eos % (Auto) 1.1 Baso % (Auto) 0.3 Neut # (Auto) 8.13 H Lymph # (Auto) 0.82 L Martin # (Auto) 1.77 H Eos # (Auto) 0.12 Baso # (Auto) 0.03 Immature Gran # (Auto) 0.09 H Platelet Estimate Decreased L PT 11.3 INR 1.1 APTT PTT Ratio Sodium 138 Potassium 3.6 Chloride 102 Carbon Dioxide 27 Anion Gap 9.0 BUN 34 H Creatinine 3.39 H Est Cr Clr Drug Dosing 19.1 Est GFR ( Amer) 14.9 Est GFR (Non-Af Amer) 12.9 BUN/Creatinine Ratio 9.9 L Glucose 118 H Calcium 7.6 L Phosphorus 2.6 D Magnesium 2.1 PG Care Time/CCT Total # of Minutes Spent Total Time Spent with Patient: Total time spent is greater than 50% in coordination of care (as documented) at patient's floor/unit and/or counseling patient: Coding Level of Care Code 16762 Subseq Hosp Care Lvl 3 Diagnoses Acute kidney injury N17.9 Hydronephrosis concurrent with and due to calculi of kidney and ureter N13.2 Acute UTI (urinary tract infection) N39.0
--- NOTE | 2020-06-17 11:58 | Billing Data ---
Date of Service June 17, 2020 Coding Level of Care Code 36138 Subseq Hosp Care Lvl 2
[2020-06-17 13:23] LABS: Partial Thromboplastin Ratio 1.4; Partial Thromboplastin Time 37.7 Seconds (21.0-31.0)
[2020-06-17] MEDS ORDERED: HEPARIN IV BOLUS 3,000 UNITS in SYRINGE 0 ML IV SCH (13:45)
[2020-06-17] MEDS: ONDANSETRON INJ 2 MG/ML 2 ML VIAL IV PRN (15:35)
[2020-06-17 20:48] LABS: Partial Thromboplastin Ratio 1.9
[2020-06-18] MEDS: HEPARIN SODIUM/DEXTROSE 25,000 UNITS/500 ML BAG IV SCH ×2 (03:05→17:27)
[2020-06-18 06:21] LABS: Partial Thromboplastin Ratio 1.9
[2020-06-18 06:29] LABS: Partial Thromboplastin Time 50.8 Seconds (21.0-31.0)
[2020-06-18] MEDS: ACETAMINOPHEN 500 MG TAB PO PRN ×2 (07:57→23:26)
[2020-06-18] MEDS: NYSTATIN POWDER 15GM BTL EXT SCH (08:01)
[2020-06-18] MEDS: CYANOCOBALAMIN 500 MCG TABLET (VITAMIN B-12) PO SCH (08:02)
[2020-06-18] MEDS: METOPROLOL TARTRATE 25 MG TAB PO SCH ×3 (08:02→19:46)
[2020-06-18] MEDS: CHOLECALCIFEROL 1,000 UNITS 25 MCG TAB PO SCH (08:02)
[2020-06-18] MEDS: MULTIVITAMIN TAB PO SCH (08:02)
[2020-06-18] MEDS: FAMOTIDINE 20 MG in SYRINGE 3 ML IV SCH (08:10)
[2020-06-18] MEDS: cefTRIAXone SODIUM 2,000 MG in DEXTROSE 5% 50 ML IV SCH (08:13)
[2020-06-18 09:49] LABS: Albumin Level 1.9 gm/dl (3.4-5.0); BUN Creatinine Ratio 10.2 (10-20); Calcium 7.5 mg/dl (8.5-10.1); Creatinine Clr Calc Pharmacy 13.2 ml/min; Est GFR (African American) 9.3; Est GFR (Non-African American) 8.1; Phosphorus 3.4 mg/dl (2.5-4.9); Potassium 3.4 mmol/L (3.5-5.1)
--- NOTE | 2020-06-18 11:23 | Nephrology Progress Note ---
Date of Service June 18, 2020 Assessment & Plan (1) Acute kidney injury: PETR attributed to ATN in the setting of left sided hydronephrosis and sepsis. Started HD 06/14. Remains oliguric. No evidence of renal recovery. BP and volume status are currently acceptable. Obligatory intake acceptable. Tolerated HD well yesterday with good clearance and UF. Electrolytes are acceptable. Will hold HD today and plan for treatment tomorrow. Document strict I/O's. Check metabolic profile daily. Medications appropriately dosed for kidney dysfunction. If no renal recovery tomorrow, will consult vascular for TDC placement at that time. (2) Hydronephrosis concurrent with and due to calculi of kidney and ureter: Postop day #6 s/p cystoscopy with Left stone extraction, retrograde pyelogram, and ureteral stent. Urology following. (3) Acute UTI (urinary tract infection): Remains on ceftriaxone. Admission and Anticipated Discharge Date Admission Date: June 12, 2020 Subjective No acute events overnight. Ami feels well this morning. She denies dyspnea. Appetite is good. She notes that her stomach was feeling a little queazy. She denies pain. Mcmahon draining a small amount of concentrated urine. Ami reports some persistent edema in her legs. She states that she is very weak and deconditioned. Review of Systems Review of Systems: All systems reviewed & are unremarkable except as noted in HPI & below Physical Exam Constitutional: well developed; no acute distress Eyes: no scleral abnormality and no corneal abnormality ENMT: Mouth: no oral mucosal abnormality and oral mucous membranes not dry Neck: normal visual inspection and trachea midline Respiratory: normal respiratory effort Auscultation: lungs clear to auscultation bilaterally and + rales (few scattered) Cardiovascular: Rate/Rhythm: regular rate Heart Sounds: normal S1 and normal S2 Extremities: + edema Musculoskeletal: Extremities: no cyanosis and no clubbing Skin: normal turgor; no lesions Neurologic: Motor/Sensory: no tremor and no asterixis Psychiatric: Orientation: alert and oriented x 3 Insight: + poor insight Results & Data ([facility]) Vital Signs (Past 12 Hours) Vital Signs Temp Pulse Resp BP Pulse Ox 06/18/20 07:33 37.1 C 104 H 19 100/62 96 06/18/20 03:06 88 16 97 06/18/20 00:50 95 H 97 06/17/20 23:23 36.8 C 92 H 18 107/72 96 Laboratory Results Laboratory Results - last 24 hr 06/17/20 06/17/20 06/17/20 12:55 14:43 17:09 APTT 37.7 H PTT Ratio 1.4 Sodium Potassium Chloride Carbon Dioxide Anion Gap BUN Creatinine Est Cr Clr Drug Dosing Est GFR ( Amer) Est GFR (Non-Af Amer) BUN/Creatinine Ratio Glucose POC Glucose 116 H 102 H Calcium Phosphorus Albumin 06/17/20 06/18/20 06/18/20 20:16 05:23 05:27 APTT 51.0 H* 50.8 H* PTT Ratio 1.9 1.9 Sodium 133 L Potassium 3.4 L Chloride 97 L Carbon Dioxide 27 Anion Gap 9.0 BUN 50 H Creatinine 4.99 H* D Est Cr Clr Drug Dosing 13.2 Est GFR ( Amer) 9.3 Est GFR (Non-Af Amer) 8.1 BUN/Creatinine Ratio 10.2 Glucose 93 POC Glucose Calcium 7.5 L Phosphorus 3.4 Albumin 1.9 L PG Care Time/CCT Total # of Minutes Spent Total Time Spent with Patient: Total time spent is greater than 50% in coordination of care (as documented) at patient's floor/unit and/or counseling patient: Coding Level of Care Code 60189 Subseq Hosp Care Lvl 3 Diagnoses Acute kidney injury N17.9 Hydronephrosis concurrent with and due to calculi of kidney and ureter N13.2 Acute UTI (urinary tract infection) N39.0
[2020-06-18 13:02] LABS: Appearance Urine Cloudy (Clear); Bilirubin Urine 1+ (Negative); Blood Urine 3+ (Negative); Color Urine Amber; Glucose Urine UA Negative (Negative); Ketones Urine Negative (Negative); Leukocyte Esterase Urine 3+ (Negative); Nitrite Urine Negative (Negative); Protein Urine 3+ (Negative); Urobilinogen Urine Negative (Negative); pH Urine 8.5 (4.5-7.5)
[2020-06-18 13:38] LABS: RBC Urine >30 /hpf (0-4); WBC Urine >30 /hpf (0-5)
[2020-06-18 13:39] LABS: Bacteria Urine 2+ (Negative)
--- NOTE | 2020-06-18 15:25 | Hospitalist Progress Note ---
Date of Service June 18, 2020 Assessment & Plan (1) Acute kidney injury: Cr stephan from 1.3 to 1.7 to 2.29, peaked at 3.6 on 06/14 urine output was suboptimal, challenged with Bumex 4mg IV on 06/14 but no response temp HD catheter placed and HD on 06/15 with UF goal of 3L 2nd HD session on 06/16, tolerated well 3rd HD session on 06/17, met goal for UF treat infection, supportive care and follow BMP closely renally dose medications at this point there are no signs of renal recovery, Cr is 4.99, remains oliguric per nephrology, plan to consult vascular surgery for tunneled HD catheter Friday and get HD tomorrow (2) Acute hypercapnic respiratory failure: developed on 06/14, did not improve with BIPAP electively intubated on 06/14 successfully extubated 06/15, breathing well, more alert now that she had HD patient remains alert, ventilating well, no more concerns for respiratory acidosis (3) Acute UTI (urinary tract infection): due to ureteral stone, hydronephrosis urine and blood culture with GN bacilli - E coli continue ceftriaxone IV for 10-14 days due to complicated infection last day would be 06/23 no fever, WBC is normal when last checked, repeat tomorrow (4) Impaired fasting glucose: Placed on ICU hyperglycemic protocol management per pharmacy sugars well controlled (5) Hypertension: BP stable, back on metoprolol for afib (6) Thrombocytopenia: consumptive due to sepsis, follow closely, slowly improving check CBC tomorrow (7) Elevated INR: reversed in morning on 06/14 when it was 5 continue to hold Coumadin with anticipation of needing tunneled HD cath (8) Altered mental status: multifactorial, CO2 retention and PETR and infection resolved after 24 hours of intubation and mechanical ventilation also, treated PETR with HD today she is alert and oriented this afternoon (9) Atrial fibrillation with RVR: use metoprolol for rate control place on heparin drip with plans for possible tunneled HD catheter prior to admission she was on Coumadin will resume once she has tunneled HD cath and okay from surgery perspective Admission and Anticipated Discharge Date Admission Date: June 12, 2020 Subjective patient doing a lot better from strength standpoint able to ambulate to bathroom with walker, assistance from RN had two BM today, her stomach feels better still does not have a great appetite, says the food does not agree with her no nausea or vomiting, no dyspnea, no cough, no fever she is 95% on room air reviewed labs, Cr is 4.99, K low at 3.3, Na low at 134 not making much urine via kumar explained to her the plan for tunneled HD catheter tomorrow Review of Systems Review of Systems: All systems reviewed & are unremarkable except as noted in Subjective Constitutional: no fever, no sweats, no fatigue and no weakness Respiratory: no cough, no dyspnea and no dyspnea on exertion Cardiovascular: + edema; no chest pain Gastrointestinal: + early satiety; no abdominal pain, no nausea, no vomiting, no constipation and no diarrhea/loose stools Physical Exam Constitutional: well developed and + obese; no acute distress Neck: trachea midline, no thyromegaly + thick neck Cardiovascular: Rate/Rhythm: regular rate and + irregularly irregular Heart Sounds: normal S1 and normal S2; no murmur Vessels: no JVD Extremities: normal capillary refill; no edema Gastrointestinal (Abdomen): normal bowel sounds, soft, nontender, no hepatosplenomegaly Musculoskeletal: no cyanosis or clubbing, extremities motor strength 5/5 Head/Neck/Chest: normocephalic, head atraumatic and neck supple Extremities: + abnormal strength (generalized weakness) Skin: no rashes, warm and dry Neurologic: patellar DTR's 2+ bilat, sensation intact and PERRL, EOMI, accommodation nl, no face palsy, no dysarthria CN's II-XI intact bilaterally; no focal motor deficits Psychiatric: A+Ox3, euthymic affect Lymphatic: no cervical or axillary lymphadenopathy Results & Data Results & Data ([facility]) Vital Signs (Past 12 Hours) Vital Signs Temp Pulse Resp BP Pulse Ox 06/18/20 15:09 36.6 C 06/18/20 14:49 90 103/63 06/18/20 14:43 89 16 98/62 L 95 06/18/20 07:33 37.1 C 104 H 19 100/62 96 Laboratory Results Laboratory Results - last 24 hr 06/17/20 06/17/20 06/18/20 17:09 20:16 05:23 APTT 51.0 H* 50.8 H* PTT Ratio 1.9 1.9 Sodium Potassium Chloride Carbon Dioxide Anion Gap BUN Creatinine Est Cr Clr Drug Dosing Est GFR ( Amer) Est GFR (Non-Af Amer) BUN/Creatinine Ratio Glucose POC Glucose 102 H Calcium Phosphorus Albumin Urine Color Urine Appearance Urine pH Ur Specific [place] Urine Protein Urine Glucose (UA) Urine Ketones Urine Blood Urine Nitrite Urine Bilirubin Urine Urobilinogen Ur Leukocyte Esterase Urine RBC Urine WBC Ur Epithelial Cells Urine Bacteria 06/18/20 06/18/20 05:27 Unknown APTT PTT Ratio Sodium 133 L Potassium 3.4 L Chloride 97 L Carbon Dioxide 27 Anion Gap 9.0 BUN 50 H Creatinine 4.99 H* D Est Cr Clr Drug Dosing 13.2 Est GFR ( Amer) 9.3 Est GFR (Non-Af Amer) 8.1 BUN/Creatinine Ratio 10.2 Glucose 93 POC Glucose Calcium 7.5 L Phosphorus 3.4 Albumin 1.9 L Urine Color Chika Urine Appearance Cloudy A Urine pH 8.5 H Ur Specific [place] 1.020 Urine Protein 3+ H Urine Glucose (UA) Negative Urine Ketones Negative Urine Blood 3+ H Urine Nitrite Negative Urine Bilirubin 1+ H Urine Urobilinogen Negative Ur Leukocyte Esterase 3+ H Urine RBC >30 H Urine WBC >30 H Ur Epithelial Cells 10-20 H Urine Bacteria 2+ H Medications Administered Current Inpatient Medications Acetaminophen (Acetaminophen 500 Mg Tab) 1,000 mg PO TID PRN PRN Reason: Pain Stop: 07/17/20 16:22 Last Admin: 06/18/20 07:57 Dose: 1,000 mg Documented by: Albuterol (Albut/Ipratrop 3mg/0.5mg Neb 3 Ml Vial) 3 ml INH Q2H PRN PRN Reason: Dyspnea Stop: 07/12/20 07:38 Last Admin: 06/17/20 14:36 Dose: 3 ml Documented by: Cyanocobalamin (Cyanocobalamin 500 Mcg Tablet (Vitamin B-12)) 1,000 mcg PO QAM MICHAEL Stop: 07/12/20 08:59 Last Admin: 06/18/20 08:02 Dose: 1,000 mcg Documented by: Gabapentin (Gabapentin 100 Mg Cap) 100 mg PO QPM MICHAEL Stop: 07/12/20 20:59 Last Admin: 06/13/20 20:14 Dose: 100 mg Documented by: Famotidine 20 mg/ Syringe 5 mls @ 2.5 mls/min IV QAM MICHAEL Stop: 07/13/20 08:59 Last Admin: 06/18/20 08:10 Dose: 2.5 mls/min Documented by: Ceftriaxone Sodium 2,000 mg/ (Dextrose) 70 mls @ 100 mls/hr IV DAILY [facility]; Protocol Stop: 06/28/20 08:59 Last Infusion: 06/18/20 09:00 Dose: Infused Documented by: Heparin Sodium/Dextrose (Heparin Sodium/Dextrose) 25,000 units in 500 mls @ 38 mls/hr IV .[id number] [facility]; Protocol Stop: 07/16/20 07:29 Last Titration: 06/18/20 06:33 Dose: 1,900 units/hr, 38 mls/hr Documented by: Metoprolol Tartrate (Metoprolol Tartrate 25 Mg Tab) 25 mg PO TID MICHAEL Stop: 07/16/20 13:59 Last Admin: 06/18/20 14:50 Dose: 25 mg Documented by: Multivitamins (Multivitamin Tab) 1 tab PO QAM [facility] Stop: 07/12/20 08:59 Last Admin: 06/18/20 08:02 Dose: 1 tab Documented by: Nystatin (Nystatin Powder 15gm Btl) 1 appln EXT DAILY [facility] Stop: 07/12/20 08:59 Last Admin: 06/18/20 08:01 Dose: 1 appln Documented by: Ondansetron HCl (Ondansetron Inj 2 Mg/Ml 2 Ml Vial) 4 mg IV Q6H PRN PRN Reason: Nausea And Vomiting Stop: 07/12/20 17:16 Last Admin: 06/17/20 15:35 Dose: 4 mg Documented by: Vitamin D (Cholecalciferol 1,000 Units 25 Mcg Tab) 2,000 units PO DAILY [facility] Stop: 07/12/20 08:59 Last Admin: 06/18/20 08:02 Dose: 2,000 units Documented by: PG Care Time/CCT Total # of Minutes Spent Total Time Spent with Patient: Total time spent is greater than 50% in coordination of care (as documented) at patient's floor/unit and/or counseling patient: Coding Level of Care Code 12306 Subseq Hosp Care Lvl 2 Diagnoses Acute kidney injury N17.9 Acute hypercapnic respiratory failure J96.02 Acute UTI (urinary tract infection) N39.0 Impaired fasting glucose R73.01 Hypertension I10 Thrombocytopenia D69.6 Elevated INR R79.1 Altered mental status R41.82 Atrial fibrillation with RVR I48.91
[2020-06-19] MEDS: HEPARIN SODIUM/DEXTROSE 25,000 UNITS/500 ML BAG IV SCH ×2 (05:21→22:34)
[2020-06-19 08:18] LABS: Hematocrit (blood only) 38.2 % (37-47); Hemoglobin 13.4 g/dL (12.0-16.0)
[2020-06-19] MEDS: METOPROLOL TARTRATE 25 MG TAB PO SCH ×3 (08:40→22:31)
[2020-06-19] MEDS: MULTIVITAMIN TAB PO SCH (08:40)
[2020-06-19 08:41] LABS: Partial Thromboplastin Ratio 2.5
[2020-06-19] MEDS: cefTRIAXone SODIUM 2,000 MG in DEXTROSE 5% 50 ML IV SCH (08:41)
[2020-06-19] MEDS: CHOLECALCIFEROL 1,000 UNITS 25 MCG TAB PO SCH (08:41)
[2020-06-19] MEDS: NYSTATIN POWDER 15GM BTL EXT SCH (08:41)
[2020-06-19] MEDS: CYANOCOBALAMIN 500 MCG TABLET (VITAMIN B-12) PO SCH (08:41)
[2020-06-19] MEDS: FAMOTIDINE 20 MG in SYRINGE 3 ML IV SCH (08:41)
[2020-06-19 08:44] LABS: Partial Thromboplastin Time 65.2 Seconds (21.0-31.0)
[2020-06-19 08:45] LABS: Calcium 8.1 mg/dl (8.5-10.1); Creatinine Clr Calc Pharmacy 10.5 ml/min; Est GFR (African American) 6.9; Est GFR (Non-African American) 5.9; Potassium 3.4 mmol/L (3.5-5.1)
--- NOTE | 2020-06-19 09:38 | Consultation ---
Date of Consultation June 19, 2020 Assessment & Plan (1) Acute kidney injury: Pt for permcath insertion later this AM by Dr Strauss. Procedure discussed wtih pt, she is agreeable. Patient was seen, examined, and chart reviewed. Agree with exam and treatment plan of the Vascular PA. I have discussed the risks options and benefits of the procedure with the patient. The patient understands the risks options and benefits and agrees to the procedure. History of Present Illness Reason for Consultation: ESRD, need permcath Attending Physician: Echo Carey MD History of Present Illness 74 yo f with multiple medical problems, including a fib, osteoarthritis, osteoporosis, peripheral neuropathy, venous insufficiency, admitted with hydronephrosis and PETR d/t ureteral calculi, seen in consultation today for placement of permcath for HD. Pt has been undergoing HD through temporary IJ HD catheter for a week, without any sign of renal recovery. Pt admits fatigue/malaise, and general weakness and edema. Denies PERES, fever, chest pin, SOB, abd pain, N/V, rest pain, claudication, other complaints. Allergies Allergy/AdvReac Type Severity Reaction Status Date / Time adhesive Allergy Intermediate RASH, Verified 05/25/20 15:10 BLISTERING alendronate sodium Allergy Unknown SICK TO Verified 05/25/20 15:10 STOMACH latex Allergy Unknown SKIN Verified 05/25/20 15:10 TEARING Home Medications Medication Instructions Recorded Confirmed Type cyanocobalamin (vitamin B-12) 1,000 mcg PO QAM 01/19/18 05/25/20 History [Vitamin B-12] denosumab [Prolia] 1 dose SUBCUT UD 01/19/18 05/25/20 History multivitamin 1 tab PO QAM 01/19/18 05/25/20 History acetaminophen 500 mg tablet 1,000 mg PO TID tab 10/07/18 05/25/20 History cholecalciferol (vitamin D3) 50 2,000 unit PO DAILY tab 10/07/18 05/25/20 History mcg (2,000 unit) tablet doxepin 25 mg capsule See Rx Instructions PO HS PRN #180 01/25/19 05/25/20 Rx cap nystatin-triamcinolone 100,000 1 appln TOPICAL BID PRN #1 gm 01/25/19 05/25/20 History unit/g-0.1 % topical cream warfarin 5 mg tablet 5 mg PO QPM 04/13/19 05/25/20 History metoprolol tartrate 50 mg tablet 50 mg PO BID #180 tab 07/06/19 05/25/20 Rx warfarin 5 mg tablet 5 mg PO DAILY #100 tab 07/06/19 05/25/20 Rx menthol 0.44 %-zinc oxide 20.6 % 1 applic TOPICAL QID PRN #71 g 11/03/19 05/25/20 Rx topical ointment furosemide 20 mg tablet 20 mg PO DAILY PRN #90 tab 02/22/20 05/25/20 Rx nystatin 100,000 unit/gram topical See Rx Instructions TOPICAL DAILY 02/22/20 05/25/20 Rx powder #60 g acetaminophen 300 mg-codeine 30 mg See Rx Instructions PO Q6H PRN 03/21/20 05/25/20 Rx tablet #240 tab gabapentin 300 mg capsule 300 mg PO QPM #90 cap 05/03/20 05/25/20 Rx Patient History Medical History Anticoagulant long-term use Atrial fibrillation with RVR Hydronephrosis concurrent with and due to calculi of kidney and ureter Hypertension Incontinence of urine Lactic acidosis Paroxysmal atrial fibrillation Septic shock Stroke x2. both 10 years ago. pt w/ intermittent numbness to right hand. no neurologist. Ureteral stone with hydronephrosis Surgical History History of colonoscopy w/ polypectomy History of dilatation and curettage History of gastric bypass History of hysterectomy History of surgery right leg r/t femur injury History of total knee replacement rt knee History of total shoulder replacement left Hx of cataract surgery right Family History Grandfather Family history of diabetes mellitus Daughter Family history of esophageal cancer Other Coronary heart disease Ovarian cancer Denies family history of Prostate cancer Lung cancer Colorectal cancer Social History Smoking Status: Never smoker Second Hand Exposure: No; Hx Alcohol Use: No Hx Substance Use: No Preferred Language: Malian Communication Ability: Impaired [employer] Librarian Required: No Beliefs That Will Affect Care: None Current Living Situation: Spouse Feels Safe at Home: Yes Seatbelt Use: always Assistive Devices: Walker Review of Systems Review of Systems: All systems reviewed & are unremarkable except as noted in HPI & below Physical Exam Constitutional: WD/WN, vitals as above + morbidly obese, cooperative and comfortable; not in distress Eyes: PERRL, conjunctivae normal, anicteric sclerae ENMT: Ears: no hearing impairment Neck: trachea midline Respiratory: normal respiratory effort, lungs clear to auscultation Auscultation: + diminished lung sounds Cardiovascular: Rate/Rhythm: + irregularly irregular Vessels: posterior tibial pulses present, dorsalis pedis pulses present, brachial pulses present and radial pulses present; + abnormal peripheral pulses Extremities: normal capillary refill, + edema and + vascular access device (R IJ) Gastrointestinal (Abdomen): normal bowel sounds, soft, nontender, no hepatosplenomegaly Musculoskeletal: no cyanosis or clubbing, extremities motor strength 5/5 Skin: no rashes, warm and dry Neurologic: moves all extremities and awake; no focal motor deficits and not confused Psychiatric: A+Ox3, euthymic affect Results & Data ([facility]) Vital Signs (Past 12 Hours) Vital Signs Temp Pulse Resp BP Pulse Ox 06/19/20 07:21 36.6 C 93 H 16 114/70 92 06/18/20 23:17 37.0 C 91 H 16 114/74 94
--- NOTE | 2020-06-19 09:43 | Nephrology Progress Note ---
Date of Service June 19, 2020 Assessment & Plan (1) Acute kidney injury: PETR attributed to ATN in the setting of left sided hydronephrosis and sepsis. Started HD 06/14. Remains oliguric. No evidence of renal recovery. BP and volume status are currently acceptable. Vascular surgery consulted for dialysis catheter placement. Plan of care discussed with vascular this AM and HD will be coordinated today based on surgical plan. Document strict I/O's. Check metabolic profile daily. Medications appropriately dosed for kidney dysfunction. (2) Hydronephrosis concurrent with and due to calculi of kidney and ureter: Postop day #7 s/p cystoscopy with Left stone extraction, retrograde pyelogram, and ureteral stent. Urology following. (3) Acute UTI (urinary tract infection): Remains on ceftriaxone. Admission and Anticipated Discharge Date Admission Date: June 12, 2020 Subjective No acute events overnight. Remains oliguric. Ami states that she feels well. She appears fatigued. She denies pain. Breathing comfortably. No fevers or chills. Mcmahon remains in place. Review of Systems Review of Systems: All systems reviewed & are unremarkable except as noted in HPI & below Physical Exam Constitutional: well developed; no acute distress Eyes: no scleral abnormality and no corneal abnormality ENMT: Mouth: no oral mucosal abnormality and oral mucous membranes not dry Neck: normal visual inspection and trachea midline RIJ HD catheter Respiratory: normal respiratory effort Auscultation: lungs clear to auscultation bilaterally and + rales (few scattered) Cardiovascular: Rate/Rhythm: regular rate Heart Sounds: normal S1 and normal S2 Extremities: + edema Musculoskeletal: Extremities: no cyanosis and no clubbing Skin: normal turgor; no lesions Neurologic: Motor/Sensory: no tremor and no asterixis Psychiatric: Orientation: alert and oriented x 3 Insight: + poor insight Results & Data ([facility]) Vital Signs (Past 12 Hours) Vital Signs Temp Pulse Resp BP Pulse Ox 06/19/20 07:21 36.6 C 93 H 16 114/70 92 06/18/20 23:17 37.0 C 91 H 16 114/74 94 Laboratory Results Laboratory Results - last 24 hr 06/18/20 06/18/20 06/19/20 05:27 Unknown 07:50 Hgb 13.4 Hct 38.2 APTT PTT Ratio Sodium 133 L Potassium 3.4 L Chloride 97 L Carbon Dioxide 27 Anion Gap 9.0 BUN 50 H Creatinine 4.99 H* D Est Cr Clr Drug Dosing 13.2 Est GFR ( Amer) 9.3 Est GFR (Non-Af Amer) 8.1 BUN/Creatinine Ratio 10.2 Glucose 93 Calcium 7.5 L Phosphorus 3.4 Albumin 1.9 L Urine Color Chika Urine Appearance Cloudy A Urine pH 8.5 H Ur Specific [place] 1.020 Urine Protein 3+ H Urine Glucose (UA) Negative Urine Ketones Negative Urine Blood 3+ H Urine Nitrite Negative Urine Bilirubin 1+ H Urine Urobilinogen Negative Ur Leukocyte Esterase 3+ H Urine RBC >30 H Urine WBC >30 H Ur Epithelial Cells 10-20 H Urine Bacteria 2+ H 06/19/20 06/19/20 07:50 07:50 Hgb Hct APTT 65.2 H* PTT Ratio 2.5 Sodium 130 L Potassium 3.4 L Chloride 94 L Carbon Dioxide 25 Anion Gap 11.0 BUN 65 H Creatinine 6.44 H* D Est Cr Clr Drug Dosing 10.5 Est GFR ( Amer) 6.9 Est GFR (Non-Af Amer) 5.9 BUN/Creatinine Ratio 10.0 Glucose 96 Calcium 8.1 L Phosphorus 4.0 Albumin 2.0 L Urine Color Urine Appearance Urine pH Ur Specific [place] Urine Protein Urine Glucose (UA) Urine Ketones Urine Blood Urine Nitrite Urine Bilirubin Urine Urobilinogen Ur Leukocyte Esterase Urine RBC Urine WBC Ur Epithelial Cells Urine Bacteria PG Care Time/CCT Total # of Minutes Spent Total Time Spent with Patient: Total time spent is greater than 50% in coordination of care (as documented) at patient's floor/unit and/or counseling patient: Coding Level of Care Code 92236 Subseq Hosp Care Lvl 3 Diagnoses Acute kidney injury N17.9 Hydronephrosis concurrent with and due to calculi of kidney and ureter N13.2 Acute UTI (urinary tract infection) N39.0
[2020-06-19] MEDS ORDERED: HEPARIN SOD (PORCINE) 5,000 UNITS/ML VIAL ONE (11:17)
[2020-06-19] MEDS ORDERED: LIDOCAINE HCL 1% 20 ML VIAL ONE (11:17)
[2020-06-19] MEDS ORDERED: MIDAZOLAM HCL 1 MG/ML 2ML VIAL ONE (11:33)
[2020-06-19] MEDS ORDERED: fentaNYL citrate 100 MCG/2 ML VIAL ONE (11:34)
--- NOTE | 2020-06-19 12:03 | Pre Anesthesia Assessment ---
Date of Service June 19, 2020 Pre Sedation Assessment Vital Signs Temp Pulse Pulse Resp BP Pulse Ox 06/19/20 11:59 95 H 14 105/57 L 96 06/19/20 11:54 98 H 14 97/72 L 95 06/19/20 11:49 101 H 14 121/65 97 06/19/20 11:44 104 H 14 124/73 97 06/19/20 11:39 99 H 14 121/79 96 06/19/20 11:34 99 H 14 142/76 H 96 06/19/20 10:36 36.6 C 98 H 20 118/61 91 06/19/20 07:21 36.6 C 93 H 16 114/70 92 06/18/20 23:17 37.0 C 91 H 16 114/74 94 06/18/20 19:45 96 H 131/78 06/18/20 15:09 36.6 C 06/18/20 14:49 90 103/63 06/18/20 14:43 89 16 98/62 L 95 Cardiovascular RRR, no murmur, no edema Respiratory normal respiratory effort, lungs clear to auscultation Pre-Sedation Airway Assessment Smoking Status: Never smoker Hx Sleep Apnea: No Short, Thick Neck: No Thyromental Distance: > or= 3.5 Finger Breadths Oral Cavity: + WNL Mallampati Class: II ASA: ASA3 NPO Status Date of Last Intake of Fluids: 06/18/20 Time of Last Intake of Fluids: 23:00 Date of Last Intake of Solid Food: 06/18/20 Time of Last Intake of Solid Foods: 23:00 Procedure Planning Contraindications for Sedation: none Current Medications Reviewed: Yes Notes The planned sedation has been discussed with the patient. Informed Consent was obtained. I have identified the patient, determined the appropriateness of sedation and have assessed the patient immediately prior to the procedure. All medicine(s) and interventions are by my order.
--- NOTE | 2020-06-19 12:06 | Post Operative Brief Note ---
Immediate Post Op Note v1 Date of Surgery June 19, 2020 Pre & Post Diagnosis Operation Date: 06/12/20 12:25 Pre-Op Diagnosis: Ureteral stone with hydronephrosis Post-Op Diagnosis: Ureteral stone with hydronephrosis Operation Date: 06/19/20 09:45 Pre-Op Diagnosis: Acute kidney injury Post-Op Diagnosis: Acute kidney injury I identified the patient and participated in the time-out.: Yes Procedure Operation Date: 06/12/20 12:25 Actual Procedures p Cystoscopy,Left Ureteral Stent Insertion(Left) - Toño Ferreira DO Operation Date: 06/19/20 09:45 Actual Procedures p Perm Catheter Placement Right Jugular Approach, Ultrasound Localization of Right Jugular Vein, Fluoroscopy for Positioning, Moderate Sedation 1138- 1210(Right) - Gilberto Strauss MD Surgeon Gilberto Strauss MD Macadam Raker MD Bryant Estimated Blood Loss 0 Findings Consistent with Post-Op Diagnosis Drains Mcmahon Catheter Anesthesia Type RN Sedation Complications none Disposition Accompanied Patient To Recovery: No Disposition: Recovery Room
--- NOTE | 2020-06-19 12:08 | Post Anesthesia Assessment ---
Date of Service June 19, 2020 Post Sedation Assessment Vital Signs Temp Pulse Pulse Resp BP Pulse Ox 06/19/20 12:05 97 H 14 88/57 L 95 06/19/20 12:04 97 H 14 88/57 L 95 06/19/20 11:59 95 H 14 105/57 L 96 06/19/20 11:54 98 H 14 97/72 L 95 06/19/20 11:49 101 H 14 121/65 97 06/19/20 11:44 104 H 14 124/73 97 06/19/20 11:39 99 H 14 121/79 96 06/19/20 11:34 99 H 14 142/76 H 96 06/19/20 10:36 36.6 C 98 H 20 118/61 91 06/19/20 07:21 36.6 C 93 H 16 114/70 92 06/18/20 23:17 37.0 C 91 H 16 114/74 94 06/18/20 19:45 96 H 131/78 06/18/20 15:09 36.6 C 06/18/20 14:49 90 103/63 06/18/20 14:43 89 16 98/62 L 95 Recovery Score Activity: Moves 4 extremities Respiration: Deep Breath/Cough Circulation: +/-20% PreAnes Value Consciousness: Arouseable (by name) Oxygen Saturation: O2 needed for >90% Post Anesthesia Score: 8 Discharge Sedation Level of Care: Fast Track Phase II Post Sedation Plan On clinical assessment, the patient appears to have tolerated the sedation without complications. Patient is recovering as anticipated. Patient will continue to be monitored by nursing and may be discharged when sedation discharge criteria are met per below protocol. Upon Completions of procedure up to 15 minutes continue every 5 minute vital signs and the P.A.R. score; then discharge to a Phase I or Fast Track to Phase II per the following guidelines: * Discharge Patient to appropriate Phase II area if PAR is 8 or greater or return to pre- procedure baseline. The post - procedure orders will be as directed. * If PAR score is less than 8 or not return to pre-procedure baseline then patient will follow Phase I monitoring till PAR is reached for Phase II. The Phase I may be done in procedure room or may call to secure a Phase I area. * If naloxone or flumazenil are used for reversal, hold in Phase I for continued monitoring from when last reversal dose was given for a minimum of 60 minutes or longer pending the nurse and/or physician discretion of patient condition before discharge to Phase II. Please call the Sedation Physician to re-evaluate and complete post-note for discharge to Phase II area. Do NOT discharge from procedure sedation or Phase 1 until post- sedation evaluation note is complete by procedure /sedation MD Sedation Discharge Instructions to be given to the patient at discharge to home.
--- NOTE | 2020-06-19 12:11 | Operative Report ---
Post Operative Report Pre & Post Diagnosis Operation Date: 06/19/20 09:45 Pre-Op Diagnosis: Acute kidney injury Post-Op Diagnosis: Acute kidney injury I identified the patient and participated in the time-out.: Yes Procedure Operation Date: 06/19/20 09:45 Actual Procedures p Perm Catheter Placement Right Jugular Approach, Ultrasound Localization of Rig ht Jugular Vein, Fluoroscopy for Positioning, Moderate Sedation [id number](Right) - Gilberto Strauss MD Surgeon Maria C Nolan MD Crew Team Member MD Bryant Estimated Blood Loss 0 Findings Consistent with Post-Op Diagnosis Specimens none Complications none Indications PETR Description of Procedure Patient was taken to the angio suite and placed in the supine position. The previous right IJ shiley was removed and pressure held. Then the right side of the neck and chest wall were prepped and draped in a sterile manner. A timeout was performed and the patient was identified. Local anesthesia was then administered to the appropriate areas of the neck and chest wall. Ultrasound was then used to locate the right internal jugular vein. The vein compressed easily, had no filing defects, and was patent. The vein was then punctured under direct ultrasound imaging. A guidewire was then passed centrally under fluoroscopic imaging. A stab wound was then made in the anterior chest wall and a 19 cm permcath was passed from the stab wound on the chest wall to the puncture site on the neck. The puncture site was then dilated till the 14Fr peel away sheath was inserted. The permcath was then inserted through the sheath to a central position in the distal superior vena cava. The peel away sheath was then removed. The catheter was then sutured in place using nylon sutures. The puncture was then closed using a 4-0 Vicryl subcuticular suture. Dermabond was used for a dressing on the puncture site. Both ports aspirated and flushed easily and were then packed with heparin. A sterile dressing was applied to the catheter. The patient left the angio suite in good condition and tolerated the procedure well. Dr. Strauss was present and scrubbed for the entire procedure. I attest to the content of the Intraoperative Record and any orders documented therein. Any exceptions are noted below.
--- NOTE | 2020-06-19 17:36 | Hospitalist Progress Note ---
Date of Service June 19, 2020 Assessment & Plan (1) Acute kidney injury: Secondary to likely ATN from sepsis as well as postobstructive uropathy due to ureterolithiasis now status post ureteral stent Cr stephan from 1.3 to 1.7 to 2.29, peaked at 3.6 on 06/14 urine output was suboptimal, challenged with Bumex 4mg IV on 06/14 but no response temp HD catheter placed and HD on 06/15 with UF goal of 3L 2nd HD session on 06/16, tolerated well 3rd HD session on 06/17, met goal for UF treat infection, supportive care and follow BMP closely renally dose medications at this point there are no signs of renal recovery, Cr is Now up to 6.44, remains oliguric per nephrology, Now appreciate consult vascular surgery for tunneled HD catheter Placed today, 06/19 Plan for dialysis likely tomorrow (2) Acute hypercapnic respiratory failure: developed on 06/14, did not improve with BIPAP electively intubated on 06/14 successfully extubated 06/15, breathing well, more alert now that she had HD patient remains alert, ventilating well, no more concerns for respiratory acidosis -Consider using BiPAP at bedtime -Discontinue doxepin and gabapentin (3) Acute UTI (urinary tract infection): With septicemia-presented with septic shock, E. coli bacteremia, UTI due to ureteral stone, hydronephrosis urine and blood culture with Pansensitive E. coli continue ceftriaxone IV for 10-14 days due to complicated infection last day would be 06/23 no fever,No leukocytosis Repeat blood cultures on 06/14 remain no growth to date-final (4) Impaired fasting glucose: sugars well controlled No need for diabetic diet-removed this (5) Hypertension: BP stable, back on metoprolol 25 mg p.o. 3 times daily for afib (6) Thrombocytopenia: consumptive due to sepsis, follow closely, slowly improving check CBC tomorrow (7) Elevated INR: reversed in morning on 06/14 when it was 5 continue to hold Coumadin with anticipation of needing tunneled HD cath (8) Altered mental status: multifactorial, CO2 retention and PETR and infection resolved after 24 hours of intubation and mechanical ventilation also, treated PETR with HD she is alert and oriented this afternoon (9) Atrial fibrillation with RVR: use metoprolol for rate control Continue on heparin drip Now status post tunneled HD catheter prior to admission she was on Coumadin will resume Coumadin once Stable from a surgery perspective-Likely tomorrow Disposition-continued stay on medical/surgical floor Will need PT/OT consultations and possible rehab placement Will need outpatient dialysis arranged through case management Admission and Anticipated Discharge Date Admission Date: June 12, 2020 Subjective Patient had her permanent catheter placement today but did not receive dialysis. She was drowsy after the surgery but is now more awake and eating. She has some pain in her left flank. Otherwise feels generally weak but did get up to go to the bathroom she reports. Denies nausea or vomiting, no abdominal pain. No chest pain or shortness of breath. Review of Systems Review of Systems: All systems reviewed & are unremarkable except as noted in HPI & below Physical Exam Constitutional: WD/WN, vitals as above + morbidly obese Eyes: + anicteric sclerae Neck: trachea midline, no thyromegaly Respiratory: normal respiratory effort, lungs clear to auscultation Cardiovascular: Rate/Rhythm: regular rate and + irregularly irregular Heart Sounds: no murmur Extremities: no edema Chest (Breasts): Chest: + vascular access device or port (Right PermCath) Gastrointestinal (Abdomen): normal bowel sounds, soft, nontender, no hepatosplenomegaly Musculoskeletal: Extremities: extremities normal to inspection; no cyanosis and no clubbing Skin: + ecchymosis (Left shoulder) Neurologic: moves all extremities and awake; no focal motor deficits Lymphatic: no lymphedema Results & Data Results & Data ([facility]) Vital Signs (Past 12 Hours) Vital Signs Temp Pulse Pulse Resp BP Pulse Ox 06/19/20 15:39 37.0 C 94 H 16 102/61 90 06/19/20 13:14 89 14 107/67 94 06/19/20 12:30 36.4 C L 93 H 14 113/65 96 06/19/20 12:10 94 H 14 100/66 96 06/19/20 12:05 97 H 14 88/57 L 95 06/19/20 12:04 97 H 14 88/57 L 95 06/19/20 11:59 95 H 14 105/57 L 96 06/19/20 11:54 98 H 14 97/72 L 95 06/19/20 11:49 101 H 14 121/65 97 06/19/20 11:44 104 H 14 124/73 97 06/19/20 11:39 99 H 14 121/79 96 06/19/20 11:34 99 H 14 142/76 H 96 06/19/20 10:36 36.6 C 98 H 20 118/61 91 06/19/20 07:21 36.6 C 93 H 16 114/70 92 PG Care Time/CCT Total # of Minutes Spent Total Time Spent with Patient: Total time spent is greater than 50% in coordination of care (as documented) at patient's floor/unit and/or counseling patient: Coding Level of Care Code 91878 Subseq Hosp Care Lvl 3 Diagnoses Acute kidney injury N17.9 Acute hypercapnic respiratory failure J96.02 Acute UTI (urinary tract infection) N39.0 Impaired fasting glucose R73.01 Hypertension I10 Thrombocytopenia D69.6 Elevated INR R79.1 Altered mental status R41.82 Atrial fibrillation with RVR I48.91
[2020-06-19] MEDS ORDERED: WARFARIN SOD 5 MG TAB PO ONE (17:53)
[2020-06-19] MEDS: ACETAMINOPHEN 500 MG TAB PO PRN (18:53)
[2020-06-19 19:30] LABS: Partial Thromboplastin Ratio 1.3
[2020-06-19] MEDS ORDERED: Nursing to Pharmacy Communication SCH (20:00)
[2020-06-19] MEDS ORDERED: HEPARIN IV BOLUS 3,000 UNITS in SYRINGE 0 ML IV ONE (20:30)
[2020-06-20 02:25] LABS: Basophils # (auto) 0.02 K/uL (0-0.2); Basophils % (auto) 0.2 %; Eosinophils # (auto) 0.13 K/uL (0-0.5); Eosinophils % (auto) 1.1 %; Hematocrit (blood only) 35.1 % (37-47); Hemoglobin 12.5 g/dL (12.0-16.0); Immature Granulocytes # (auto) 0.09 K/uL (0.00-0.02); Immature Granulocytes % (auto) 0.7 %; Lymphocytes # (auto) 0.95 K/uL (1.2-3.4); Lymphocytes % (auto) 7.8 %; Mean Corpuscular Hemoglobin 33.8 pg (25-34); Mean Corpuscular Hgb Conc 35.6 g/dL (32-36); Mean Corpuscular Volume 94.9 fL (80-100); Mean Platelet Volume 10.5 fL (7.4-10.4); Monocytes # (auto) 1.08 K/uL (0.11-0.59); Monocytes % (auto) 8.9 %; Neutrophils # (auto) 9.89 K/uL (1.4-6.5); Neutrophils % (auto) 81.3 %; Platelet Count 117 K/uL (130-400); RDW Standard Deviation 48.3 fL (36.4-46.3); White Blood Count 12.16 K/uL (4.8-10.8)
[2020-06-20 02:44] LABS: Partial Thromboplastin Ratio 3.5
[2020-06-20 02:46] LABS: Partial Thromboplastin Time 92.8 Seconds (21.0-31.0)
[2020-06-20 02:52] LABS: BUN Creatinine Ratio 9.4 (10-20); Calcium 7.4 mg/dl (8.5-10.1); Creatinine Clr Calc Pharmacy 8.7 ml/min; Est GFR (African American) 5.5; Est GFR (Non-African American) 4.8; Magnesium 2.3 mg/dl (1.8-2.4); Potassium 3.8 mmol/L (3.5-5.1)
[2020-06-20] MEDS: ACETAMINOPHEN 500 MG TAB PO PRN (03:52)
[2020-06-20] MEDS: NYSTATIN POWDER 15GM BTL EXT SCH (07:46)
[2020-06-20] MEDS: CHOLECALCIFEROL 1,000 UNITS 25 MCG TAB PO SCH (07:46)
[2020-06-20] MEDS: MULTIVITAMIN TAB PO SCH (07:46)
[2020-06-20] MEDS: METOPROLOL TARTRATE 25 MG TAB PO SCH ×4 (07:46→20:50)
[2020-06-20] MEDS: CYANOCOBALAMIN 500 MCG TABLET (VITAMIN B-12) PO SCH (07:46)
[2020-06-20] MEDS: cefTRIAXone SODIUM 2,000 MG in DEXTROSE 5% 50 ML IV SCH (07:51)
[2020-06-20 09:11] LABS: Partial Thromboplastin Ratio 2.6
[2020-06-20 09:21] LABS: Partial Thromboplastin Time 69.6 Seconds (21.0-31.0)
--- NOTE | 2020-06-20 10:29 | Nephrology Progress Note ---
Date of Service June 20, 2020 Assessment & Plan (1) Acute kidney injury: PETR attributed to ATN in the setting of left sided hydronephrosis and sepsis. Started HD 06/14. Remains oliguric. No evidence of renal recovery. HD permcath placed by Dr. Strauss 06/19. Orders for HD today entered into EMR and reviewed with HD nurse. UF goal 2 L. BP acceptable. QB at goal. TDC functioning well. Document strict I/O's. Check metabolic profile daily. Medications appropriately dosed for kidney dysfunction. Outpatient HD to be arranged at [facility] post discharge. (2) Hydronephrosis concurrent with and due to calculi of kidney and ureter: Postop day #8 s/p cystoscopy with Left stone extraction, retrograde pyelogram, and ureteral stent. Urology following. (3) Acute UTI (urinary tract infection): Remains on ceftriaxone. Admission and Anticipated Discharge Date Admission Date: June 12, 2020 Subjective No acute events overnight. Ami was seen prior to and during hemodialysis this AM. She remains weak. She is tolerating HD well. No complications with permcath placement. Qb appropriate. BP appropriate. Breathing comfortable. No fevers or chills. Some back pain persists. Review of Systems Review of Systems: All systems reviewed & are unremarkable except as noted in HPI & below Physical Exam Constitutional: well developed; no acute distress Eyes: no scleral abnormality and no corneal abnormality ENMT: Mouth: no oral mucosal abnormality and oral mucous membranes not dry Neck: normal visual inspection and trachea midline RIJ permcath with pressure dressing Respiratory: normal respiratory effort Auscultation: lungs clear to auscultation bilaterally Cardiovascular: Rate/Rhythm: regular rate Heart Sounds: normal S1 and normal S2 Extremities: + edema Musculoskeletal: Extremities: no cyanosis and no clubbing Skin: normal turgor; no lesions Neurologic: Motor/Sensory: no tremor and no asterixis Psychiatric: Orientation: alert and oriented x 3 Results & Data ([facility]) Vital Signs (Past 12 Hours) Vital Signs Temp Pulse Pulse Pulse Resp BP BP 06/20/20 10:00 95 H 119/60 06/20/20 09:30 93 H 123/62 06/20/20 09:12 36.7 C 98 H 98 H 170/102 H 06/20/20 08:23 36.8 C 89 16 156/80 H 06/20/20 02:31 37.0 C 96 H 16 115/73 06/20/20 01:33 06/20/20 01:32 16 06/20/20 01:31 90 14 06/19/20 22:41 36.9 C 101 H 24 116/70 Pulse Ox 06/20/20 10:00 06/20/20 09:30 06/20/20 09:12 06/20/20 08:23 93 06/20/20 02:31 94 06/20/20 01:33 92 06/20/20 01:32 90 06/20/20 01:31 87 L 06/19/20 22:41 93 Laboratory Results Laboratory Results - last 24 hr 06/19/20 06/20/20 06/20/20 18:35 02:17 02:17 WBC 12.16 H RBC 3.70 L Hgb 12.5 Hct 35.1 L MCV 94.9 MCH 33.8 MCHC 35.6 RDW Std Deviation 48.3 H RDW Coeff of Sonia 14.0 Plt Count 117 L MPV 10.5 H Immature Gran % (Auto) 0.7 Neut % (Auto) 81.3 Lymph % (Auto) 7.8 Owsley % (Auto) 8.9 Eos % (Auto) 1.1 Baso % (Auto) 0.2 Neut # (Auto) 9.89 H Lymph # (Auto) 0.95 L Owsley # (Auto) 1.08 H Eos # (Auto) 0.13 Baso # (Auto) 0.02 Immature Gran # (Auto) 0.09 H APTT 35.0 H 92.8 H* PTT Ratio 1.3 3.5 Sodium Potassium Chloride Carbon Dioxide Anion Gap BUN Creatinine Est Cr Clr Drug Dosing Est GFR ( Amer) Est GFR (Non-Af Amer) BUN/Creatinine Ratio Glucose Calcium Magnesium 06/20/20 06/20/20 02:17 08:26 WBC RBC Hgb Hct MCV MCH MCHC RDW Std Deviation RDW Coeff of Sonia Plt Count MPV Immature Gran % (Auto) Neut % (Auto) Lymph % (Auto) Owsley % (Auto) Eos % (Auto) Baso % (Auto) Neut # (Auto) Lymph # (Auto) Owsley # (Auto) Eos # (Auto) Baso # (Auto) Immature Gran # (Auto) APTT 69.6 H* PTT Ratio 2.6 Sodium 131 L Potassium 3.8 Chloride 94 L Carbon Dioxide 23 Anion Gap 14.0 H BUN 72 H Creatinine 7.70 H* D Est Cr Clr Drug Dosing 8.7 Est GFR ( Amer) 5.5 Est GFR (Non-Af Amer) 4.8 BUN/Creatinine Ratio 9.4 L Glucose 108 H Calcium 7.4 L Magnesium 2.3 PG Care Time/CCT Total # of Minutes Spent Total Time Spent with Patient: Total time spent is greater than 50% in coordination of care (as documented) at patient's floor/unit and/or counseling patient: Coding Level of Care Code 26136 Subseq Hosp Care Lvl 3 Diagnoses Acute kidney injury N17.9 Hydronephrosis concurrent with and due to calculi of kidney and ureter N13.2 Acute UTI (urinary tract infection) N39.0
--- NOTE | 2020-06-20 13:26 | Hospitalist Progress Note ---
Date of Service June 20, 2020 Assessment & Plan (1) Acute kidney injury: Secondary to likely ATN from sepsis as well as postobstructive uropathy due to ureterolithiasis now status post ureteral stent Cr stephan from 1.3 to 1.7 to 2.29, peaked at 3.6 on 06/14 initially urine output was suboptimal, challenged with Bumex 4mg IV on 06/14 but no response temp HD catheter placed and HD on 06/15 with UF goal of 3L 2nd HD session on 06/16, tolerated well 3rd HD session on 06/17, met goal for UF Creatinine up to 7 on 06/20 Had tunneled hemodialysis catheter placed on 06/19 as there was no sign of renal recovery and she remained oliguric Fourth HD session on 06/20-having some nausea, lightheadedness, and exhaustion with treatment Continue to treat infection, supportive care and follow BMP closely renally dose medications Planning on outpatient dialysis set up at [facility] (2) Acute hypercapnic respiratory failure: developed on 06/14, did not improve with BIPAP electively intubated on 06/14 successfully extubated 06/15, breathing well, more alert now that she had HD patient remains alert, ventilating well, no more concerns for respiratory acidosis -Consider using BiPAP at bedtime -Discontinued doxepin and gabapentin (3) Acute UTI (urinary tract infection): With septicemia-presented with septic shock, E. coli bacteremia, UTI due to ureteral stone, hydronephrosis urine and blood culture with Pansensitive E. coli continue ceftriaxone IV for 10-14 days due to complicated infection last day would be 06/23 no fever,No leukocytosis Repeat blood cultures on 06/14 no growth to date-final (4) Impaired fasting glucose: sugars well controlled No need for diabetic diet-removed this (5) Hypertension: BP stable, back on metoprolol 25 mg p.o. 3 times daily for afib (6) Thrombocytopenia: consumptive due to sepsis, follow closely, now much improved back up to 117 Follow CBC (7) Elevated INR: reversed in morning on 06/14 when it was 5 Coumadin was then held for tunneled hemodialysis catheter and was restarted on 06/20 at 5 mg once daily Follow INR in the morning (8) Altered mental status: multifactorial, CO2 retention and PETR and infection resolved after 24 hours of intubation and mechanical ventilation also, treated PETR with HD she remains alert and oriented now (9) Atrial fibrillation with RVR: use metoprolol for rate control-mild tachycardia today due to holding metoprolol this morning for hemodialysis Continue on heparin drip Now status post tunneled HD catheter prior to admission she was on Coumadin Resumed Coumadin after hemodialysis catheter placed and will follow INR Disposition-continued stay on medical/surgical floor Will need PT/OT consultations and possible rehab placement Will need outpatient dialysis arranged through case management Admission and Anticipated Discharge Date Admission Date: June 12, 2020 Subjective Patient just returned from dialysis and says it was completely exhausting, she felt a little lightheaded and nauseated. She still having pain in her left flank with movement. Denies shortness of breath. She is oriented and awake and alert and answering questions appropriately. Review of Systems Review of Systems: All systems reviewed & are unremarkable except as noted in HPI & below Physical Exam Constitutional: WD/WN, vitals as above + morbidly obese Eyes: + anicteric sclerae Neck: trachea midline, no thyromegaly Respiratory: normal respiratory effort, lungs clear to auscultation Cardiovascular: Rate/Rhythm: + tachycardic (Mild) and + irregularly irregular Heart Sounds: no murmur Extremities: no edema Chest (Breasts): Chest: + vascular access device or port (Right PermCath) Gastrointestinal (Abdomen): normal bowel sounds, soft, nontender, no hepatosplenomegaly Musculoskeletal: Extremities: extremities normal to inspection; no cyanosis and no clubbing Skin: + ecchymosis (Left shoulder) Neurologic: moves all extremities and awake; no focal motor deficits Psychiatric: Orientation: alert and oriented x 3 Speech: normal rate/rhythm/volume of speech Lymphatic: no lymphedema Results & Data Results & Data ([facility]) Vital Signs (Past 12 Hours) Vital Signs Temp Pulse Pulse Pulse Pulse Resp BP 06/20/20 12:45 36.7 C 114 H 114 H 131/73 06/20/20 12:30 112 H 141/78 H 06/20/20 12:00 106 H 119/72 06/20/20 11:30 104 H 126/76 06/20/20 11:00 99 H 115/72 06/20/20 10:30 98 H 123/66 06/20/20 10:00 95 H 119/60 06/20/20 09:30 93 H 123/62 06/20/20 09:12 36.7 C 98 H 98 H 170/102 H 06/20/20 08:23 36.8 C 89 16 06/20/20 02:31 37.0 C 96 H 16 06/20/20 01:33 06/20/20 01:32 16 06/20/20 01:31 90 14 BP Pulse Ox 06/20/20 12:45 131/73 06/20/20 12:30 06/20/20 12:00 06/20/20 11:30 06/20/20 11:00 06/20/20 10:30 06/20/20 10:00 06/20/20 09:30 06/20/20 09:12 06/20/20 08:23 156/80 H 93 06/20/20 02:31 115/73 94 06/20/20 01:33 92 06/20/20 01:32 90 06/20/20 01:31 87 L Laboratory Results 06/20/20 02:17 06/20/20 02:17 Repeat blood cultures-no growth to date-final PG Care Time/CCT Total # of Minutes Spent Total Time Spent with Patient: Total time spent is greater than 50% in coordination of care (as documented) at patient's floor/unit and/or counseling patient: Coding Level of Care Code 94262 Subseq Hosp Care Lvl 3 Diagnoses Acute kidney injury N17.9 Acute hypercapnic respiratory failure J96.02 Acute UTI (urinary tract infection) N39.0 Impaired fasting glucose R73.01 Hypertension I10 Thrombocytopenia D69.6 Elevated INR R79.1 Altered mental status R41.82 Atrial fibrillation with RVR I48.91
[2020-06-20] MEDS: HEPARIN SODIUM/DEXTROSE 25,000 UNITS/500 ML BAG IV SCH (14:29)
[2020-06-20 15:47] LABS: Partial Thromboplastin Ratio 1.6; Partial Thromboplastin Time 42.1 Seconds (21.0-31.0)
[2020-06-20] MEDS: WARFARIN SOD 5 MG TAB PO SCH (15:55)
[2020-06-20 22:54] LABS: Partial Thromboplastin Ratio 2.9
[2020-06-20 22:57] LABS: Partial Thromboplastin Time 76.3 Seconds (21.0-31.0)
[2020-06-21] MEDS: HEPARIN SODIUM/DEXTROSE 25,000 UNITS/500 ML BAG IV SCH ×4 (01:42→02:40)
[2020-06-21 06:20] LABS: Basophils # (auto) 0.02 K/uL (0-0.2); Basophils % (auto) 0.2 %; Eosinophils # (auto) 0.11 K/uL (0-0.5); Eosinophils % (auto) 1.1 %; Hematocrit (blood only) 35.8 % (37-47); Hemoglobin 12.7 g/dL (12.0-16.0); Immature Granulocytes # (auto) 0.05 K/uL (0.00-0.02); Immature Granulocytes % (auto) 0.5 %; Lymphocytes # (auto) 0.72 K/uL (1.2-3.4); Lymphocytes % (auto) 7.3 %; Mean Corpuscular Hgb Conc 35.5 g/dL (32-36); Mean Platelet Volume 10.3 fL (7.4-10.4); Monocytes # (auto) 0.93 K/uL (0.11-0.59); Monocytes % (auto) 9.4 %; Neutrophils # (auto) 8.05 K/uL (1.4-6.5); Neutrophils % (auto) 81.5 %; Platelet Count 139 K/uL (130-400); RDW Coefficient of Variation 14.2 % (11.5-14.5); RDW Standard Deviation 49.7 fL (36.4-46.3); Red Blood Count 3.73 M/uL (4.2-5.4); White Blood Count 9.88 K/uL (4.8-10.8)
[2020-06-21 06:41] LABS: INR 2.4 (0.9-1.1); Partial Thromboplastin Ratio 3.2; Prothrombin Time 22.4 Seconds (9.0-12.0)
[2020-06-21 06:47] LABS: Partial Thromboplastin Time 83.4 Seconds (21.0-31.0)
[2020-06-21 06:56] LABS: BUN Creatinine Ratio 6.7 (10-20); Calcium 8.2 mg/dl (8.5-10.1); Creatinine Clr Calc Pharmacy 11.2 ml/min; Est GFR (African American) 7.7; Est GFR (Non-African American) 6.6; Potassium 3.6 mmol/L (3.5-5.1)
[2020-06-21] MEDS: cefTRIAXone SODIUM 2,000 MG in DEXTROSE 5% 50 ML IV SCH (08:20)
[2020-06-21] MEDS: NYSTATIN POWDER 15GM BTL EXT SCH (08:24)
[2020-06-21] MEDS: CHOLECALCIFEROL 1,000 UNITS 25 MCG TAB PO SCH (08:25)
[2020-06-21] MEDS: METOPROLOL TARTRATE 25 MG TAB PO SCH ×3 (08:25→21:22)
[2020-06-21] MEDS: CYANOCOBALAMIN 500 MCG TABLET (VITAMIN B-12) PO SCH (08:25)
[2020-06-21] MEDS: MULTIVITAMIN TAB PO SCH (08:25)
--- NOTE | 2020-06-21 12:38 | Nephrology Progress Note ---
Date of Service June 21, 2020 Assessment & Plan (1) Acute kidney injury: PETR attributed to ATN in the setting of left sided hydronephrosis and sepsis. Started HD 06/14. No evidence of renal recovery. HD permcath placed by Dr. Strauss 06/19. Plan to continue HD at [facility] post discharge. Next anticipated HD tomorrow. BP acceptable. QB at goal. TDC functioning well. Document strict I/O's. Check metabolic profile daily. Medications appropriately dosed for kidney dysfunction. (2) Hydronephrosis concurrent with and due to calculi of kidney and ureter: Postop day #9 s/p cystoscopy with Left stone extraction, retrograde pyel ogram, and ureteral stent. Urology following. (3) Acute UTI (urinary tract infection): Remains on ceftriaxone. Admission and Anticipated Discharge Date Admission Date: June 12, 2020 Subjective No acute events overnight. Ami feels reasonably well but weak today. Tolerated HD reasonably well today. Breathing comfortably. Review of Systems Review of Systems: All systems reviewed & are unremarkable except as noted in HPI & below Physical Exam Constitutional: well developed; no acute distress Eyes: no scleral abnormality and no corneal abnormality ENMT: Mouth: no oral mucosal abnormality and oral mucous membranes not dry Neck: normal visual inspection and trachea midline Respiratory: normal respiratory effort Auscultation: lungs clear to auscultation bilaterally Cardiovascular: Rate/Rhythm: regular rate Heart Sounds: normal S1 and normal S2 Extremities: + edema Musculoskeletal: Extremities: no cyanosis and no clubbing Skin: normal turgor; no lesions Neurologic: Motor/Sensory: no tremor and no asterixis Psychiatric: Orientation: alert and oriented x 3 Insight: + poor insight Results & Data ([place]) Vital Signs (Past 12 Hours) Vital Signs Temp Pulse Resp BP Pulse Ox 06/21/20 07:08 36.4 C L 106 H 16 128/71 93 Laboratory Results Laboratory Results - last 24 hr 06/20/20 06/20/20 06/21/20 15:14 22:09 06:01 WBC RBC Hgb Hct MCV MCH MCHC RDW Std Deviation RDW Coeff of Sonia Plt Count MPV Immature Gran % (Auto) Neut % (Auto) Lymph % (Auto) Bailey % (Auto) Eos % (Auto) Baso % (Auto) Neut # (Auto) Lymph # (Auto) Bailey # (Auto) Eos # (Auto) Baso # (Auto) Immature Gran # (Auto) PT 22.4 H INR 2.4 H APTT 42.1 H 76.3 H* 83.4 H* PTT Ratio 1.6 2.9 3.2 Sodium Potassium Chloride Carbon Dioxide Anion Gap BUN Creatinine Est Cr Clr Drug Dosing Est GFR ( Amer) Est GFR (Non-Af Amer) BUN/Creatinine Ratio Glucose Calcium 06/21/20 06/21/20 06/21/20 06:01 06:01 06:01 WBC 9.88 RBC 3.73 L Hgb 12.7 Hct 35.8 L MCV 96.0 MCH 34.0 MCHC 35.5 RDW Std Deviation 49.7 H RDW Coeff of Sonia 14.2 Plt Count 139 MPV 10.3 Immature Gran % (Auto) 0.5 Neut % (Auto) 81.5 Lymph % (Auto) 7.3 Bailey % (Auto) 9.4 Eos % (Auto) 1.1 Baso % (Auto) 0.2 Neut # (Auto) 8.05 H Lymph # (Auto) 0.72 L Bailey # (Auto) 0.93 H Eos # (Auto) 0.11 Baso # (Auto) 0.02 Immature Gran # (Auto) 0.05 H PT INR APTT Cancelled PTT Ratio Cancelled Sodium 133 L Potassium 3.6 Chloride 100 Carbon Dioxide 23 Anion Gap 10.0 BUN 39 H Creatinine 5.86 H* D Est Cr Clr Drug Dosing 11.2 Est GFR ( Amer) 7.7 Est GFR (Non-Af Amer) 6.6 BUN/Creatinine Ratio 6.7 L Glucose 112 H Calcium 8.2 L PG Care Time/CCT Total # of Minutes Spent Total Time Spent with Patient: Total time spent is greater than 50% in coordination of care (as documented) at patient's floor/unit and/or counseling patient: Coding Level of Care Code 56891 Subseq Hosp Care Lvl 3 Diagnoses Acute kidney injury N17.9 Hydronephrosis concurrent with and due to calculi of kidney and ureter N13.2 Acute UTI (urinary tract infection) N39.0
[2020-06-21] MEDS: WARFARIN SOD 5 MG TAB PO SCH (17:33)
[2020-06-21] MEDS: ACETAMINOPHEN 500 MG TAB PO PRN (19:39)
--- NOTE | 2020-06-21 20:16 | Hospitalist Progress Note ---
Date of Service June 21, 2020 Assessment & Plan (1) Acute kidney injury: Secondary to likely ATN from sepsis as well as postobstructive uropathy due to ureterolithiasis now status post ureteral stent Cr stephan from 1.3 to 1.7 to 2.29, peaked at 3.6 on 06/14 initially urine output was suboptimal, challenged with Bumex 4mg IV on 06/14 but no response temp HD catheter placed and HD on 06/15 with UF goal of 3L 2nd HD session on 06/16, tolerated well 3rd HD session on 06/17, met goal for UF Creatinine up to 7 on 06/20 Had tunneled hemodialysis catheter placed on 06/19 as there was no sign of renal recovery and she remained oliguric Fourth HD session on 06/20-having some nausea, lightheadedness, and exhaustion with treatment Continue to treat infection, supportive care and follow BMP closely renally dose medications Planning on outpatient dialysis set up at [facility]-can also get dialysis at [facility] if accepted there in the meantime (2) Hydronephrosis concurrent with and due to calculi of kidney and ureter: With left-sided ureterolithiasis, now status post left ureter placement on 06/12 Urology was following along-need to contact them to see if they are planning on removing the stent in the near future (3) Acute hypercapnic respiratory failure: developed on 06/14, did not improve with BIPAP electively intubated on 06/14 successfully extubated 06/15, breathing well, more alert now that she had HD patient remains alert, ventilating well, no more concerns for respiratory acidosis -Discontinued doxepin and gabapentin that she was on at bedtime (4) Acute UTI (urinary tract infection): With septicemia-presented with septic shock, E. coli bacteremia, UTI due to ureteral stone, hydronephrosis urine and blood culture with Pansensitive E. coli continue ceftriaxone IV for 10-14 days due to complicated infection last day would be 06/23, but may need to consider continuing oral antibiotics after that until stent is removed no fever,No leukocytosis Repeat blood cultures on 06/14 no growth to date-final (5) Impaired fasting glucose: sugars well controlled No need for diabetic diet-removed this (6) Hypertension: BP stable, back on metoprolol 25 mg p.o. 3 times daily for afib (7) Thrombocytopenia: consumptive due to sepsis, now resolved Follow CBC (8) Elevated INR: reversed in morning on 06/14 when it was 5 Coumadin was then held for tunneled hemodialysis catheter and was restarted on 06/20 at 5 mg once daily INR now therapeutic (9) Altered mental status: multifactorial, CO2 retention and PETR and infection resolved after 24 hours of intubation and mechanical ventilation also, treated PETR with HD she remains alert and oriented now (10) Atrial fibrillation with RVR: Now rate controlled Heparin drip can be discontinued as INR now therapeutic Resumed Coumadin after hemodialysis catheter placed-therapeutic after only 2 d oses of 5 mg daily-lower dose to 3 mg daily for tomorrow Disposition-continued stay on medical/surgical floor PT/OT consultations appreciated-recommend rehab-referral made to [facility], medically stable for discharge today, awaiting insurance authorization Will need outpatient dialysis arranged through case management Admission and Anticipated Discharge Date Admission Date: June 12, 2020 Subjective Patient reports feeling better today. She is out of bed to the chair which she accomplished with assistance. She also reports she was able to ambulate with a walker to the bathroom and back today. Denies shortness of breath or chest pain except for left-sided pain with movement. No abdominal pain. She has no other complaints and is agreeable to rehab placement. I discussed her case with nephrology Review of Systems Review of Systems: All systems reviewed & are unremarkable except as noted in HPI & below Physical Exam Constitutional: WD/WN, vitals as above + morbidly obese Eyes: + anicteric sclerae Neck: trachea midline, no thyromegaly Respiratory: normal respiratory effort, lungs clear to auscultation Cardiovascular: Rate/Rhythm: regular rate and + irregularly irregular Heart Sounds: no murmur Extremities: no edema Chest (Breasts): Chest: + vascular access device or port (Right PermCath) Gastrointestinal (Abdomen): normal bowel sounds, soft, nontender, no hepatosplenomegaly Musculoskeletal: Extremities: extremities normal to inspection; no cyanosis and no clubbing Neurologic: moves all extremities and awake; no focal motor deficits Psychiatric: Orientation: alert and oriented x 3 Speech: normal rate/rhythm/volume of speech Lymphatic: no lymphedema Results & Data Results & Data ([facility]) Vital Signs (Past 12 Hours) Vital Signs Temp Pulse Resp BP Pulse Ox 04/21/21 15:19 36.7 C 86 16 121/75 93 Laboratory Results 06/21/20 06/21/20 06/21/20 Range/Units 06:01 06:01 06:01 WBC 9.88 (4.8-10.8) K/uL RBC 3.73 L (4.2-5.4) M/uL Hgb 12.7 (12.0-16.0) g/dL Hct 35.8 L (37-47) % MCV 96.0 (80-100) fL MCH 34.0 (25-34) pg MCHC 35.5 (32-36) g/dL RDW Std Deviation 49.7 H (36.4-46.3) fL RDW Coeff of Sonia 14.2 (11.5-14.5) % Plt Count 139 (130-400) K/uL MPV 10.3 (7.4-10.4) fL Immature Gran % (Auto) 0.5 % Neut % (Auto) 81.5 % Lymph % (Auto) 7.3 % [place] % (Auto) 9.4 % Eos % (Auto) 1.1 % Baso % (Auto) 0.2 % Neut # (Auto) 8.05 H (1.4-6.5) K/uL Lymph # (Auto) 0.72 L (1.2-3.4) K/uL [place] # (Auto) 0.93 H (0.11-0.59) K/uL Eos # (Auto) 0.11 (0-0.5) K/uL Baso # (Auto) 0.02 (0-0.2) K/uL Immature Gran # (Auto) 0.05 H (0.00-0.02) K/uL PT (9.0-12.0) Seconds INR (0.9-1.1) APTT Cancelled (21.0-31.0) Seconds PTT Ratio Cancelled Sodium 133 L (136-145) mmol/L Potassium 3.6 (3.5-5.1) mmol/L Chloride 100 (98-107) mmol/L Carbon Dioxide 23 (21-32) mmol/L Anion Gap 10.0 (3-11) BUN 39 H (7-18) mg/dl Creatinine 5.86 H* D (0.6-1.2) mg/dl Est Cr Clr Drug Dosing 11.2 ml/min Est GFR ( Amer) 7.7 Est GFR (Non-Af Amer) 6.6 BUN/Creatinine Ratio 6.7 L (10-20) Glucose 112 H (70-99) mg/dl Calcium 8.2 L (8.5-10.1) mg/dl 06/21/20 06/20/20 Range/Units 06:01 22:09 WBC (4.8-10.8) K/uL RBC (4.2-5.4) M/uL Hgb (12.0-16.0) g/dL Hct (37-47) % MCV (80-100) fL MCH (25-34) pg MCHC (32-36) g/dL RDW Std Deviation (36.4-46.3) fL RDW Coeff of Sonia (11.5-14.5) % Plt Count (130-400) K/uL MPV (7.4-10.4) fL Immature Gran % (Auto) % Neut % (Auto) % Lymph % (Auto) % [place] % (Auto) % Eos % (Auto) % Baso % (Auto) % Neut # (Auto) (1.4-6.5) K/uL Lymph # (Auto) (1.2-3.4) K/uL [place] # (Auto) (0.11-0.59) K/uL Eos # (Auto) (0-0.5) K/uL Baso # (Auto) (0-0.2) K/uL Immature Gran # (Auto) (0.00-0.02) K/uL PT 22.4 H (9.0-12.0) Seconds INR 2.4 H (0.9-1.1) APTT 83.4 H* 76.3 H* (21.0-31.0) Seconds PTT Ratio 3.2 2.9 Sodium (136-145) mmol/L Potassium (3.5-5.1) mmol/L Chloride (98-107) mmol/L Carbon Dioxide (21-32) mmol/L Anion Gap (3-11) BUN (7-18) mg/dl Creatinine (0.6-1.2) mg/dl Est Cr Clr Drug Dosing ml/min Est GFR ( Amer) Est GFR (Non-Af Amer) BUN/Creatinine Ratio (10-20) Glucose (70-99) mg/dl Calcium (8.5-10.1) mg/dl PG Care Time/CCT Total # of Minutes Spent Total Time Spent with Patient: Total time spent is greater than 50% in coordination of care (as documented) at patient's floor/unit and/or counseling patient: Coding Level of Care Code 68147 Subseq Hosp Care Lvl 3 Diagnoses Acute kidney injury N17.9 Hydronephrosis concurrent with and due to calculi of kidney and ureter N13.2 Acute hypercapnic respiratory failure J96.02 Acute UTI (urinary tract infection) N39.0 Impaired fasting glucose R73.01 Hypertension I10 Thrombocytopenia D69.6 Elevated INR R79.1 Altered mental status R41.82 Atrial fibrillation with RVR I48.91
[2020-06-22] MEDS: METOPROLOL TARTRATE 25 MG TAB PO SCH ×3 (08:15→20:24)
[2020-06-22] MEDS: MULTIVITAMIN TAB PO SCH (08:15)
[2020-06-22] MEDS: CHOLECALCIFEROL 1,000 UNITS 25 MCG TAB PO SCH (08:16)
[2020-06-22] MEDS: CYANOCOBALAMIN 500 MCG TABLET (VITAMIN B-12) PO SCH (08:16)
[2020-06-22 08:17] LABS: Mean Corpuscular Hgb Conc 34.8 g/dL (32-36); Mean Platelet Volume 10.2 fL (7.4-10.4); Platelet Count 144 K/uL (130-400)
[2020-06-22] MEDS: cefTRIAXone SODIUM 2,000 MG in DEXTROSE 5% 50 ML IV SCH (08:21)
[2020-06-22 08:32] LABS: Basophils # (auto) 0.02 K/uL (0-0.2); Basophils % (auto) 0.2 %; Eosinophils # (auto) 0.14 K/uL (0-0.5); Eosinophils % (auto) 1.3 %; Hematocrit (blood only) 38.4 % (37-47); Hemoglobin 13.7 g/dL (12.0-16.0); Immature Granulocytes # (auto) 0.05 K/uL (0.00-0.02); Immature Granulocytes % (auto) 0.5 %; Lymphocytes # (auto) 0.81 K/uL (1.2-3.4); Lymphocytes % (auto) 7.4 %; Mean Corpuscular Hemoglobin 34.3 pg (25-34); Monocytes # (auto) 0.86 K/uL (0.11-0.59); Monocytes % (auto) 7.9 %; Neutrophils # (auto) 9.04 K/uL (1.4-6.5); Neutrophils % (auto) 82.7 %; RDW Coefficient of Variation 14.3 % (11.5-14.5); RDW Standard Deviation 50.3 fL (36.4-46.3); White Blood Count 10.92 K/uL (4.8-10.8)
[2020-06-22 08:41] LABS: INR 3.8 (0.9-1.1); Prothrombin Time 34.5 Seconds (9.0-12.0)
[2020-06-22 08:59] LABS: Albumin Level 2.3 gm/dl (3.4-5.0); BUN Creatinine Ratio 6.9 (10-20); Calcium 8.2 mg/dl (8.5-10.1); Creatinine Clr Calc Pharmacy 9.2 ml/min; Est GFR (Non-African American) 5.2; Phosphorus 5.9 mg/dl (2.5-4.9); Potassium 3.6 mmol/L (3.5-5.1)
--- NOTE | 2020-06-22 11:57 | Nephrology Progress Note ---
Date of Service June 22, 2020 Assessment & Plan (1) Acute kidney injury: PETR attributed to ATN in the setting of left sided hydronephrosis and sepsis. Started HD 06/14. No evidence of renal recovery. Remains oliguric. HD permcath placed by Dr. Strauss 06/19. Anticipated discharge to [facility] within next 24 hours. [facility] nephrology will continue to provide coverage at [facility] Plan to continue HD at [facility] as needed once she returns home. Orders for HD today entered into the EMR and discussed with the dialysis nurse. UF goal 1-2 L. BP acceptable. QB at goal. TDC functioning well. Document strict I/O's. Check metabolic profile daily. Medications appropriately dosed for kidney dysfunction. (2) Hydronephrosis concurrent with and due to calculi of kidney and ureter: Postop day #10 s/p cystoscopy with Left stone extraction, retrograde pyelogram, and ureteral stent. Remains notably oliguric. Will update renal US while inpatient. (3) Acute UTI (urinary tract infection): Remains on ceftriaxone. Admission and Anticipated Discharge Date Admission Date: June 12, 2020 Subjective No acute events overnight. Remains oliguric. Ami was seen and evaluated prior to and during hemodialysis. She was tolerating HD well. She remains very weak. Plan for possible discharge to [facility] for rehab within the next 24 hours. Plan of care was discussed with Dr. Carey. Review of Systems Review of Systems: All systems reviewed & are unremarkable except as noted in HPI & below Physical Exam Constitutional: well developed and + obese; no acute distress Eyes: no scleral abnormality and no corneal abnormality Neck: normal visual inspection and trachea midline Respiratory: normal respiratory effort Auscultation: lungs clear to auscultation bilaterally Cardiovascular: Rate/Rhythm: regular rate Heart Sounds: normal S1 and normal S2 Extremities: + edema Musculoskeletal: Extremities: no cyanosis and no clubbing Skin: normal turgor; no lesions Neurologic: Motor/Sensory: no tremor and no asterixis Psychiatric: Orientation: alert and oriented x 3 Results & Data ([facility]) Vital Signs (Past 12 Hours) Vital Signs Temp Pulse Pulse Pulse Resp BP BP 06/22/20 10:40 93 H 133/67 06/22/20 10:20 91 H 130/81 06/22/20 10:00 83 120/65 04/22/21 09:40 85 121/72 06/22/20 09:35 36.9 C 85 06/22/20 07:11 36.6 C 101 H 18 135/79 Pulse Ox 06/22/20 10:40 06/22/20 10:20 06/22/20 10:00 06/22/20 09:40 06/22/20 09:35 06/22/20 07:11 91 Laboratory Results Laboratory Results - last 24 hr 06/22/20 06/22/20 06/22/20 07:47 07:47 07:47 WBC 10.92 H RBC 4.00 L Hgb 13.7 Hct 38.4 MCV 96.0 MCH 34.3 H MCHC 34.8 RDW Std Deviation 50.3 H RDW Coeff of Sonia 14.3 Plt Count 144 MPV 10.2 Immature Gran % (Auto) 0.5 Neut % (Auto) 82.7 Lymph % (Auto) 7.4 [place] % (Auto) 7.9 Eos % (Auto) 1.3 Baso % (Auto) 0.2 Neut # (Auto) 9.04 H Lymph # (Auto) 0.81 L [place] # (Auto) 0.86 H Eos # (Auto) 0.14 Baso # (Auto) 0.02 Immature Gran # (Auto) 0.05 H PT 34.5 H INR 3.8 H Sodium 132 L Potassium 3.6 Chloride 97 L Carbon Dioxide 21 Anion Gap 13.0 H BUN 50 H Creatinine 7.18 H* D Est Cr Clr Drug Dosing 9.2 Est GFR ( Amer) 6.0 Est GFR (Non-Af Amer) 5.2 BUN/Creatinine Ratio 6.9 L Glucose 98 Calcium 8.2 L Phosphorus 5.9 H Albumin 2.3 L PG Care Time/CCT Total # of Minutes Spent Total Time Spent with Patient: Total time spent is greater than 50% in coordination of care (as documented) at patient's floor/unit and/or counseling patient: Coding Level of Care Code 56884 Subseq Hosp Care Lvl 3 Diagnoses Acute kidney injury N17.9 Hydronephrosis concurrent with and due to calculi of kidney and ureter N13.2 Acute UTI (urinary tract infection) N39.0
[2020-06-22] MEDS: ACETAMINOPHEN 500 MG TAB PO PRN (12:53)
--- NOTE | 2020-06-22 15:05 | Hospitalist Progress Note ---
Date of Service June 22, 2020 Assessment & Plan (1) Acute kidney injury: Secondary to likely ATN from sepsis as well as postobstructive uropathy due to ureterolithiasis now status post ureteral stent Cr stephan from 1.3 to 1.7 to 2.29, peaked at 3.6 on 06/14 initially urine output was suboptimal, challenged with Bumex 4mg IV on 06/14 but no response temp HD catheter placed and HD on 06/15 with UF goal of 3L 2nd HD session on 06/16, tolerated well 3rd HD session on 06/17, met goal for UF Had tunneled hemodialysis catheter placed on 06/19 as there was no sign of renal recovery and she remained oliguric Creatinine up to 7 on 06/20 Fourth HD session on 06/20-having some nausea, lightheadedness, and exhaustion with treatment Continues to tolerate hemodialysis but with some side effects of headache on 06/22 Continue to treat infection, supportive care and follow BMP closely renally dose medications Planning on outpatient dialysis set up at [facility]-can also get dialysis at [facility] if accepted there in the meantime (2) Hydronephrosis concurrent with and due to calculi of kidney and ureter: With left-sided ureterolithiasis, now status post left ureter placement on 06/12 Urology recommends continuing stent for now and will follow up as an outpatient to determine when to remove the stent as she still has some stone burden (3) Acute hypercapnic respiratory failure: developed on 06/14, did not improve with BIPAP electively intubated on 06/14 successfully extubated 06/15, breathing well, more alert now that she had HD patient remains alert, ventilating well, no more concerns for respiratory acidosis -Discontinued doxepin and gabapentin that she was on at bedtime (4) Acute UTI (urinary tract infection): With septicemia-presented with septic shock, E. coli bacteremia, UTI due to ureteral stone, hydronephrosis urine and blood culture with Pansensitive E. coli continue ceftriaxone IV for 10-14 days due to complicated infection last day would be 06/23, but may need to consider continuing oral antibiotics after that until stent is removed versus watchful waiting after stopping antibiotics no fever,No leukocytosis Repeat blood cultures on 06/14 no growth to date-final (5) Impaired fasting glucose: sugars well controlled No need for diabetic diet-removed this (6) Hypertension: BP stable, back on metoprolol 25 mg p.o. 3 times daily for afib (7) Thrombocytopenia: consumptive due to sepsis, now resolved Follow CBC (8) Elevated INR: reversed in morning on 06/14 when it was 5 Coumadin was then held for tunneled hemodialysis catheter and was restarted on 06/20 at 5 mg once daily INR now supratherapeutic again -Hold Coumadin today and restart at lower dose (9) Altered mental status: multifactorial, CO2 retention and PETR and infection resolved after 24 hours of intubation and mechanical ventilation also, treated PETR with HD she remains alert and oriented now, thus have seen her all week on 06/22 (10) Atrial fibrillation with RVR: Now rate controlled Heparin drip has since been discontinued as INR became therapeutic Resumed Coumadin after hemodialysis catheter placed-therapeutic after only 2 doses of 5 mg daily-and now supratherapeutic on 06/22 at 3.8 -Hold Coumadin today Follow INR in the morning We will likely need to lower the dose down to 2.5 mg daily moving forward Disposition-continued stay on medical/surgical floor PT/OT consultations appreciated-recommend rehab-referral made to [facility], medically stable for discharge, awaiting insurance authorization hopefully tomorrow Will need outpatient dialysis arranged through case management Admission and Anticipated Discharge Date Admission Date: June 12, 2020 Subjective Patient had dialysis again today and reports she had a bad headache with it which is now resolved after taking some Tylenol. She is now eating her lunch. Denies shortness of breath, no abdominal pain. She is mostly concerned about requesting a female to help her with the bathroom rather than a male in the future. Review of Systems Review of Systems: All systems reviewed & are unremarkable except as noted in HPI & below Physical Exam Constitutional: WD/WN, vitals as above + morbidly obese Eyes: + anicteric sclerae Neck: trachea midline, no thyromegaly Respiratory: normal respiratory effort, lungs clear to auscultation Cardiovascular: Rate/Rhythm: regular rate and + irregularly irregular Heart Sounds: no murmur Extremities: no edema Chest (Breasts): Chest: + vascular access device or port (Right PermCath) Gastrointestinal (Abdomen): normal bowel sounds, soft, nontender, no hepatosplenomegaly Musculoskeletal: Extremities: extremities normal to inspection; no cyanosis and no clubbing Neurologic: moves all extremities and awake; no focal motor deficits Psychiatric: Orientation: alert and oriented x 3 Speech: normal rate/rhythm/volume of speech Lymphatic: no lymphedema Results & Data Results & Data ([facility]) Vital Signs (Past 12 Hours) Vital Signs Temp Pulse Pulse Pulse Pulse Resp BP 06/22/20 13:59 101 H 06/22/20 13:31 36.9 C 91 H 06/22/20 13:15 100 H 148/71 H 06/22/20 12:40 97 H 133/71 06/22/20 12:20 89 135/70 06/22/20 12:00 95 H 119/71 06/22/20 11:40 93 H 125/67 06/22/20 11:20 94 H 128/73 06/22/20 11:00 92 H 101/71 06/22/20 10:40 93 H 133/67 06/22/20 10:20 91 H 130/81 06/22/20 10:00 83 120/65 06/22/20 09:40 85 121/72 06/22/20 09:35 36.9 C 85 06/22/20 07:11 36.6 C 101 H 18 BP Pulse Ox 06/22/20 13:59 117/74 06/22/20 13:31 119/74 06/22/20 13:15 06/22/20 12:40 06/22/20 12:20 06/22/20 12:00 06/22/20 11:40 06/22/20 11:20 06/22/20 11:00 06/22/20 10:40 06/22/20 10:20 06/22/20 10:00 06/22/20 09:40 06/22/20 09:35 06/22/20 07:11 135/79 91 Laboratory Results 06/22/20 07:47 06/22/20 07:47 PG Care Time/CCT Total # of Minutes Spent Total Time Spent with Patient: Total time spent is greater than 50% in coordination of care (as documented) at patient's floor/unit and/or counseling patient: Coding Level of Care Code 70817 Subseq Hosp Care Lvl 3 Diagnoses Acute kidney injury N17.9 Hydronephrosis concurrent with and due to calculi of kidney and ureter N13.2 Acute hypercapnic respiratory failure J96.02 Acute UTI (urinary tract infection) N39.0 Impaired fasting glucose R73.01 Hypertension I10 Thrombocytopenia D69.6 Elevated INR R79.1 Altered mental status R41.82 Atrial fibrillation with RVR I48.91
--- NOTE | 2020-06-22 15:47 | Ultrasound Report ---
RENAL ULTRASOUND HISTORY: Acute kidney injury. COMPARISON: Abdomen and pelvis CT 06/12/2020. FINDINGS: Right kidney: 11.8 cm. There are few small stones measuring up to 5 mm. There is a [address] No hydronephrosis. Normal corticomedullary differentiation and cortical thickness. Left kidney: 12.3 cm. There are a few stones with the largest measuring 1.1 cm. The hydronephrosis ap pears to have resolved in the interval. Normal corticomedullary differentiation and cortical thicknes s. Bladder: Not well-distended and therefore not well visualized. The ureteral jets are not identified. Cholelithiasis. IMPRESSION: 1. No hydronephrosis. 2. Bilateral nephrolithiasis. 3. Cholelithiasis. ACT 112: Negative or not required by law. Electronically signed by: Luis Parada M.D. 06/22/2020 3:45 PM
[2020-06-22] MEDS ORDERED: WARFARIN SOD 3 MG TAB PO SCH (16:00)
[2020-06-22] MEDS: NYSTATIN POWDER 15GM BTL EXT SCH (18:10)
[2020-06-23 06:04] LABS: Basophils # (auto) 0.02 K/uL (0-0.2); Basophils % (auto) 0.2 %; Eosinophils # (auto) 0.11 K/uL (0-0.5); Eosinophils % (auto) 1.3 %; Hematocrit (blood only) 35.9 % (37-47); Hemoglobin 12.5 g/dL (12.0-16.0); Immature Granulocytes # (auto) 0.02 K/uL (0.00-0.02); Immature Granulocytes % (auto) 0.2 %; Lymphocytes # (auto) 0.83 K/uL (1.2-3.4); Lymphocytes % (auto) 9.7 %; Mean Corpuscular Hgb Conc 34.8 g/dL (32-36); Mean Corpuscular Volume 97.6 fL (80-100); Monocytes # (auto) 0.81 K/uL (0.11-0.59); Monocytes % (auto) 9.4 %; Neutrophils % (auto) 79.2 %; Platelet Count 159 K/uL (130-400); RDW Coefficient of Variation 14.4 % (11.5-14.5); RDW Standard Deviation 51.1 fL (36.4-46.3); Red Blood Count 3.68 M/uL (4.2-5.4); White Blood Count 8.59 K/uL (4.8-10.8)
[2020-06-23 06:21] LABS: INR 4.8 (0.9-1.1); Prothrombin Time 43.1 Seconds (9.0-12.0)
[2020-06-23 06:44] LABS: BUN Creatinine Ratio 5.3 (10-20); Creatinine Clr Calc Pharmacy 13.8 ml/min; Est GFR (African American) 9.7; Est GFR (Non-African American) 8.4; Potassium 3.7 mmol/L (3.5-5.1)
[2020-06-23] MEDS: CHOLECALCIFEROL 1,000 UNITS 25 MCG TAB PO SCH (08:27)
[2020-06-23] MEDS: METOPROLOL TARTRATE 25 MG TAB PO SCH ×2 (08:27→14:02)
[2020-06-23] MEDS: MULTIVITAMIN TAB PO SCH (08:27)
[2020-06-23] MEDS: CYANOCOBALAMIN 500 MCG TABLET (VITAMIN B-12) PO SCH (08:27)
[2020-06-23] MEDS: NYSTATIN POWDER 15GM BTL EXT SCH (08:28)
[2020-06-23] MEDS: cefTRIAXone SODIUM 2,000 MG in DEXTROSE 5% 50 ML IV SCH (10:12)
--- NOTE | 2020-06-23 10:48 | Nephrology Progress Note ---
Date of Service June 23, 2020 Assessment & Plan (1) Acute kidney injury: PETR attributed to ATN in the setting of left sided hydronephrosis and sepsis. Started HD 06/14. No evidence of renal recovery. Remains oliguric. HD permcath placed by Dr. Strauss 06/19. Anticipated discharge to [facility]. [facility] [place] will continue to provide coverage at [facility]. Plan is to then continue HD at [facility] as needed once she returns home. No complications with HD yesterday. Next anticipated HD tomorrow. BP and volume status acceptable. Document strict I/O's. Check metabolic profile daily. Medications appropriately dosed for kidney dysfunction. (2) Hydronephrosis concurrent with and due to calculi of kidney and ureter: Postop day #11 s/p cystoscopy with Left stone extraction, retrograde pyelogram, and ureteral stent. Remains notably oliguric. Renal US updated yesterday, no obstruction noted. (3) Acute UTI (urinary tract infection): Remains on ceftriaxone. Admission and Anticipated Discharge Date Admission Date: June 12, 2020 Subjective No acute events overnight. Tolerated HD yesterday without complications. No acute complaints this AM. Review of Systems Review of Systems: All systems reviewed & are unremarkable except as noted in HPI & below Physical Exam Constitutional: well developed and + obese; no acute distress Eyes: no scleral abnormality and no corneal abnormality ENMT: Mouth: no oral mucosal abnormality and oral mucous membranes not dry Neck: normal visual inspection and trachea midline Respiratory: normal respiratory effort Auscultation: lungs clear to auscultation bilaterally Cardiovascular: Rate/Rhythm: regular rate Heart Sounds: normal S1 and normal S2 Musculoskeletal: Extremities: no cyanosis and no clubbing Skin: normal turgor; no lesions Neurologic: Motor/Sensory: no tremor and no asterixis Psychiatric: Orientation: alert and oriented x 3 Results & Data ([facility]) Vital Signs (Past 12 Hours) Vital Signs Temp Pulse Resp BP Pulse Ox 06/23/20 07:29 36.9 C 97 H 18 148/72 H 93 06/22/20 23:14 37.0 C 88 18 135/84 92 Laboratory Results Laboratory Results - last 24 hr 06/23/20 06/23/20 06/23/20 05:42 05:42 05:42 WBC 8.59 RBC 3.68 L Hgb 12.5 Hct 35.9 L MCV 97.6 MCH 34.0 MCHC 34.8 RDW Std Deviation 51.1 H RDW Coeff of Sonia 14.4 Plt Count 159 MPV 10.0 Immature Gran % (Auto) 0.2 Neut % (Auto) 79.2 Lymph % (Auto) 9.7 [place] % (Auto) 9.4 Eos % (Auto) 1.3 Baso % (Auto) 0.2 Neut # (Auto) 6.80 H Lymph # (Auto) 0.83 L [place] # (Auto) 0.81 H Eos # (Auto) 0.11 Baso # (Auto) 0.02 Immature Gran # (Auto) 0.02 PT 43.1 H INR 4.8 H Sodium 137 Potassium 3.7 Chloride 105 Carbon Dioxide 24 Anion Gap 8.0 BUN 26 H Creatinine 4.82 H* D Est Cr Clr Drug Dosing 13.8 Est GFR ( Amer) 9.7 Est GFR (Non-Af Amer) 8.4 BUN/Creatinine Ratio 5.3 L Glucose 99 Calcium 8.0 L PG Care Time/CCT Total # of Minutes Spent Total Time Spent with Patient: Total time spent is greater than 50% in coordination of care (as documented) at patient's floor/unit and/or counseling patient: Coding Level of Care Code 82347 Subseq Hosp Care Lvl 3 Diagnoses Acute kidney injury N17.9 Hydronephrosis concurrent with and due to calculi of kidney and ureter N13.2 Acute UTI (urinary tract infection) N39.0
[2020-06-23] MEDS ORDERED: NEPHROCAPS PO SCH ×2 (12:00→12:15)
--- NOTE | 2020-06-23 14:13 | Discharge Summary ---
Date of Service June 23, 2020 Admission HPI Per Admitting Provider The patient is a 74-year-old female with a past medical history including intertrigo, mild cognitive impairment, pressure ulcer, urinary incontinence, intestinal malabsorption, idiopathic peripheral neuropathy, impaired fasting glucose, nephrolithiasis, venous insufficiency, vitamin D deficiency, stroke, overactive bladder, osteoporosis, osteoarthritis, hypertension, atrial fibrillation, long-term use of anticoagulation, paroxysmal atrial fibrillation and shoulder DJD. She is reports that she not uncommonly will pass kidney stone, and did pass one earlier in the day prior to arrival in the ED. In the emergency department despite adequate fluid resuscitation with 2+ liters of IV fluid, patient systolic blood pressure dropped into the upper 70s low 80s, Levophed was started, and patient was taken to the ICU for further treatment Principal Diagnosis E. coli septicemia, septic shock, acute renal failure requiring hemodialysis, left ureterolithiasis Discharge Exam Constitutional WD/WN, vitals as above + morbidly obese Eyes + anicteric sclerae Neck trachea midline, no thyromegaly Respiratory normal respiratory effort, lungs clear to auscultation Cardiovascular Rate/Rhythm: regular rate and + irregularly irregular Heart Sounds: no murmur Extremities: no edema Chest (Breasts) Chest: + vascular access device or port (Right PermCath) Gastrointestinal (Abdomen) normal bowel sounds, soft, nontender, no hepatosplenomegaly Musculoskeletal Extremities: extremities normal to inspection; no cyanosis and no clubbing Neurologic moves all extremities and awake; no focal motor deficits Psychiatric Orientation: alert and oriented x 3 Speech: normal rate/rhythm/volume of speech Lymphatic no lymphedema Discharge Data Allergies Allergy/AdvReac Type Severity Reaction Status Date / Time adhesive Allergy Intermediate RASH, Verified 05/25/20 15:10 BLISTERING alendronate sodium Allergy Unknown SICK TO Verified 05/25/20 15:10 STOMACH latex Allergy Unknown SKIN Verified 05/25/20 15:10 TEARING Consultations 06/12/20 04:55 ED Decision to Admit Stat 06/12/20 07:14 Consult Urology Stat 06/12/20 07:39 Consult Development Associate Routine 06/13/20 14:27 Consult Nephrology Routine 06/19/20 07:00 Consult Vascular Surgery Routine Procedures Performed Operation Date: 06/12/20 12:25 Actual Procedures p Cystoscopy,Left Ureteral Stent Insertion(Left) - Toño Fererira DO Operation Date: 06/19/20 09:45 Actual Procedures p Perm Catheter Placement Right Jugular Approach, Ultrasound Localization of Right Jugular Vein, Fluoroscopy for Positioning, Moderate Sedation 1138- 1210(Right) - Gilberto Strauss MD Ordered Studies 06/12/20 03:38 CT head/brain wo con Urgent 06/12/20 05:53 CT abd pelvis wo con Stat 06/12/20 09:00 FL KUB Routine FL fluoroscopy <1hr Routine 06/13/20 02:16 CT head/brain wo con Urgent 06/14/20 08:18 US abdomen complete Urgent 06/14/20 16:25 US point of care ultrasound Stat 06/16/20 07:05 US venous doppler LE LT Urgent 06/19/20 10:01 EV cvc insrt tunnel wo prt/security consultant Routine US EV guide vascular access Routine 06/22/20 15:30 US renal/blad retro comp Routine Head CT 06/12/20 03:38 CT head/brain wo con CLINICAL HISTORY: 74 years-old Female with AMS. Acutely altered mental status TECHNIQUE: Multiple axial CT images of the head were obtained without contrast. A dose lowering technique was utilized adhering to the principles of ALARA. CT DOSE: 614.27 mGy.cm COMPARISON: None. FINDINGS: No acute intracranial hemorrhage, midline shift, intracranial mass, hydrocephalus, territorial ischemia or abnormal extra-axial collection. Mild age-related involutional changes. The calvarium is intact. Mastoid air cells are clear. Moderate mucoperiosteal thickening of the left maxillary sinus with partially calcified 12 mm area of polypoid mucosal thickening. Mild mucosal thickening of the ethmoid air cells. Prior bilateral lens repair. IMPRESSION: No acute intracranial abnormality. ACT 112: Negative or not required by law. The above report was generated using voice recognition software. It may contain grammatical, syntax or spelling errors. Electronically signed by: Carson Henry M.D. 06/12/2020 6:57 AM Chest X-Ray 06/12/20 03:39 XR chest 1V portable HISTORY: 74 years-old Female ams acutely altered mental status COMPARISON: Chest radiograph 08/30/2016 TECHNIQUE: Portable AP view of the chest FINDINGS: Cardiac silhouette is enlarged. Mild bibasilar densities. Pulmonary vascular congestion. No pneumothorax, large pleural effusion or overt pulmonary edema. Degenerative changes of the right shoulder and spine. Reverse left shoulder total joint arthroplasty. IMPRESSION: 1. Cardiomegaly. 2. Mild bibasilar opacities suggestive of atelectasis. ACT 112: Negative or not required by law. The above report was generated using voice recognition software. It may contain grammatical, syntax or spelling errors. Electronically signed by: Carson Henry M.D. 06/12/2020 6:55 AM Abdomen/Pelvis CT 06/12/20 05:[address] WITHOUT CONTRAST CT DOSE: 2046.33 mGy.cm HISTORY: Acute low back pain low back pain TECHNIQUE: Multiaxial CT images of the abdomen and pelvis were performed without contrast. A dose lowering technique was utilized adhering to the principles of ALARA. COMPARISON STUDY: CT abdomen and pelvis 06/12/2016 FINDINGS: Cardiomegaly. Mild bibasilar densities suggestive of atelectasis. Limited exam secondary to upper extremity positioning and lack of contrast. Patient body habitus also limits the study with portions of the anatomy outside the [id number]-vchi. There is no pneumatosis or pneumoperitoneum. Splenomegaly, 15.3 cm. Collateral vessels of the abdominal left upper quadrant redemonstrated with associated splenorenal shunt. Retroaortic left renal vein. Unremarkable appearance of the mildly atrophic pancreas. Unremarkable adrenal glands. Distended gallbladder with layering cholelithiasis in the gallbladder neck. This appears similar to comparison study. No definitive gallbladder wall thickening. Trace pericholecystic infiltration. Unremarkable liver. Bilateral perinephric stranding. Punctate nonobstructing calculus of the inferior pole right kidney. There is a 1.3 x 1.0 x 1.4 cm calculus of the superior pole left kidney. 2 additional left-sided renal calculi measure up to 9 mm. Mild to moderate left-sided hydroureteronephrosis secondary to an obstructing 7 x 5 x 7 mm calculus of the left hemipelvis present at the level of the left mid sacrum. Partially decompressed urinary bladder. Hysterectomy with pelvic floor relaxation and rectocele. No adnexal mass lesion. Calcified plaque the abdominal aorta without aneurysm. No adenopathy. Prior Danielle-en-Y gastric bypass. No bowel obstruction or bowel wall thickening. The appendix is not visualized. No secondary signs of acute appendicitis. Unremarkable soft tissues. Degenerative changes of the spine, pelvis and hips. Partially imaged ORIF hardware of the proximal right femur. IMPRESSION: 1. Mild to moderate left-sided hydroureteronephrosis secondary to an obstructing 7 mm calculus of the distal left ureter. 2. Left greater than right nonobstructing bilateral nephrolithiasis. 3. Cholelithiasis with distended gallbladder appears similar to the [address] evidence of acute cholecystitis. 4. No bowel obstruction or bowel wall thickening. 5. Additional findings as above. ACT 112: Negative or not required by law. The above report was generated using voice recognition software. It may contain grammatical, syntax or spelling errors. Electronically signed by: Carson Henry M.D. 06/12/2020 7:10 AM Abdomen Fluoroscopy 06/12/20 09:00 FL KUB CLINICAL HISTORY: CYSTO LT STENT COMPARISON STUDY: CT of the abdomen and pelvis June 12, 2020. FLUOROSCOPY TIME: 53 seconds. FLUOROSCOPIC IMAGES: 3 FINDINGS: Fluoroscopy was provided during cytoscopy, left retrograde exam with ureteral stent insertion. Stent is appropriately positioned. IMPRESSION: Fluoroscopy provided during cystoscopy, left retrograde exam and left ureteral stent insertion. ACT 112: Negative or not required by law. Electronically signed by: Zaire Mcduffie M.D. 06/12/2020 10:[address] 06/13/20 02:16 CT head/brain wo con CLINICAL HISTORY: 74 years-old Female with Headache, AMS. Acute headache with altered mental status TECHNIQUE: Multiple axial CT images of the head were obtained without contrast. A dose lowering technique was utilized adhering to the principles of ALARA. CT DOSE: 614.27 mGy.cm COMPARISON: Head CT 06/12/2020 FINDINGS: No acute intracranial hemorrhage, midline shift, intracranial mass, hyd rocephalus, territorial ischemia or abnormal extra-axial collection. Mild age- related involutional changes. The calvarium is intact. Mastoid air cells are clear. Moderate mucoperiosteal thickening of the left maxillary sinus with partially calcified 12 mm area of polypoid mucosal thickening. Mild mucosal thickening of the ethmoid air cells. Prior bilateral lens repair. IMPRESSION: No acute intracranial abnormality. ACT 112: Negative or not required by law. The above report was generated using voice recognition software. It may contain grammatical, syntax or spelling errors. Electronically signed by: Carson Henry M.D. 06/13/2020 7:09 AM Abdomen Ultrasound 06/14/20 08:18 ABDOMINAL ULTRASOUND COMPLETE HISTORY: Left-sided abdominal pain. visualize gallbladder, kidneys - not eaten. COMPARISON: Abdomen and pelvis CT 06/12/2020. FINDINGS: Pancreas: The pancreatic head and tail are obscured by overlying bowel gas. The remaining portions of the pancreas are within normal limits. Liver: Unremarkable. Gallbladder: Distended gallbladder containing multiple small stones. This remains unchanged. No gallbladder wall thickening. CBD: 7 mm. This is at the upper limits of normal for age. Kidneys: No hydronephrosis. A few small right renal cysts measuring up to 1.2 cm. Left-sided nephrolithiasis with the dominant stone measuring 8 mm. Spleen: Normal in size. Aorta: The visualized aorta is normal in caliber. IVC: Patent. Miscellaneous: Small right pleural effusion. IMPRESSION: 1. Distended gallbladder containing multiple small stones. No gallbladder wall thickening. This remains unchanged. 2. Left-sided nephrolithiasis. No hydronephrosis. 3. Small right pleural effusion. ACT 112: Negative or not required by law. Electronically signed by: Luis Parada M.D. 06/14/2020 10:36 AM Chest X-Ray 06/14/20 13:59 XR chest 1V portable HISTORY: 74 years-old Female s/p intubation acute respiratory failure COMPARISON: Chest radiograph 06/12/2020 TECHNIQUE: Supine AP view the chest FINDINGS: Endotracheal tube overlies the midline, 5.2 cm superior to the meg. Enteric tube courses below the diaphragm distal tip not visualized. Cardiomegaly with pulmonary vascular congestion and progressive interstitial coarsening. Layering pleural effusions with new bibasilar consolidation. Degenerative changes of the spine and right shoulder. Versed left shoulder total joint arthroplasty. IMPRESSION: 1. Endotracheal and enteric tube placement as above. 2. Cardiomegaly with pulmonary edema. 3. Layering pleural effusions with progressive bibasilar consolidation suggestive of atelectasis versus pneumonitis. ACT 112: Negative or not required by law. The above report was generated using voice recognition software. It may contain grammatical, syntax or spelling errors. Electronically signed by: Carson Henry M.D. 06/14/2020 2:25 PM KUB X-Ray 06/14/20 14:04 KUB CLINICAL HISTORY: s/p OG tube COMPARISON STUDY: CT of the abdomen and pelvis June 12, 2020. FINDINGS: The tip of the orogastric tube is within the body of the stomach. Left ureteral stent is in place. Several left renal calculi measure up to 1.3 cm. There is a probable 5 mm mid left ureteral calculus adjacent to the stent. IMPRESSION: 1. Tip of orogastric tube within the body of the stomach. 2. Left ureteral stent in place. Left-sided nephrolithiasis and a suspected 5 mm mid left ureteral calculus. ACT 112: Negative or not required by law. Electronically signed by: Zaire Mcduffie M.D. 06/14/2020 2:32 PM Chest X-Ray 06/14/20 16:49 XR chest 1V portable CLINICAL HISTORY: HD cath verification COMPARISON STUDY: Chest radiograph performed earlier today. FINDINGS: There is no pneumothorax following placement of a dual lumen right internal jugular dialysis catheter. Catheter tip projects over the cavoatrial junction. Tip of endotracheal tube is 3.8 cm above the meg. Tip of nasogastric tube is below the lower aspect of this image but at least within the stomach. Small bilateral pleural effusions persist. Bibasilar opacities, greater on the left, have slightly progressed. There is mild pulmonary edema. IMPRESSION: 1. No pneumothorax following placement of a right internal jugular dual lumen catheter. 2. Increase in bibasilar opacities which could reflect pneumonia or atelectasis. 3. Satisfactory positioning of lines and tubes. 4. Mild pulmonary edema. ACT 112: Negative or not required by law. Electronically signed by: Zaire Mcduffie M.D. 06/14/2020 5:10 PM Chest X-Ray 06/15/20 07:00 XR chest 1V portable HISTORY: hypoxia, resp failure COMPARISON: Chest 06/14/2020. FINDINGS: The endotracheal tube terminates 2.9 cm from the meg. The nasogastric tube terminates below the diaphragm. The tip is not included on this study. Right jugular catheter terminates at the SVC. No pneumothorax. Cardiomegaly and mild interstitial pulmonary edema persists. There are small bilateral pleural effusions and bibasilar densities which are also unchanged. There are low lung volumes. Postoperative changes again noted within the left shoulder. IMPRESSION: 1. Satisfactory support line placement. 2. No change in the pulmonary edema, small bilateral pleural effusions, and bibasilar densities. ACT 112: Negative or not required by law. Electronically signed by: Luis Parada M.D. 06/15/2020 7:49 AM Chest X-Ray 06/16/20 07:00 XR chest 1V portable CLINICAL HISTORY: f/u COMPARISON STUDY: Chest radiograph June 15, 2020. FINDINGS: The endotracheal and nasogastric tubes have been removed. Right internal jugular dual lumen catheter remains in place. There is no pneumothorax. Cardiomegaly is unchanged. Mild pulmonary edema is noted. This has likely slightly improved. There are persistent small bilateral pleural effusions and bibasilar opacities. Right basilar opacity is improved. Old proximal right humeral fracture is incidentally noted. Left femoral arthroplasty is partially imaged. IMPRESSION: 1. Interval improvement in small bilateral pleural effusions, bibasilar opacities and pulmonary edema. 2. Interval removal of the endotracheal and nasogastric tubes. ACT 112: Negative or not required by law. Electronically signed by: Zaire Mcduffie M.D. 06/16/2020 7:07 AM Venous Doppler Study 06/16/20 07:05 LEFT LOWER EXTREMITY VENOUS DOPPLER CLINICAL HISTORY: r/o DVT - increased swelling and pain COMPARISON STUDY: No previous studies for comparison. TECHNIQUE: Sonography of the deep venous system of the left lower extremity was performed. Compression and augmentation were evaluated. FINDINGS: This exam is compromised by suboptimal penetration. The left common femoral, superficial femoral and popliteal veins were compressible. Augmentation was normal. Flow was shown within the deep calf vessels. IMPRESSION: Technically compromised exam but no evidence of deep venous thrombus within the left lower extremity. ACT 112: Negative or not required by law. Electronically signed by: Zaire Mcduffie M.D. 06/16/2020 8:26 AM Chest X-Ray 06/17/20 07:00 XR chest 1V portable CLINICAL HISTORY: Follow-up. Sepsis. COMPARISON STUDY: 06/16/2020 FINDINGS: The heart remains enlarged. Left hemidiaphragm remains obscured suggesting a small left pleural effusion and/or left lower lobe atelectasis/consolidation[. There are right basilar opacity statistically atelectatic. There is a suspected trace right pleural effusion. There is improving interstitial edema. There is an old proximal right humeral fracture. There is a reverse total left shoulder arthroplasty. IMPRESSION: 1. Resolving interstitial edema 2. Persistent small left pleural effusion with associated left basilar atelectasis/consolidation 3. Persistent right basilar opacities likely atelectatic. Suspected trace right pleural effusion ACT 112: Negative or not required by law. Electronically signed by: Elliott Vidal M.D. 06/17/2020 9:12 AM Renal Ultrasound 06/22/20 15:30 RENAL ULTRASOUND HISTORY: Acute kidney injury. COMPARISON: Abdomen and pelvis CT 06/12/2020. FINDINGS: Right kidney: 11.8 cm. There are few small stones measuring up to 5 mm. There is a [address] No hydronephrosis. Normal corticomedullary differentia tion and cortical thickness. Left kidney: 12.3 cm. There are a few stones with the largest measuring 1.1 cm. The hydronephrosis appears to have resolved in the interval. Normal corticomedullary differentiation and cortical thickness. Bladder: Not well-distended and therefore not well visualized. The ureteral jets are not identified. Cholelithiasis. IMPRESSION: 1. No hydronephrosis. 2. Bilateral nephrolithiasis. 3. Cholelithiasis. ACT 112: Negative or not required by law. Electronically signed by: Luis Parada M.D. 06/22/2020 3:45 PM Hospital Course (1) Acute kidney injury: Secondary to likely ATN from sepsis as well as postobstructive uropathy due to ureterolithiasis now status post ureteral stent Cr stephan from 1.3 to 1.7 to 2.29, peaked at 3.6 on 06/14 initially urine output was suboptimal, challenged with Bumex 4mg IV on 06/14 but no response temp HD catheter placed and HD on 06/15 with UF goal of 3L 2nd HD session on 06/16, tolerated well 3rd HD session on 06/17, met goal for UF Had tunneled hemodialysis catheter placed on 06/19 as there was no sign of renal recovery and she remained oliguric Creatinine up to 7 on 06/20 Fourth HD session on 06/20-having some nausea, lightheadedness, and exhaustion with treatment Continues to tolerate hemodialysis but with some side effects of headache on 06/22 Continue to treat infection, supportive care and follow BMP closely renally dose medications Planning on outpatient dialysis set up at [facility]-can also get dialysis at [facility] if accepted there in the meantime (2) Hydronephrosis concurrent with and due to calculi of kidney and ureter: With left-sided ureterolithiasis, now status post left ureter placement on 06/12 Urology recommends continuing stent for now and will follow up as an outpatient to determine when to remove the stent as she still has some stone burden (3) Acute hypercapnic respiratory failure: developed on 06/14, did not improve with BIPAP electively intubated on 06/14 successfully extubated 06/15, breathing well, more alert now that she had HD patient remains alert, ventilating well, no more concerns for respiratory acidosis -Discontinued doxepin and gabapentin that she was on at bedtime (4) Acute UTI (urinary tract infection): With septicemia-presented with septic shock, E. coli bacteremia, UTI due to ureteral stone, hydronephrosis urine and blood culture with Pansensitive E. coli continue ceftriaxone IV for 10-14 days due to complicated infection last day would be 06/23, but will continue oral antibiotics after that until stent is removed-cefdinir 300 mg p.o. every 48 hours to be given after dialysis no fever,No leukocytosis Repeat blood cultures on 06/14 no growth to date-final (5) Impaired fasting glucose: sugars well controlled No need for diabetic diet-removed this (6) Hypertension: BP stable, continue metoprolol 50 mg p.o. twice daily (7) Thrombocytopenia: consumptive due to sepsis, now resolved (8) Elevated INR: reversed in morning on 06/14 when it was 5 Coumadin was then held for tunneled hemodialysis catheter and was restarted on 06/20 at 5 mg once daily INR now supratherapeutic again, INR was 4.8 on the day of discharge -Continue to hold Coumadin today and restart at lower dose of 2.5 mg once INR drifts down to therapeutic levels-recommend checking PT/INR in 1 to 2 days at rehab (9) Altered mental status: multifactorial, CO2 retention and PETR and infection resolved after 24 hours of intubation and mechanical ventilation also, treated PETR with HD she remains alert and oriented now, no further concerns (10) Atrial fibrillation with RVR: Initially was with a rapid rate when had sepsis Now rate controlled Heparin drip has since been discontinued as INR became therapeutic Resumed Coumadin after hemodialysis catheter placed-therapeutic after only 2 doses of 5 mg daily and now supratherapeutic as above -Hold Coumadin today Follow INR in 1 day We will likely need to lower the dose down to 2.5 mg daily moving forward Disposition-table for discharge to [facility] PT/OT consultations appreciated-recommend rehab- Will need outpatient dialysis arranged through case management Total Time Total Time Spent Total Time Spent (In Minutes): 35 min Total Time Includes: Examination of the Patient, Discharge Planning and Medication Reconciliation Discharge Plan Discharge Items Patient Disposition: Transfer Inpatient Rehab Fac Reason For Visit: SEPSIS, HYPOTENSION, UTI, ELEVATED TROPONIN Discharge Diagnosis: E. coli septicemia, ureterolithiasis, renal failure requiring hemodialysis Condition on Discharge: Fair Activity: As commented below Bathing: Keep incision dry Exercise/Sports: Gradually increase as tolerated Exercise Comment: With PT/OT Weightbearing: Full weightbearing Non-emergency contact: Primary Care Provider, [employer] Urolog[facility] Call non-emergency contact if: you have any medication questions, your symptoms worsen, your pain is not controlled, you have a fever, your wound has increased redness, your wound has increased drainage and your wound pain has increased Follow-up/Referrals: Nohemi Gunter CRNP [Primary Care Provider] - Opal Contreras MD [Physician] - Toño Ferreira DO [Physician] - (Follow-up within 1 to 2 weeks for your kidney stones and stent.) Diet: Dialysis Renal Fluids: 1200ml (5 cups) Addtl Attending Provider Instructions: You were admitted to the hospital for septic shock and had an E. coli infection in your bloodstream and urine. You had a kidney stone that was blocking outflow of the urine from your left kidney; urology placed a stent to relieve the obstruction. Please follow-up with urology for definitive management of your remaining kidney stones in the ureter. You were started on dialysis as your kidneys failed and this will need to be continued 3 times a week. You were treated with IV ceftriaxone as an antibiotic for 2 weeks for the E. coli infection. You should remain on oral cefdinir twice a day until seen by urology to have your stent removed. Your INR was elevated on the day of discharge at 4.8. Your Coumadin has been held on 06/22 and again on 06/23. Please have your PT/INR checked again on 06/24. Would recommend Coumadin be restarted only at a lower dose of 2.5 mg once daily. Your INR will need to be monitored closely. Pending Studies at Discharge: No Stand-Alone Forms: My [facility] Skilled Items Patient informed of condition?: Yes DNR: No Discharge Level of Care: Acute rehab Communicable Disease: No Discharge Prognosis: Improving Lines: [place] Urinary Catheter: No Medications and DC Order Prescriptions: New Renal Caps 1 mg Capsule 1 cap PO QAM Qty: 30 RF: 0 cefdinir 300 mg capsule 300 mg PO .q48 Qty: 4 RF: 0 warfarin 2.5 mg tablet 2.5 mg PO DAILY Qty: 30 RF: 0 Continued metoprolol tartrate 50 mg tablet 50 mg PO BID Qty: 180 RF: 3 nystatin 100,000 unit/gram powder See Rx Instructions topical DAILY Qty: 60 RF: 2 cyanocobalamin (vitamin B-12) [Vitamin B-12] 1,000 mcg Tablet 1,000 mcg PO QAM RF: 0 denosumab [Prolia] 60 mg/mL Syringe 1 dose subcut UD RF: 0 cholecalciferol (vitamin D3) [Vitamin D3] 2,000 unit tablet 2,000 unit PO DAILY RF: 0 Changed acetaminophen 500 mg tablet 1,000 mg PO TID PRN (Reason: pain) Qty: 0 RF: 0 Discontinued warfarin 5 mg tablet 5 mg PO QPM RF: 0 warfarin 5 mg tablet 5 mg PO DAILY Qty: 100 RF: 3 acetaminophen-codeine 300-30 mg tablet See Rx Instructions PO Q6H PRN (Reason: pain) Qty: 240 RF: 0 gabapentin 300 mg capsule 300 mg PO QPM Qty: 90 RF: 1 doxepin 25 mg capsule See Rx Instructions PO HS PRN (Reason: insomnia) Qty: 180 RF: 3 nystatin-triamcinolone 100,000-0.1 unit/g-% cream 1 appln topical BID PRNQty: 1 RF: 0 Calmoseptine 0.44-20.6 % ointment 1 applic topical QID PRN (Reason: skin irritation) Qty: 71 RF: 3 furosemide 20 mg tablet 20 mg PO DAILY PRN (Reason: edema) Qty: 90 RF: 0 multivitamin Tablet 1 tab PO QAM RF: 0 Discharge Orders: Discharge Order (Routine); Ordered 06/23/20 Ordered By: Echo Carey Admission Data Admit Date/Time: 06/12/20 06:23 Attending Provider: Echo Carey Admit Provider: Samir Gaming Primary Care Provider: Nohemi Gunter Other Providers: Samir Gaming ; Toño Ferreira ; Fly Perez ; Velvet Burgess ; Toño Cardoso ; Adrian Lovett ; Opal Contreras ; Robert Dhaliwal ; Gilberto Strauss ; [facility] Coding Level of Care Code D/C Day Management >30 mins Diagnoses Acute kidney injury N17.9 Hydronephrosis concurrent with and due to calculi of kidney and ureter N13.2 Acute hypercapnic respiratory failure J96.02 Acute UTI (urinary tract infection) N39.0 Impaired fasting glucose R73.01 Hypertension I10 Thrombocytopenia D69.6 Elevated INR R79.1 Altered mental status R41.82 Atrial fibrillation with RVR I48.91
== END 2020-06-23 15:37 | DRG 853 ==
LOC: ED 03:30 → 1E 06:23 → SUATTDRO 06:23 → 1E 06:56 → 3E 06-17 10:44

== ENCOUNTER 2020-08-09 14:52 | Inpatient (IN) ==
--- NOTE | 2020-08-09 17:56 | Emergency Department Note ---
History of Present Illness General Chief complaint: Abnormal Labs/Diagnostic Testing Stated complaint: SEPSIS, REF'D BY DR DOMINGUEZ Time Seen by Provider: 08/09/20 17:18 Source: patient History of Present Illness Provider complaint: Hematuria Onset (ago): week(s) Location: genitals Pain Consistency: + intermittent Quality: + other (Hematuria) Relieved By: + none Associated symptoms: + other (Fatigue); no chest pain, no cough, no fever/chills, no headaches, no malaise, no nausea/vomiting and no shortness of breath This is a 74-year-old female who presents for IV antibiotics and hospitalization. She was sent in by her urologist due to a positive urine culture from 05 August. The patient states that she was admitted to the hospital in June. She had sepsis and a kidney stone. She had a stent placed and was on dialysis for short period of time. She is currently on antibiotics but does not know what she is on. She only has 2 days left. She received a call from her urologist today stating that she needed IV antibiotics because of a urine cultur e result from Friday the . She complains of hematuria intermittently for the past week. She describes it as reddish urine. She has had no associated burning on urination. She has been incontinent for some time and so she is not sure if she has frequency. She denies any fever, vomiting, chest pain, shortness of breath, abdominal pain or diarrhea. She does state that she feels fatigued. Home Medications Medication Instructions Recorded Confirmed Type Prolia 1 dose SUBCUT UD 01/19/18 08/09/20 History cyanocobalamin (vitamin B-12) 1,000 mcg PO QAM 01/19/18 08/09/20 History [Vitamin B-12] cholecalciferol (vitamin D3) 50 2,000 unit PO DAILY tab 10/07/18 08/09/20 History mcg (2,000 unit) tablet nystatin 100,000 unit/gram topical See Rx Instructions TOPICAL DAILY 02/22/20 08/09/20 Rx powder #60 g acetaminophen 1,000 mg PO TID PRN #0 tab 06/23/20 08/09/20 Rx warfarin 2.5 mg tablet 2.5 mg PO DAILY #90 tab 08/02/20 08/09/20 Rx metoprolol tartrate 25 mg PO Q8 08/09/20 08/09/20 History Allergies Allergy/AdvReac Type Severity Reaction Status Date / Time adhesive Allergy Intermediate RASH, Verified 08/09/20 17:47 BLISTERING alendronate sodium Allergy Unknown SICK TO Verified 08/09/20 17:47 STOMACH latex Allergy Unknown SKIN Verified 08/09/20 17:47 TEARING Past Med/Surg History Medical History Anticoagulant long-term use Hypertension Lactic acidosis Paroxysmal atrial fibrillation Septic shock Stroke x2. both 10 years ago. pt w/ intermittent numbness to right hand. no neurologist. Ureteral stone with hydronephrosis Surgical History History of colonoscopy w/ polypectomy History of dilatation and curettage History of gastric bypass History of hysterectomy History of surgery right leg r/t femur injury History of total knee replacement rt knee History of total shoulder replacement left Hx of cataract surgery right Family History Grandfather Family history of diabetes mellitus Daughter Family history of esophageal cancer Other Coronary heart disease Ovarian cancer Denies family history of Prostate cancer Lung cancer Colorectal cancer Social History Smoking Status: Never smoker Second Hand Exposure: No; Hx Alcohol Use: No Hx Substance Use: No Preferred Language: Yoruba Communication Ability: Impaired Operations Vice President Required: No Beliefs That Will Affect Care: None Current Living Situation: Spouse Feels Safe at Home: Yes Seatbelt Use: always Assistive Devices: Walker Review of Systems See HPI for pertinent positives & negatives. and A total of 10 systems reviewed and were otherwise negative Physical Exam Vital Signs Vital Signs - 24 hr 08/09/20 15:16 08/09/20 18:30 08/09/20 18:32 Temperature 36.7 C Temperature Source Oral Pulse Rate 93 H 90 Pulse Rate [Apical] 91 H Pulse Rate from SpO2 Sensor 92 H Pulse Rhythm Regular Pulse Strength Normal Respiratory Rate 20 14 18 Respiratory Effort / Characteristics Non-Labored Spontaneous Respiratory Depth Normal Respiratory Pattern Regular Blood Pressure 126/72 102/71 Blood Pressure [Left Arm] 102/71 Blood Pressure Mean 90 81 Blood Pressure Mean [Left Arm] 81 Blood Pressure Position Sitting Pulse Oximetry 97 98 98 Oxygen Delivery Method Room Air Sepsis Recent Fever Within 48 Hours No Sepsis New/Unexplained Change in Mental Status No Sepsis Action Taken by Nursing No Action Required 08/09/20 18:33 08/09/20 19:00 08/09/20 19:30 Temperature Temperature Source Pulse Rate 91 H 87 90 Pulse Rate [Apical] Pulse Rate from SpO2 Sensor 90 Pulse Rhythm Pulse Strength Respiratory Rate 18 22 17 Respiratory Effort / Characteristics Respiratory Depth Respiratory Pattern Blood Pressure 130/68 133/80 Blood Pressure [Left Arm] Blood Pressure Mean 88 97 Blood Pressure Mean [Left Arm] Blood Pressure Position Pulse Oximetry 98 97 98 Oxygen Delivery Method Sepsis Recent Fever Within 48 Hours Sepsis New/Unexplained Change in Mental Status Sepsis Action Taken by Nursing Constitutional: Vital signs reviewed. Eyes: Pupils are equal round reactive to light. Conjunctiva are noninjected. ENT: Pharynx is clear without erythema or exudate. Mucous membranes are moist. Neck supple without meningeal signs. Respiratory: Clear to auscultation bilaterally. Breath sounds are equal bilaterally. Cardiovascular: Regular rate and rhythm. No rubs or gallops. GI: Soft, nondistended and nontender. Bowel sounds are present. Musculoskeletal: Bilateral lower extremity edema. No CVA tenderness. Integumentary: No cyanosis. or jaundice. Neurological: The patient is awake and alert. No focal deficits. Psychiatric: Normal affect. Not anxious appearing. Course Administered Medications Miscellaneous Information (Daptomycin Consult Active) 1 ea N/A UD PRN PRN Reason: Consult Stop: 09/08/20 18:54 Last Admin: 08/09/20 19:22 Dose: 1 ea Documented by: [id number] Discontinued Medications Daptomycin 500 mg/ Syringe 10 mls @ 5 mls/min IV NOW ONE; Protocol Stop: 08/09/20 18:56 Last Admin: 08/09/20 19:22 Dose: 5 mls/min Documented by: [id number] Medical Decision Making Differential Diagnosis UTI, pyelonephritis, obstructive uropathy, VRE, PETR Medical Records Attestation: I reviewed the patient's medical records. I did perform a limited focused review of portions of the patient's old chart on the electronic medical record. The patient was admitted in June for E. coli sepsis with septic shock and acute renal failure requiring hemodialysis as well as a left ureteral stone. Home Medications Current Medication List: was personally reviewed by me Laboratory Data Attestation: I reviewed the patient's lab results. Result diagrams: 08/09/20 18:01 08/09/20 18:01 Lab Results 08/09/20 08/09/20 08/09/20 Range/Units 18:01 18:01 18:01 WBC 5.57 (4.8-10.8) K/uL RBC 3.84 L (4.2-5.4) M/uL Hgb 13.0 (12.0-16.0) g/dL Hct 38.8 (37-47) % MCV 101.0 H (80-100) fL MCH 33.9 (25-34) pg MCHC 33.5 (32-36) g/dL RDW Std Deviation 53.9 H (36.4-46.3) fL RDW Coeff of Sonia 14.6 H (11.5-14.5) % Plt Count 126 L (130-400) K/uL MPV 10.8 H (7.4-10.4) fL Immature Gran % (Auto) 0.0 % Neut % (Auto) 63.9 % Lymph % (Auto) 24.6 % [place] % (Auto) 8.8 % Eos % (Auto) 2.5 % Baso % (Auto) 0.2 % Neut # (Auto) 3.56 (1.4-6.5) K/uL Lymph # (Auto) 1.37 (1.2-3.4) K/uL [place] # (Auto) 0.49 (0.11-0.59) K/uL Eos # (Auto) 0.14 (0-0.5) K/uL Baso # (Auto) 0.01 (0-0.2) K/uL Immature Gran # (Auto) 0.00 (0.00-0.02) K/uL Sodium 141 (136-145) mmol/L Potassium 3.5 (3.5-5.1) mmol/L Chloride 108 H (98-107) mmol/L Carbon Dioxide 29 (21-32) mmol/L Anion Gap 4.0 (3-11) BUN 15 (7-18) mg/dl Creatinine 0.89 (0.6-1.2) mg/dl Est Cr Clr Drug Dosing Not Reportable Est GFR ( Amer) 75.0 ml/min Est GFR (Non-Af Amer) 64.7 ml/min BUN/Creatinine Ratio 16.4 (10-20) Glucose 102 H (70-99) mg/dl Calcium 9.3 (8.5-10.1) mg/dl Total Bilirubin 1.2 H (0.2-1) mg/dl AST 22 (15-37) U/L ALT 19 (12-78) U/L Alkaline Phosphatase 85 (45-117) U/L Total Protein 7.2 (6.4-8.2) gm/dl Albumin 3.0 L (3.4-5.0) gm/dl Globulin 4.2 H (2.5-4.0) gm/dl Albumin/Globulin Ratio 0.7 L (0.9-2) Urine Color Fisher Urine Appearance Turbid A (Clear) Urine pH 6.0 (4.5-7.5) Ur Specific [place] 1.018 (1.000-1.030) Urine Protein 3+ H (Negative) Urine Glucose (UA) Negative (Negative) Urine Ketones Negative (Negative) Urine Blood 3+ H (Negative) Urine Nitrite Negative (Negative) Urine Bilirubin Negative (Negative) Urine Urobilinogen Negative (Negative) Ur Leukocyte Esterase 3+ H (Negative) Urine WBC (Auto) >30 H (0-5) /hpf Urine RBC (Auto) >30 H (0-4) /hpf U Hyaline Cast (Auto) 0 (0-5) /lpf U Epithel Cells (Auto) 10-20 H (0-5) /lpf Urine Bacteria (Auto) Negative (Negative) Urine Crystals Not Reportable Calcium Oxalate Crystal Present A (None Prsent) Urine Yeast Not Reportable COVID-19 Eval Order SARS-CoV-2 (PCR) (Negative) 08/09/20 08/09/20 Range/Units 18:15 18:15 WBC (4.8-10.8) K/uL RBC (4.2-5.4) M/uL Hgb (12.0-16.0) g/dL Hct (37-47) % MCV (80-100) fL MCH (25-34) pg MCHC (32-36) g/dL RDW Std Deviation (36.4-46.3) fL RDW Coeff of Sonia (11.5-14.5) % Plt Count (130-400) K/uL MPV (7.4-10.4) fL Immature Gran % (Auto) % Neut % (Auto) % Lymph % (Auto) % [place] % (Auto) % Eos % (Auto) % Baso % (Auto) % Neut # (Auto) (1.4-6.5) K/uL Lymph # (Auto) (1.2-3.4) K/uL [place] # (Auto) (0.11-0.59) K/uL Eos # (Auto) (0-0.5) K/uL Baso # (Auto) (0-0.2) K/uL Immature Gran # (Auto) (0.00-0.02) K/uL Sodium (136-145) mmol/L Potassium (3.5-5.1) mmol/L Chloride (98-107) mmol/L Carbon Dioxide (21-32) mmol/L Anion Gap (3-11) BUN (7-18) mg/dl Creatinine (0.6-1.2) mg/dl Est Cr Clr Drug Dosing Est GFR ( Amer) ml/min Est GFR (Non-Af Amer) ml/min BUN/Creatinine Ratio (10-20) Glucose (70-99) mg/dl Calcium (8.5-10.1) mg/dl Total Bilirubin (0.2-1) mg/dl AST (15-37) U/L ALT (12-78) U/L Alkaline Phosphatase (45-117) U/L Total Protein (6.4-8.2) gm/dl Albumin (3.4-5.0) gm/dl Globulin (2.5-4.0) gm/dl Albumin/Globulin Ratio (0.9-2) Urine Color Urine Appearance (Clear) Urine pH (4.5-7.5) Ur Specific [place] (1.000-1.030) Urine Protein (Negative) Urine Glucose (UA) (Negative) Urine Ketones (Negative) Urine Blood (Negative) Urine Nitrite (Negative) Urine Bilirubin (Negative) Urine Urobilinogen (Negative) Ur Leukocyte Esterase (Negative) Urine WBC (Auto) (0-5) /hpf Urine RBC (Auto) (0-4) /hpf U Hyaline Cast (Auto) (0-5) /lpf U Epithel Cells (Auto) (0-5) /lpf Urine Bacteria (Auto) (Negative) Urine Crystals Calcium Oxalate Crystal (None Prsent) Urine Yeast COVID-19 Eval Order Covid19 at [facility] SARS-CoV-2 (PCR) NEGATIVE (Negative) Imaging Data Radiologist's Impression: Chest X-Ray 08/09/20 17:28 XR chest 1V portable, XR KUB/Abdomen 1 view HISTORY: 74 years-old Female eval for pna acute shortness of breath with left- sided abdominal pain COMPARISON: Chest radiograph 06/17/2020 KUB 06/14/2020. TECHNIQUE: AP view of the chest with KUB radiograph FINDINGS: CHEST: Cardiac silhouette is enlarged. Pulmonary vascular congestion with interstitial coarsening. No pneumothorax, pleural effusion or lobar airspace consolidation. Right IJ dual-lumen hemodialysis catheter distal tip is projected over the right atrium. Severe degeneration of the right glenohumeral joint. Reverse left shoulder total joint arthroplasty. KUB: A left-sided ureteral stent appears to be in satisfactory positioning. 1.2 cm left renal calculus redemonstrated. The renal shadows are partially obscured by bowel gas. Numerous calcifications are noted within the pelvis with a few overlying the distal portion of the left ureteral stent, the largest of which measures 6 mm. Nonobstructive bowel gas pattern. No pneumatosis or pneumoperitoneum. IMPRESSION: 1. Cardiomegaly with pulmonary vascular congestion. 2. Left ureteral stent appears to be in satisfactory positioning. Calcifications of the pelvis overlying the distal stent measuring up to 6 mm are suggestive of phleboliths versus ureteral calculi. Correlate with urinalysis. 3. Left nephrolithiasis. ACT 112: Negative or not required by law. The above report was generated using voice recognition software. It may contain grammatical, syntax or spelling errors. Electronically signed by: Panfilo Henry M.D. 08/09/2020 6:42 PM KUB X-Ray 08/09/20 17:28 XR chest 1V portable, XR KUB/Abdomen 1 view HISTORY: 74 years-old Female eval for pna acute shortness of breath with left- sided abdominal pain COMPARISON: Chest radiograph 06/17/2020 KUB 06/14/2020. TECHNIQUE: AP view of the chest with KUB radiograph FINDINGS: CHEST: Cardiac silhouette is enlarged. Pulmonary vascular congestion with interstitial coarsening. No pneumothorax, pleural effusion or lobar airspace consolidation. Right IJ dual-lumen hemodialysis catheter distal tip is projected over the right atrium. Severe degeneration of the right glenohumeral joint. Reverse left shoulder total joint arthroplasty. KUB: A left-sided ureteral stent appears to be in satisfactory positioning. 1.2 cm le ft renal calculus redemonstrated. The renal shadows are partially obscured by bowel gas. Numerous calcifications are noted within the pelvis with a few overlying the distal portion of the left ureteral stent, the largest of which measures 6 mm. Nonobstructive bowel gas pattern. No pneumatosis or pne umoperitoneum. IMPRESSION: 1. Cardiomegaly with pulmonary vascular congestion. 2. Left ureteral stent appears to be in satisfactory positioning. Calcifications of the pelvis overlying the distal stent measuring up to 6 mm are suggestive of phleboliths versus ureteral calculi. Correlate with urinalysis. 3. Left nephrolithiasis. ACT 112: Negative or not required by law. The above report was generated using voice recognition software. It may contain grammatical, syntax or spelling errors. Electronically signed by: Panfilo Henry M.D. 08/09/2020 6:42 PM MDM Narrative I did evaluate the patient as noted above. The patient was sent here for IV antibiotics and admission for a urine culture showing VRE. IV access was established. I did order a urine analysis. She does have a UTI. Blood cu ltures were ordered. I did treat the patient with daptomycin IV. I did order and personally reviewed the images of the patient's chest and KUB x-rays as described above. She does appear to have a left ureteral stone. Her stent is in good position. There is no evidence of pneumonia. I did order and review the patient's blood work as noted in the electronic medical record. Her white count is not elevated. Platelets are slightly low at 126. Electrolytes are unremarkable with preserved renal function. Covid screening is negative. I did discuss the case with the hospitalist and business case analyst. Impression & Plan Complicated urinary tract infection, VRE (vancomycin resistant enterococcus) culture positive, Obstruction, uropathy Discharge Plan Visit Data Chief Complaint: Abnormal Labs/Diagnostic Testing Stated Complaint: SEPSIS, REF'D BY DR DOMINGUEZ ED Provider: Poornima,Sonu S. Discharge Problem: Complicated urinary tract infection, VRE (vancomycin resistant enterococcus) culture positive, Obstruction, uropathy Forms Stand Alone Forms: My [facility] Prescriptions Prescriptions: No Action warfarin 2.5 mg tablet 2.5 mg PO DAILY Qty: 90 RF: 3 nystatin 100,000 unit/gram powder See Rx Instructions topical DAILY Qty: 60 RF: 2 cyanocobalamin (vitamin B-12) [Vitamin B-12] 1,000 mcg Tablet 1,000 mcg PO QAM RF: 0 Prolia 60 mg/mL Syringe 1 dose subcut UD RF: 0 cholecalciferol (vitamin D3) [Vitamin D3] 2,000 unit tablet 2,000 unit PO DAILY RF: 0 acetaminophen 500 mg tablet 1,000 mg PO TID PRN (Reason: pain) Qty: 0 RF: 0 metoprolol tartrate 25 mg tablet 25 mg PO Q8 RF: 0 Referrals Referrals: Nohemi Gunter CRNP [Primary Care Provider] -
[2020-08-09 18:10] LABS: Basophils # (auto) 0.01 K/uL (0-0.2); Basophils % (auto) 0.2 %; Eosinophils # (auto) 0.14 K/uL (0-0.5); Eosinophils % (auto) 2.5 %; Hematocrit (blood only) 38.8 % (37-47); Lymphocytes # (auto) 1.37 K/uL (1.2-3.4); Lymphocytes % (auto) 24.6 %; Mean Corpuscular Hemoglobin 33.9 pg (25-34); Mean Corpuscular Hgb Conc 33.5 g/dL (32-36); Mean Platelet Volume 10.8 fL (7.4-10.4); Monocytes # (auto) 0.49 K/uL (0.11-0.59); Monocytes % (auto) 8.8 %; Neutrophils # (auto) 3.56 K/uL (1.4-6.5); Neutrophils % (auto) 63.9 %; Platelet Count 126 K/uL (130-400); RDW Coefficient of Variation 14.6 % (11.5-14.5); RDW Standard Deviation 53.9 fL (36.4-46.3); Red Blood Count 3.84 M/uL (4.2-5.4); White Blood Count 5.57 K/uL (4.8-10.8)
[2020-08-09 18:21] LABS: Appearance Urine Turbid (Clear); Bacteria Urine Automated Negative (Negative); Bilirubin Urine Negative (Negative); Blood Urine 3+ (Negative); Color Urine Orange; Glucose Urine UA Negative (Negative); Ketones Urine Negative (Negative); Leukocyte Esterase Urine 3+ (Negative); Nitrite Urine Negative (Negative); Protein Urine 3+ (Negative); Specific Gravity Urine 1.018 (1.000-1.030); Urobilinogen Urine Negative (Negative); WBC Urine Automated >30 /hpf (0-5)
[2020-08-09 18:26] LABS: Alanine Aminotransferase 19 U/L (12-78); Aspartate Aminotransferase 22 U/L (15-37); BUN Creatinine Ratio 16.4 (10-20); Blood Urea Nitrogen 15 mg/dl (7-18); Calcium 9.3 mg/dl (8.5-10.1); Carbon Dioxide 29 mmol/L (21-32); Chloride 108 mmol/L (98-107); Est GFR (Non-African American) 64.7 ml/min; Glucose 102 mg/dl (70-99); Potassium 3.5 mmol/L (3.5-5.1); Sodium 141 mmol/L (136-145)
[2020-08-09 18:29] LABS: Albumin Globulin Ratio 0.7 (0.9-2); Alkaline Phosphatase 85 U/L (45-117); Bilirubin,Total 1.2 mg/dl (0.2-1); Globulin 4.2 gm/dl (2.5-4.0); Total Protein 7.2 gm/dl (6.4-8.2)
--- NOTE | 2020-08-09 18:43 | XRay Report ---
XR chest 1V portable, XR KUB/Abdomen 1 view HISTORY: 74 years-old Female eval for pna acute shortness of breath with left-sided abdominal pain COMPARISON: Chest radiograph 06/17/2020 KUB 06/14/2020. TECHNIQUE: AP view of the chest with KUB radiograph FINDINGS: CHEST: Cardiac silhouette is enlarged. Pulmonary vascular congestion with interstitial coarsening. No pneumo thorax, pleural effusion or lobar airspace consolidation. Right IJ dual-lumen hemodialysis catheter d istal tip is projected over the right atrium. Severe degeneration of the right glenohumeral joint. Re verse left shoulder total joint arthroplasty. KUB: A left-sided ureteral stent appears to be in satisfactory positioning. 1.2 cm left renal calculus red emonstrated. The renal shadows are partially obscured by bowel gas. Numerous calcifications are noted within the pelvis with a few overlying the distal portion of the left ureteral stent, the largest of which measures 6 mm. Nonobstructive bowel gas pattern. No pneumatosis or pneumoperitoneum. IMPRESSION: 1. Cardiomegaly with pulmonary vascular congestion. 2. Left ureteral stent appears to be in satisfactory positioning. Calcifications of the pelvis overly ing the distal stent measuring up to 6 mm are suggestive of phleboliths versus ureteral calculi. Shaq elate with urinalysis. 3. Left nephrolithiasis. ACT 112: Negative or not required by law. The above report was generated using voice recognition software. It may contain grammatical, syntax o r spelling errors. Electronically signed by: Panfilo Henry M.D. 08/09/2020 6:42 PM
[2020-08-09] MEDS ORDERED: DAPTOmycin 500 MG in SYRINGE 0 ML IV ONE ×2 (18:55→21:10)
[2020-08-09 19:02] LABS: Cast Urine Automated 0 /lpf (0-5); RBC Urine Automated >30 /hpf (0-4)
[2020-08-09 19:03] LABS: Calcium Oxalate Crystals Urine Present (None Prsent)
--- NOTE | 2020-08-09 19:49 | History & Physical Report ---
Date of Service August 09, 2020 Assessment & Plan (1) VRE (vancomycin resistant enterococcus) culture positive: Culture positive for VRE faecium - Ampicillin resistant. Patient afebrile, HD stable, really with minimal complaints of UTI. No clinical evidence of systemic infection. -Admit to medical -Daptomycin per susceptibilities -Contact isolation -Follow cultures Present on Admission?: Yes (2) Atrial fibrillation: Rate controlled -Continue Metoprolol 25mg po q 8 hours -Holding Coumadin for now in case of Urological procedure Present on Admission?: Yes (3) Hypertension: Blood pressure stable -Continue metoprolol -Continue to monitor Present on Admission?: Yes (4) Nephrolithiasis: Stones in place. Patient was scheduled for lithotripsy -Urology consultation appreciated F/E/N - Regular diet Ppx - Lovenox Code - Full Dispo - Admit to medical Present on Admission?: Yes History of Present Illness Primary Care Provider: TEX Fountain Ami Hagen is a 74-year-old female with history of hypertension, paroxysmal atrial fibrillation, status post gastric bypass surgery. Patient had a prolonged and complicated hospital stay in June (06/12 - 06/23/20) for septic shock from E.coli UTI and bacteremia. She requiring intubation for acute hypercapnic respiratory failure, MICU care. She developed acute renal failure secondary to septic shock, obstructing 7mm left ureteral calculus with hydronephrosis and post-obstructive uropathy. She had a ureteral stent placed on 06/12. She had a temporary HD catheter placed on 06/15 for dialysis and received 4 dialysis treatments during her hospital stay. She had a tunneled HD catheter on 06/19. Patient ultimately recovered and was discharged to [facility] on 06/23/20. Her kidneys have recovered and she is no longer requiring HD - has been off since 07/14/20. She is to have her tunnelled catheter removed. She is also to have cystoscopy, left ureteroscopy, daysi lithotripsy and left stent exchange performed by Urology on 08/14/20. Patient had a UA and culture performed on 07/25/20 as well as 08/05/20 which were positive for VRE. Patient was notified by her Urologist today and instructed to come to the ER for IV antibiotics. Patient with no complaints. She has noticed an overall decline in her functional status since her MICU admission. She gets tired more easily and has some muscle weakness. Otherwise, she has not complaints. Specifically denies fever, chills, rigors, nausea, back pain, suprapubic pain, dysuria. She denies chest pain, palpitations, cough or SOB. She does endorse some hematuria for the last week. No clots reported. ER Course: Daptomycin Allergies Allergy/AdvReac Type Severity Reaction Status Date / Time adhesive Allergy Intermediate RASH, Verified 08/09/20 17:47 BLISTERING alendronate sodium Allergy Unknown SICK TO Verified 08/09/20 17:47 STOMACH latex Allergy Unknown SKIN Verified 08/09/20 17:47 TEARING Home Medications Medication Instructions Recorded Confirmed Type Prolia 1 dose SUBCUT UD 01/19/18 08/09/20 History cyanocobalamin (vitamin B-12) 1,000 mcg PO QAM 01/19/18 08/09/20 History [Vitamin B-12] cholecalciferol (vitamin D3) 50 2,000 unit PO DAILY tab 10/07/18 08/09/20 History mcg (2,000 unit) tablet nystatin 100,000 unit/gram topical See Rx Instructions TOPICAL DAILY 02/22/20 08/09/20 Rx powder #60 g acetaminophen 1,000 mg PO TID PRN #0 tab 06/23/20 08/09/20 Rx warfarin 2.5 mg tablet 2.5 mg PO DAILY #90 tab 08/02/20 08/09/20 Rx metoprolol tartrate 25 mg PO Q8 08/09/20 08/09/20 History Past Med/Surg History Medical History Anticoagulant long-term use Hypertension Lactic acidosis Paroxysmal atrial fibrillation Septic shock Stroke x2. both 10 years ago. pt w/ intermittent numbness to right hand. no neurologist. Ureteral stone with hydronephrosis Surgical History History of colonoscopy w/ polypectomy History of dilatation and curettage History of gastric bypass History of hysterectomy History of surgery right leg r/t femur injury History of total knee replacement rt knee History of total shoulder replacement left Hx of cataract surgery right Family History Grandfather Family history of diabetes mellitus Daughter Family history of esophageal cancer Other Coronary heart disease Ovarian cancer Denies family history of Prostate cancer Lung cancer Colorectal cancer Social History Smoking Status: Never smoker Second Hand Exposure: No; Hx Alcohol Use: No Hx Substance Use: No Preferred Language: Somali Communication Ability: Effective Box Estimator Required: No Beliefs That Will Affect Care: None Current Living Situation: Spouse Other Information That Helps Us Care for You: No Feels Safe at Home: Yes Safety Concerns: Feels Safe At This Time Seatbelt Use: always Assistive Devices: Cane and Glasses Assistive Devices Comment: Glasses- readers, not with her at this time Review of Systems Review of Systems: All systems reviewed & are unremarkable except as noted in HPI & below Physical Exam Physical Exam: General: patient resting comfortably, NAD, non-toxic in appearance, AA&O x 4 Skin: warm, dry, intact, no rashes or lesions HEENT: NC/AT, PERRL, EOMI, anicteric sclera, conjunctiva without injection, external ear normal to inspection and nontender, nares patent, moist mucus membranes, dentition intact, no oropharyngeal lesions, neck supple, trachea mid line, no LAD, no thyromegaly, no JVD Heart: +S1/S2, regular, no m/r/g, right chest tunnelled catheter in place, nontender, no erythema Lungs: equal air entry bilaterally, no rales/rhonchi/wheezes Abd: +BS, soft, NT/ND, no masses/organomegaly/ascites Ext: warm, 2+ pulses in UE/LE bilaterally, no clubbing/cyanosis or edema Neuro: nonfocal, patient AA&O x 4, speech intact, no facial droop, moving all extremities on command with equal strength 5/5 Results & Data Results & Data ([facility]) Vital Signs (Past 12 Hours) Vital Signs Temp Pulse Pulse Resp BP BP Pulse Ox 08/09/20 19:00 87 22 130/68 97 08/09/20 18:33 91 H 18 98 08/09/20 18:32 91 H 18 102/71 98 08/09/20 18:30 90 14 102/71 98 08/09/20 15:16 36.7 C 93 H 20 126/72 97 Laboratory Results Laboratory Results WBC 5.57 K/uL (4.8-10.8) 08/09/20 18: RBC 3.84 M/uL (4.2-5.4) L 08/09/20 18:01 Hgb 13.0 g/dL (12.0-16.0) 08/09/20 18:01 Hct 38.8 % (37-47) 08/09/20 18: MCV 101.0 fL (80-100) H 08/09/20 18:01 MCH 33.9 pg (25-34) 08/09/20 18:01 MCHC 33.5 g/dL (32-36) 08/09/20 18: RDW Std Deviation 53.9 fL (36.4-46.3) H 08/09/20 18: RDW Coeff of Sonia 14.6 % (11.5-14.5) H 08/09/20 18: Plt Count 126 K/uL (130-400) L 08/09/20 18: MPV 10.8 fL (7.4-10.4) H 08/09/20 18:01 Immature Gran % (Auto) 0.0 % 08/09/20 18: Neut % (Auto) 63.9 % 08/09/20 18: Lymph % (Auto) 24.6 % 08/09/20 18:01 Garrett % (Auto) 8.8 % 08/09/20 18:01 Eos % (Auto) 2.5 % 08/09/20 18:01 Baso % (Auto) 0.2 % 08/09/20 18:01 Neut # (Auto) 3.56 K/uL (1.4-6.5) 08/09/20 18:01 Lymph # (Auto) 1.37 K/uL (1.2-3.4) 08/09/20 18:01 Garrett # (Auto) 0.49 K/uL (0.11-0.59) 08/09/20 18:01 Eos # (Auto) 0.14 K/uL (0-0.5) 08/09/20 18:01 Baso # (Auto) 0.01 K/uL (0-0.2) 08/09/20 18:01 Immature Gran # (Auto) 0.00 K/uL (0.00-0.02) 08/09/20 18:01 Sodium 141 mmol/L (136-145) 08/09/20 18:01 Potassium 3.5 mmol/L (3.5-5.1) 08/09/20 18:01 Chloride 108 mmol/L (98-107) H 08/09/20 18:01 Carbon Dioxide 29 mmol/L (21-32) 08/09/20 18: Anion Gap 4.0 (3-11) 08/09/20 18:01 BUN 15 mg/dl (7-18) 08/09/20 18: Creatinine 0.89 mg/dl (0.6-1.2) 08/09/20 18: Est Cr Clr Drug Dosing Not Reportable 08/09/20 18: Est GFR ( Amer) 75.0 ml/min 08/09/20 18: Est GFR (Non-Af Amer) 64.7 ml/min 08/09/20 18: BUN/Creatinine Ratio 16.4 (10-20) 08/09/20 18:01 Glucose 102 mg/dl (70-99) H 08/09/20 18:01 Calcium 9.3 mg/dl (8.5-10.1) 08/09/20 18: Phosphorus 3.0 mg/dl (2.5-4.9) 08/09/20 18:01 Magnesium 1.9 mg/dl (1.8-2.4) 08/09/20 18: Total Bilirubin 1.2 mg/dl (0.2-1) H 08/09/20 18:01 AST 22 U/L (15-37) 08/09/20 18:01 ALT 19 U/L (12-78) 08/09/20 18:01 Alkaline Phosphatase 85 U/L (45-117) 08/09/20 18:01 Total Protein 7.2 gm/dl (6.4-8.2) 08/09/20 18:01 Albumin 3.0 gm/dl (3.4-5.0) L 08/09/20 18: Globulin 4.2 gm/dl (2.5-4.0) H 08/09/20 18:01 Albumin/Globulin Ratio 0.7 (0.9-2) L 08/09/20 18:01 Urine Color [place] 08/09/20 18:01 Urine Appearance Turbid (Clear) A 08/09/20 18:01 Urine pH 6.0 (4.5-7.5) 08/09/20 18:01 Ur Specific [place] 1.018 (1.000-1.030) 08/09/20 18:01 Urine Protein 3+ (Negative) H 08/09/20 18:01 Urine Glucose (UA) Negative (Negative) 08/09/20 18:01 Urine Ketones Negative (Negative) 08/09/20 18:01 Urine Blood 3+ (Negative) H 08/09/20 18:01 Urine Nitrite Negative (Negative) 08/09/20 18: Urine Bilirubin Negative (Negative) 08/09/20 18:01 Urine Urobilinogen Negative (Negative) 08/09/20 18:01 Ur Leukocyte Esterase 3+ (Negative) H 08/09/20 18:01 Urine WBC (Auto) >30 /hpf (0-5) H 08/09/20 18:01 Urine RBC (Auto) >30 /hpf (0-4) H 08/09/20 18:01 U Hyaline Cast (Auto) 0 /lpf (0-5) 08/09/20 18:01 U Epithel Cells (Auto) 10-20 /lpf (0-5) H 08/09/20 18:01 Urine Bacteria (Auto) Negative (Negative) 08/09/20 18:01 Urine Crystals Not Reportable 08/09/20 18:01 Calcium Oxalate Crystal Present (None Prsent) A 08/09/20 18:01 Urine Yeast Not Reportable 08/09/20 18:01 COVID-19 Eval Order Covid19 at [facility] 08/09/20 18:15 SARS-CoV-2 (PCR) NEGATIVE (Negative) 08/09/20 18:15 Impressions Chest X-Ray 08/09/20 17:28 XR chest 1V portable, XR KUB/Abdomen 1 view HISTORY: 74 years-old Female eval for pna acute shortness of breath with left- sided abdominal pain COMPARISON: Chest radiograph 06/17/2020 KUB 06/14/2020. TECHNIQUE: AP view of the chest with KUB radiograph FINDINGS: CHEST: Cardiac silhouette is enlarged. Pulmonary vascular congestion with interstitial coarsening. No pneumothorax, pleural effusion or lobar airspace consolidation. Right IJ dual-lumen hemodialysis catheter distal tip is projected over the right atrium. Severe degeneration of the right glenohumeral joint. Reverse left shoulder total joint arthroplasty. KUB: A left-sided ureteral stent appears to be in satisfactory positioning. 1.2 cm left renal calculus redemonstrated. The renal shadows are partially obscured by bowel gas. Numerous calcifications are noted within the pelvis with a few overlying the distal portion of the left ureteral stent, the largest of which measures 6 mm. Nonobstructive bowel gas pattern. No pneumatosis or pneumoperitoneum. IMPRESSION: 1. Cardiomegaly with pulmonary vascular congestion. 2. Left ureteral stent appears to be in satisfactory positioning. Calcifications of the pelvis overlying the distal stent measuring up to 6 mm are suggestive of phleboliths versus ureteral calculi. Correlate with urinalysis. 3. Left nephrolithiasis. ACT 112: Negative or not required by law. The above report was generated using voice recognition software. It may contain grammatical, syntax or spelling errors. Electronically signed by: Panfilo Henry M.D. 08/09/2020 6:42 PM KUB X-Ray 08/09/20 17:28 XR chest 1V portable, XR KUB/Abdomen 1 view HISTORY: 74 years-old Female eval for pna acute shortness of breath with left- sided abdominal pain COMPARISON: Chest radiograph 06/17/2020 KUB 06/14/2020. TECHNIQUE: AP view of the chest with KUB radiograph FINDINGS: CHEST: Cardiac silhouette is enlarged. Pulmonary vascular congestion with interstitial coarsening. No pneumothorax, pleural effusion or lobar airspace consolidation. Right IJ dual-lumen hemodialysis catheter distal tip is projected over the right atrium. Severe degeneration of the right glenohumeral joint. Reverse left shoulder total joint arthroplasty. KUB: A left-sided ureteral stent appears to be in satisfactory positioning. 1.2 cm left renal calculus redemonstrated. The renal shadows are partially obscured by bowel gas. Numerous calcifications are noted within the pelvis with a few overlying the distal portion of the left ureteral stent, the largest of which measures 6 mm. Nonobstructive bowel gas pattern. No pneumatosis or pneumoperitoneum. IMPRESSION: 1. Cardiomegaly with pulmonary vascular congestion. 2. Left ureteral stent appears to be in satisfactory positioning. Calcifications of the pelvis overlying the distal stent measuring up to 6 mm are suggestive of phleboliths versus ureteral calculi. Correlate with urinalysis. 3. Left nephrolithiasis. ACT 112: Negative or not required by law. The above report was generated using voice recognition software. It may contain grammatical, syntax or spelling errors. Electronically signed by: Panfilo Henry M.D. 08/09/2020 6:42 PM URINE CULTURE 08/05/20: >80,000 CFU Enterococcus faecium - VRE Resistant to Ampicillin/PCN/Vanc,. Sn to Daptomycin PG Care Time/CCT Total # of Minutes Spent Total Time Spent with Patient: Total time spent is greater than 50% in coordination of care (as documented) at patient's floor/unit and/or counseling patient: Coding Level of Care Code 91171 Initial Inpt Care Lvl 3 Diagnoses VRE (vancomycin resistant enterococcus) culture positive Z22.39 Atrial fibrillation I48.0 Atrial fibrillation type: paroxysmal Hypertension I10 Hypertension type: essential hypertension Nephrolithiasis N20.0 (1) Atrial fibrillation Atrial fibrillation type: paroxysmal Qualified Code(s): I48.0 - Paroxysmal atrial fibrillation (2) Hypertension Hypertension type: essential hypertension Qualified Code(s): I10 - Essential (primary) hypertension
[2020-08-09] MEDS ORDERED: ONDANSETRON INJ 2 MG/ML 2 ML VIAL IV PRN (21:10)
[2020-08-09] MEDS ORDERED: ACETAMINOPHEN 325 MG TAB PO PRN (21:10)
[2020-08-09] MEDS ORDERED: ACETAMINOPHEN HOME PACK 500 MG TABLET PO PRN (21:10)
[2020-08-09] MEDS ORDERED: DAPTOmycin 175 MG in SYRINGE 0 ML IV STA (21:26)
--- NOTE | 2020-08-09 21:28 | Urology Consultation ---
Date of Consultation August 09, 2020 Assessment & Plan (1) Complicated urinary tract infection: Patient has been admitted by the medical service proceeding as follows: Due to her most recent urine culture results she has been placed on antibiotics in the form of daptomycin which should continue Recommend following serial labs We will notify Dr. Ferreira of patient's admission and he will determine timing of future cystoscopy with either stent removal or stent exchange as well as addressing any remaining kidney stones At the present time the patient does not exhibit any signs of sepsis or acute kidney injury so therefore no emergent urologic intervention is required History of Present Illness Reason for Consultation: Nephrolithiasis, ureteral stent, urinary tract infection Attending Physician: Carolina Burgess DO History of Present Illness Is a 74-year-old female who is well-known to [facility] for history of urology.On 06/12/2020 Dr. Flores took patient to the operating room and performed cystoscopy with left kidney stone extraction along with a left ureteral stent insertion. This was performed due to nephrolithiasis along with hydronephrosis and concern for septic shock. Urine culture at that time grew out pansensitive E. coli. The patient notes that she was discharged home on IV antibiotics and she has been on since. Patient notes that she is doing fairly well at home. She has noted some increased blood in her urine. In addition the patient did have a urine culture checked on 08/05/2020 which showed VRE. Patient notes she was therefore contacted and told she required admission for further IV antibiotics. Patient notes that she has not had any fevers, shakes, chills. She denies any nausea or vomiting. Also denies any abdominal pain. She does note some mild pain from the left ureteral stent. She denies any dysuria but again has noted some hematuria. Since admission to the hospital patient has been noted to have stable vital signs without hypotension or tachycardia. She is also afebrile. She does have a KUB that shows a left ureteral stent in satisfactory position. Has had a chest x-ray that does not show any evidence of pneumonia. She has had labs including a CBC where her white blood cell count, hemoglobin, hematocrit, were within normal range. Her platelets are noted to be 126,000. Chemistry profile shows her sodium, potassium, BUN, and creatinine are all within normal range. Urinalysis was performed and her urine was noted to be turbid. Was noted to have 3+ blood, 3+ leukocyte esterase greater than 30 white blood cells per high- power field in the specimen. Covid test has been ordered and is noted to be negative. At the time of my interview she was resting comfortably in bed in no distress. Allergies Allergy/AdvReac Type Severity Reaction Status Date / Time adhesive Allergy Intermediate RASH, Verified 08/09/20 17:47 BLISTERING alendronate sodium Allergy Unknown SICK TO Verified 08/09/20 17:47 STOMACH latex Allergy Unknown SKIN Verified 08/09/20 17:47 TEARING Home Medications Medication Instructions Recorded Confirmed Type Prolia 1 dose SUBCUT UD 01/19/18 08/09/20 History cyanocobalamin (vitamin B-12) 1,000 mcg PO QAM 01/19/18 08/09/20 History [Vitamin B-12] cholecalciferol (vitamin D3) 50 2,000 unit PO DAILY tab 10/07/18 08/09/20 History mcg (2,000 unit) tablet nystatin 100,000 unit/gram topical See Rx Instructions TOPICAL DAILY 02/22/20 08/09/20 Rx powder #60 g acetaminophen 1,000 mg PO TID PRN #0 tab 06/23/20 08/09/20 Rx warfarin 2.5 mg tablet 2.5 mg PO DAILY #90 tab 08/02/20 08/09/20 Rx metoprolol tartrate 25 mg PO Q8 08/09/20 08/09/20 History Patient History Medical History Anticoagulant long-term use Hypertension Lactic acidosis Paroxysmal atrial fibrillation Septic shock Stroke x2. both 10 years ago. pt w/ intermittent numbness to right hand. no neurologist. Ureteral stone with hydronephrosis Surgical History History of colonoscopy w/ polypectomy History of dilatation and curettage History of gastric bypass History of hysterectomy History of surgery right leg r/t femur injury History of total knee replacement rt knee History of total shoulder replacement left Hx of cataract surgery right Family History Grandfather Family history of diabetes mellitus Daughter Family history of esophageal cancer Other Coronary heart disease Ovarian cancer Denies family history of Prostate cancer Lung cancer Colorectal cancer Social History Smoking Status: Never smoker Second Hand Exposure: No; Hx Alcohol Use: No Hx Substance Use: No Preferred Language: Yi Communication Ability: Impaired Line Inspector Required: No Beliefs That Will Affect Care: None Current Living Situation: Spouse Feels Safe at Home: Yes Seatbelt Use: always Assistive Devices: Walker Review of Systems Constitutional: no fever and no chills Eyes: no diplopia Ear, Nose, Mouth, Throat: no ear pain Respiratory: no cough and no dyspnea Cardiovascular: no chest pain Gastrointestinal: no abdominal pain, no nausea and no vomiting Genitourinary: + hematuria; no dysuria Musculoskeletal: no back pain Integumentary: no rash Neurologic: no localized weakness Physical Exam Constitutional: well developed and well nourished; no acute distress Eyes: no conjunctival abnormality ENMT: Ears: no hearing impairment Neck: trachea midline Respiratory: normal respiratory effort, lungs clear to auscultation Cardiovascular: Rate/Rhythm: regular rate and regular rhythm Gastrointestinal (Abdomen): Percussion/Palpation: abdomen soft; abdomen nontender Musculoskeletal: No calf tenderness Skin: no rashes, warm and dry Neurologic: moves all extremities Psychiatric: A+Ox3, euthymic affect Genitourinary: no CVA tenderness Results & Data ([facility]) Vital Signs (Past 12 Hours) Vital Signs Temp Pulse Pulse Resp BP BP Pulse Ox 08/09/20 19:30 90 17 133/80 98 08/09/20 19:00 87 22 130/68 97 08/09/20 18:33 91 H 18 98 08/09/20 18:32 91 H 18 102/71 98 08/09/20 18:30 90 14 102/71 98 08/09/20 15:16 36.7 C 93 H 20 126/72 97 PG Care Time/CCT Total # of Minutes Spent Total Time Spent with Patient: Total time spent is greater than 50% in coordination of care (as documented) at patient's floor/unit and/or counseling patient: Coding Level of Care Code 62750 Inpt Consult Level 5 Diagnoses Complicated urinary tract infection N39.0
[2020-08-09 21:35] LABS: Magnesium 1.9 mg/dl (1.8-2.4)
[2020-08-09] MEDS: METOPROLOL TARTRATE 25 MG TAB PO SCH (22:30)
[2020-08-10] MEDS: METOPROLOL TARTRATE 25 MG TAB PO SCH ×3 (06:45→22:54)
[2020-08-10 07:12] LABS: Basophils # (auto) 0.04 K/uL (0-0.2); Basophils % (auto) 0.9 %; Eosinophils # (auto) 0.13 K/uL (0-0.5); Eosinophils % (auto) 2.8 %; Hematocrit (blood only) 34.3 % (37-47); Hemoglobin 11.3 g/dL (12.0-16.0); Immature Granulocytes # (auto) 0.01 K/uL (0.00-0.02); Immature Granulocytes % (auto) 0.2 %; Lymphocytes # (auto) 1.24 K/uL (1.2-3.4); Lymphocytes % (auto) 27.1 %; Mean Corpuscular Hemoglobin 33.6 pg (25-34); Mean Corpuscular Hgb Conc 32.9 g/dL (32-36); Mean Corpuscular Volume 102.1 fL (80-100); Mean Platelet Volume 10.7 fL (7.4-10.4); Monocytes # (auto) 0.38 K/uL (0.11-0.59); Monocytes % (auto) 8.3 %; Neutrophils # (auto) 2.78 K/uL (1.4-6.5); Neutrophils % (auto) 60.7 %; Platelet Count 111 K/uL (130-400); RDW Coefficient of Variation 14.4 % (11.5-14.5); RDW Standard Deviation 53.6 fL (36.4-46.3); Red Blood Count 3.36 M/uL (4.2-5.4); White Blood Count 4.58 K/uL (4.8-10.8)
[2020-08-10 07:44] LABS: Albumin Level 2.4 gm/dl (3.4-5.0); BUN Creatinine Ratio 17.9 (10-20); Bilirubin Direct 0.4 mg/dl (0-0.2); Calcium 8.5 mg/dl (8.5-10.1); Est GFR (African American) 90.8 ml/min; Est GFR (Non-African American) 78.4 ml/min; Potassium 3.2 mmol/L (3.5-5.1)
[2020-08-10 07:49] LABS: Bilirubin,Total 1.3 mg/dl (0.2-1); Total Protein 5.7 gm/dl (6.4-8.2)
[2020-08-10] MEDS ORDERED: ENOXAPARIN INJ 40 MG/0.4 ML SYR SQ SCH (09:00)
--- NOTE | 2020-08-10 09:11 | Urology Progress Note ---
Date of Service August 10, 2020 Assessment & Plan (1) Complicated urinary tract infection: (2) VRE (vancomycin resistant enterococcus) culture positive: (3) S/P ureteral stent placement: 74 year-old female patient with recent history of septic stone s/p urologic procedure, admitted with complicated UTI. -Status post cystoscopy with left stone extraction and left ureteral stent insertion 06/12/[address] Ferreira. -Patient remains afebrile. -Labs reviewed - white count and creatinine stable. -Imaging reviewed - left ureteral stent appears to be in satisfactory positioning. -Blood cultures pending. -Urine culture 6/5 with 80,000 cfu Enterococcus faecium VRE, Ampicillin resistant. -Repeat urine culture pending. -Continue with supportive care and antibiotic therapy. -Consider ID referral for input on antibiotic duration/regimen. -No acute intervention indicted at this time. -Okay to resume diet. -Will continue to monitor while inpatient. Admission and Anticipated Discharge Date Admission Date: August 09, 2020 Subjective Patient examined at bedside - she is alert, awake, and comfortable. Reports she does not feel ill. Denies fevers or chills. Denies nausea or vomiting. Denies dysuria but does note intermittent hematuria. Denies significant urinary frequency/urgency. Does have baseline urinary incontinence. Denies flank or abdominal pain. Has been ambulating without dizziness/lightheadedness. Has been NPO since midnight. Chart review: Afebrile Wbc 4.58 Hgb 11.3 Creatinine 0.76 Urine culture 6/5 with 80,000 cfu Enterococcus faecium VRE with multiple resistance. Repeat urine culture pending. Blood cultures pending. Patient currently on IV Daptomycin. Review of Systems Constitutional: as per Subjective / HPI; no fever and no chills Gastrointestinal: as per Subjective / HPI; no nausea and no vomiting Genitourinary: as per Subjective / HPI Physical Exam 2 Constitutional: well developed and well nourished; no acute distress and not ill appearing Respiratory: normal respiratory effort and able to speak in complete sentences; no respiratory distress and no audible wheezes Gastrointestinal (Abdomen): Inspection/Auscultation: abdomen normal to inspection; abdomen not distended Percussion/Palpation: abdomen soft; abdomen nontender and no guarding Psychiatric: Orientation: alert, oriented x 3 and cooperative Affect: euthymic affect Genitourinary: no CVA tenderness Results & Data ([facility]) Vital Signs (Past 12 Hours) Vital Signs Temp Pulse Resp BP Pulse Ox 08/10/20 06:33 36.7 C 89 18 97/64 L 95 08/09/20 23:58 36.8 C 99 H 20 135/85 93 08/09/20 21:11 36.8 C 86 18 124/72 94 PG Care Time/CCT Total # of Minutes Spent Total Time Spent with Patient: Total time spent is greater than 50% in coordination of care (as documented) at patient's floor/unit and/or counseling patient: Coding Level of Care Code 59940 Subseq Hosp Care Lvl 2 Diagnoses Complicated urinary tract infection N39.0 VRE (vancomycin resistant enterococcus) culture positive Z22.39 S/P ureteral stent placement Z96.0
[2020-08-10 10:15] LABS: INR 1.9 (0.9-1.1); Partial Thromboplastin Ratio 1.2; Partial Thromboplastin Time 32.8 Seconds (21.0-31.0); Prothrombin Time 18.4 Seconds (9.0-12.0)
[2020-08-10] MEDS ORDERED: POTASSIUM CHLORIDE CRTAB 20 MEQ TABCR PO ONE (13:49)
--- NOTE | 2020-08-10 13:50 | Hospitalist Progress Note ---
Date of Service August 10, 2020 Assessment & Plan (1) Bacteremia: Suspect VRE given Gram positive cocci in chains with VRE in urine. Discussed with infectious disease Continue on IV daptomycin during inpatient TTE - assess for vegetations Consult vascular for permcath removal - this was due to be done tomorrow regardless. Repeat Blood cultures following Permcath removal (2) VRE (vancomycin resistant enterococcus) culture positive: Culture positive for VRE faecium - No clinical evidence of systemic infection however blood cultures positive as above. -Daptomycin per susceptibilities -Contact isolation -Follow cultures (3) Atrial fibrillation: Rate controlled -Continue Metoprolol 25mg po q 8 hours -Continue usual warfarin dosing -INR daily (4) Hypertension: Blood pressure stable -Continue metoprolol -Continue to monitor (5) Nephrolithiasis: Stones in place. Patient was scheduled for lithotripsy Friday -Urology consultation appreciated F/E/N - Regular diet Ppx - Warfarin Code - Full Dispo - Continued admission on medical Admission and Anticipated Discharge Date Admission Date: August 09, 2020 Subjective Patient feels well. No urinary Sx. No fever or chills. Due to Permcath removal tomorrow. Blood culture 1/2 unfortunately now positive for GPC in chains. Review of Systems Review of Systems: All systems reviewed & are unremarkable except as noted in HPI & below Physical Exam Constitutional: WD/WN, vitals as above Eyes: + anicteric sclerae; normal pupil size ENMT: external ear and nose normal, oropharynx normal Respiratory: normal respiratory effort, lungs clear to auscultation Cardiovascular: RRR, no murmur, no edema Gastrointestinal (Abdomen): normal bowel sounds, soft, nontender, no hepatosplenomegaly Musculoskeletal: no cyanosis or clubbing, extremities motor strength 5/5 Skin: no rashes, warm and dry (no cellulitis surrounding perm cath) Neurologic: moves all extremities and awake; not confused Psychiatric: A+Ox3, euthymic affect Genitourinary: no CVA tenderness Results & Data Results & Data ([facility]) Vital Signs (Past 12 Hours) Vital Signs Temp Pulse Resp BP Pulse Ox 08/10/20 06:33 36.7 C 89 18 97/64 L 95 PG Care Time/CCT Total # of Minutes Spent Total Time Spent with Patient: Total time spent is greater than 50% in coordination of care (as documented) at patient's floor/unit and/or counseling patient: Coding Level of Care Code 30988 Subseq Hosp Care Lvl 3 Diagnoses Bacteremia R78.81 VRE (vancomycin resistant enterococcus) culture positive Z22.39 Atrial fibrillation I48.0 Atrial fibrillation type: paroxysmal Hypertension I10 Hypertension type: essential hypertension Nephrolithiasis N20.0 (1) Atrial fibrillation Atrial fibrillation type: paroxysmal Qualified Code(s): I48.0 - Paroxysmal atrial fibrillation (2) Hypertension Hypertension type: essential hypertension Qualified Code(s): I10 - Essential (primary) hypertension
--- NOTE | 2020-08-10 14:13 | Communication Note ---
Date of Service: August 10, 2020 For permcath removal tomorrow
--- NOTE | 2020-08-10 15:01 | Consultation ---
Date of Consultation August 10, 2020 Assessment & Plan (1) Central venous catheter in place: We will plan on removing the PermCath tomorrow. The tip will be sent for culture. Thank you very much for letting us participate in the care of this patient. History of Present Illness Reason for Consultation: Status post PermCath insertion Attending Physician: Adrian Ely MD History of Present Illness This is a 74-year-old female who had a PermCath placed for dialysis for acute kidney injury. She is admitted this time with sepsis. Her kidney function has returned to normal. She no longer needs the PermCath. Allergies Allergy/AdvReac Type Severity Reaction Status Date / Time adhesive Allergy Intermediate RASH, Verified 08/09/20 17:47 BLISTERING alendronate sodium Allergy Unknown SICK TO Verified 08/09/20 17:47 STOMACH latex Allergy Unknown SKIN Verified 08/09/20 17:47 TEARING Home Medications Medication Instructions Recorded Confirmed Type Prolia 1 dose SUBCUT UD 01/19/18 08/09/20 History cyanocobalamin (vitamin B-12) 1,000 mcg PO QAM 01/19/18 08/09/20 History [Vitamin B-12] cholecalciferol (vitamin D3) 50 2,000 unit PO DAILY tab 10/07/18 08/09/20 History mcg (2,000 unit) tablet nystatin 100,000 unit/gram topical See Rx Instructions TOPICAL DAILY 02/22/20 08/09/20 Rx powder #60 g acetaminophen 1,000 mg PO TID PRN #0 tab 06/23/20 08/09/20 Rx warfarin 2.5 mg tablet 2.5 mg PO DAILY #90 tab 08/02/20 08/09/20 Rx metoprolol tartrate 25 mg PO Q8 08/09/20 08/09/20 History Patient History Medical History Anticoagulant long-term use Hypertension Lactic acidosis Paroxysmal atrial fibrillation Septic shock Stroke x2. both 10 years ago. pt w/ intermittent numbness to right hand. no neurologist. Ureteral stone with hydronephrosis Surgical History History of colonoscopy w/ polypectomy History of dilatation and curettage History of gastric bypass History of hysterectomy History of surgery right leg r/t femur injury History of total knee replacement rt knee History of total shoulder replacement left Hx of cataract surgery right Family History Grandfather Family history of diabetes mellitus Daughter Family history of esophageal cancer Other Coronary heart disease Ovarian cancer Denies family history of Prostate cancer Lung cancer Colorectal cancer Social History Smoking Status: Never smoker Second Hand Exposure: No; Hx Alcohol Use: No Hx Substance Use: No Preferred Language: Upper Sorbian Communication Ability: Effective Director Of Valuation Required: No Beliefs That Will Affect Care: None Current Living Situation: Spouse Other Information That Helps Us Care for You: No Feels Safe at Home: Yes Safety Concerns: Feels Safe At This Time Seatbelt Use: always Assistive Devices: Cane and Glasses Assistive Devices Comment: Glasses- readers, not with her at this time Review of Systems Review of Systems: All systems reviewed & are unremarkable except as noted in HPI & below Physical Exam Respiratory: normal respiratory effort, lungs clear to auscultation Cardiovascular: Rate/Rhythm: regular rate and regular rhythm Gastrointestinal (Abdomen): Inspection/Auscultation: abdomen normal to inspection Percussion/Palpation: abdomen soft; abdomen nontender Psychiatric: Orientation: alert and oriented x 3 Results & Data ([facility]) Vital Signs (Past 12 Hours) Vital Signs Temp Pulse Resp BP Pulse Ox 08/10/20 14:06 37.1 C 96 H 20 120/84 95 08/10/20 06:33 36.7 C 89 18 97/64 L 95
[2020-08-10] MEDS ORDERED: WARFARIN SOD 5 MG TAB PO STA (21:03)
[2020-08-10] MEDS: POTASSIUM CHLORIDE 20 MEQ in DEXTROSE 5% 1,000 ML IV SCH (22:50)
[2020-08-10] MEDS: DAPTOmycin 675 MG in SYRINGE 0 ML IV SCH (22:51)
[2020-08-11] MEDS: METOPROLOL TARTRATE 25 MG TAB PO SCH ×3 (05:47→21:30)
[2020-08-11 06:43] LABS: Basophils # (auto) 0.02 K/uL (0-0.2); Basophils % (auto) 0.5 %; Eosinophils # (auto) 0.12 K/uL (0-0.5); Hematocrit (blood only) 34.4 % (37-47); Hemoglobin 11.4 g/dL (12.0-16.0); Lymphocytes # (auto) 1.25 K/uL (1.2-3.4); Lymphocytes % (auto) 31.3 %; Mean Corpuscular Hemoglobin 33.3 pg (25-34); Mean Corpuscular Hgb Conc 33.1 g/dL (32-36); Mean Corpuscular Volume 100.6 fL (80-100); Mean Platelet Volume 10.6 fL (7.4-10.4); Monocytes % (auto) 7.5 %; Neutrophils # (auto) 2.31 K/uL (1.4-6.5); Neutrophils % (auto) 57.7 %; Platelet Count 112 K/uL (130-400); RDW Coefficient of Variation 14.6 % (11.5-14.5); RDW Standard Deviation 53.5 fL (36.4-46.3); Red Blood Count 3.42 M/uL (4.2-5.4)
[2020-08-11 07:15] LABS: BUN Creatinine Ratio 15.7 (10-20); Calcium 8.6 mg/dl (8.5-10.1); Creatinine Clr Calc Pharmacy 78.7 ml/min; Est GFR (African American) 80.5 ml/min; Est GFR (Non-African American) 69.4 ml/min; Potassium 3.7 mmol/L (3.5-5.1)
[2020-08-11 07:45] LABS: INR 1.6 (0.9-1.1); Partial Thromboplastin Ratio 1.2; Partial Thromboplastin Time 30.8 Seconds (21.0-31.0); Prothrombin Time 16.1 Seconds (9.0-12.0)
--- NOTE | 2020-08-11 09:20 | Urology Progress Note ---
Date of Service August 11, 2020 Assessment & Plan (1) Complicated urinary tract infection: (2) VRE (vancomycin resistant enterococcus) culture positive: (3) S/P ureteral stent placement: 74 year-old female patient with recent history of septic stone s/p urologic procedure, admitted with complicated UTI. -Status post cystoscopy with left stone extraction and left ureteral stent insertion 06/12/[address] Ferreira. -Patient remains afebrile. -Labs reviewed - white count and creatinine stable. -Blood cultures preliminary Streptococcus species, repeat pending. -Urine culture 08/05 with 80,000 cfu Enterococcus faecium VRE, Ampicillin resistant. -Repeat urine culture pending. -Continue with supportive care and antibiotic therapy per ID recommendations. -She is scheduled for cystoscopy, left ureteroscopy, laser lithotripsy and left stent exchange on 08/14/[address] Ferreira. -Will plan to proceed with surgery as schedule given there are no acute changes in patient status. -Plan to make NPO at midnight prior to procedure given she is still inpatient. -Will continue to follow. Admission and Anticipated Discharge Date Admission Date: August 09, 2020 Subjective Patient examined at bedside this AM. Awake, alert, sitting up in bed on arrival. Overall feeling well. She denies any back, flank, or suprapubic pain. No fevers or chills. Tolerating diet, no nausea or vomiting. Denies dysuria but does note intermittent hematuria. Denies significant urinary frequency/urgency. Does have baseline urinary incontinence. Has been ambulating without dizziness/lightheadedness. She is scheduled for permacath removal today with Dr. Strauss. Chart review: Afebrile Wbc 4.0 Hgb 11.4 Cr 0.84 Urine culture 08/05 with 80,000 cfu Enterococcus faecium VRE with multiple resi stance. Repeat urine culture pending. Blood culture preliminary with Streptococcus, repeat pending. Patient currently on IV Daptomycin. Review of Systems Constitutional: as per Subjective / HPI Gastrointestinal: as per Subjective / HPI Genitourinary: as per Subjective / HPI Physical Exam Constitutional: cooperative and comfortable; no acute distress Respiratory: normal respiratory effort and able to speak in complete sentences Gastrointestinal (Abdomen): Percussion/Palpation: abdomen soft; abdomen nontender and no guarding Musculoskeletal: Head/Neck/Chest: normocephalic Skin: Warm and dry Neurologic: awake Psychiatric: Orientation: alert and oriented x 3 Results & Data ([facility]) Vital Signs (Past 12 Hours) Vital Signs Temp Pulse Pulse Resp BP BP Pulse Ox 08/11/20 07:30 36.8 C 108 H 18 112/77 96 08/11/20 05:44 36.8 C 94 H 22 111/74 96 PG Care Time/CCT Total # of Minutes Spent Total Time Spent with Patient: Total time spent is greater than 50% in coordination of care (as documented) at patient's floor/unit and/or counseling patient: Coding Level of Care Code 99435 Subseq Hosp Care Lvl 2 Diagnoses Complicated urinary tract infection N39.0 VRE (vancomycin resistant enterococcus) culture positive Z22.39 S/P ureteral stent placement Z96.0
[2020-08-11] MEDS ORDERED: LIDOCAINE 1% LOCAL 20 ML VIAL ONE (10:38)
--- NOTE | 2020-08-11 11:27 | History & Physical Bridge Note ---
Date of Service August 11, 2020 History & Physical Bridge Note Patient for permcath removal today. I have discussed the risks options and benefits of the procedure with the patient. The patient understands the risks options and benefits and agrees to the procedure. I have examined the patient, reviewed the History & Physical and in the interval since the performance of the History & Physical I have noted the following changes of clinical significance: no changes noted
--- NOTE | 2020-08-11 11:27 | Pre Anesthesia Assessment ---
Date of Service August 11, 2020 Pre Sedation Assessment Vital Signs Temp Pulse Pulse Pulse Resp BP BP 08/11/20 10:22 36.6 C 92 H 18 121/77 08/11/20 07:30 36.8 C 108 H 18 112/77 08/11/20 05:44 36.8 C 94 H 22 111/74 08/10/20 15:09 36.7 C 83 18 103/66 08/10/20 14:06 37.1 C 96 H 20 120/84 Pulse Ox 08/11/20 10:22 93 08/11/20 07:30 96 08/11/20 05:44 96 08/10/20 15:09 91 08/10/20 14:06 95 Cardiovascular RRR, no murmur, no edema Respiratory normal respiratory effort, lungs clear to auscultation Pre-Sedation Airway Assessment Smoking Status: Never smoker Hx Sleep Apnea: No Short, Thick Neck: Yes Thyromental Distance: > or= 3.5 Finger Breadths Oral Cavity: + WNL Mallampati Class: II ASA: ASA3 NPO Status Date of Last Intake of Fluids: 08/11/20 Time of Last Intake of Fluids: 06:00 Date of Last Intake of Solid Food: 08/10/20 Time of Last Intake of Solid Foods: 18:00 Procedure Planning Contraindications for Sedation: none Current Medications Reviewed: Yes Notes The planned sedation has been discussed with the patient. Informed Consent was obtained. I have identified the patient, determined the appropriateness of sedation and have assessed the patient immediately prior to the procedure. All medicine(s) and interventions are by my order.
[2020-08-11] MEDS ORDERED: MIDAZOLAM HCL 1 MG/ML 2ML VIAL ONE (11:38)
[2020-08-11] MEDS ORDERED: fentaNYL citrate 100 MCG/2 ML VIAL ONE (11:38)
--- NOTE | 2020-08-11 12:08 | Operative Report ---
Post Operative Report Pre & Post Diagnosis Operation Date: 08/11/20 12:50 Pre-Op Diagnosis: functioning kidneys Post-Op Diagnosis: functioning kidneys Operation Date: 08/14/20 11:15 <No data on this case meets the specified criteria> I identified the patient and participated in the time-out.: Yes Procedure Operation Date: 08/11/20 12:50 Actual Procedures p Perm Catheter Removal, Moderate Concious Sedation 1148 to 1207(Right) - Gilberto Strauss MD Operation Date: 08/14/20 11:15 <No data on this case meets the specified criteria> Surgeon Gilberto Strauss MD Health Information Clerk Justin Tolliver MD Estimated Blood Loss 0 Findings Consistent with Post-Op Diagnosis Specimens Catheter tip for culture Anesthesia Type RN Sedation Complications none Disposition Accompanied Patient To Recovery: No Disposition: Recovery Room Indications This is a 74-year-old female who has function continues and is no longer in need of hemodialysis. She presents today for removal of her right permacath. I have discussed the risks options and benefits of the procedure with the patient. The patient understands the risks options and benefits and agrees to the procedure. Description of Procedure The patient was taken to the angio suite and placed in the supine position. The right side of the neck, chest wall and catheter were prepped and draped in a sterile manner. Local anesthesia was then accomplished. Using sharp and blunt dissection, the cuff of the permcath was freed up from the surrounding fibrous tissue. The permcath and cuff were completely removed. Pressure was then applied and adequate hemostasis was obtained. A sterile dressing was then applied. The patient left the angio suite in good condition and tolerated the procedure well. Dr. Strauss was present and scrubbed for the entire procedure. I attest to the content of the Intraoperative Record and any orders documented therein. Any exceptions are noted below.
--- NOTE | 2020-08-11 12:17 | Post Anesthesia Assessment ---
Date of Service August 11, 2020 Post Sedation Assessment Vital Signs Temp Pulse Pulse Pulse Pulse Resp BP 08/11/20 12:07 105 H 18 119/72 08/11/20 12:02 105 H 18 121/71 08/11/20 11:58 104 H 18 126/71 08/11/20 11:53 105 H 18 119/79 08/11/20 11:48 102 H 18 130/77 08/11/20 11:45 100 H 18 140/79 08/11/20 10:22 36.6 C 92 H 18 121/77 08/11/20 07:30 36.8 C 108 H 18 112/77 08/11/20 05:44 36.8 C 94 H 22 08/10/20 15:09 36.7 C 83 18 103/66 08/10/20 14:06 37.1 C 96 H 20 120/84 BP Pulse Ox 08/11/20 12:07 94 08/11/20 12:02 94 08/11/20 11:58 96 08/11/20 11:53 97 08/11/20 11:48 97 08/11/20 11:45 97 08/11/20 10:22 93 08/11/20 07:30 96 08/11/20 05:44 111/74 96 08/10/20 15:09 91 08/10/20 14:06 95 Recovery Score Activity: Moves 4 extremities Respiration: Deep Breath/Cough Circulation: +/-20% PreAnes Value Consciousness: Fully Awake Oxygen Saturation: > 92% On Room Air Post Anesthesia Score: 10 Discharge Sedation Level of Care: Fast Track Phase II Post Sedation Plan On clinical assessment, the patient appears to have tolerated the sedation without complications. Patient is recovering as anticipated. Patient will continue to be monitored by nursing and may be discharged when sedation discharge criteria are met per below protocol. Upon Completions of procedure up to 15 minutes continue every 5 minute vital signs and the P.A.R. score; then discharge to a Phase I or Fast Track to Phase II per the following guidelines: * Discharge Patient to appropriate Phase II area if PAR is 8 or greater or return to pre- procedure baseline. The post - procedure orders will be as directed. * If PAR score is less than 8 or not return to pre-procedure baseline then patient will follow Phase I monitoring till PAR is reached for Phase II. The Phase I may be done in procedure room or may call to secure a Phase I area. * If naloxone or flumazenil are used for reversal, hold in Phase I for continued monitoring from when last reversal dose was given for a minimum of 60 minutes or longer pending the nurse and/or physician discretion of patient condition before discharge to Phase II. Please call the Sedation Physician to re-evaluate and complete post-note for discharge to Phase II area. Do NOT discharge from procedure sedation or Phase 1 until post- sedation evaluation note is complete by procedure /sedation MD Sedation Discharge Instructions to be given to the patient at discharge to home.
[2020-08-11] MEDS: POTASSIUM CHLORIDE 20 MEQ in DEXTROSE 5% 1,000 ML IV SCH ×2 (13:48→19:18)
--- NOTE | 2020-08-11 14:54 | Hospitalist Progress Note ---
Date of Service August 11, 2020 Assessment & Plan (1) Bacteremia: Suspect VRE given streptococcus so far identified. Appreciate ID management Continue on IV daptomycin during inpatient - linezolid equal weight recommendation however therefore maybe able to be switched to PO on discharge. TTE - pending for vegetations Permcath removed today - awaiting culture Repeat blood cultures in AM following permcath removal. (2) VRE (vancomycin resistant enterococcus) culture positive: Culture positive for VRE faecium - No clinical evidence of systemic infection however blood cultures positive as above. -Daptomycin per susceptibilities -Contact isolation precautions -Follow cultures (3) Atrial fibrillation: Rate controlled -Continue Metoprolol 25mg po q 8 hours -Hold warfarin -INR daily (4) Hypertension: Blood pressure stable -Continue metoprolol -Continue to monitor (5) Nephrolithiasis: Stones in place. Patient scheduled for lithotripsy Friday as inpatient -Urology consultation appreciated F/E/N - Regular diet Ppx - Warfarin on hold for lithotripsy on Friday Code - Full Dispo - Continued admission on medical Admission and Anticipated Discharge Date Admission Date: August 09, 2020 Subjective Patient seen post operatively. PermCath removed. Postop day 0. No fevers, chills, CVA tenderness, dysuria. Pain well controlled postoperatively. Review of Systems Review of Systems: All systems reviewed & are unremarkable except as noted in HPI & below Physical Exam Constitutional: WD/WN, vitals as above Eyes: + anicteric sclerae; normal pupil size ENMT: external ear and nose normal, oropharynx normal Respiratory: normal respiratory effort, lungs clear to auscultation Cardiovascular: RRR, no murmur, no edema Gastrointestinal (Abdomen): normal bowel sounds, soft, nontender, no hepatosplenomegaly Musculoskeletal: no cyanosis or clubbing, extremities motor strength 5/5 Skin: no rashes, warm and dry (no cellulitis surrounding perm cath) Neurologic: moves all extremities and awake; not confused Psychiatric: A+Ox3, euthymic affect Genitourinary: no CVA tenderness Results & Data Results & Data ([facility]) Vital Signs (Past 12 Hours) Vital Signs Temp Pulse Pulse Pulse Resp BP BP 08/11/20 13:43 93 H 120/64 08/11/20 12:19 36.8 C 94 H 16 109/67 08/11/20 12:07 105 H 18 119/72 08/11/20 12:02 105 H 18 121/71 08/11/20 11:58 104 H 18 126/71 08/11/20 11:53 105 H 18 119/79 08/11/20 11:48 102 H 18 130/77 08/11/20 11:45 100 H 18 140/79 08/11/20 10:22 36.6 C 92 H 18 121/77 08/11/20 07:30 36.8 C 108 H 18 112/77 08/11/20 05:44 36.8 C 94 H 22 111/74 Pulse Ox 08/11/20 13:43 95 08/11/20 12:19 94 08/11/20 12:07 94 08/11/20 12:02 94 08/11/20 11:58 96 08/11/20 11:53 97 08/11/20 11:48 97 08/11/20 11:45 97 08/11/20 10:22 93 08/11/20 07:30 96 08/11/20 05:44 96 PG Care Time/CCT Total # of Minutes Spent Total Time Spent with Patient: Total time spent is greater than 50% in coordination of care (as documented) at patient's floor/unit and/or counseling patient: Coding Level of Care Code 72446 Subseq Hosp Care Lvl 2 Diagnoses Bacteremia R78.81 VRE (vancomycin resistant enterococcus) culture positive Z22.39 Atrial fibrillation I48.0 Atrial fibrillation type: paroxysmal Hypertension I10 Hypertension type: essential hypertension Nephrolithiasis N20.0 (1) Atrial fibrillation Atrial fibrillation type: paroxysmal Qualified Code(s): I48.0 - Paroxysmal atrial fibrillation (2) Hypertension Hypertension type: essential hypertension Qualified Code(s): I10 - Essential (primary) hypertension
[2020-08-11] MEDS ORDERED: WARFARIN SOD 5 MG TAB PO ONE (16:00)
[2020-08-11] MEDS: DAPTOmycin 675 MG in SYRINGE 0 ML IV SCH (20:05)
--- NOTE | 2020-08-11 22:23 | XCELERA ---
[id number]
[2020-08-12] MEDS: METOPROLOL TARTRATE 25 MG TAB PO SCH ×3 (05:48→22:16)
[2020-08-12 07:01] LABS: Basophils # (auto) 0.02 K/uL (0-0.2); Basophils % (auto) 0.5 %; Eosinophils # (auto) 0.15 K/uL (0-0.5); Eosinophils % (auto) 3.8 %; Hematocrit (blood only) 34.5 % (37-47); Hemoglobin 11.4 g/dL (12.0-16.0); Lymphocytes % (auto) 32.7 %; Mean Corpuscular Hemoglobin 33.7 pg (25-34); Mean Corpuscular Volume 102.1 fL (80-100); Mean Platelet Volume 10.4 fL (7.4-10.4); Monocytes # (auto) 0.31 K/uL (0.11-0.59); Monocytes % (auto) 7.8 %; Neutrophils % (auto) 55.2 %; Platelet Count 118 K/uL (130-400); RDW Coefficient of Variation 14.5 % (11.5-14.5); RDW Standard Deviation 54.1 fL (36.4-46.3); Red Blood Count 3.38 M/uL (4.2-5.4); White Blood Count 3.98 K/uL (4.8-10.8)
[2020-08-12 07:10] LABS: INR 1.7 (0.9-1.1); Prothrombin Time 16.3 Seconds (9.0-12.0)
[2020-08-12 07:25] LABS: BUN Creatinine Ratio 14.4 (10-20); Calcium 8.7 mg/dl (8.5-10.1); Creatinine Clr Calc Pharmacy 74.3 ml/min; Est GFR (Non-African American) 64.7 ml/min; Potassium 4.1 mmol/L (3.5-5.1)
[2020-08-12 07:26] LABS: C Reactive Protein 0.81 mg/dl (0-0.29)
[2020-08-12] MEDS: DAPTOmycin 675 MG in SYRINGE 0 ML IV SCH (20:38)
[2020-08-13] MEDS: METOPROLOL TARTRATE 25 MG TAB PO SCH ×3 (06:19→22:40)
[2020-08-13 06:47] LABS: INR 1.5 (0.9-1.1); Prothrombin Time 14.3 Seconds (9.0-12.0)
--- NOTE | 2020-08-13 09:45 | Hospitalist Progress Note ---
Date of Service August 12, 2020 Assessment & Plan (1) Bacteremia: VRE Bacteremia. Repeat blood cultures following permcath 08/12, awaiting to be negative after 48 hours for discharge. Appreciate ID management Continue on IV daptomycin during inpatient - linezolid equal weight recommendation however therefore maybe able to be switched to PO on discharge. TTE - no vegetations Permcath removed 08/11 - awaiting culture (2) VRE (vancomycin resistant enterococcus) culture positive: Culture positive for VRE faecium - No clinical evidence of systemic infection however blood cultures positive as above. -Daptomycin per susceptibilities -Contact isolation precautions -Follow cultures (3) Atrial fibrillation: Rate controlled -Continue Metoprolol 25mg po q 8 hours -Hold warfarin -INR daily (4) Hypertension: Blood pressure stable -Continue metoprolol -Continue to monitor (5) Nephrolithiasis: Stones in place. Patient scheduled for lithotripsy Friday as inpatient -Urology consultation appreciated F/E/N - Regular diet Ppx - Warfarin on hold for lithotripsy on Friday Code - Full Dispo - Continued admission on medical, can likely be discharged after lithotripsy on Friday Admission and Anticipated Discharge Date Admission Date: August 09, 2020 Anticipated date of discharge: 08/14/20 Subjective Patient feeling well. No acute events overnight. No concerns or questions at this time. No fevers, chills, CVA tenderness, dysuria. Patient feels at baseline. Review of Systems Review of Systems: All systems reviewed & are unremarkable except as noted in HPI & below Physical Exam Constitutional: WD/WN, vitals as above ENMT: external ear and nose normal, oropharynx normal Respiratory: normal respiratory effort, lungs clear to auscultation Cardiovascular: Rate/Rhythm: regular rate and + irregularly irregular Heart Sounds: no murmur Extremities: normal capillary refill and + pedal edema (trace b/l ankles) Gastrointestinal (Abdomen): normal bowel sounds, soft, nontender, no hepatosplenomegaly Musculoskeletal: no cyanosis or clubbing, extremities motor strength 5/5 Skin: no rashes, warm and dry Neurologic: moves all extremities and awake; not confused Results & Data Results & Data ([place]) Vital Signs (Past 12 Hours) Vital Signs Temp Pulse Pulse Resp BP BP Pulse Ox 08/13/20 08:04 36.7 C 101 H 16 102/66 94 08/13/20 06:18 36.7 C 89 16 115/66 92 08/12/20 22:47 36.6 C 98 H 16 104/67 94 08/12/20 22:14 103 H 108/50 L PG Care Time/CCT Total # of Minutes Spent Total Time Spent with Patient: Total time spent is greater than 50% in coordination of care (as documented) at patient's floor/unit and/or counseling patient: Coding Level of Care Code 17012 Subseq Hosp Care Lvl 2 Diagnoses Bacteremia R78.81 VRE (vancomycin resistant enterococcus) culture positive Z22.39 Atrial fibrillation I48.0 Atrial fibrillation type: paroxysmal Hypertension I10 Hypertension type: essential hypertension Nephrolithiasis N20.0 (1) Atrial fibrillation Atrial fibrillation type: paroxysmal Qualified Code(s): I48.0 - Paroxysmal atrial fibrillation (2) Hypertension Hypertension type: essential hypertension Qualified Code(s): I10 - Essential (primary) hypertension
--- NOTE | 2020-08-13 09:45 | Hospitalist Progress Note ---
Date of Service August 13, 2020 Assessment & Plan (1) Bacteremia: VRE Bacteremia. Repeat blood cultures following permcath 08/12 negative at 24 hours. Appreciate ID management Continue on IV daptomycin during inpatient - linezolid equal weight recommendation however therefore maybe able to be switched to PO on discharge. TTE - no vegetations Permcath removed 08/11 - culture negaitve to date (2) VRE (vancomycin resistant enterococcus) culture positive: Culture positive for VRE faecium - No clinical evidence of systemic infection however blood cultures positive as above. -Daptomycin per susceptibilities -Contact isolation precautions -Follow cultures (3) Atrial fibrillation: Rate controlled -Continue Metoprolol 25mg po q 8 hours -Hold warfarin -INR daily (4) Hypertension: Blood pressure stable -Continue metoprolol -Continue to monitor (5) Nephrolithiasis: Stones in place. Patient scheduled for lithotripsy Friday as inpatient -Urology consultation appreciated F/E/N - Regular diet Ppx - Warfarin on hold for lithotripsy on Friday Code - Full Dispo - Continued admission on medical, can likely be discharged after lithotripsy on Friday Admission and Anticipated Discharge Date Admission Date: August 09, 2020 Subjective No acute events overnight. No questions or concerns. Warfarin on hold for lithotripsy on Friday. Review of Systems Review of Systems: All systems reviewed & are unremarkable except as noted in HPI & below Physical Exam Constitutional: WD/WN, vitals as above Respiratory: normal respiratory effort, lungs clear to auscultation Cardiovascular: Rate/Rhythm: regular rate and + irregularly irregular Heart Sounds: no murmur Extremities: normal capillary refill and + pedal edema (1+ pre-tibial pitting) Gastrointestinal (Abdomen): normal bowel sounds, soft, nontender, no hepatosplenomegaly Musculoskeletal: no cyanosis or clubbing, extremities motor strength 5/5 Skin: no rashes, warm and dry Neurologic: moves all extremities and awake; not confused Psychiatric: A+Ox3, euthymic affect Genitourinary: no CVA tenderness Results & Data Results & Data ([facility]) Vital Signs (Past 12 Hours) Vital Signs Temp Pulse Pulse Resp BP BP Pulse Ox 08/13/20 08:04 36.7 C 101 H 16 102/66 94 08/13/20 06:18 36.7 C 89 16 115/66 92 08/12/20 22:47 36.6 C 98 H 16 104/67 94 08/12/20 22:14 103 H 108/50 L PG Care Time/CCT Total # of Minutes Spent Total Time Spent with Patient: Total time spent is greater than 50% in coordination of care (as documented) at patient's floor/unit and/or counseling patient: Coding Level of Care Code 67330 Subseq Hosp Care Lvl 1 Diagnoses Bacteremia R78.81 VRE (vancomycin resistant enterococcus) culture positive Z22.39 Atrial fibrillation I48.0 Atrial fibrillation type: paroxysmal Hypertension I10 Hypertension type: essential hypertension Nephrolithiasis N20.0 (1) Atrial fibrillation Atrial fibrillation type: paroxysmal Qualified Code(s): I48.0 - Paroxysmal atrial fibrillation (2) Hypertension Hypertension type: essential hypertension Qualified Code(s): I10 - Essential (primary) hypertension
--- NOTE | 2020-08-13 19:18 | Anesthesiology Consultation ---
Date of Service August 13, 2020 Assessment & Plan Chart Review Chart Review: Acceptable Risk for Surgery and Patient NOT seen in Pre Admission Testing Consults Requested none ASA ASA4 Proposed Anesthesia Anesthesia Type: General History Surgery Operation Date: 08/11/20 12:50 Proposed Procedures p Perm Catheter Removal - Gilberto Strauss MD Operation Date: 08/14/20 11:15 Proposed Procedures p Cystoscopy, Ureteronephroscopy, Retrograde Pyleogram, Possible Ureteral Dilation, Laser Destruction or Extraction of Stone, Left Stent Catheter Insertion or Exchange - Toño Ferreira, Height/Weight Height: 5 ft 6 in Weight: 116.9 kg Allergies Allergy/AdvReac Type Severity Reaction Status Date / Time adhesive Allergy Intermediate RASH, Verified 08/09/20 17:47 BLISTERING alendronate sodium Allergy Unknown SICK TO Verified 08/09/20 17:47 STOMACH latex Allergy Unknown SKIN Verified 08/09/20 17:47 TEARING Medications Home Medications Medication Instructions Recorded Confirmed Last Taken Prolia 1 dose SUBCUT UD 01/19/18 08/09/20 02/03/18 cyanocobalamin (vitamin B-12) 1,000 mcg PO QAM 01/19/18 08/09/20 02/17/18 12:00 [Vitamin B-12] cholecalciferol (vitamin D3) 50 2,000 unit PO DAILY tab 10/07/18 08/09/20 Unknown mcg (2,000 unit) tablet nystatin 100,000 unit/gram topical See Rx Instructions TOPICAL DAILY 02/22/20 08/09/20 Unknown powder #60 g acetaminophen 1,000 mg PO TID PRN #0 tab 06/23/20 08/09/20 Unknown warfarin 2.5 mg tablet 2.5 mg PO DAILY #90 tab 08/02/20 08/09/20 Unknown metoprolol tartrate 25 mg PO Q8 08/09/20 08/09/20 Unknown Active Medications Generic Name Dose Route Start Last Admin Trade Name Freq PRN Reason Stop Dose Admin Acetaminophen 650 mg 08/09/20 21:10 08/12/20 05:50 Acetaminophen 325 Mg Tab PO 09/08/20 21:09 650 mg Q4H PRN Administration pain/fever Daptomycin 675 mg/ Syringe 13.5 mls @ 6.75 mls/min 08/10/20 20:00 08/12/20 20:38 IV 08/20/20 19:59 6.75 mls/min DAILY@2000 MICHAEL Administration Protocol Metoprolol Tartrate 25 mg 08/09/20 22:00 08/13/20 15:25 Metoprolol Tartrate 25 Mg Tab PO 09/08/20 21:59 25 mg Q8 MICHAEL Administration Past Medical History Medical History Anticoagulant long-term use Hypertension Lactic acidosis Paroxysmal atrial fibrillation Septic shock Stroke x2. both 10 years ago. pt w/ intermittent numbness to right hand. no neurologist. Ureteral stone with hydronephrosis Exercise / Class Metabolic Activity III < 4 Walking/Shop/Light housework Past Family History Family History Grandfather Family history of diabetes mellitus Daughter Family history of esophageal cancer Other Coronary heart disease Ovarian cancer Denies family history of Prostate cancer Lung cancer Colorectal cancer Past Surgical History Surgical History History of colonoscopy w/ polypectomy History of dilatation and curettage History of gastric bypass History of hysterectomy History of surgery right leg r/t femur injury History of total knee replacement rt knee History of total shoulder replacement left Hx of cataract surgery right Past Anesthesia History No Hx of Anesthesia Complications and No Family Hx of Anesthesia Complications History of PONV No Hx of PONV and No Hx of Motion Sickness Social History Smoking Status: Never smoker Hx Alcohol Use: No Hx Substance Use: No substance use type: does not use Physical Exam Vital Signs Last Vital Signs Temp 36.5 C 08/13/20 14:35 Pulse 95 H 08/13/20 14:35 Resp 16 08/13/20 14:35 BP 121/81 08/13/20 14:35 Pulse Ox 94 08/13/20 14:35 Testing Laboratory Results 08/12/20 06:43 08/12/20 06:43 PT 14.3 Seconds (9.0-12.0) H 08/13/20 06:06 INR 1.5 (0.9-1.1) H 08/13/20 06:06 APTT 30.8 Seconds (21.0-31.0) 08/11/20 06:27 Urine Color [place] 08/09/20 18:01 Urine Appearance Turbid (Clear) A 08/09/20 18:01 Urine pH 6.0 (4.5-7.5) 08/09/20 18:01 Ur Specific [place] 1.018 (1.000-1.030) 08/09/20 18:01 Urine Protein 3+ (Negative) H 08/09/20 18:01 Urine Glucose (UA) Negative (Negative) 08/09/20 18:01 Urine Ketones Negative (Negative) 08/09/20 18:01 Urine Nitrite Negative (Negative) 08/09/20 18:01 Ur Leukocyte Esterase 3+ (Negative) H 08/09/20 18:01 Urine WBC (Auto) >30 /hpf (0-5) H 08/09/20 18:01 Urine RBC (Auto) >30 /hpf (0-4) H 08/09/20 18:01 U Hyaline Cast (Auto) 0 /lpf (0-5) 08/09/20 18:01 U Epithel Cells (Auto) 10-20 /lpf (0-5) H 08/09/20 18:01 Urine Bacteria (Auto) Negative (Negative) 08/09/20 18:01 08/11/20 11:56 Catheter Tip Culture - Final Catheter Tip, Perm Cathether No growth 08/12/20 06:51 Aerobic Blood Culture - Preliminary Blood No growth in Aerobic bottle after 24 hours. Anaerobic Blood Culture - Preliminary No growth in Anaerobic bottle after 24 hours. 08/12/20 06:43 Aerobic Blood Culture - Preliminary Blood No growth in Aerobic bottle after 24 hours. Anaerobic Blood Culture - Preliminary No growth in Anaerobic bottle after 24 hours. 08/09/20 18:01 Urine Culture - Final Urine,Clean Catch Enterococcus faecium VRE 08/09/20 18:01 Aerobic Blood Culture - Preliminary Blood Enterococcus faecium VRE Anaerobic Blood Culture - Preliminary No growth in Anaerobic bottle after 48 hours. 08/09/20 18:01 Aerobic Blood Culture - Preliminary Blood No growth in Aerobic bottle after 48 hours. Anaerobic Blood Culture - Preliminary No growth in Anaerobic bottle after 48 hours. Electrocardiogram Date: 06/13/20 Findings: + AFIB @ (at 117,RVR) and + RBBB Chest X-Ray Date: 08/09/20 Findings: + cardiomegaly, + pulmonary vascular congestion and + other (right ij dual lumenH/D cath in RA) Echocardiogram Date: 08/11/20 EF: 65% LV Function: normal RWMA: + none Other Findings: + atrial enlargement (biatrial) and + LVH (moderate) Valvular Disease: + no significant valvular disease
[2020-08-13] MEDS: DAPTOmycin 675 MG in SYRINGE 0 ML IV SCH (20:02)
[2020-08-14] MEDS: METOPROLOL TARTRATE 25 MG TAB PO SCH ×3 (05:34→21:02)
--- NOTE | 2020-08-14 08:18 | Urology Progress Note ---
Date of Service August 14, 2020 Assessment & Plan (1) Complicated urinary tract infection: (2) Nephrolithiasis: (3) S/P ureteral stent placement: 74 year-old female patient with recent history of septic stone s/p urologic procedure, admitted with complicated UTI. - Overall feeling well. - Afebrile, VSS, non-toxic appearing. - Labs reviewed, Wbc 3.86 and creatinine 0.84 today. - Will plan to proceed to OR for cystoscopy, left ureteroscopy, laser lithotripsy and left stent exchange as previously scheduled today with Dr. Ferreira. - Risks and benefits of procedure to be reviewed with patient by Dr. Ferreira. - Continues on IV Daptomycin. - Keep NPO for procedure later today. - Expected clinical course reviewed. She is agreeable to above plan, all questions were answered. - Will continue to follow ATTENDING NOTE: Patient independently evaluated, assessed, and examined and discussed options. Risks and benefits discussed at length for procedure. These include bleeding, infection, injury to surrounding tissues or organs, and risks associated with anesthesia. Patient states understanding and agrees to proceed. Will sign consent and proceed. Plan for Left Ureteroscopy and stone treatment. Admission and Anticipated Discharge Date Admission Date: August 09, 2020 Subjective Patient examined at bedside this AM. Awake, alert, ambulating independently with cane. Overall feeling well. She denies any back, flank, or suprapubic pain. No fevers or chills. Denies nausea and vomiting. Denies hematuria and dysuria. Denies significant urinary frequency/urgency. Does have baseline urinary incontinence. NPO since midnight for procedure today. LBM per patient - 08/13 Chart review: Afebrile Wbc 3.86 Hgb 11.2 Cr 0.84 Urine culture 08/05 with 80,000 cfu Enterococcus faecium VRE with multiple resistance. Repeat urine culture 08/09 with Enterococcus VRE Blood culture preliminary with Streptococcus, repeat blood culture preliminary no growth. Patient currently on IV Daptomycin. Review of Systems Constitutional: as per Subjective / HPI Gastrointestinal: as per Subjective / HPI Genitourinary: as per Subjective / HPI Physical Exam Constitutional: well developed and well nourished; no acute distress and not ill appearing Respiratory: normal respiratory effort and able to speak in complete sentences; no labored breathing and no audible wheezes Cardiovascular: Extremities: no calf tenderness Gastrointestinal (Abdomen): Percussion/Palpation: abdomen soft; abdomen nontender and no guarding Musculoskeletal: Head/Neck/Chest: normocephalic Skin: Warm and dry. No visible rashes or lesions. Neurologic: awake Psychiatric: A+Ox3, euthymic affect Genitourinary: no CVA tenderness Results & Data ([facility]) Vital Signs (Past 12 Hours) Vital Signs Temp Pulse Pulse Resp BP Pulse Ox 08/14/20 07:34 36.7 C 83 16 101/66 95 08/14/20 05:32 36.6 C 99 H 20 117/78 94 08/13/20 22:39 36.7 C 98 H 20 106/58 L 94 PG Care Time/CCT Total # of Minutes Spent Total Time Spent with Patient: Total time spent is greater than 50% in coordination of care (as documented) at patient's floor/unit and/or counseling patient: Coding Level of Care Code 17962 Subseq Hosp Care Lvl 2 Diagnoses Complicated urinary tract infection N39.0 Nephrolithiasis N20.0 S/P ureteral stent placement Z96.0
[2020-08-14 08:34] LABS: Basophils # (auto) 0.01 K/uL (0-0.2); Basophils % (auto) 0.3 %; Eosinophils # (auto) 0.12 K/uL (0-0.5); Eosinophils % (auto) 3.1 %; Hematocrit (blood only) 33.5 % (37-47); Hemoglobin 11.2 g/dL (12.0-16.0); Immature Granulocytes # (auto) 0.01 K/uL (0.00-0.02); Immature Granulocytes % (auto) 0.3 %; Lymphocytes # (auto) 1.36 K/uL (1.2-3.4); Lymphocytes % (auto) 35.2 %; Mean Corpuscular Hemoglobin 33.8 pg (25-34); Mean Corpuscular Hgb Conc 33.4 g/dL (32-36); Mean Corpuscular Volume 101.2 fL (80-100); Mean Platelet Volume 10.2 fL (7.4-10.4); Monocytes # (auto) 0.28 K/uL (0.11-0.59); Monocytes % (auto) 7.3 %; Neutrophils # (auto) 2.08 K/uL (1.4-6.5); Neutrophils % (auto) 53.8 %; Platelet Count 116 K/uL (130-400); RDW Coefficient of Variation 14.6 % (11.5-14.5); RDW Standard Deviation 53.6 fL (36.4-46.3); Red Blood Count 3.31 M/uL (4.2-5.4); White Blood Count 3.86 K/uL (4.8-10.8)
[2020-08-14 08:55] LABS: INR 1.3 (0.9-1.1)
[2020-08-14 09:10] LABS: BUN Creatinine Ratio 18.5 (10-20); Creatinine Clr Calc Pharmacy 78.7 ml/min; Est GFR (African American) 80.5 ml/min; Est GFR (Non-African American) 69.4 ml/min; Potassium 3.7 mmol/L (3.5-5.1)
--- NOTE | 2020-08-14 09:31 | Hospitalist Progress Note ---
Date of Service August 14, 2020 Assessment & Plan (1) Bacteremia: VRE Bacteremia. Repeat blood cultures following permcath 08/12 negative at 48 hours. Appreciate ID management Continue on IV daptomycin during inpatient - linezolid equal weight recommendation however therefore maybe able to be switched to PO on discharge. TTE - no vegetations Permcath removed 08/11 - culture negative to date (2) VRE (vancomycin resistant enterococcus) culture positive: Culture positive for VRE faecium - No clinical evidence of systemic infection however blood cultures positive as above. -Daptomycin per susceptibilities transition to linezolid at discharge for add itional 2 days -Contact isolation precautions (3) Atrial fibrillation: Rate controlled -Continue Metoprolol 25mg po q 8 hours -Holding warfarin until post procedure -INR daily (4) Hypertension: Blood pressure stable -Continue metoprolol -Continue to monitor (5) Nephrolithiasis: Stones in place. Patient scheduled for lithotripsy Friday as inpatient -Urology consultation appreciated F/E/N - Regular diet Ppx - Warfarin on hold for lithotripsy restart 615 if able Code - Full Dispo - Continued admission on medical, can likely be discharged after lithotripsy on Friday Admission and Anticipated Discharge Date Admission Date: August 09, 2020 Subjective pt was seen post procedure and is doing well, she has mild flank pain. family at bedside and updated Review of Systems Review of Systems: Mild distress and fatigue no headache, no visual changes no speech or swallowing issues no chest pain, pressure or palpitations no shortness of breath, cough or wheezes This is some minor left flank pain no dysuria, hematuria or frequency no focal joint pain or swelling no back pain, CVA tenderness or radicular pain no bruising, bleeding or rashes no focal signs of weakness or numbness or altered sensation no complaints of anxiety or depression.. Physical Exam Physical Exam: The patient appeared well nourished and normally developed. Vital signs as documented. Head exam is normocephalic atraumatic Neck is without JVD, thyromegaly, or carotid bruits. Lungs are clear to auscultation, no focal loss of breath sounds Cardiac exam, Rhythm is regular.. No murmurs, rubs or gallops. Abdominal exam reveals normal bowel sounds, soft palpable minor right flank CVA tenderness Extremities are nonedematous and both pedal pulses are present Neurologic exam is alert and oriented, no focal loss of strength or sensation Skin is without bruises or rashes Psychologically is without concerns for anxiety or depression Results & Data Results & Data ([facility]) Vital Signs (Past 12 Hours) Vital Signs Temp Pulse Pulse Resp BP Pulse Ox 08/14/20 07:34 98.1 F 83 16 101/66 95 08/14/20 05:32 97.9 F 99 H 20 117/78 94 08/13/20 22:39 98.1 F 98 H 20 106/58 L 94 PG Care Time/CCT Total # of Minutes Spent Total Time Spent with Patient: Total time spent is greater than 50% in coordination of care (as documented) at patient's floor/unit and/or counseling patient: Coding Level of Care Code 86399 Subseq Hosp Care Lvl 2 Diagnoses Bacteremia R78.81 VRE (vancomycin resistant enterococcus) culture positive Z22.39 Atrial fibrillation I48.0 Atrial fibrillation type: paroxysmal Hypertension I10 Hypertension type: essential hypertension Nephrolithiasis N20.0 (1) Atrial fibrillation Atrial fibrillation type: paroxysmal Qualified Code(s): I48.0 - Paroxysmal atrial fibrillation (2) Hypertension Hypertension type: essential hypertension Qualified Code(s): I10 - Essential (primary) hypertension
[2020-08-14] MEDS ORDERED: ePHEDrine sulfate 50 MG/ML AMP IV PRN (10:44)
[2020-08-14] MEDS ORDERED: ONDANSETRON INJ 2 MG/ML 2 ML VIAL IV PRN (10:44)
[2020-08-14] MEDS ORDERED: ATROPINE SULFATE 0.1 MG/ML 10ML SYR IV PRN (10:44)
--- NOTE | 2020-08-14 12:33 | Operative Report ---
PG Post Operative Report Pre & Post Diagnosis Operation Date: 08/14/20 11:15 Pre-Op Diagnosis: Complicated Urinary Tract Infection, Nephrolithiasis Post-Op Diagnosis: Complicated Urinary Tract Infection, Nephrolithiasis I identified the patient and participated in the time-out.: Yes Procedure Operation Date: 08/14/20 11:15 Actual Procedures p Cystoscopy and Left Ureteronephroscopy, Retrograde Pyleogram, Laser Destruction, Basket Extraction of Stone, and Left Stent Catheter Exchange(Left) - Toño Ferreira DO Surgeon Toño Ferreira, II, DO Sales Support Engineer None Estimated Blood Loss 1 Findings Consistent with Post-Op Diagnosis Stone destroyed to dust and small fragments and larger fragments removed. Specimens Stone Fragments 1 Left Renal pelvis 2 Left Ureter Drains 6 Fr x 24 cm Left Anesthesia Type General Complications none Disposition Accompanied Patient To Recovery: No Disposition: Recovery Room Indications Patient with bothersome stones and history of sepsis. Had VRE pre op and has been in hospital with Daptomycin for last 4 days. Risks and benefits discussed at length. Description of Procedure Patient was consented and brought back to the operating room. Patient was placed under anesthesia in the supine position and moved to the dorsal lithotomy position. Patient was prepped and draped in the regular sterile fashion. A time out was completed identifying the correct patient and procedure. A 30degree Cystoscope was placed into the bladder and the entire bladder was examined. The UO's were identified. The left stent was grasped and partially removed. A wire was placed. The UO was cannulized with a dual lumen catheter and a retrograde pyelogram was completed. A ureteral access sheath and second safety wire was placed. The flexible ureteroscope was taken into the ureter. The entire ureter and renal pelvis were examined. The stones were identified. A laser fiber was selected and the stones were pulverized to dust and small fragments. Larger fragments were grasped and removed and sent for analysis. Extensive basketing was required to clear the large stone burden. The entire area was once again examined. No residual large fragments or areas of concern were noted. The scope was slowly removed with the wire left in place. Contrast was placed through the scope for a pyelogram to assist in stent placement. The entire ureter was examined as the scope was slowly removed. A stone was discovered impacted in the wall near the distal ureter approx 5mm from the UO. This was grasped with the basket and removed. The ureter was then examined a final time. No obstructions or other areas of concern were noted. With the wire in place, a 6 Fr Double J stent was placed. It was confirmed with fluoroscopy. With the stent in place, the bladder was emptied. The scope was removed. The patient was cleaned, aroused from anesthesia, and transferred to the pacu in stable condition having tolerated the procedure well with no complications. I was present and participated in all aspects of the procedure. The patient will be monitored in the PACU until transferred. I attest to the content of the Intraoperative Record and any orders documented therein. Any exceptions are noted below.
--- NOTE | 2020-08-14 12:41 | Fluoroscopy Report ---
FL retrograde includes kub CLINICAL HISTORY: LT CYSTO/LASER/STENT COMPARISON STUDY: KUB August 09, 2020. CT of the abdomen and pelvis June 12, 2020. FLUOROSCOPY TIME: 47 seconds. FLUOROSCOPIC IMAGES: 9 FINDINGS: Fluoroscopy was provided during left ureteral stent exchange and retrograde study. Stent is appropriately positioned. IMPRESSION: Fluoroscopy provided during left ureteral stent exchange. ACT 112: Negative or not required by law. Electronically signed by: Zaire Mcduffie M.D. 08/14/2020 12:40 PM
[2020-08-14] MEDS: fentaNYL citrate 100 MCG/2 ML VIAL IV PRN ×2 (12:47→12:54)
--- NOTE | 2020-08-14 13:17 | Anesthesiology Progress Note ---
Date of Service August 14, 2020 Anesthesia Post Procedure Vital Signs Vital Signs: Temp Pulse Pulse Pulse Resp BP Pulse Ox 08/14/20 13:05 89 15 99/62 L 94 08/14/20 12:55 92 H 16 104/64 95 08/14/20 12:45 98 H 22 106/71 98 08/14/20 12:39 36.3 C L 112 H 16 95/68 L 93 08/14/20 07:34 36.7 C 83 16 101/66 95 08/14/20 05:32 36.6 C 99 H 20 117/78 94 08/13/20 22:39 36.7 C 98 H 20 106/58 L 94 08/13/20 14:35 36.5 C 95 H 16 121/81 94 Pain Intensity Abdomen: Pain Intensity: 4 Transfer of Care Handoff Completed per policy Notes Mental Status: alert / awake / arousable Patient Amnestic to Procedure: Yes Nausea / Vomiting: adequately controlled Pain: adequately controlled Airway Patency, RR, SpO2: stable & adequate BP & HR: stable & adequate Hydration State: stable & adequate Anesthetic Complications: no major complications apparent
[2020-08-14] MEDS: DAPTOmycin 675 MG in SYRINGE 0 ML IV SCH (19:44)
[2020-08-15] MEDS: METOPROLOL TARTRATE 25 MG TAB PO SCH ×2 (05:48→13:39)
[2020-08-15 06:35] LABS: INR 1.3 (0.9-1.1); Prothrombin Time 12.7 Seconds (9.0-12.0)
--- NOTE | 2020-08-15 07:53 | Urology Progress Note ---
Date of Service August 15, 2020 Assessment & Plan (1) Complicated urinary tract infection: (2) S/P ureteral stent placement: (3) Nephrolithiasis: 74 year-old female patient with recent history of septic stone s/p urologic procedure, admitted with complicated UTI. - Postop day #1 status post Cystoscopy and Left Ureteronephroscopy, Retrograde Pyleogram, Laser Destruction, Basket Extraction of Stone, and Left Stent Catheter Exchange with Dr. Ferreira. - Patient is doing well following her procedure yesterday. - Remains afebrile. - Labs reviewed, Wbc and creatinine stable. - OK for discharge from perspective. - Will arrange outpatient follow-up with urology service. - Recommend home with antibiotics per ID recommendations and pain control as needed. - Thank you for allowing us to participate in the acute care of Mrs. Hagen. - Please reconsult us with additional questions, concerns or changes in patient status. Admission and Anticipated Discharge Date Admission Date: August 09, 2020 Subjective Pt examined at bedside this AM. Awake, sitting up in bed on arrival. Denies any pain or discomfort at this time. No fevers or chills. Tolerating diet, no nausea and vomiting. Denies hematuria and dysuria. Denies significant urinary frequency/urgency. Does have baseline urinary incontinence. Eager to go home. Review of Systems Constitutional: as per Subjective / HPI Gastrointestinal: as per Subjective / HPI Genitourinary: as per Subjective / HPI Physical Exam Constitutional: well developed and well nourished; no acute distress Respiratory: able to speak in complete sentences; no labored breathing and no audible wheezes Gastrointestinal (Abdomen): Percussion/Palpation: abdomen soft; abdomen nontender and no guarding Skin: Warm and dry Neurologic: awake Psychiatric: A+Ox3, euthymic affect Results & Data ([facility]) Vital Signs (Past 12 Hours) Vital Signs Temp Pulse Resp BP Pulse Ox 08/15/20 07:45 36.8 C 86 18 82/46 L 91 08/14/20 23:07 36.9 C 91 H 18 93/57 L 92 PG Care Time/CCT Total # of Minutes Spent Total Time Spent with Patient: Total time spent is greater than 50% in coordination of care (as documented) at patient's floor/unit and/or counseling patient: Coding Level of Care Code 43597 Subseq Hosp Care Lvl 2 Diagnoses Complicated urinary tract infection N39.0 S/P ureteral stent placement Z96.0 Nephrolithiasis N20.0
[2020-08-15 10:11] LABS: Hematocrit (blood only) 38.6 % (37-47); Hemoglobin 12.7 g/dL (12.0-16.0); Mean Corpuscular Hgb Conc 32.9 g/dL (32-36); Mean Corpuscular Volume 103.2 fL (80-100); Mean Platelet Volume 10.2 fL (7.4-10.4); Platelet Count 150 K/uL (130-400); RDW Coefficient of Variation 14.9 % (11.5-14.5); RDW Standard Deviation 56.3 fL (36.4-46.3); Red Blood Count 3.74 M/uL (4.2-5.4); White Blood Count 4.61 K/uL (4.8-10.8)
[2020-08-15 10:29] LABS: BUN Creatinine Ratio 12.6 (10-20); Creatinine Clr Calc Pharmacy 65.4 ml/min; Est GFR (African American) 64.4 ml/min; Est GFR (Non-African American) 55.6 ml/min; Potassium 4.2 mmol/L (3.5-5.1)
--- NOTE | 2020-08-15 20:24 | Discharge Summary ---
Date of Service August 15, 2020 Admission HPI Per Admitting Provider Ami Hagen is a 74-year-old female with history of hypertension, paroxysmal atrial fibrillation, status post gastric bypass surgery. Patient had a prolonged and complicated hospital stay in June (06/12 - 06/23/20) for septic shock from E.coli UTI and bacteremia. She requiring intubation for acute hypercapnic respiratory failure, MICU care. She developed acute renal failure secondary to septic shock, obstructing 7mm left ureteral calculus with hydronephrosis and post-obstructive uropathy. She had a ureteral stent placed on 06/12. She had a temporary HD catheter placed on 06/15 for dialysis and received 4 dialysis treatments during her hospital stay. She had a tunneled HD catheter on 06/19. Patient ultimately recovered and was discharged to [facility] on 06/23/20. Her kidneys have recovered and she is no longer requiring HD - has been off since 07/14/20. She is to have her tunnelled catheter removed. She is also to have cystoscopy, left ureteroscopy, daysi lithotripsy and left stent exchange performed by Urology on 08/14/20. Patient had a UA and culture performed on 07/25/20 as well as 08/05/20 which were positive for VRE. Patient was notified by her Urologist today and instructed to come to the ER for IV antibiotics. Patient with no complaints. She has noticed an overall decline in her functional status since her MICU admission. She gets tired more easily and has some muscle weakness. Otherwise, she has not complaints. Specifically denies fever, chills, rigors, nausea, back pain, suprapubic pain, dysuria. She denies chest pain, palpitations, cough or SOB. She does endorse some hematuria for the last week. No clots reported. ER Course: Daptomycin Principal Diagnosis VRE UTI POA Asymptomatic bacteriuria with VREinfectious disease recommends only truncated oral treatment given removal of renal stones Cystoscopy and laser lithotripsy with stone retrieval and stent placement left ureter 08/14 Discharge Exam The patient appeared well Vital signs as documented. Lungs are clear to auscultation and appear unlabored Cardiac exam, Rhythm is regular.. No murmurs, rubs or gallops. Abdominal exam reveals normal bowel sounds, soft non tender, no masses Extremities are nonedematous and both pedal pulses are normal. Neurologic exam is alert and oriented, no focal loss of strength or sensation Skin is without bruises or rashes Psychologically is without concerns for anxiety or depression. Discharge Data Allergies Allergy/AdvReac Type Severity Reaction Status Date / Time adhesive Allergy Intermediate RASH, Verified 08/09/20 17:47 BLISTERING alendronate sodium Allergy Unknown SICK TO Verified 08/09/20 17:47 STOMACH latex Allergy Unknown SKIN Verified 08/09/20 17:47 TEARING Consultations 08/09/20 18:57 ED Decision to Admit Stat 08/09/20 21:10 Consult Urology Routine 08/10/20 09:18 Consult Infectious Diseases Routine 08/10/20 13:44 Consult Vascular Surgery Routine Procedures Performed Operation Date: 08/11/20 12:50 Actual Procedures p Perm Catheter Removal, Moderate Concious Sedation 1148 to 1207(Right) - Gilberto Strauss MD Operation Date: 08/14/20 11:15 Actual Procedures p Laser Destruction, Basekt Extraction of Stone, (Left) - DO stephanie Ghosh Left Stent Catheter Exchange(Left) - DO stephanie Ghosh Cystoscopy, Left Ureteronephroscopy, Retrograde Pyleogram(Left) - Toño Ferreira DO Ordered Studies 08/14/20 11:15 FL retrograde includes kub Routine Hospital Course (1) Bacteremia: VRE Bacteremia. Repeat blood cultures following permcath 08/12 negative at 48 hours. Appreciate ID management Continue on IV daptomycin during inpatient - linezolid equal weight recommendation however therefore maybe able to be switched to PO on discharge. For additional 2 days TTE - no vegetations Permcath removed 08/11 - culture negative to date (2) VRE (vancomycin resistant enterococcus) culture positive: Culture positive for VRE faecium - No clinical evidence of systemic infection however blood cultures positive as above. -Daptomycin per susceptibilities transition to linezolid at discharge for additional 2 days - (3) Atrial fibrillation: Rate controlled -Continue Metoprolol 25mg po q 8 hours -Resume warfarin post procedure -INR daily (4) Hypertension: Blood pressure stable -Continue metoprolol (5) Nephrolithiasis: Stones in place. Patient scheduled for lithotripsy Friday as inpatient -Urology consultation appreciated Code - Full Total Time Total Time Spent Total Time Spent (In Minutes): It required greater than 30 minutes to prepare this patient for discharge Discharge Plan Discharge Items Patient Disposition: Home - Self-Care Reason For Visit: VRE UTI Discharge Diagnosis: urinary infection associated with kidney stones * kidney stone destruction and removal * stent placed in tube between kidnay and bladder Activity: Resume your previous activity Non-emergency contact: Primary Care Provider and Urologist Call non-emergency contact if: you have any medication questions, your symptoms worsen and you have a fever Follow-up/Referrals: Nohemi Gunter CRNP [Primary Care Provider] - 08/22/20 2:00 pm (APPT WITH [facility]) Toño Ferreira DO [Physician] - 08/30/20 2:30 pm Diet: Regular Diet Comment: plenty of liquids, avoid regular and black tea Addtl Attending Provider Instructions: Drink plenty of fluids, contact Urology office to schedule your stent removal always return to seek care if your pain worsens of you have a fever complete your antibiotics resume your blood thinner ( coumadin/Warfarin) be sure to also resume your blood checks, have your blood checked for your INR on fridayaugust 18. Ask urology if they want you to hold your coumadin prior to your stent change Pending Studies at Discharge: No Stand-Alone Forms: [facility], Smoking Cessation Medications and DC Order Prescriptions: New linezolid 600 mg tablet 600 mg PO BID Qty: 4 RF: 0 Continued warfarin 2.5 mg tablet 2.5 mg PO DAILY Qty: 90 RF: 3 nystatin 100,000 unit/gram powder See Rx Instructions topical DAILY Qty: 60 RF: 2 cyanocobalamin (vitamin B-12) [Vitamin B-12] 1,000 mcg Tablet 1,000 mcg PO QAM RF: 0 Prolia 60 mg/mL Syringe 1 dose subcut UD RF: 0 cholecalciferol (vitamin D3) [Vitamin D3] 2,000 unit tablet 2,000 unit PO DAILY RF: 0 acetaminophen 500 mg tablet 1,000 mg PO TID PRN (Reason: pain) Qty: 0 RF: 0 metoprolol tartrate 25 mg tablet 25 mg PO Q8 RF: 0 Discharge Orders: Discharge Order (Routine); Ordered 08/15/20 Ordered By: Sonu Dinh/Other Patient Handouts: Having a Ureteral Stent Admission Data Admit Date/Time: 08/09/20 19:48 Attending Provider: Sonu Mittal Admit Provider: Carolina Burgess Primary Care Provider: Nohemi Gunter Other Providers: Carolina Burgess ; Toño Ferreira ; Prem Echavarria ; Kathy Eugene ; Clinton Burgess I. ; Laith Wagoner II ; Jenny Goetz ; Luis Vargas ; Gilberto Strauss Other Interventions: Discharge Summary Assessment (RN) Last Done: 08/15/20 13:19 Coding Level of Care Code D/C Day Management >30 mins Diagnoses Bacteremia R78.81 VRE (vancomycin resistant enterococcus) culture positive Z22.39 Atrial fibrillation I48.0 Atrial fibrillation type: paroxysmal Hypertension I10 Hypertension type: essential hypertension Nephrolithiasis N20.0
[2020-08-19 03:36] LABS: Component 2 DNR; Source KIDNEY; Source URETER
--- NOTE | 2020-08-23 12:41 | Coding Query ---
CODING QUERY To promote full compliance with coding requirements relating to patient care, provider participation is requested in all cases of area manager uncertainty. Please assist us with the question(s) below: Coding Question(s): The Discharge Summary documents, in the Principal Diagnosis area, "VRE UTI POA Asymptomatic bacteriuria with VREinfectious disease recommends only truncated oral treatment given removal of renal stones". The documentation under the Hospital Course documents, "(1) Bacteremia: VRE Bacteremia. Repeat blood cultures following permcath 08/12 negative at 48 hours. Appreciate ID management Continue on IV daptomycin during inpatient - linezolid equal weight recommendation however therefore maybe able to be switched to PO on discharge. For additional 2 days TTE - no vegetations Permcath removed 08/11 - culture negative to date (2) VRE (vancomycin resistant enterococcus) culture positive: Culture positive for VRE faecium - No clinical evidence of systemic infection however blood cultures positive as above. -Daptomycin per susceptibilities transition to linezolid at discharge for additional 2 days". Asymptomatic Bacteriuria is contradicting UTI documentation. Please Specify below in your clinical opinion, regarding Asymptomatic Bacteriuria. ( xx) Asymptomatic Bacteriuria is Ruled-Out - it was an error ( ) Asymptomatic Bacteriuria is diagnosed and UTI is Ruled-Out ( ) Other: Please Specify Physician's Response(s): Thank you Mellisa Matias Principal Diagnosis: "that condition established after study, to be chiefly responsible for occasioning the admission of the patient to the hospital for care." Co-Existing Principal Diagnosis: "when two or more diagnoses equally meet the criteria for principal diagnosis as determined by the circumstances of admission, diagnostic work up, and/or therapy provided, and the Alphabetic Index, Tabular List, or another coding guideline does not provide sequencing direction, any one of the diagnoses may be sequenced first." "When the physician has documented what appears to be a current diagnosis in the body of the record, but has not included the diagnosis in the final diagnostic statement, the physician should be asked whether the diagnosis should be added." (Source Coding Clinic 2 QTR90. p3-4) VISHAL
== END 2020-08-15 14:04 | disposition home or self-care (01) | DRG 660 ==
LOC: ED 14:52 → 3N 19:48 → SUATTDRO 19:48 → 3N 20:43

== ENCOUNTER 2023-03-11 20:18 | Inpatient (IN) ==
--- NOTE | 2023-03-11 20:24 | Emergency Department Note ---
Impression & Plan Encephalopathy acute, Acute UTI, Acute dehydration ED Provider Note NAME: LAURA EVANS AGE: 77 SEX: F : 1945 ARRIVES VIA: Ambulance INFORMANT: Patient, ED PROVIDER(S): Kiet Yoo MD CHIEF COMPLAINT: Confusion MEDICAL DECISION MAKING: Patient presents due to concern for confusion. The patient does follow commands at the bedside. IV was established blood work obtained along with urinalysis ammonia CT the head VBG. Patient was ordered IV fluids. Patient's blood work shows a normal white count hemoglobin with thrombocytopenia at 100,000. Patient's kidney function is unremarkable with normal electrolytes. Bilirubin of 1.8. Procalcitonin is not elevated but urinalysis does appear to be grossly infected which may be causing the patient's confusion. Patient was ordered Rocephin 2 g IV VBG without hypercarbia. Ammonia normal at 58. CT head negative. Given the patient's confusion and do not think it best for her to go home at this time. Patient's spouse at bedside is on chronic oxygen therapy. Do believe that she would be better served inpatient. I did speak the on-call hospital service the patient was admitted by Dr. Chaudhry. Discussion w/ other healthcare providers: Dr. Kaplan inpatient medicine service Prior /Outside records reviewed: I reviewed a prior primary care visit with Nohemi Syed from August 29, 2022. The patient does have a prior history of A-fib hypertension osteoporosis kidney stones had presented for follow-up on chronic problems. Patient has had ongoing issues reportedly and does follow with urology secondary to calcium oxalate stones UTIs and incontinence. Differential diagnosis: Infection, dehydration, metabolic abnormality, hypo/hyperglycemia, electrolyte imbalance, anemia, UTI, pneumonia, thyroid dysfunction among others were considered. Diagnostics, as interpreted by me: ECG: A-fib, rate of 102, right bundle branch block pattern, wide QRS, normal axis. Cardiac monitoring: An order was placed for continuous cardiac monitoring. The monitor shows a rate of 102 with tachycardic rhythm. Patient was placed on pulse oximetry Medical decision rules: None Imaging studies: I informally interpreted the patient's chest x-ray which does not show obvious pneumonia or pneumothorax with formal report to follow. I informally interpreted the patient's CT head which does not show obvious ICH with formal report to follow. HPI: Patient presents due to concern for confusion which seem to begin yesterday. The patient states that she was told by her significant other who states at the bedside that he asked for a question which she could not answer appropriately. Patient denies any chest pains or shortness of breath no nausea vomiting. The patient also goes on to state that she seemed to be confused about her bowel habits. The patient does have a prior history of kidney stones and states this does not feel like an issue with her kidney stones. The patient denies any dysuria or hematuria. No falls or trauma. The patient does take Eliquis for known history of A-fib and does follow with Dr. Cole with cardiology. Patient denies any cough or fever. Patient believes that she is been getting up to eat or drink. Patient states that her symptoms began yesterday. No numbness ting or focal weakness. PAST MEDICAL HISTORY: See Below PAST SURGICAL HISTORY: See Below SOCIAL HISTORY: See Below HOME MEDICATIONS: See Below ALLERGIES: See Below VITALS: See Below PHYSICAL EXAMINATION: GENERAL: NAD, non-toxic. EYE EXAM: Normal conjunctiva. PERRL, no anisocoria and EOM's grossly intact w/o pain. OROPHARYNX: Dry mucus membranes, grossly normal dentition. NECK: Supple, no nuchal rigidity, no adenopathy, non-tender. No signs of meningismus. FROM of the neck with good chin to chest and neck extension. No stridor. LUNGS: Clear to auscultation. Normal chest wall mechanics. HEART: Tachycardic and irregularly irregular, no MRG. ABDOMEN: Abdomen soft, non-tender, no masses, no rebound or guarding. BACK: No CVA TTP. SKIN: No rashes and no bruising. UPPER EXTREMITIES: Upper extremities are grossly normal. LOWER EXTREMITIES: Grossly normal, 1+ lower extremity edema without any calf pain or erythema NEURO EXAM: Awake and alert does follow commands intermittent confusion normal speech and does move all 4 extremities. Past Med/Surg History Medical History Venous insufficiency Rectocele Mild cognitive impairment VRE (vancomycin-resistant Enterococci) HX OF Osteoporosis Hyperparathyroidism Hyperoxaluria VRE (vancomycin resistant enterococcus) culture positive Acute hypercapnic respiratory failure PT UNAWARE Hydronephrosis concurrent with and due to calculi of kidney and ureter Ureteral stone with hydronephrosis Lactic acidosis Intertrigo Pressure ulcer PRESENT TO LEFT BUTTOCK, NO TREATMENT AT PRESENT, MILD PER PT Anticoagulant long-term use Paroxysmal atrial fibrillation DX APPROX 4 YRS AGO > ELIQUIS AND TOPROL > NO PACER > FOLLOWS WITH DR. COLE Incontinence of urine Stroke x2. (TIA'S PER PT) both 12 years ago. pt w/ intermittent numbness to right hand. no neurologist. Hypertension Surgical History History of cystoscopy Cystoscopy and Left Ureteronephroscopy, Retrograde Pyleogram, Laser Destruction, Basket Extraction of Stone, and Left Stent Catheter Exchange(Left) - Toño Ferreira, DO Hx of cataract surgery BILAT History of total shoulder replacement left History of surgery right leg r/t femur injury History of total knee replacement RIGHT History of hysterectomy vaginal History of gastric bypass History of dilatation and curettage x4 History of colonoscopy w/ polypectomy Family History Grandfather Family history of diabetes mellitus Daughter Family history of esophageal cancer Other Coronary heart disease Denies family history of Ovarian cancer Prostate cancer Breast cancer Lung cancer Colorectal cancer Uterine cancer Social History Smoking Status: Never smoker Second Hand Exposure: No; Do You Dip or Chew Tobacco: No; Hx Alcohol Use: No Hx Substance Use: No Preferred Language: Barbadian Communication Ability: Effective Visual Impairment: No Limitations Hearing Ability: Normal Embroidery Supervisor Required: No Beliefs That Will Affect Care: None Current Living Situation: Spouse Feels Safe at Home: Yes Seatbelt Use: always Assistive Devices: Cane and Walker Allergies Allergies Allergy/AdvReac Type Severity Reaction Status Date / Time adhesive Allergy Intermediate RASH, Verified 03/11/23 21:17 BLISTERING latex Allergy Mild SKIN Verified 03/11/23 21:17 TEARING alendronate sodium AdvReac Intermediate SICK TO Verified 03/11/23 21:17 STOMACH Home Meds Home Medications Medication Instructions Recorded Confirmed cyanocobalamin (vitamin B-12) 1,000 mcg PO QAM 01/19/18 03/11/23 1,000 mcg tablet (Vitamin B-12) cholecalciferol (vitamin D3) 50 2,000 unit PO QAM 08/07/19 01/09/24 mcg (2,000 unit) tablet (Vitamin D3) calcium citrate 250 mg PO QAM 05/10/22 03/11/23 metoprolol succinate 50 mg 50 mg PO QAM 05/10/22 03/11/23 tablet,extended release 24 hr (Toprol XL) multivitamin with minerals 1 tab PO DAILY 03/11/23 03/11/23 nystatin 100,000 unit/gram topical 1 applic topical DAILY PRN Skin 03/11/23 03/11/23 powder Irritation Previous Rx's Medication Instructions Recorded acetaminophen 500 mg tablet 1,000 mg (2 x 500 mg) PO TID PRN 06/23/20 pain #0 tabs apixaban 5 mg tablet (Eliquis) 5 mg PO BID #180 tabs 04/23/22 denosumab 60 mg/mL subcutaneous 60 mg subcut .Q6 month #1 mL 02/06/23 syringe Results & Data (ED) Vital Signs Vital Signs - 24 hr 03/11/23 20:25 03/11/23 20:29 Temperature 37.1 C Temperature Source Oral Pulse Rate 109 H 115 H Respiratory Rate 18 Blood Pressure 134/83 Blood Pressure Mean 100 Pulse Oximetry 97 Oxygen Delivery Method Room Air Sepsis Recent Fever Within 48 Hours No Sepsis New/Unexplained Change in Mental Status No Sepsis Action Taken by Nursing No Action Required Home Medications Current Medication List: was personally reviewed by me Laboratory Data Attestation: I reviewed the patient's lab results. 03/12/23 03:37 03/12/23 03:37 Lab Results 03/11/23 03/11/23 03/11/23 Range/Units 20:29 20:34 20:35 WBC 4.83 (4.8-10.8) K/ul RBC 4.49 (4.20-5.40) M/uL Hgb 14.9 (12.0-16.0) g/dl POC Hgb 15.6 (12.0-16.0) g/dl Hct 44.7 (37.0-47.0) % POC Hct 46 (37-47) % MCV 99.6 (80.0-100.0) fL MCH 33.2 (25.0-34.0) pg MCHC 33.3 (32.0-36.0) g/dL RDW Std Deviation 60.0 H (36.4-46.3) fL RDW Coeff of Sonia 16.5 H (11.5-14.5) % Plt Count 100 L (130-400) K/uL MPV 11.0 (9.4-12.4) fL Immature Gran % (Auto) 0.4 % Neut % (Auto) 71.7 % Lymph % (Auto) 16.6 % [place] % (Auto) 9.9 % Eos % (Auto) 1.2 % Baso % (Auto) 0.2 % Neut # (Auto) 3.46 (1.40-6.50) K/uL Lymph # (Auto) 0.80 L (1.20-3.40) K/uL [place] # (Auto) 0.48 (0.11-0.59) K/uL Eos # (Auto) 0.06 (0.00-0.50) K/uL Baso # (Auto) 0.01 (0.00-0.20) K/uL Immature Gran # (Auto) 0.02 (0.01-0.20) K/uL VBG pH (7.36-7.41) VBG pCO2 (38-50) mmHg VBG pO2 mmHg VBG HCO3 mmol/L VBG O2 Saturation % VBG Base Excess mEq/L POC Sodium 142 (135-144) mmol/L Sodium 139 (136-145) mmol/L POC Potassium 4.0 (3.3-5.0) mmol/L Potassium 3.9 (3.5-5.1) mmol/L POC Chloride 105 (101-112) mmol/L Chloride 105 (98-107) mmol/L Carbon Dioxide 24 (21-32) mmol/L POC Total CO2 23 L (24-31) mmol/L Anion Gap 10 (3-11) POC Anion Gap 19.0 (16-25) mmol/L POC BUN 23 H (7-18) mg/dl BUN 25 H (6-23) mg/dl Creatinine 0.82 (0.6-1.2) mg/dl POC Creatinine 0.8 (0.6-1.3) mg/dl Est Cr Clr Drug Dosing 70.6 ml/min Est GFR ( Amer) 81.1 ml/min Est GFR (Non-Af Amer) 70.0 ml/min BUN/Creatinine Ratio 30.5 H (10-20) Glucose 130 H (70-99(Fasting)) mg/dl POC Glucose (other) 128 H (70-99) mg/dl Calcium 9.6 (8.6-10.3) mg/dl POC Ioniz Calcium Becca 1.20 (1.12-1.32) mmol/l Total Bilirubin 1.8 H (0.2-1.0) mg/dl AST 26 (13-39) U/L ALT 15 (7-52) U/L Alkaline Phosphatase 82 (34-104) U/L Ammonia (18-72) umol/L Total Protein 7.1 (6.0-8.3) gm/dl Albumin 3.7 (3.4-5.0) gm/dl Globulin 3.4 (2.5-4.0) gm/dl Albumin/Globulin Ratio 1.1 (0.9-2) Procalcitonin < 0.05 (0-0.5) ng/ml TSH 1.991 (0.300-4.500) uIu/ml Urine Color Dark Yellow Urine Appearance Clear (Clear) Urine pH 5.5 (4.5-7.5) Ur Specific Clune 1.018 (1.000-1.030) Urine Protein 1+ H (Negative) Urine Glucose (UA) Negative (Negative) Urine Ketones 1+ H (Negative) Urine Blood 1+ H (Negative) Urine Nitrite Positive A (Negative) Urine Bilirubin 1+ H (Negative) Urine Urobilinogen Negative (Negative) Ur Leukocyte Esterase 1+ H (Negative) Urine WBC (Auto) 10-30 H (0-5) /hpf Urine RBC (Auto) 5-10 H (0-4) /hpf U Hyaline Cast (Auto) 1-5 (0-5) /lpf U Epithel Cells (Auto) 0-5 (0-5) /lpf Urine Bacteria (Auto) 4+ H (Negative) 03/11/23 03/11/23 Range/Units 20:40 21:27 WBC (4.8-10.8) K/ul RBC (4.20-5.40) M/uL Hgb (12.0-16.0) g/dl POC Hgb (12.0-16.0) g/dl Hct (37.0-47.0) % POC Hct (37-47) % MCV (80.0-100.0) fL MCH (25.0-34.0) pg MCHC (32.0-36.0) g/dL RDW Std Deviation (36.4-46.3) fL RDW Coeff of Sonia (11.5-14.5) % Plt Count (130-400) K/uL MPV (9.4-12.4) fL Immature Gran % (Auto) % Neut % (Auto) % Lymph % (Auto) % [place] % (Auto) % Eos % (Auto) % Baso % (Auto) % Neut # (Auto) (1.40-6.50) K/uL Lymph # (Auto) (1.20-3.40) K/uL [place] # (Auto) (0.11-0.59) K/uL Eos # (Auto) (0.00-0.50) K/uL Baso # (Auto) (0.00-0.20) K/uL Immature Gran # (Auto) (0.01-0.20) K/uL VBG pH 7.45 H (7.36-7.41) VBG pCO2 39 (38-50) mmHg VBG pO2 38 mmHg VBG HCO3 27 mmol/L VBG O2 Saturation 69.5 % VBG Base Excess 3.0 mEq/L POC Sodium (135-144) mmol/L Sodium (136-145) mmol/L POC Potassium (3.3-5.0) mmol/L Potassium (3.5-5.1) mmol/L POC Chloride (101-112) mmol/L Chloride (98-107) mmol/L Carbon Dioxide (21-32) mmol/L POC Total CO2 (24-31) mmol/L Anion Gap (3-11) POC Anion Gap (16-25) mmol/L POC BUN (7-18) mg/dl BUN (6-23) mg/dl Creatinine (0.6-1.2) mg/dl POC Creatinine (0.6-1.3) mg/dl Est Cr Clr Drug Dosing ml/min Est GFR ( Amer) ml/min Est GFR (Non-Af Amer) ml/min BUN/Creatinine Ratio (10-20) Glucose (70-99(Fasting)) mg/dl POC Glucose (other) (70-99) mg/dl Calcium (8.6-10.3) mg/dl POC Ioniz Calcium Becca (1.12-1.32) mmol/l Total Bilirubin (0.2-1.0) mg/dl AST (13-39) U/L ALT (7-52) U/L Alkaline Phosphatase (34-104) U/L Ammonia 58.0 (18-72) umol/L Total Protein (6.0-8.3) gm/dl Albumin (3.4-5.0) gm/dl Globulin (2.5-4.0) gm/dl Albumin/Globulin Ratio (0.9-2) Procalcitonin (0-0.5) ng/ml TSH (0.300-4.500) uIu/ml Urine Color Urine Appearance (Clear) Urine pH (4.5-7.5) Ur Specific Clune (1.000-1.030) Urine Protein (Negative) Urine Glucose (UA) (Negative) Urine Ketones (Negative) Urine Blood (Negative) Urine Nitrite (Negative) Urine Bilirubin (Negative) Urine Urobilinogen (Negative) Ur Leukocyte Esterase (Negative) Urine WBC (Auto) (0-5) /hpf Urine RBC (Auto) (0-4) /hpf U Hyaline Cast (Auto) (0-5) /lpf U Epithel Cells (Auto) (0-5) /lpf Urine Bacteria (Auto) (Negative) Administered Medications Apixaban (Apixaban 5 Mg Tablet) 5 mg PO BID [facility] Stop: 04/11/23 08:59 Last Admin: 03/12/23 20:20 Dose: 5 mg Documented By: Admin: 03/12/23 09:12 Dose: 5 mg Documented By: DECLAN Cyanocobalamin (Cyanocobalamin (B-12) 500 Mcg Tablet) 1,000 mcg PO QAM [facility] Stop: 04/11/23 08:59 Last Admin: 03/12/23 09:12 Dose: 1,000 mcg Documented By: DECLAN Daptomycin 450 mg/ Syringe 9 mls @ 4.5 mls/min IV Q24H [facility]; Protocol Stop: 03/22/23 22:59 Last Admin: 03/12/23 23:51 Dose: 4.5 mls/min Documented By: LISSETTE Ceftriaxone Sodium 2,000 mg/ (Dextrose) 50 mls @ 100 mls/hr IV Q24H [facility]; Protocol Stop: 03/22/23 07:59 Last Infusion: 03/12/23 20:59 Dose: Infused Documented By: Admin: 03/12/23 20:19 Dose: 100 mls/hr Documented By: LISSETTE Metoprolol Succinate (Metoprolol Succ 50mg Ext Rel Tab) 50 mg PO QAM [facility] Stop: 04/11/23 08:59 Last Admin: 03/12/23 09:13 Dose: 50 mg Documented By: DECLAN Multivitamins/Minerals (Cerovite Adv Formula Tab) 1 tab PO DAILY MICHAEL Stop: 04/11/23 08:59 Last Admin: 03/12/23 09:13 Dose: 1 tab Documented By: DECLAN Vitamin D (Cholecalciferol 1,000 Units 25 Mcg Tab) 2,000 units PO QAM[place]COGEE Stop: 04/11/23 08:59 Last Admin: 03/12/23 09:12 Dose: 2,000 units Documented By: DECLAN Discontinued Medications Ceftriaxone Sodium (Rocephin) 2,000 mg in 50 mls @ 100 mls/hr IV NOW STA Stop: 03/11/23 22:45 Last Infusion: 03/11/23 22:48 Dose: Infused Documented By: Admin: 03/11/23 22:26 Dose: 100 mls/hr Documented By: ALLY Sodium Chloride (Nss) 1,000 mls @ 999 mls/hr IV .Q1H1M ONE Stop: 03/11/23 23:17 Last Infusion: 03/11/23 23:51 Dose: Infused Documented By: Admin: 03/11/23 22:26 Dose: 999 mls/hr Documented By: ALLY Daptomycin 450 mg/ Syringe 9 mls @ 4.5 mls/min IV ONE STA; Protocol Stop: 03/11/23 22:57 Last Admin: 03/11/23 23:35 Dose: 4.5 mls/min Documented By: CORIE Potassium Chloride/Sodium Chloride (Normal Saline W/20 Meq Kcl) 20 meq in 1,000 mls @ 80 mls/hr IV .[id number] [facility] Stop: 03/12/23 11:59 Last Infusion: 03/12/23 18:34 Dose: Infused Documented By: Admin: 03/11/23 23:47 Dose: 80 mls/hr Documented By: CORIE Magnesium Sulfate/Dextrose (Magnesium Sulfate / D5w) 1 gm in 100 mls @ 50 mls/hr IV Q2H MICHAEL Stop: 03/12/23 12:59 Last Infusion: 03/12/23 18:34 Dose: Infused Documented By: Admin: 03/12/23 14:47 Dose: 50 mls/hr Documented By: Infusion: 03/12/23 12:41 Dose: Infused Documented By: Admin: 03/12/23 10:41 Dose: 50 mls/hr Documented By: DECLAN Discharge Plan Visit Data Chief Complaint: Confusion Stated Complaint: CONFUSED ON AND OFF SINCE YESTERDAY ED Provider: Kiet Yoo Discharge Problem: Encephalopathy acute, Acute UTI, Acute dehydration Patient Disposition: Admitted As Inpatient Discharge Instructions Interventions: ED Discharge Assessment Last Done: 03/11/23 23:10
[2023-03-11 20:47] LABS: iSTAT Creatinine 0.8 mg/dl (0.6-1.3); iSTAT Hemoglobin 15.6 g/dl (12.0-16.0); iSTAT Ionized Calcium 1.2 mmol/l (1.12-1.32)
[2023-03-11 20:54] LABS: HCO3 VBG 27 mmol/L; Oxygen Saturation VBG 69.5 %; PCO2 VBG 39 mmHg (38-50); PO2 VBG 38 mmHg; pH VBG 7.45 (7.36-7.41)
[2023-03-11 21:16] LABS: Appearance Urine Clear (Clear); Bacteria Urine Automated 4+ (Negative); Blood Urine 1+ (Negative); Color Urine Dark Yellow; Epithelial Cell Urine Auto 0-5 /lpf (0-5); Glucose Urine UA Negative (Negative); Ketones Urine 1+ (Negative); Leukocyte Esterase Urine 1+ (Negative); Nitrite Urine Positive (Negative); Protein Urine 1+ (Negative); Specific Gravity Urine 1.018 (1.000-1.030); Urobilinogen Urine Negative (Negative); pH Urine 5.5 (4.5-7.5)
[2023-03-11 21:17] LABS: Bilirubin Urine 1+ (Negative)
--- NOTE | 2023-03-11 21:21 | CT Scan Report ---
Exam(s): CT HEAD Without Contrast EXAM: CT Head Without Intravenous Contrast CLINICAL HISTORY: Reason for exam: confusion, on eliquis. TECHNIQUE: Axial computed tomography images of the head/brain without intravenous contrast. Automated exposure control was utilized for the study. A dose lowering technique was utilized adhering to the principles of ALARA. COMPARISON: No relevant prior studies available. FINDINGS: No acute intracranial hemorrhage. No midline shift or mass effect. The territorial klein-white matter differentiation is maintained throughout. Age-related cerebral volume loss. Periventricular and subcortical white matter hypoattenuation, consistent with chronic microangiopathy. The visualized orbits appear grossly unremarkable. The calvarium is intact. The visualized paranasal sinuses and mastoid air cells are grossly clear. IMPRESSION: No acute intracranial hemorrhage, midline shift, or mass effect. Electronically signed by: Bebeto Méndez MD 03/11/23 21:20 PM
[2023-03-11 21:29] LABS: Albumin Globulin Ratio 1.1 (0.9-2); Albumin Level 3.7 gm/dl (3.4-5.0); BUN Creatinine Ratio 30.5 (10-20); Bilirubin,Total 1.8 mg/dl (0.2-1.0); Calcium 9.6 mg/dl (8.6-10.3); Creatinine Clr Calc Pharmacy 70.6 ml/min; Est GFR (African American) 81.1 ml/min; Globulin 3.4 gm/dl (2.5-4.0); Potassium 3.9 mmol/L (3.5-5.1); Total Protein 7.1 gm/dl (6.0-8.3)
[2023-03-11 21:41] LABS: Basophils # (auto) 0.01 K/uL (0.00-0.20); Basophils % (auto) 0.2 %; Eosinophils # (auto) 0.06 K/uL (0.00-0.50); Eosinophils % (auto) 1.2 %; Hematocrit (blood only) 44.7 % (37.0-47.0); Hemoglobin 14.9 g/dl (12.0-16.0); Immature Granulocytes # (auto) 0.02 K/uL (0.01-0.20); Immature Granulocytes % (auto) 0.4 %; Lymphocytes % (auto) 16.6 %; Mean Corpuscular Hemoglobin 33.2 pg (25.0-34.0); Mean Corpuscular Hgb Conc 33.3 g/dL (32.0-36.0); Mean Corpuscular Volume 99.6 fL (80.0-100.0); Monocytes # (auto) 0.48 K/uL (0.11-0.59); Monocytes % (auto) 9.9 %; Neutrophils # (auto) 3.46 K/uL (1.40-6.50); Neutrophils % (auto) 71.7 %; Platelet Count 100 K/uL (130-400); RDW Coefficient of Variation 16.5 % (11.5-14.5); Red Blood Count 4.49 M/uL (4.20-5.40); White Blood Count 4.83 K/ul (4.8-10.8)
[2023-03-11 21:44] LABS: Thyroid Stimulating Hormone 1.991 uIu/ml (0.300-4.500)
[2023-03-11] MEDS ORDERED: cefTRIAXone SODIUM 2,000 MG/50 ML BAG IV STA (22:16)
[2023-03-11] MEDS ORDERED: SODIUM CHLORIDE 0.9% 1,000 ML IV ONE (22:17)
--- NOTE | 2023-03-11 22:50 | History & Physical Report ---
Date of Service March 11, 2023 Assessment & Plan (1) Confusion: (2) Sepsis due to urinary tract infection: (3) History of infection with vancomycin resistant Enterococcus (VRE): (4) History of E. coli septicemia: (5) Stroke: (6) Atrial fibrillation: (7) Hypertension: (8) Urinary incontinence in female: Plan Sepsis due to UTI/confusion due to encephalopathy/history of kidney stones- History of previous VRE and E. coli urinary tract infections and sepsis Follow urine culture and sensitivity From the ED received ceftriaxone 2 g IV and NSS 1 L Empiric ceftriaxone 2 g IV every 24 hours, and daptomycin IV NSS + KCl 20 mill equivalents at 80 mL/h x [address] abdomen and pelvis with no acute findings Chronic urinary incontinence/pelvic floor dysfunction/rectocele- Follows with urology Atrial fibrillation/hypertension- Continue apixaban, metoprolol succinate History of Present Illness Chief Complaint: The patient presents to the emergency department due to her concerns and family concerns regarding worsening confusion and ongoing urinary incontinence Primary Care Provider: TEX Cooper The patient is a 77-year-old female with a past medical history including pancytopenia, hypertension, atrial fibrillation, stroke, vitamin D deficiency, venous insufficiency, recurrent urinary tract infection, idiopathic peripheral neuropathy, intestinal malabsorption, mild cognitive impairment, pelvic floor dysfunction and rectocele. Patient has had previous urinary tract infections with E. coli and VRE. She presents with complaint of worsening confusion, over the past several days, which her family has noted as well. She has had ongoing urinary incontinence. She feels generally weak, has no focal weakness. Allergies Allergy/AdvReac Type Severity Reaction Status Date / Time adhesive Allergy Intermediate RASH, Verified 03/11/23 21:17 BLISTERING latex Allergy Mild SKIN Verified 03/11/23 21:17 TEARING alendronate sodium AdvReac Intermediate SICK TO Verified 03/11/23 21:17 STOMACH Home Medications Medication Instructions Recorded Confirmed Type cyanocobalamin (vitamin B-12) 1,000 mcg PO QAM 01/19/18 03/11/23 History 1,000 mcg tablet (Vitamin B-12) cholecalciferol (vitamin D3) 50 2,000 unit PO QAM 10/07/18 03/11/23 History mcg (2,000 unit) tablet (Vitamin D3) acetaminophen 500 mg tablet 1,000 mg (2 x 500 mg) PO TID PRN 06/23/20 03/11/23 Rx pain #0 tabs apixaban 5 mg tablet (Eliquis) 5 mg PO BID #180 tabs 04/23/22 03/11/23 Rx calcium citrate 250 mg PO QAM 05/10/22 03/11/23 History metoprolol succinate 50 mg 50 mg PO QAM 05/10/22 03/11/23 History tablet,extended release 24 hr (Toprol XL) denosumab 60 mg/mL subcutaneous 60 mg subcut .Q6 month #1 mL 02/06/23 03/11/23 Rx syringe multivitamin with minerals 1 tab PO DAILY 03/11/23 03/11/23 History nystatin 100,000 unit/gram topical 1 applic topical DAILY PRN Skin 03/11/23 03/11/23 History powder Irritation Past Med/Surg History Medical History Venous insufficiency Rectocele Mild cognitive impairment VRE (vancomycin-resistant Enterococci) HX OF Osteoporosis Hyperparathyroidism Hyperoxaluria VRE (vancomycin resistant enterococcus) culture positive Acute hypercapnic respiratory failure PT UNAWARE Hydronephrosis concurrent with and due to calculi of kidney and ureter Ureteral stone with hydronephrosis Lactic acidosis Intertrigo Pressure ulcer PRESENT TO LEFT BUTTOCK, NO TREATMENT AT PRESENT, MILD PER PT Anticoagulant long-term use Paroxysmal atrial fibrillation DX APPROX 4 YRS AGO > ELIQUIS AND TOPROL > NO PACER > FOLLOWS WITH DR. COLE Incontinence of urine Stroke x2. (TIA'S PER PT) both 12 years ago. pt w/ intermittent numbness to right hand. no neurologist. Hypertension Surgical History History of cystoscopy Cystoscopy and Left Ureteronephroscopy, Retrograde Pyleogram, Laser Destruction, Basket Extraction of Stone, and Left Stent Catheter Exchange(Left) - Toño Ferreira DO Hx of cataract surgery BILAT History of total shoulder replacement left History of surgery right leg r/t femur injury History of total knee replacement RIGHT History of hysterectomy vaginal History of gastric bypass History of dilatation and curettage x4 History of colonoscopy w/ polypectomy Family History Grandfather Family history of diabetes mellitus Daughter Family history of esophageal cancer Other Coronary heart disease Denies family history of Ovarian cancer Prostate cancer Breast cancer Lung cancer Colorectal cancer Uterine cancer Social History Smoking Status: Never smoker Second Hand Exposure: No; Do You Dip or Chew Tobacco: No; Hx Alcohol Use: No Hx Substance Use: No Preferred Language: Luxembourgish Communication Ability: Effective Visual Impairment: No Limitations Hearing Ability: Normal Internal Controls Analyst Required: No Beliefs That Will Affect Care: None Current Living Situation: Spouse Feels Safe at Home: Yes Seatbelt Use: always Assistive Devices: Cane and Walker Review of Systems Review of Systems: The patient denies chest pain, palpitations, shortness of breath, dyspnea on exertion, cough, lower extremity swelling, sore throat, fevers, chills, sweats, nausea, vomiting, diarrhea , constipation, abdominal pain, pelvic pain, blood in urine or stool, dysuria, lightheadedness, dizziness, headache, loss of consciousness, rash, abnormal bruising or bleeding, Focal weakness, numbness or tingling in arms or legs, generalized arthralgias or myalgias, back or neck pain, or night sweats. The review of systems is otherwise negative other than for that already noted above, and at least 10 systems have been reviewed. Physical Exam Physical Exam: The patient is awake, alert and oriented 3, well developed and well nourished, normocephalic and atraumatic, lying in bed and in no acute distress. HEENT--PERRL, EOMI, mucous membranes and oropharynx dry. Neck--supple. No JVD. No bruits. Thyroid normal, trachea midline, no adenopathy. Heart--normal S1 and S2. No murmurs, rubs or gallops. Lungs--clear bilaterally, no respiratory distress, no accessory muscle use. Abdomen--normal bowel sounds and soft. Nontender. Nondistended, no hernias or masses, no organomegaly. Extremities--no cyanosis or clubbing. No edema. There are good distal pulses b/l. Dermatologic--normal skin turgor, normal color, no abnormal lymph nodes, no rash. Neurologic--cranial nerves II through XII grossly intact. Rheumatologic--normal range of motion. Psychiatric--normal affect. Results & Data Results & Data Vital Signs (Past 12 Hours) Vital Signs Temp Pulse Pulse Resp BP BP Pulse Ox 03/11/23 22:28 99 H 20 138/101 H 97 03/11/23 21:03 131/77 03/11/23 21:03 101 H 21 98 03/11/23 20:35 97 03/11/23 20:30 102 H 20 97 03/11/23 20:29 115 H 03/11/23 20:25 37.1 C 109 H 18 134/83 97 O2 Del Method 03/11/23 22:28 03/11/23 21:03 03/11/23 21:03 03/11/23 20:35 Room Air 03/11/23 20:30 03/11/23 20:29 03/11/23 20:25 Room Air Laboratory Results Laboratory Results WBC 4.83 K/ul (4.8-10.8) 03/11/23 20: RBC 4.49 M/uL (4.20-5.40) 03/11/23 20:29 Hgb 14.9 g/dl (12.0-16.0) 03/11/23 20: POC Hgb 15.6 g/dl (12.0-16.0) 03/11/23 20:34 Hct 44.7 % (37.0-47.0) 03/11/23 20: POC Hct 46 % (37-47) 03/11/23 20:34 MCV 99.6 fL (80.0-100.0) 03/11/23 20: MCH 33.2 pg (25.0-34.0) 03/11/23 20: MCHC 33.3 g/dL (32.0-36.0) 03/11/23 20:29 RDW Std Deviation 60.0 fL (36.4-46.3) H 03/11/23 20: RDW Coeff of Sonia 16.5 % (11.5-14.5) H 03/11/23 20: Plt Count 100 K/uL (130-400) L 03/11/23 20: MPV 11.0 fL (9.4-12.4) 03/11/23 20: Immature Gran % (Auto) 0.4 % 03/11/23 20: Neut % (Auto) 71.7 % 03/11/23: Lymph % (Auto) 16.6 % 03/11/23: [place] % (Auto) 9.9 % 03/11/23: Eos % (Auto) 1.2 % 03/11/23: Baso % (Auto) 0.2 % 03/11/23: Neut # (Auto) 3.46 K/uL (1.40-6.50) 03/11/23: Lymph # (Auto) 0.80 K/uL (1.20-3.40) L 03/11/23: [place] # (Auto) 0.48 K/uL (0.11-0.59) 03/11/23: Eos # (Auto) 0.06 K/uL (0.00-0.50) 03/11/23: Baso # (Auto) 0.01 K/uL (0.00-0.20) 03/11/23: Immature Gran # (Auto) 0.02 K/uL (0.01-0.20) 03/11/23: VBG pH 7.45 (7.36-7.41) H 03/11/23 20:40 VBG pCO2 39 mmHg (38-50) 03/11/23 20:40 VBG pO2 38 mmHg 03/11/23 20:40 VBG HCO3 27 mmol/L 03/11/23 20:40 VBG O2 Saturation 69.5 % 03/11/23 20:40 VBG Base Excess 3.0 mEq/L 03/11/23 20:40 POC Sodium 142 mmol/L (135-144) 03/11/23:34 Sodium 139 mmol/L (136-145) 03/11/23: POC Potassium 4.0 mmol/L (3.3-5.0) 03/11/23: Potassium 3.9 mmol/L (3.5-5.1) 03/11/23: POC Chloride 105 mmol/L (101-112) 03/11/23: Chloride 105 mmol/L (98-107) 03/11/23: Carbon Dioxide 24 mmol/L (21-32) 01/09/24 20:29 POC Total CO2 23 mmol/L (24-31) L 03/11/23 20:34 Anion Gap 10 (3-11) 03/11/23 20:29 POC Anion Gap 19.0 mmol/L (16-25) 03/11/23 20:34 POC BUN 23 mg/dl (7-18) H 03/11/23 20:34 BUN 25 mg/dl (6-23) H 03/11/23 20:29 Creatinine 0.82 mg/dl (0.6-1.2) 03/11/23 20: POC Creatinine 0.8 mg/dl (0.6-1.3) 03/11/23 20:34 Est Cr Clr Drug Dosing 70.6 ml/min 03/11/23 20:29 Est GFR ( Amer) 81.1 ml/min 03/11/23 20: Est GFR (Non-Af Amer) 70.0 ml/min 03/11/23 20: BUN/Creatinine Ratio 30.5 (10-20) H 03/11/23 20:29 Glucose 130 mg/dl (70-99(Fasting)) H 03/11/23 20:29 POC Glucose (other) 128 mg/dl (70-99) H 03/11/23 20:34 Calcium 9.6 mg/dl (8.6-10.3) 03/11/23 20:29 POC Ioniz Calcium Becca 1.20 mmol/l (1.12-1.32) 03/11/23 20:34 Total Bilirubin 1.8 mg/dl (0.2-1.0) H 03/11/23 20:29 AST 26 U/L (13-39) 03/11/23 20:29 ALT 15 U/L (7-52) 03/11/23 20:29 Alkaline Phosphatase 82 U/L (34-104) 03/11/23 20: Ammonia 58.0 umol/L (18-72) 03/11/23 21:27 Total Protein 7.1 gm/dl (6.0-8.3) 03/11/23 20:29 Albumin 3.7 gm/dl (3.4-5.0) 03/11/23 20:29 Globulin 3.4 gm/dl (2.5-4.0) 03/11/23: Albumin/Globulin Ratio 1.1 (0.9-2) 03/11/23 20:29 Procalcitonin < 0.05 ng/ml (0-0.5) 03/11/23 20: TSH 1.991 uIu/ml (0.300-4.500) 03/11/23 20:29 Urine Color Dark Yellow 03/11/23 20:35 Urine Appearance Clear (Clear) 03/11/23 20: Urine pH 5.5 (4.5-7.5) 03/11/23 20:35 Ur Specific [place] 1.018 (1.000-1.030) 03/11/23 20: Urine Protein 1+ (Negative) H 03/11/23 20: Urine Glucose (UA) Negative (Negative) 03/11/23 20: Urine Ketones 1+ (Negative) H 03/11/23 20:35 Urine Blood 1+ (Negative) H 03/11/23 20:35 Urine Nitrite Positive (Negative) A 03/11/23 20: Urine Bilirubin 1+ (Negative) H 03/11/23 20:35 Urine Urobilinogen Negative (Negative) 03/11/23 20:35 Ur Leukocyte Esterase 1+ (Negative) H 03/11/23 20:35 Urine WBC (Auto) 10-30 /hpf (0-5) H 03/11/23 20:35 Urine RBC (Auto) 5-10 /hpf (0-4) H 03/11/23 20:35 U Hyaline Cast (Auto) 1-5 /lpf (0-5) 03/11/23 20:35 U Epithel Cells (Auto) 0-5 /lpf (0-5) 03/11/23 20:35 Urine Bacteria (Auto) 4+ (Negative) H 03/11/23 20:[address] 03/11/23 20:33 Exam(s): CT HEAD Without Contrast EXAM: CT Head Without Intravenous Contrast CLINICAL HISTORY: Reason for exam: confusion, on eliquis. TECHNIQUE: Axial computed tomography images of the head/brain without intravenous contrast. Automated exposure control was utilized for the study. A dose lowering technique was utilized adhering to the principles of ALARA. COMPARISON: No relevant prior studies available. FINDINGS: No acute intracranial hemorrhage. No midline shift or mass effect. The territorial klein-white matter differentiation is maintained throughout. Age-related cerebral volume loss. Periventricular and subcortical white matter hypoattenuation, consistent with chronic microangiopathy. The visualized orbits appear grossly unremarkable. The calvarium is intact. The visualized paranasal sinuses and mastoid air cells are grossly clear. IMPRESSION: No acute intracranial hemorrhage, midline shift, or mass effect. Electronically signed by: Bebeto Méndez MD 03/11/23 21:20 PM Abdomen/Pelvis CT 03/11/23 22:30 Exam(s): CT ABDOMEN + PELVIS Without Contrast EXAM: CT Abdomen and Pelvis Without Intravenous Contrast CLINICAL HISTORY: Reason for exam: UTI, hx of kidney stones. TECHNIQUE: Axial computed tomography images of the abdomen and pelvis without intravenous contrast. CTDI is 36.95 mGy and DLP is 1792.23 mGy-cm. Automated exposure control was utilized for the study. A dose lowering technique was utilized adhering to the principles of ALARA. COMPARISON: No relevant prior studies available. FINDINGS: Lung bases: Unremarkable. No mass. No consolidation. ABDOMEN: Liver: Unremarkable. Gallbladder and bile ducts: Cholelithiasis. No ductal dilation. Pancreas: Unremarkable. No ductal dilation. Spleen: Unremarkable. No splenomegaly. Adrenals: Unremarkable. No mass. Kidneys and ureters: Unremarkable. No hydronephrosis or nephrolithiasis. Stomach and bowel: Mild fecal retention, correlate for constipation. Diverticulosis, without acute diverticulitis. No small bowel obstruction. No free intraperitoneal air. PELVIS: Appendix: No findings to suggest acute appendicitis. Bladder: Unremarkable. No stones. Reproductive: Hysterectomy. ABDOMEN and PELVIS: Intraperitoneal space: Unremarkable. No free air. No significant fluid collection. Bones/joints: Degenerative changes of the spine. RIGHT femur ORIF. No acute fracture. No dislocation. Soft tissues: Unremarkable. Vasculature: Atherosclerotic changes of the aorta. No abdominal aortic aneurysm. Lymph nodes: Unremarkable. No enlarged lymph nodes. IMPRESSION: 1. Cholelithiasis. 2. Hysterectomy. 3. Mild fecal retention, correlate for constipation. 4. Diverticulosis, without acute diverticulitis. No small bowel obstruction. No free intraperitoneal air. Electronically signed by: Bebeto Méndez MD 03/11/23 23:03 PM Code Status & VTE Plan Code Status Full code VTE Prophylaxis Plan VTE Prophylaxis will be ordered: Yes PG Care Time/CCT Total # of Minutes Spent Total Time Spent with Patient: Total time spent is greater than 50% in coordination of care (as documented) at patient's floor/unit and/or counseling patient: Coding Level of Care Code 46992 INT INP/OBS CARE 3/75MIN Diagnoses Confusion R41.0 Sepsis due to urinary tract infection A41.9; N39.0 History of infection with vancomycin resistant Enterococcus (VRE) Z86.19 History of E. coli septicemia Z86.19 Stroke I63.9 Paroxysmal atrial fibrillation I48.0 Atrial fibrillation type: paroxysmal Essential hypertension I10 Hypertension type: essential hypertension Urinary incontinence in female R32 (6) Atrial fibrillation Atrial fibrillation type: paroxysmal Qualified Code(s): I48.0 - Paroxysmal atrial fibrillation (7) Hypertension Hypertension type: essential hypertension Qualified Code(s): I10 - Essential (primary) hypertension
[2023-03-11] MEDS ORDERED: DAPTOmycin 450 MG in SYRINGE 0 ML IV STA (22:56)
--- NOTE | 2023-03-11 23:04 | CT Scan Report ---
Exam(s): CT ABDOMEN + PELVIS Without Contrast EXAM: CT Abdomen and Pelvis Without Intravenous Contrast CLINICAL HISTORY: Reason for exam: UTI, hx of kidney stones. TECHNIQUE: Axial computed tomography images of the abdomen and pelvis without intravenous contrast. CTDI is 36.95 mGy and DLP is 1792.23 mGy-cm. Automated exposure control was utilized for the study. A dose lowering technique was utilized adhering to the principles of ALARA. COMPARISON: No relevant prior studies available. FINDINGS: Lung bases: Unremarkable. No mass. No consolidation. ABDOMEN: Liver: Unremarkable. Gallbladder and bile ducts: Cholelithiasis. No ductal dilation. Pancreas: Unremarkable. No ductal dilation. Spleen: Unremarkable. No splenomegaly. Adrenals: Unremarkable. No mass. Kidneys and ureters: Unremarkable. No hydronephrosis or nephrolithiasis. Stomach and bowel: Mild fecal retention, correlate for constipation. Diverticulosis, without acute diverticulitis. No small bowel obstruction. No free intraperitoneal air. PELVIS: Appendix: No findings to suggest acute appendicitis. Bladder: Unremarkable. No stones. Reproductive: Hysterectomy. ABDOMEN and PELVIS: Intraperitoneal space: Unremarkable. No free air. No significant fluid collection. Bones/joints: Degenerative changes of the spine. RIGHT femur ORIF. No acute fracture. No dislocation. Soft tissues: Unremarkable. Vasculature: Atherosclerotic changes of the aorta. No abdominal aortic aneurysm. Lymph nodes: Unremarkable. No enlarged lymph nodes. IMPRESSION: 1. Cholelithiasis. 2. Hysterectomy. 3. Mild fecal retention, correlate for constipation. 4. Diverticulosis, without acute diverticulitis. No small bowel obstruction. No free intraperitoneal air. Electronically signed by: Bebeto Méndez MD 03/11/23 23:03 PM
[2023-03-11] MEDS ORDERED: ONDANSETRON INJ 2 MG/ML 2 ML VIAL IV PRN (23:09)
[2023-03-11] MEDS ORDERED: ACETAMINOPHEN 500 MG TAB PO PRN (23:09)
[2023-03-11] MEDS ORDERED: NSS + 20MEQ KCL 20 MEQ/1,000 ML BAG IV SCH (23:30)
[2023-03-12] MEDS ORDERED: MELATONIN 3 MG TAB PO PRN (01:52)
[2023-03-12 04:25] LABS: Hematocrit (blood only) 41.7 % (37.0-47.0); Hemoglobin 14.1 g/dl (12.0-16.0); Mean Corpuscular Hemoglobin 32.9 pg (25.0-34.0); Mean Corpuscular Hgb Conc 33.8 g/dL (32.0-36.0); Mean Corpuscular Volume 97.2 fL (80.0-100.0); Mean Platelet Volume 10.8 fL (9.4-12.4); Platelet Count 88 K/uL (130-400); RDW Coefficient of Variation 16.5 % (11.5-14.5); RDW Standard Deviation 59.3 fL (36.4-46.3); Red Blood Count 4.29 M/uL (4.20-5.40); White Blood Count 4.82 K/ul (4.8-10.8)
[2023-03-12 04:31] LABS: Albumin Level 3.2 gm/dl (3.4-5.0); BUN Creatinine Ratio 30.9 (10-20); Bilirubin,Total 1.4 mg/dl (0.2-1.0); Calcium 9.1 mg/dl (8.6-10.3); Creatinine Clr Calc Pharmacy 85.1 ml/min; Est GFR (African American) 99.2 ml/min; Est GFR (Non-African American) 85.6 ml/min; Globulin 3.1 gm/dl (2.5-4.0); Magnesium 1.6 mg/dl (1.7-2.4); Potassium 3.8 mmol/L (3.5-5.1); Total Protein 6.3 gm/dl (6.0-8.3)
[2023-03-12 04:43] LABS: Basophils # (auto) 0.02 K/uL (0.00-0.20); Basophils % (auto) 0.4 %; Eosinophils # (auto) 0.05 K/uL (0.00-0.50); Immature Granulocytes # (auto) 0.02 K/uL (0.01-0.20); Immature Granulocytes % (auto) 0.4 %; Lymphocytes # (auto) 0.73 K/uL (1.20-3.40); Lymphocytes % (auto) 15.1 %; Monocytes # (auto) 0.49 K/uL (0.11-0.59); Monocytes % (auto) 10.2 %; Neutrophils # (auto) 3.51 K/uL (1.40-6.50); Neutrophils % (auto) 72.9 %
--- NOTE | 2023-03-12 07:48 | XRay Report ---
XR chest 1V portable HISTORY: weakness COMPARISON: Chest 05/08/2022. FINDINGS: No pneumothorax. No pleural effusions. The heart remains enlarged. No evidence for pulmonar y edema. No new focal lung consolidations to suggest a pneumonia. There is a left shoulder prosthesis . Degenerative changes again noted within the right shoulder. No acute fractures. IMPRESSION: No significant change compared to the prior study. No acute process. ACT 112: Negative or not required by law. Electronically signed by: Luis Parada M.D. 03/12/2023 7:47 AM
[2023-03-12] MEDS: CYANOCOBALAMIN (B-12) 500 MCG TABLET PO SCH (09:12)
[2023-03-12] MEDS: APIXABAN 5 MG TABLET PO SCH ×2 (09:12→20:20)
[2023-03-12] MEDS: CHOLECALCIFEROL 1,000 UNITS 25 MCG TAB PO SCH (09:12)
[2023-03-12] MEDS: METOPROLOL SUCC 50MG EXT REL TAB PO SCH (09:13)
[2023-03-12] MEDS: CEROVITE ADV FORMULA TAB PO SCH (09:13)
--- NOTE | 2023-03-12 09:40 | Electrocardiogram Report ---
Test Reason : Blood Pressure : / mmHG Vent. Rate : 102 BPM Atrial Rate : 000 BPM P-R Int : 000 ms QRS Dur : 124 ms QT Int : 392 ms P-R-T Axes : 000 064 006 degrees QTc Int : 510 ms Atrial fibrillation Right bundle branch block Abnormal ECG When compared with ECG of 08-MAY-2022 15:53, No significant change Confirmed by Delgado Bronson ([id number]) on 03/12/2023 9:40:29 AM Referred By: Nohemi Syed Confirmed By:Delgado Bronson
[2023-03-12] MEDS: MAGNESIUM SULFATE / D5W 1 GM/100 ML BAG IV SCH ×2 (10:41→14:47)
--- NOTE | 2023-03-12 15:43 | Hospitalist Progress Note ---
Date of Service March 12, 2023 Assessment & Plan (1) Confusion: Plan: Acute metabolic encephalopathy present on admission due to UTI. Now resolved (2) Sepsis due to urinary tract infection: Plan: She remains on Rocephin and daptomycin until urine culture results known. She has a past history of VRE and E. coli. (3) Hypomagnesemia: Plan: Parenteral replacement. Serial labs (4) Atrial fibrillation: Plan: Chronic. Continue Eliquis and rate control measures. Telemetry (5) Hypertension: Plan: Stable. Continue current medical management Plan Hopeful discharge to home within the next day or 2 Admission and Anticipated Discharge Date Admission Date: March 11, 2023 Subjective Alert and oriented. She remains on Rocephin and daptomycin until urine culture results are noted. OT and PT assessments requested. Metabolic encephalopathy present on admission appears to have resolved. Magnesium replacement underway. Review of Systems 2 Review of Systems: Constitutional-no fever or chills ENT-no blurred vision, no double vision, no epistaxis, no sore throat Respiratory-no cough, no wheezing, no shortness of breath Cardiac-no palpitations, no chest pain, no syncope GI-no nausea, vomiting, diarrhea, melena, hematochezia -no urinary retention, no urinary incontinence, no dysuria, no hematuria Musculoskeletal-no joint pain, no muscle tenderness Skin-no bruising, no rashes, no pruritus Neuro-no isolated weakness, no paresthesia, no weakness Psych-no depression, no anxiety Physical Exam 2 Physical Exam: General-alert and oriented x3, no fevers, no chills HEENT-head atraumatic and normocephalic, pupils equal and reactive to light, extraocular muscles intact Neck-no lymphadenopathy or thyromegaly, trachea midline Chest-clear to auscultation. No rales, wheezing or rhonchi Cardiac-regular rate and rhythm, normal S1 and S2 Abdomen-normal bowel sounds, nontender, no hepatosplenomegaly Extremities-no cyanosis, clubbing, or edema Neuro-cranial nerves II through XII intact, motor and sensory function within normal limits, strength symmetrical, no focal deficits Psych-normal affect, normal mood Results & Data Results & Data Vital Signs (Past 12 Hours) Vital Signs Pulse Resp BP Pulse Ox 03/12/23 10:30 86 18 93 03/12/23 10:00 92 H 20 93 03/12/23 09:30 105 H 18 95 03/12/23 09:11 145/72 H 03/12/23 09:11 107 H 19 93 03/12/23 09:00 106 H 21 94 03/12/23 08:30 98 H 18 94 03/12/23 08:00 102 H 19 94 03/12/23 07:30 92 H 17 95 03/12/23 07:00 105 H 17 136/69 95 03/12/23 07:00 92 H 03/12/23 06:30 99 H 16 94 03/12/23 06:00 96 H 20 94 03/12/23 05:30 102 H 16 95 03/12/23 05:00 106 H 21 95 03/12/23 04:30 102 H 24 95 03/12/23 04:00 94 H 18 96 Laboratory Results 03/12/23 03:37 03/12/23 03:37 PG Care Time/CCT Total # of Minutes Spent Total Time Spent with Patient: Total time spent is greater than 50% in coordination of care (as documented) at patient's floor/unit and/or counseling patient: Coding Level of Care Code 82052 SUB INP/OBS CARE 3/50MIN Diagnoses Confusion R41.0 Sepsis due to urinary tract infection A41.9; N39.0 Hypomagnesemia E83.42 Paroxysmal atrial fibrillation I48.0 Atrial fibrillation type: paroxysmal Essential hypertension I10 Hypertension type: essential hypertension (4) Atrial fibrillation Atrial fibrillation type: paroxysmal Qualified Code(s): I48.0 - Paroxysmal atrial fibrillation (5) Hypertension Hypertension type: essential hypertension Qualified Code(s): I10 - Essential (primary) hypertension
[2023-03-12] MEDS: cefTRIAXone SODIUM 2,000 MG in DEXTROSE 5 % MINI-B 50 ML IV SCH (20:19)
[2023-03-12] MEDS ORDERED: DAPTOmycin 450 MG in SYRINGE 0 ML IV SCH (23:00)
[2023-03-13 06:27] LABS: Basophils # (auto) 0.03 K/uL (0.00-0.20); Basophils % (auto) 0.6 %; Eosinophils # (auto) 0.11 K/uL (0.00-0.50); Eosinophils % (auto) 2.1 %; Hemoglobin 13.9 g/dl (12.0-16.0); Immature Granulocytes # (auto) 0.01 K/uL (0.01-0.20); Immature Granulocytes % (auto) 0.2 %; Lymphocytes # (auto) 0.95 K/uL (1.20-3.40); Lymphocytes % (auto) 18.1 %; Mean Corpuscular Hemoglobin 32.8 pg (25.0-34.0); Mean Corpuscular Hgb Conc 33.9 g/dL (32.0-36.0); Mean Corpuscular Volume 96.7 fL (80.0-100.0); Mean Platelet Volume 11.2 fL (9.4-12.4); Monocytes # (auto) 0.59 K/uL (0.11-0.59); Monocytes % (auto) 11.3 %; Neutrophils # (auto) 3.55 K/uL (1.40-6.50); Neutrophils % (auto) 67.7 %; Platelet Count 90 K/uL (130-400); RDW Coefficient of Variation 16.1 % (11.5-14.5); RDW Standard Deviation 58.2 fL (36.4-46.3); Red Blood Count 4.24 M/uL (4.20-5.40); White Blood Count 5.24 K/ul (4.8-10.8)
[2023-03-13 06:49] LABS: Albumin Level 3.1 gm/dl (3.4-5.0); BUN Creatinine Ratio 23.1 (10-20); Bilirubin,Total 1.2 mg/dl (0.2-1.0); Calcium 8.8 mg/dl (8.6-10.3); Creatinine Clr Calc Pharmacy 89.1 ml/min; Est GFR (African American) 100.7 ml/min; Est GFR (Non-African American) 86.8 ml/min; Globulin 3.2 gm/dl (2.5-4.0); Magnesium 1.9 mg/dl (1.7-2.4); Potassium 3.8 mmol/L (3.5-5.1); Total Protein 6.3 gm/dl (6.0-8.3)
[2023-03-13] MEDS: APIXABAN 5 MG TABLET PO SCH ×2 (08:01→20:16)
[2023-03-13] MEDS: CHOLECALCIFEROL 1,000 UNITS 25 MCG TAB PO SCH (08:01)
[2023-03-13] MEDS: CEROVITE ADV FORMULA TAB PO SCH (08:01)
[2023-03-13] MEDS: CYANOCOBALAMIN (B-12) 500 MCG TABLET PO SCH (08:01)
[2023-03-13] MEDS: METOPROLOL SUCC 50MG EXT REL TAB PO SCH (08:01)
--- NOTE | 2023-03-13 14:54 | Hospitalist Progress Note ---
Date of Service March 13, 2023 Assessment & Plan (1) Confusion: Plan: Acute metabolic encephalopathy present on admission due to UTI. Now resolved (2) Sepsis due to urinary tract infection: Plan: E. coli isolated. Daptomycin discontinued. Continue Rocephin, day 2. Sepsis has resolved (3) Hypomagnesemia: Plan: Corrected parenteral replacement. Serial labs (4) Atrial fibrillation: Plan: Chronic. Continue Eliquis and rate control measures. Telemetry (5) Hypertension: Plan: Stable. Continue current medical management Plan Hopeful discharge to home with tomorrowMarch 14 Admission and Anticipated Discharge Date Admission Date: March 11, 2023 Subjective Alert and oriented. E. coli isolated in the urine. She remains on Rocephin. Daptomycin discontinued. OT and PT evaluations pending. Hopefully home tomorrowMarch 14 Review of Systems 2 Review of Systems: Constitutional-no fever or chills ENT-no blurred vision, no double vision, no epistaxis, no sore throat Respiratory-no cough, no wheezing, no shortness of breath Cardiac-no palpitations, no chest pain, no syncope GI-no nausea, vomiting, diarrhea, melena, hematochezia -no urinary retention, no urinary incontinence, no dysuria, no hematuria Musculoskeletal-no joint pain, no muscle tenderness Skin-no bruising, no rashes, no pruritus Neuro-no isolated weakness, no paresthesia, no weakness Psych-no depression, no anxiety Physical Exam 2 Physical Exam: General-alert and oriented x3, no fevers, no chills HEENT-head atraumatic and normocephalic, pupils equal and reactive to light, extraocular muscles intact Neck-no lymphadenopathy or thyromegaly, trachea midline Chest-clear to auscultation. No rales, wheezing or rhonchi Cardiac-regular rate and rhythm, normal S1 and S2 Abdomen-normal bowel sounds, nontender, no hepatosplenomegaly Extremities-no cyanosis, clubbing, or edema Neuro-cranial nerves II through XII intact, motor and sensory function within normal limits, strength symmetrical, no focal deficits Psych-normal affect, normal mood Results & Data Results & Data Vital Signs (Past 12 Hours) Vital Signs Temp Pulse Pulse Resp BP Pulse Ox O2 Del Method 03/13/23 11:30 37 C 100 H 18 142/80 H 94 Room Air 03/13/23 10:14 88 03/13/23 07:50 36.9 C 96 H 16 113/70 93 Room Air 03/13/23 07:28 Nasal Cannula O2 Flow Rate 03/13/23 11:30 03/13/23 10:14 03/13/23 07:50 03/13/23 07:28 2 Laboratory Results 03/13/23 05:50 03/13/23 05:50 PG Care Time/CCT Total # of Minutes Spent Total Time Spent with Patient: Total time spent is greater than 50% in coordination of care (as documented) at patient's floor/unit and/or counseling patient: Coding Level of Care Code 75258 SUB INP/OBS CARE 3/50MIN Diagnoses Confusion R41.0 Sepsis due to urinary tract infection A41.9; N39.0 Hypomagnesemia E83.42 Paroxysmal atrial fibrillation I48.0 Atrial fibrillation type: paroxysmal Essential hypertension I10 Hypertension type: essential hypertension (4) Atrial fibrillation Atrial fibrillation type: paroxysmal Qualified Code(s): I48.0 - Paroxysmal atrial fibrillation (5) Hypertension Hypertension type: essential hypertension Qualified Code(s): I10 - Essential (primary) hypertension
[2023-03-13] MEDS: cefTRIAXone SODIUM 2,000 MG in DEXTROSE 5 % MINI-B 50 ML IV SCH (20:16)
[2023-03-14 06:35] LABS: Basophils # (auto) 0.03 K/uL (0.00-0.20); Basophils % (auto) 0.6 %; Eosinophils # (auto) 0.14 K/uL (0.00-0.50); Eosinophils % (auto) 2.8 %; Hematocrit (blood only) 39.9 % (37.0-47.0); Hemoglobin 13.7 g/dl (12.0-16.0); Immature Granulocytes # (auto) 0.01 K/uL (0.01-0.20); Immature Granulocytes % (auto) 0.2 %; Lymphocytes # (auto) 1.26 K/uL (1.20-3.40); Lymphocytes % (auto) 25.1 %; Mean Corpuscular Hgb Conc 34.3 g/dL (32.0-36.0); Mean Corpuscular Volume 96.1 fL (80.0-100.0); Mean Platelet Volume 10.7 fL (9.4-12.4); Monocytes # (auto) 0.66 K/uL (0.11-0.59); Monocytes % (auto) 13.1 %; Neutrophils # (auto) 2.92 K/uL (1.40-6.50); Neutrophils % (auto) 58.2 %; Platelet Count 95 K/uL (130-400); RDW Coefficient of Variation 16.3 % (11.5-14.5); RDW Standard Deviation 57.7 fL (36.4-46.3); Red Blood Count 4.15 M/uL (4.20-5.40); White Blood Count 5.02 K/ul (4.8-10.8)
[2023-03-14 07:01] LABS: Calcium 8.7 mg/dl (8.6-10.3); Potassium 3.8 mmol/L (3.5-5.1)
[2023-03-14 07:07] LABS: BUN Creatinine Ratio 24.6 (10-20); Creatinine Clr Calc Pharmacy 83.7 ml/min; Est GFR (African American) 98.7 ml/min; Est GFR (Non-African American) 85.2 ml/min
[2023-03-14] MEDS: METOPROLOL SUCC 50MG EXT REL TAB PO SCH (08:20)
[2023-03-14] MEDS: APIXABAN 5 MG TABLET PO SCH (08:20)
[2023-03-14] MEDS: CEROVITE ADV FORMULA TAB PO SCH (08:20)
[2023-03-14] MEDS: CHOLECALCIFEROL 1,000 UNITS 25 MCG TAB PO SCH (08:20)
[2023-03-14] MEDS: CYANOCOBALAMIN (B-12) 500 MCG TABLET PO SCH (08:20)
--- NOTE | 2023-03-14 12:27 | Discharge Summary ---
Date of Service March 14, 2023 Admission HPI Per Admitting Provider The patient is a 77-year-old female with a past medical history including pancytopenia, hypertension, atrial fibrillation, stroke, vitamin D deficiency, venous insufficiency, recurrent urinary tract infection, idiopathic peripheral neuropathy, intestinal malabsorption, mild cognitive impairment, pelvic floor dysfunction and rectocele. Patient has had previous urinary tract infections with E. coli and VRE. She presents with complaint of worsening confusion, over the past several days, which her family has noted as well. She has had ongoing urinary incontinence. She feels generally weak, has no focal weakness. Principal Diagnosis E. coli UTI, sepsis, acute metabolic encephalopathy, hypomagnesemia Discharge Exam General-alert and oriented x3, no fevers, no chills HEENT-head atraumatic and normocephalic, pupils equal and reactive to light, extraocular muscles intact Neck-no lymphadenopathy or thyromegaly, trachea midline Chest-clear to auscultation percussion. No rales, wheezing or rhonchi Cardiac-regular rate and rhythm, normal S1 and S2 Abdomen-normal bowel sounds, nontender, no hepatosplenomegaly Extremities-no cyanosis, clubbing, or edema Neuro-cranial nerves II through XII intact, motor and sensory function within normal limits, strength symmetrical, no focal deficits Psych-normal affect, normal mood Discharge Data Allergies Allergy/AdvReac Type Severity Reaction Status Date / Time adhesive Allergy Intermediate RASH, Verified 03/11/23 21:17 BLISTERING latex Allergy Mild SKIN Verified 03/11/23 21:17 TEARING alendronate sodium AdvReac Intermediate SICK TO Verified 03/11/23 21:17 STOMACH Consultations 03/11/23 22:19 ED Decision to Admit Stat Ordered Studies 03/11/23 20:33 CT head/brain wo con Stat 03/11/23 22:30 CT Abd and Pelvis [CT abd pelvis wo con] Stat Hospital Course (1) Confusion: Acute metabolic encephalopathy present on admission due to UTI. Now resolved (2) Sepsis due to urinary tract infection: E. coli isolated. Daptomycin discontinued. Treated while hospitalized with Rocephin. Home on Keflex. Sepsis has resolved (3) Hypomagnesemia: Corrected parenteral replacement. Serial labs (4) Atrial fibrillation: Chronic. Continue Eliquis and rate control measures. Telemetry (5) Hypertension: Stable. Continue current medical management Plan Home today, March 12 Total Time Total Time Spent Total Time Spent (In Minutes): 45-minute Discharge Plan Discharge Items Patient Disposition: Home - Self-Care Reason For Visit: SEPSIS DUE TO UTI Discharge Diagnosis: E. coli UTI, acute metabolic encephalopathy, sepsis, hypomagnesemia Activity: Resume your previous activity Non-emergency contact: Primary Care Provider Call non-emergency contact if: you have any medication questions and your symptoms worsen Follow-up/Referrals: Nohemi Syed CRNP [Primary Care Provider] - Diet: Regular and Heart Healthy Addtl Attending Provider Instructions: Take cephalexin antibiotic as directed for 3 more days Pending Studies at Discharge: No Stand-Alone Forms: [employer], Smoking Cessation Medications and DC Order Prescriptions: New cephalexin 500 mg capsule 500 mg PO TID Qty: 9 0RF Continued Eliquis 5 mg tablet 5 mg PO BID Qty: 180 3RF Rx Instructions: TAKES AT 1200 & 2400 denosumab 60 mg/mL syringe 60 mg subcut .Q6 month Qty: 1 2RF Rx Instructions: inject every 6 months at doctors office. Buy and Bill Approved from 02/04/20-02/02/24 2 visits [id number] cyanocobalamin (vitamin B-12) [Vitamin B-12] 1,000 mcg Tablet 1,000 mcg PO QAM cholecalciferol (vitamin D3) [Vitamin D3] 2,000 unit tablet 2,000 unit PO QAM acetaminophen 500 mg tablet 1,000 mg PO TID PRN (Reason: pain) Qty: 0 0RF calcium citrate 250 mg calcium Tablet 250 mg PO QAM metoprolol succinate [Toprol XL] 50 mg tablet extended release 24 hr 50 mg PO QAM multivitamin with minerals Tablet 1 tab PO DAILY nystatin 100,000 unit/gram powder 1 applic topical DAILY PRN (Reason: Skin Irritation) Rx Instructions: Apply a small dusting to the abdominal fold topical daily; Discharge Orders: Discharge Order (Routine); Ordered 03/14/23 Ordered By: Loc Jacobson Admission Data Admit Date/Time: 03/11/23 22:49 Attending Provider: Loc Jacobson Admit Provider: Samir Gaming Primary Care Provider: Nohemi Syed Other Providers: Samir Gaming Coding Level of Care Code 13813 INP/OBS DISCH >30 MIN Diagnoses Confusion R41.0 Sepsis due to urinary tract infection A41.9; N39.0 Hypomagnesemia E83.42 Paroxysmal atrial fibrillation I48.0 Atrial fibrillation type: paroxysmal Essential hypertension I10 Hypertension type: essential hypertension
== END 2023-03-14 14:33 | disposition home or self-care (01) | DRG 871 ==
LOC: ED 20:18 → SUATTDRO 22:49 → EDINP 22:49 → 2W 23:10

== ENCOUNTER 2023-04-18 05:05 | Inpatient (IN) ==
--- NOTE | 2023-04-18 05:15 | Emergency Department Note ---
Impression & Plan Closed hip fracture ADMIT ED Provider Note HPI: History obtained from patient. The patient is a 77-year-old female with history of atrial fibrillation, on Eliquis, who presents the emergency department after a fall. Patient states that she was wearing slippery socks and her legs began to spread apart when she was in the bathroom. Her attempted to assist her however he was unsuccessful and she fell over onto the ground. Patient states when she fell she felt a pop in her left lower extremity somewhere around her left knee and therefore came to the ED to be assessed via EMS. On arrival here to the ED the patient's left lower extremity appears somewhat shorter than the right and also externally rotated, patient does have motor and sensory function intact distally in the left foot. Patient denies any other focal complaint of pain aside from pain in the area of her left knee. ROS: - Per HPI Differential Diagnosis: Left hip fracture, pelvic fracture, left knee fracture, left knee dislocation, patellar dislocation, amongst other potential pathologies. *Outpatient medications and allergy history reviewed. PE: General: Alert, morbidly obese HEENT: Normocephalic, trachea midline Eyes: Extraocular eye movement is intact, no scleral erythema Pulmonary: Clear to auscultation bilaterally, no wheezing Cardio: Regular rate and rhythm GI: Abdomen is soft to palpation : No suprapubic tenderness MSK: Left lower extremity is slightly shortened in comparison to the right and externally rotated, motor and sensory function is intact distally in the left foot, there is a palpable dorsalis pedis pulse in the left foot Skin: No evidence of rash Neuro: Alert, no focal deficits Psychiatric: Cooperative EKG: (As interpreted by myself): Rate: 78 Rhythm: Atrial fibrillation Intervals: Within normal limits ST changes: No ST elevation Time: 0515 X-ray imaging of the left hip: (Per my interpretation) -Acute intertrochanteric fracture X-ray imaging of the left knee: (Per my interpretation) -No acute fracture or dislocation Interventions provided in ED: -IV morphine, IV Zofran, IV fluid bolus Medical Decision Making: Patient presented to the emergency department after mechanical fall. X-ray imaging of the left hip per my interpretation shows evidence of an intertrochanteric fracture. X-ray imaging of the left knee per my interpretation does not show any obvious dislocation or fracture. IV was established, patient was ordered IV morphine and IV Zofran for pain. Patient did not hit her head per history, she is alert, I do not feel that further imaging is warranted at this time. Patient denies any headache, neck pain, denies any chest pain or shortness of breath, denies any abdominal pain. Patient states she has an established relationship with [facility], consultation was placed for Dr. Fernando Burgess and he was notified by the ED secretary bookkeeper via [place] text. Case was also discussed with the on-call hospitalist for [facility], Dr. Carolina Burgess, and the patient was placed for admission in stable condition. Consultants/Discussions held with other healthcare providers: -Hospitalist, Dr. Burgess -Consultation placed for [facility] Disposition discussion held by myself with: -Patient Diagnosis: 1. Left hip fracture, acute 2. Mechanical fall, acute Disposition: Admission Luis Chauhan DO Emergency Medicine Past Med/Surg History Medical History Venous insufficiency Rectocele Mild cognitive impairment VRE (vancomycin-resistant Enterococci) HX OF Osteoporosis Hyperparathyroidism Hyperoxaluria VRE (vancomycin resistant enterococcus) culture positive Acute hypercapnic respiratory failure PT UNAWARE Hydronephrosis concurrent with and due to calculi of kidney and ureter Ureteral stone with hydronephrosis Lactic acidosis Intertrigo Pressure ulcer PRESENT TO LEFT BUTTOCK, NO TREATMENT AT PRESENT, MILD PER PT Anticoagulant long-term use Paroxysmal atrial fibrillation DX APPROX 4 YRS AGO > ELIQUIS AND TOPROL > NO PACER > FOLLOWS WITH DR. COLE Incontinence of urine Stroke x2. (TIA'S PER PT) both 12 years ago. pt w/ intermittent numbness to right hand. no neurologist. Hypertension Surgical History History of cystoscopy Cystoscopy and Left Ureteronephroscopy, Retrograde Pyleogram, Laser Destruction, Basket Extraction of Stone, and Left Stent Catheter Exchange(Left) - Toño Ferreira DO Hx of cataract surgery BILAT History of total shoulder replacement left History of surgery right leg r/t femur injury History of total knee replacement RIGHT History of hysterectomy vaginal History of gastric bypass History of dilatation and curettage x4 History of colonoscopy w/ polypectomy Family History Grandfather Family history of diabetes mellitus Daughter Family history of esophageal cancer Other Coronary heart disease Denies family history of Ovarian cancer Prostate cancer Breast cancer Lung cancer Colorectal cancer Uterine cancer Social History Smoking Status: Never smoker Second Hand Exposure: No; Do You Dip or Chew Tobacco: No; Hx Alcohol Use: No Hx Substance Use: No Preferred Language: Jordanian Communication Ability: Effective Visual Impairment: No Limitations Hearing Ability: Normal Cell Manager Required: No Beliefs That Will Affect Care: None Current Living Situation: Spouse Feels Safe at Home: Yes Seatbelt Use: always Assistive Devices: Cane and Walker Allergies Allergies Allergy/AdvReac Type Severity Reaction Status Date / Time adhesive Allergy Intermediate RASH, Verified 04/15/23 15:11 BLISTERING latex Allergy Mild SKIN Verified 04/15/23 15:11 TEARING alendronate sodium AdvReac Intermediate SICK TO Verified 04/15/23 15:11 STOMACH Home Meds Home Medications Medication Instructions Recorded Confirmed cyanocobalamin (vitamin B-12) 1,000 mcg PO QAM 01/19/18 04/15/23 1,000 mcg tablet (Vitamin B-12) cholecalciferol (vitamin D3) 50 2,000 unit PO QAM 10/07/18 04/15/23 mcg (2,000 unit) tablet (Vitamin D3) calcium citrate 250 mg PO QAM 05/10/22 04/15/23 multivitamin with minerals 1 tab PO DAILY 03/11/23 04/15/23 Previous Rx's Medication Instructions Recorded acetaminophen 500 mg tablet 1,000 mg (2 x 500 mg) PO TID PRN 06/23/20 pain #0 tabs denosumab 60 mg/mL subcutaneous 60 mg subcut .Q6 month #1 mL 02/06/23 syringe escitalopram oxalate 10 mg tablet 10 mg PO DAILY #90 tabs 03/25/23 furosemide 20 mg tablet 20 mg PO DAILY PRN edema #90 tabs 03/25/23 gabapentin 300 mg capsule 300 mg PO QPM #90 caps 03/25/23 nystatin 100,000 unit/gram topical 1 applic topical DAILY PRN Skin 03/25/23 powder Irritation #60 grams apixaban 5 mg tablet (Eliquis) 5 mg PO BID #180 tabs 04/15/23 metoprolol succinate 50 mg 50 mg PO QAM #90 tabs 04/15/23 tablet,extended release 24 hr (Toprol XL) Results & Data (ED) Vital Signs Vital Signs - 24 hr 04/18/23 05:02 04/18/23 05:09 04/18/23 05:12 Temperature 36.2 C L Temperature Source Oral Pulse Rate 80 80 82 Pulse Rate from SpO2 Sensor 79 Pulse Rhythm Regular Pulse Strength Normal Respiratory Rate 18 23 Respiratory Effort / Characteristics Non-Labored Spontaneous Respiratory Depth Normal Respiratory Pattern Regular Blood Pressure 162/111 H 191/121 H Blood Pressure Mean 128 144 Blood Pressure Position Sitting Pulse Oximetry 94 96 Oxygen Delivery Method Room Air Room Air Sepsis Recent Fever Within 48 Hours No Sepsis New/Unexplained Change in Mental Status N/A Sepsis Action Taken by Nursing No Action Required 04/18/23 05:13 Temperature Temperature Source Pulse Rate 88 Pulse Rate from SpO2 Sensor Pulse Rhythm Regular Pulse Strength Respiratory Rate 18 Respiratory Effort / Characteristics Respiratory Depth Respiratory Pattern Blood Pressure Blood Pressure Mean Blood Pressure Position Pulse Oximetry 94 Oxygen Delivery Method Room Air Sepsis Recent Fever Within 48 Hours Sepsis New/Unexplained Change in Mental Status Sepsis Action Taken by Nursing Laboratory Data 04/18/23 05:25 04/18/23 05:25 Lab Results 04/18/23 Range/Units 05:25 WBC 6.80 (4.8-10.8) K/ul RBC 4.27 (4.20-5.40) M/uL Hgb 14.2 (12.0-16.0) g/dl Hct 43.0 (37.0-47.0) % MCV 100.7 H (80.0-100.0) fL MCH 33.3 (25.0-34.0) pg MCHC 33.0 (32.0-36.0) g/dL RDW Std Deviation 56.6 H (36.4-46.3) fL RDW Coeff of Sonia 15.1 H (11.5-14.5) % Plt Count 98 L (130-400) K/uL MPV 11.0 (9.4-12.4) fL Immature Gran % (Auto) 0.4 % Neut % (Auto) 81.9 % Lymph % (Auto) 11.3 % [place] % (Auto) 4.6 % Eos % (Auto) 1.5 % Baso % (Auto) 0.3 % Neut # (Auto) 5.57 (1.40-6.50) K/uL Lymph # (Auto) 0.77 L (1.20-3.40) K/uL [place] # (Auto) 0.31 (0.11-0.59) K/uL Eos # (Auto) 0.10 (0.00-0.50) K/uL Baso # (Auto) 0.02 (0.00-0.20) K/uL Immature Gran # (Auto) 0.03 (0.01-0.20) K/uL PT 13.1 H (9.0-12.0) Seconds INR 1.2 H (0.9-1.1) Sodium 140 (136-145) mmol/L Potassium 3.7 (3.5-5.1) mmol/L Chloride 107 (98-107) mmol/L Carbon Dioxide 28 (21-32) mmol/L Anion Gap 5 (3-11) BUN 21 (6-23) mg/dl Creatinine 0.69 (0.6-1.2) mg/dl Est Cr Clr Drug Dosing 90.3 ml/min Est GFR ( Amer) 98.7 ml/min Est GFR (Non-Af Amer) 85.2 ml/min BUN/Creatinine Ratio 30.4 H (10-20) Glucose 132 H (70-99(Fasting)) mg/dl Calcium 8.8 (8.6-10.3) mg/dl Total Bilirubin 1.3 H (0.2-1.0) mg/dl AST 26 (13-39) U/L ALT 19 (7-52) U/L Alkaline Phosphatase 75 (34-104) U/L Total Protein 6.4 (6.0-8.3) gm/dl Albumin 3.3 L (3.4-5.0) gm/dl Globulin 3.1 (2.5-4.0) gm/dl Albumin/Globulin Ratio 1.1 (0.9-2) Administered Medications Sodium Chloride (Nss) 500 mls @ 80 mls/hr IV .[id number] [facility] Stop: 05/18/23 05:59 Last Admin: 04/18/23 06:07 Dose: 80 mls/hr Documented By: LINDY Discontinued Medications Morphine Sulfate (Morphine Sulfate 4 Mg/Ml 1 Ml Carp\Vial) 4 mg IV NOW STA Stop: 04/18/23 05:53 Last Admin: 04/18/23 06:07 Dose: 4 mg Documented By: LINDY Ondansetron HCl (Ondansetron Inj 2 Mg/Ml 2 Ml Vial) 4 mg IV NOW STA Stop: 04/18/23 05:53 Last Admin: 04/18/23 06:07 Dose: 4 mg Documented By: LINDY Discharge Plan Visit Data Chief Complaint: Leg Injury/Pain Stated Complaint: GROUND LEVEL FALL, LLE INJURY ED Provider: Luis Chauhan Discharge Problem: Closed hip fracture Forms Stand Alone Forms: [facility] [employer] Prescriptions Prescriptions: No Action denosumab 60 mg/mL syringe 60 mg subcut .Q6 month Qty: 1 2RF Rx Instructions: inject every 6 months at doctors office. Buy and Bill Approved from 02/04/20-02/02/24 2 visits [id number] metoprolol succinate [Toprol XL] 50 mg tablet extended release 24 hr 50 mg PO QAM Qty: 90 3RF Eliquis 5 mg tablet 5 mg PO BID Qty: 180 3RF Rx Instructions: TAKES AT 1200 & 2400 nystatin 100,000 unit/gram powder 1 applic topical DAILY PRN (Reason: Skin Irritation) Qty: 60 3RF Rx Instructions: Apply a small dusting to the abdominal fold topical daily; gabapentin 300 mg capsule 300 mg PO QPM Qty: 90 1RF furosemide 20 mg tablet 20 mg PO DAILY PRN (Reason: edema) Qty: 90 0RF escitalopram oxalate 10 mg tablet 10 mg PO DAILY Qty: 90 3RF cyanocobalamin (vitamin B-12) [Vitamin B-12] 1,000 mcg Tablet 1,000 mcg PO QAM cholecalciferol (vitamin D3) [Vitamin D3] 2,000 unit tablet 2,000 unit PO QAM acetaminophen 500 mg tablet 1,000 mg PO TID PRN (Reason: pain) Qty: 0 0RF calcium citrate 250 mg calcium Tablet 250 mg PO QAM multivitamin with minerals Tablet 1 tab PO DAILY Referrals Referrals: Nohemi Syed CRNP [Primary Care Provider] - Discharge Problem: Closed hip fracture Qualifiers: Encounter type: initial encounter Laterality: left Qualified Code(s): S72.002A - Fracture of unspecified part of neck of left femur, initial encounter for closed fracture
[2023-04-18 05:59] LABS: Basophils # (auto) 0.02 K/uL (0.00-0.20); Basophils % (auto) 0.3 %; Eosinophils % (auto) 1.5 %; Hemoglobin 14.2 g/dl (12.0-16.0); Immature Granulocytes # (auto) 0.03 K/uL (0.01-0.20); Immature Granulocytes % (auto) 0.4 %; Lymphocytes # (auto) 0.77 K/uL (1.20-3.40); Lymphocytes % (auto) 11.3 %; Mean Corpuscular Hemoglobin 33.3 pg (25.0-34.0); Mean Corpuscular Volume 100.7 fL (80.0-100.0); Monocytes # (auto) 0.31 K/uL (0.11-0.59); Monocytes % (auto) 4.6 %; Neutrophils # (auto) 5.57 K/uL (1.40-6.50); Neutrophils % (auto) 81.9 %; Platelet Count 98 K/uL (130-400); RDW Coefficient of Variation 15.1 % (11.5-14.5); RDW Standard Deviation 56.6 fL (36.4-46.3); Red Blood Count 4.27 M/uL (4.20-5.40)
[2023-04-18 06:07] LABS: Albumin Globulin Ratio 1.1 (0.9-2); Albumin Level 3.3 gm/dl (3.4-5.0); BUN Creatinine Ratio 30.4 (10-20); Bilirubin,Total 1.3 mg/dl (0.2-1.0); Calcium 8.8 mg/dl (8.6-10.3); Creatinine Clr Calc Pharmacy 90.3 ml/min; Est GFR (African American) 98.7 ml/min; Est GFR (Non-African American) 85.2 ml/min; Globulin 3.1 gm/dl (2.5-4.0); Potassium 3.7 mmol/L (3.5-5.1); Total Protein 6.4 gm/dl (6.0-8.3)
[2023-04-18] MEDS: SODIUM CHLORIDE 0.9% 500 ML IV SCH (06:07)
[2023-04-18] MEDS: ONDANSETRON INJ 2 MG/ML 2 ML VIAL IV STA (06:07)
[2023-04-18] MEDS: MoRPHine SULFATE 4 MG/ML 1 ML CARP\\VIAL IV STA (06:07)
[2023-04-18 06:19] LABS: INR 1.2 (0.9-1.1); Prothrombin Time 13.1 Seconds (9.0-12.0)
--- NOTE | 2023-04-18 06:45 | XRay Report ---
XR knee LT 1 or 2V routine CLINICAL HISTORY: fall COMPARISON: Left tibia and fibula radiographs July 11, 2022. Left knee radiographs January 08, 2012. FINDINGS: Alignment of the left knee is anatomic. There is a small joint effusion. No acute fracture is identified. There is severe patellofemoral compartment joint space narrowing with osteophytosis. There is also moderate to severe medial compartment joint space narrowing. IMPRESSION: 1. No acute fractures within the left knee. 2. Severe tricompartmental osteoarthritis of the left knee. 3. Small left knee joint effusion. ACT 112: Negative or not required by law. Electronically signed by: Zaire Mcduffie M.D. 04/18/2023 6:43 AM
--- NOTE | 2023-04-18 06:47 | XRay Report ---
XR hip WAYNE 2v w pelvis CLINICAL HISTORY: fall COMPARISON STUDY: CT of the abdomen and pelvis March 11, 2023. FINDINGS: There is an acute comminuted moderately displaced intertrochanteric fracture of the left fe mur. Fracture is displaced 3.8 cm. No additional acute fractures are present. There is a healed right femoral diaphyseal fracture. Sacroiliac joints and symphysis pubis are intact. There is moderate wayne ateral hip osteoarthritis, right greater on the left. IMPRESSION: Acute comminuted moderately displaced intertrochanteric fracture of the left femur. ACT 112: Negative or not required by law. Electronically signed by: Zaire Mcduffie M.D. 04/18/2023 6:45 AM
--- NOTE | 2023-04-18 06:50 | History & Physical Report ---
Date of Service April 18, 2023 Assessment & Plan (1) Closed hip fracture: Plan: 77yo female presenting with closed left intertrochanteric fracture following a ground level fall in her home. Neurovascularly intact. Pain is well controlled after 4mg Morphine IV. Patient independent and ambulatory at baseline. Per RCRI criteria patient is at low risk for perioperative MACE. Her AF is well controlled. She may proceed to surgery with no additional testing. -Admit to medical -Maintain NPO status -IVF with LR at 80mL/hr x 1L -Pain control with Morphine PRN -Zofran PRN nausea -Bowel regimen -Check UA -Hold Eliquis - patient takes this for non-valvular atrial fibrillation. Last dose 04/17/23 PM -Orthopedic Surgery consultation appreciated (2) Atrial fibrillation: Plan: Rate controlled -Continue Metoprolol 50mg po qAM -Hold Eliquis in preparation for surgery. Last dose 04/17/23 PM (3) Hypertension: Plan: Patient with elevated blood pressure on arrival but has since normalized -Pain control -Continue Metoprolol -Monitor BP F/E/N - LR at 80mL/hr x 1L, electroltyes WNL, NPO for now Ppx - SCDs to bilateral LE Code - Full per discussion with patient Dispo - Admit to medical History of Present Illness Chief Complaint: left hip fracture Primary Care Provider: TEX Cooper Xiao is a pleasant 77yo female with history of AF on Eliquis anti coagulation, hypertension presenting with left hip fracture. Patient was in the bathroom last night getting washed up for bed. She was wearing nylon stockings and her feet began to slip with her legs spreading apart. She was unable to stop sliding so she called her for help. He was unable to help her and she ultimately fell onto her left side. She had pain in the left leg and heard a "pop" sound. She was unable to get up. EMS was called. In the ER she is afebrile, hypertensive otherwise doing well. Pain controlled after receiving Morphine. No additional complaints - no chest pain, palpitations, cough, SOB. No head trauma or LOC. No urinary symptoms. ER Course: Morphine 4mg IV Zofran NSS Allergies Allergy/AdvReac Type Severity Reaction Status Date / Time adhesive Allergy Intermediate RASH, Verified 04/15/23 15:11 BLISTERING latex Allergy Mild SKIN Verified 04/15/23 15:11 TEARING alendronate sodium AdvReac Intermediate SICK TO Verified 04/15/23 15:11 STOMACH Home Medications Medication Instructions Recorded Confirmed Type cyanocobalamin (vitamin B-12) 1,000 mcg PO QAM 01/19/18 04/18/23 History 1,000 mcg tablet (Vitamin B-12) cholecalciferol (vitamin D3) 50 2,000 unit PO QAM 10/07/18 04/18/23 History mcg (2,000 unit) tablet (Vitamin D3) acetaminophen 500 mg tablet 1,000 mg (2 x 500 mg) PO TID PRN 06/23/20 04/18/23 Rx pain #0 tabs calcium citrate 250 mg PO QAM 05/10/22 04/18/23 History denosumab 60 mg/mL subcutaneous 60 mg subcut .Q6 month #1 mL 02/06/23 04/18/23 Rx syringe multivitamin with minerals 1 tab PO DAILY 03/11/23 04/18/23 History escitalopram oxalate 10 mg tablet 10 mg PO DAILY #90 tabs 03/25/23 04/18/23 Rx furosemide 20 mg tablet 20 mg PO DAILY PRN edema #90 tabs 03/25/23 04/18/23 Rx gabapentin 300 mg capsule 300 mg PO QPM #90 caps 03/25/23 04/18/23 Rx nystatin 100,000 unit/gram topical 1 applic topical DAILY PRN Skin 03/25/23 04/18/23 Rx powder Irritation #60 grams apixaban 5 mg tablet (Eliquis) 5 mg PO BID #180 tabs 04/15/23 04/18/23 Rx metoprolol succinate 50 mg 50 mg PO QAM #90 tabs 04/15/23 04/18/23 Rx tablet,extended release 24 hr (Toprol XL) Past Med/Surg History Medical History (Updated 04/18/23 @ 06:45 by Carolina Burgess DO) Atrial fibrillation on Eliquis Hypertension History of E. coli septicemia History of infection with vancomycin resistant Enterococcus (VRE) Urinary incontinence in female Venous insufficiency Rectocele Mild cognitive impairment VRE (vancomycin-resistant Enterococci) HX OF Osteoporosis Hyperparathyroidism Hyperoxaluria VRE (vancomycin resistant enterococcus) culture positive Acute hypercapnic respiratory failure PT UNAWARE Hydronephrosis concurrent with and due to calculi of kidney and ureter Ureteral stone with hydronephrosis Lactic acidosis Intertrigo Pressure ulcer PRESENT TO LEFT BUTTOCK, NO TREATMENT AT PRESENT, MILD PER PT Anticoagulant long-term use Paroxysmal atrial fibrillation DX APPROX 4 YRS AGO > ELIQUIS AND TOPROL > NO PACER > FOLLOWS WITH DR. COLE Incontinence of urine Stroke x2. (TIA'S PER PT) both 12 years ago. pt w/ intermittent numbness to right hand. no neurologist. Surgical History History of cystoscopy Cystoscopy and Left Ureteronephroscopy, Retrograde Pyleogram, Laser D estruction, Basket Extraction of Stone, and Left Stent Catheter Exchange(Left) - Toño Ferreira DO Hx of cataract surgery BILAT History of total shoulder replacement left History of surgery right leg r/t femur injury History of total knee replacement RIGHT History of hysterectomy vaginal History of gastric bypass History of dilatation and curettage x4 History of colonoscopy w/ polypectomy Family History Grandfather Family history of diabetes mellitus Daughter Family history of esophageal cancer Other Coronary heart disease Denies family history of Ovarian cancer Prostate cancer Breast cancer Lung cancer Colorectal cancer Uterine cancer Social History Smoking Status: Never smoker Second Hand Exposure: No; Do You Dip or Chew Tobacco: No; Hx Alcohol Use: No Hx Substance Use: No Preferred Language: Pashto Communication Ability: Effective Visual Impairment: No Limitations Hearing Ability: Normal Toll Testboard Worker Required: No Beliefs That Will Affect Care: None Current Living Situation: Spouse Feels Safe at Home: Yes Seatbelt Use: always Assistive Devices: Cane and Walker Review of Systems Review of Systems: All systems reviewed & are unremarkable except as noted in HPI & below Physical Exam Physical Exam: General: patient resting comfortably, NAD, non-toxic in appearance, AA&O x 4 Skin: warm, dry, intact, no rashes or lesions HEENT: NC/AT, PERRL, EOMI, anicteric sclera, conjunctiva without injection, external ear normal to inspection and nontender, nares patent, dry mucus membranes, dentition intact, no oropharyngeal lesions, neck supple, trachea midline, no LAD, no thyromegaly, no JVD Heart: +S1/S2, regular, no m/r/g Lungs: equal air entry bilaterally, no rales/rhonchi/wheezes Abd: +BS, soft, NT/ND, no masses/organomegaly/ascites Ext: warm, 2+ pulses in UE/LE bilaterally, no clubbing/cyanosis or edema, LLE shortened and externally rotated Neuro: nonfocal, patient AA&O x 4, speech intact, no facial droop, moving all extremities on command with equal strength 5/5 Results & Data Results & Data Vital Signs (Past 12 Hours) Vital Signs Temp Pulse Resp BP Pulse Ox O2 Del Method 04/18/23 05:13 88 18 94 Room Air 04/18/23 05:12 82 23 191/121 H 96 Room Air 04/18/23 05:09 80 04/18/23 05:02 36.2 C L 80 18 162/111 H 94 Room Air Laboratory Results Laboratory Results WBC 6.80 K/ul (4.8-10.8) 04/18/23 05:25 RBC 4.27 M/uL (4.20-5.40) 04/18/23 05:25 Hgb 14.2 g/dl (12.0-16.0) 04/18/23 05:25 Hct 43.0 % (37.0-47.0) 04/18/23 05:25 MCV 100.7 fL (80.0-100.0) H 04/18/23 05:25 MCH 33.3 pg (25.0-34.0) 04/18/23 05:25 MCHC 33.0 g/dL (32.0-36.0) 04/18/23 05:25 RDW Std Deviation 56.6 fL (36.4-46.3) H 04/18/23 05:25 RDW Coeff of Sonia 15.1 % (11.5-14.5) H 04/18/23 05:25 Plt Count 98 K/uL (130-400) L 04/18/23 05:25 MPV 11.0 fL (9.4-12.4) 04/18/23 05:25 Immature Gran % (Auto) 0.4 % 04/18/23 05:25 Neut % (Auto) 81.9 % 04/18/23 05:25 Lymph % (Auto) 11.3 % 04/18/23 05:25 [place] % (Auto) 4.6 % 04/18/23 05:25 Eos % (Auto) 1.5 % 04/18/23 05:25 Baso % (Auto) 0.3 % 04/18/23 05:25 Neut # (Auto) 5.57 K/uL (1.40-6.50) 04/18/23 05:25 Lymph # (Auto) 0.77 K/uL (1.20-3.40) L 04/18/23 05:25 [place] # (Auto) 0.31 K/uL (0.11-0.59) 04/18/23 05:25 Eos # (Auto) 0.10 K/uL (0.00-0.50) 04/18/23 05:25 Baso # (Auto) 0.02 K/uL (0.00-0.20) 04/18/23 05:25 Immature Gran # (Auto) 0.03 K/uL (0.01-0.20) 04/18/23 05:25 PT 13.1 Seconds (9.0-12.0) H 04/18/23 05:25 INR 1.2 (0.9-1.1) H 04/18/23 05:25 Sodium 140 mmol/L (136-145) 04/18/23 05:25 Potassium 3.7 mmol/L (3.5-5.1) 04/18/23 05:25 Chloride 107 mmol/L (98-107) 04/18/23 05:25 Carbon Dioxide 28 mmol/L (21-32) 04/18/23 05:25 Anion Gap 5 (3-11) 04/18/23 05:25 BUN 21 mg/dl (6-23) 04/18/23 05:25 Creatinine 0.69 mg/dl (0.6-1.2) 04/18/23 05:25 Est Cr Clr Drug Dosing 90.3 ml/min 04/18/23 05:25 Est GFR ( Amer) 98.7 ml/min 04/18/23 05:25 Est GFR (Non-Af Amer) 85.2 ml/min 04/18/23 05:25 BUN/Creatinine Ratio 30.4 (10-20) H 04/18/23 05:25 Glucose 132 mg/dl (70-99(Fasting)) H 04/18/23 05:25 Calcium 8.8 mg/dl (8.6-10.3) 04/18/23 05:25 Total Bilirubin 1.3 mg/dl (0.2-1.0) H 04/18/23 05:25 AST 26 U/L (13-39) 04/18/23 05:25 ALT 19 U/L (7-52) 04/18/23 05:25 Alkaline Phosphatase 75 U/L (34-104) 04/18/23 05:25 Total Protein 6.4 gm/dl (6.0-8.3) 04/18/23 05:25 Albumin 3.3 gm/dl (3.4-5.0) L 04/18/23 05:25 Globulin 3.1 gm/dl (2.5-4.0) 04/18/23 05:25 Albumin/Globulin Ratio 1.1 (0.9-2) 04/18/23 05:25 Diagnostic Findings X-ray left hip appears to have intertrochanteric fracture PG Care Time/CCT Total # of Minutes Spent Total Time Spent with Patient: Total time spent is greater than 50% in coordination of care (as documented) at patient's floor/unit and/or counseling patient: Coding Level of Care Code 59139 INT INP/OBS CARE 2/55MIN Diagnoses Closed hip fracture S72.002A Encounter type: initial encounter Laterality: left Paroxysmal atrial fibrillation I48.0 Atrial fibrillation type: paroxysmal Essential hypertension I10 Hypertension type: essential hypertension (1) Closed hip fracture Encounter type: initial encounter Laterality: left Qualified Code(s): S72.002A - Fracture of unspecified part of neck of left femur, initial encounter for closed fracture (2) Atrial fibrillation Atrial fibrillation type: paroxysmal Qualified Code(s): I48.0 - Paroxysmal atrial fibrillation (3) Hypertension Hypertension type: essential hypertension Qualified Code(s): I10 - Essential (primary) hypertension
[2023-04-18] MEDS ORDERED: ONDANSETRON INJ 2 MG/ML 2 ML VIAL IV PRN ×2 (09:25→11:37)
[2023-04-18] MEDS ORDERED: ACETAMINOPHEN 500 MG TAB PO PRN ×2 (09:25→18:47)
[2023-04-18] MEDS ORDERED: NALOXONE HCL 0.4 MG/1 ML VIAL/CARP IV PRN (09:25)
--- NOTE | 2023-04-18 09:30 | Anesthesiology Consultation ---
Date of Service April 18, 2023 Assessment & Plan Chart Review Chart Review: carpentry professional initiated History Surgery Operation Date: 04/18/23 11:35 Proposed Procedures p Left Long Trochanteric Nail - Fernando Burgess MD Height/Weight Height: 5 ft 5 in Weight: 117.4 kg Allergies Allergy/AdvReac Type Severity Reaction Status Date / Time adhesive Allergy Intermediate RASH, Verified 04/15/23 15:11 BLISTERING latex Allergy Mild SKIN Verified 04/15/23 15:11 TEARING alendronate sodium AdvReac Intermediate SICK TO Verified 04/15/23 15:11 STOMACH Medications Home Medications Medication Instructions Recorded Confirmed Last Taken cyanocobalamin (vitamin B-12) 1,000 mcg PO QAM 01/19/18 04/18/23 03/11/23 1,000 mcg tablet (Vitamin B-12) cholecalciferol (vitamin D3) 50 2,000 unit PO QAM 10/07/18 04/18/23 03/11/23 mcg (2,000 unit) tablet (Vitamin D3) acetaminophen 500 mg tablet 1,000 mg (2 x 500 mg) PO TID PRN 06/23/20 04/18/23 05/28/22 14:00 pain #0 tabs calcium citrate 250 mg PO QAM 05/10/22 04/18/23 03/11/23 denosumab 60 mg/mL subcutaneous 60 mg subcut .Q6 month #1 mL 02/06/23 04/18/23 Unknown syringe multivitamin with minerals 1 tab PO DAILY 03/11/23 04/18/23 03/11/23 escitalopram oxalate 10 mg tablet 10 mg PO DAILY #90 tabs 03/25/23 04/18/23 Unknown furosemide 20 mg tablet 20 mg PO DAILY PRN edema #90 tabs 03/25/23 04/18/23 Unknown gabapentin 300 mg capsule 300 mg PO QPM #90 caps 03/25/23 04/18/23 Unknown nystatin 100,000 unit/gram topical 1 applic topical DAILY PRN Skin 03/25/23 04/18/23 Unknown powder Irritation #60 grams apixaban 5 mg tablet (Eliquis) 5 mg PO BID #180 tabs 04/15/23 04/18/23 Unknown metoprolol succinate 50 mg 50 mg PO QAM #90 tabs 04/15/23 04/18/23 Unknown tablet,extended release 24 hr (Toprol XL) Past Medical History Medical History Atrial fibrillation on Eliquis Hypertension History of E. coli septicemia History of infection with vancomycin resistant Enterococcus (VRE) Urinary incontinence in female Venous insufficiency Rectocele Mild cognitive impairment VRE (vancomycin-resistant Enterococci) HX OF Osteoporosis Hyperparathyroidism Hyperoxaluria VRE (vancomycin resistant enterococcus) culture positive Acute hypercapnic respiratory failure PT UNAWARE Hydronephrosis concurrent with and due to calculi of kidney and ureter Ureteral stone with hydronephrosis Lactic acidosis Intertrigo Pressure ulcer PRESENT TO LEFT BUTTOCK, NO TREATMENT AT PRESENT, MILD PER PT Anticoagulant long-term use Paroxysmal atrial fibrillation DX APPROX 4 YRS AGO > ELIQUIS AND TOPROL > NO PACER > FOLLOWS WITH DR. COLE Incontinence of urine Stroke x2. (TIA'S PER PT) both 12 years ago. pt w/ intermittent numbness to right hand. no neurologist. Past Family History Family History Grandfather Family history of diabetes mellitus Daughter Family history of esophageal cancer Other Coronary heart disease Denies family history of Ovarian cancer Prostate cancer Breast cancer Lung cancer Colorectal cancer Uterine cancer Past Surgical History Surgical History History of cystoscopy Cystoscopy and Left Ureteronephroscopy, Retrograde Pyleogram, Laser Destruction, Basket Extraction of Stone, and Left Stent Catheter Exchange(Left) - Toño Ferreira DO Hx of cataract surgery BILAT History of total shoulder replacement left History of surgery right leg r/t femur injury History of total knee replacement RIGHT History of hysterectomy vaginal History of gastric bypass History of dilatation and curettage x4 History of colonoscopy w/ polypectomy Social History Smoking Status: Never smoker Do You Dip or Chew Tobacco: No Hx Alcohol Use: No Alcohol type: beer alcohol intake frequency: holidays/special occasions only Hx Substance Use: No substance use type: does not use Physical Exam Vital Signs Last Vital Signs Temp 97.2 F L 04/18/23 05:02 Pulse 88 04/18/23 05:13 Resp 14 04/18/23 07:30 BP 89/60 L 04/18/23 07:30 Pulse Ox 99 04/18/23 07:30 O2 Del Method Nasal Cannula 04/18/23 06:30 O2 Flow Rate 2 04/18/23 07:30 Testing Laboratory Results 04/18/23 05:25 04/18/23 05:25 PT 13.1 Seconds (9.0-12.0) H 04/18/23 05:25 INR 1.2 (0.9-1.1) H 04/18/23 05:25 Electrocardiogram Date: 04/18/23 Atrial fibrillation, rate 78 bpm Low voltage QRS Incomplete right bundle branch block ST & T wave abnormality, consider anterior ischemia Abnormal ECG When compared with ECG of 11-MAR-2023 20:32, No significant change was found Echocardiogram Date: 08/11/20 Normal LV size and systolic function. EF 65-70%. No regional wall motion abnormalities. Moderate concentric LVH. Biatrial dilation. No significant valvular abnormalities visualized Normal estimated RVSP
[2023-04-18] MEDS: METOPROLOL SUCC 50MG EXT REL TAB PO SCH (10:35)
[2023-04-18] MEDS ORDERED: PROPOFOL IV EMULSION 10 MG/ML 20 ML VIAL IV ONE (11:05)
[2023-04-18] MEDS ORDERED: DEXAMETHASONE SOD INJ 4 MG/ML VIAL ONE (11:05)
[2023-04-18] MEDS ORDERED: LIDOCAINE 2% 2 ML VIAL/AMP(20MG/ML) INFIL ONE (11:05)
[2023-04-18] MEDS ORDERED: ROCURONIUM BROMIDE 10 MG/ML 5 ML VIAL IV ONE (11:05)
[2023-04-18] MEDS ORDERED: MIDAZOLAM HCL 1 MG/ML 2ML VIAL ONE (11:05)
[2023-04-18] MEDS ORDERED: ONDANSETRON INJ 2 MG/ML 2 ML VIAL ONE (11:05)
[2023-04-18] MEDS ORDERED: fentaNYL citrate PF 100 MCG/2 ML VIAL ONE (11:06)
[2023-04-18] MEDS ORDERED: SUGAMMADEX SODIUM 200 MG/2 ML VIAL IV ONE (11:06)
[2023-04-18] MEDS ORDERED: HYDROmorphone INJ 2 MG/ML SYR/VIAL ONE (11:16)
--- NOTE | 2023-04-18 11:17 | Orthopedic Consultation ---
Date of Service April 18, 2023 Assessment & Plan (1) Closed hip fracture: 1. Continue current pain control 2. Continue NPO 3. Plan in IM nail fixation of left hip this afternoon by Dr. Sumner 4. Discussed the plan and answered patients questions at bedside. Consent was obtained to proceed with left IM nail fixation History of Present Illness Reason for Consultation: . Requesting Physician: . Attending Physician: Carolina Burgess DO Patient is a 77 y/o female who sustained a ground level fall earlier this morning. She presented to [facility] ER with left hip pain. Xrays confirmed a displaced left intertrochanteric hip fracture. She was placed NPO this morning, pain is controlled. She has a Hx of AF and is on eliquis. Her last dose was last night. Allergies Allergy/AdvReac Type Severity Reaction Status Date / Time adhesive Allergy Intermediate RASH, Verified 04/15/23 15:11 BLISTERING latex Allergy Mild SKIN Verified 04/15/23 15:11 TEARING alendronate sodium AdvReac Intermediate SICK TO Verified 04/15/23 15:11 STOMACH Home Medications Medication Instructions Recorded Confirmed Type cyanocobalamin (vitamin B-12) 1,000 mcg PO QAM 01/19/18 04/18/23 History 1,000 mcg tablet (Vitamin B-12) cholecalciferol (vitamin D3) 50 2,000 unit PO QAM 10/07/18 04/18/23 History mcg (2,000 unit) tablet (Vitamin D3) acetaminophen 500 mg tablet 1,000 mg (2 x 500 mg) PO TID PRN 06/23/20 04/18/23 Rx pain #0 tabs calcium citrate 250 mg PO QAM 05/10/22 04/18/23 History denosumab 60 mg/mL subcutaneous 60 mg subcut .Q6 month #1 mL 02/06/23 04/18/23 Rx syringe multivitamin with minerals 1 tab PO DAILY 03/11/23 04/18/23 History escitalopram oxalate 10 mg tablet 10 mg PO DAILY #90 tabs 03/25/23 04/18/23 Rx furosemide 20 mg tablet 20 mg PO DAILY PRN edema #90 tabs 03/25/23 04/18/23 Rx gabapentin 300 mg capsule 300 mg PO QPM #90 caps 03/25/23 04/18/23 Rx nystatin 100,000 unit/gram topical 1 applic topical DAILY PRN Skin 03/25/23 04/18/23 Rx powder Irritation #60 grams apixaban 5 mg tablet (Eliquis) 5 mg PO BID #180 tabs 04/15/23 04/18/23 Rx metoprolol succinate 50 mg 50 mg PO QAM #90 tabs 04/15/23 04/18/23 Rx tablet,extended release 24 hr (Toprol XL) Past Med/Surg History Medical History Atrial fibrillation on Eliquis Hypertension History of E. coli septicemia History of infection with vancomycin resistant Enterococcus (VRE) Urinary incontinence in female Venous insufficiency Rectocele Mild cognitive impairment VRE (vancomycin-resistant Enterococci) HX OF Osteoporosis Hyperparathyroidism Hyperoxaluria VRE (vancomycin resistant enterococcus) culture positive Acute hypercapnic respiratory failure PT UNAWARE Hydronephrosis concurrent with and due to calculi of kidney and ureter Ureteral stone with hydronephrosis Lactic acidosis Intertrigo Pressure ulcer PRESENT TO LEFT BUTTOCK, NO TREATMENT AT PRESENT, MILD PER PT Anticoagulant long-term use Paroxysmal atrial fibrillation DX APPROX 4 YRS AGO > ELIQUIS AND TOPROL > NO PACER > FOLLOWS WITH DR. COLE Incontinence of urine Stroke x2. (TIA'S PER PT) both 12 years ago. pt w/ intermittent numbness to right hand. no neurologist. Surgical History History of cystoscopy Cystoscopy and Left Ureteronephroscopy, Retrograde Pyleogram, Laser Destruction, Basket Extraction of Stone, and Left Stent Catheter Exchang e(Left) - Toño Ferreira DO Hx of cataract surgery BILAT History of total shoulder replacement left History of surgery right leg r/t femur injury History of total knee replacement RIGHT History of hysterectomy vaginal History of gastric bypass History of dilatation and curettage x4 History of colonoscopy w/ polypectomy Family History Grandfather Family history of diabetes mellitus Daughter Family history of esophageal cancer Other Coronary heart disease Denies family history of Ovarian cancer Prostate cancer Breast cancer Lung cancer Colorectal cancer Uterine cancer Social History Smoking Status: Never smoker Second Hand Exposure: No; Do You Dip or Chew Tobacco: No; Hx Alcohol Use: No Hx Substance Use: No Preferred Language: Nepali Communication Ability: Effective Visual Impairment: No Limitations Hearing Ability: Normal Quality Control Associate Required: No Beliefs That Will Affect Care: None Current Living Situation: Spouse Feels Safe at Home: Yes Seatbelt Use: always Assistive Devices: Cane and Walker Review of Systems All systems reviewed & are unremarkable except as noted in HPI & below. Physical Exam Patient is alert and oriented laying supine in bed comfortably. LLE is externally rotated and shortened. Neurovascularly intact LLE Results & Data Results & Data Laboratory Results . Diagnostic Findings . PG Care Time/CCT Total # of Minutes Spent Total Time Spent with Patient: Total time spent is greater than 50% in coordination of care (as documented) at patient's floor/unit and/or counseling patient: Coding Level of Care Code 65473 OFFICE CONSULT LVL Diagnoses Closed hip fracture S72.002A Encounter type: initial encounter Laterality: left (1) Closed hip fracture Encounter type: initial encounter Laterality: left Qualified Code(s): S72.002A - Fracture of unspecified part of neck of left femur, initial encounter for closed fracture
[2023-04-18] MEDS ORDERED: ePHEDrine sulfate 50 MG/ML AMP IV PRN (11:37)
[2023-04-18] MEDS ORDERED: PROMETHAZINE HCL 6.25 MG in SODIUM CHLORIDE 0.9% 50 ML IV PRN (11:37)
[2023-04-18] MEDS ORDERED: HYDROmorphone INJ 1 MG/ML SYRINGE IV PRN (11:37)
[2023-04-18] MEDS ORDERED: fentaNYL citrate PF 100 MCG/2 ML VIAL IV PRN (11:37)
[2023-04-18] MEDS ORDERED: ATROPINE SULFATE 0.1 MG/ML 10ML SYR IV PRN (11:37)
--- NOTE | 2023-04-18 11:47 | History & Physical Bridge Note ---
Date of Service April 18, 2023 History & Physical Bridge Note I have examined the patient, reviewed the History & Physical and in the interval since the performance of the History & Physical I have noted the following changes of clinical significance: no changes noted
--- NOTE | 2023-04-18 11:50 | Electrocardiogram Report ---
Test Reason : Blood Pressure : / mmHG Vent. Rate : 078 BPM Atrial Rate : 000 BPM P-R Int : 000 ms QRS Dur : 116 ms QT Int : 416 ms P-R-T Axes : 000 029 000 degrees QTc Int : 474 ms Poor data quality, interpretation may be adversely affected Atrial fibrillation Low voltage QRS Incomplete right bundle branch block Abnormal ECG When compared with ECG of 11-MAR-2023 20:32, No significant change was found Confirmed by Momo Garcia ([id number]) on 04/18/2023 11:50:29 AM Referred By: REFERRED SELF Confirmed By:Momo Garcia
[2023-04-18] MEDS: LACTATED RINGER'S 1,000 ML IV SCH ×2 (12:00→19:35)
[2023-04-18] MEDS: ceFAZolin 2,000 MG/15 ML IV PUSH IV ONE (13:00)
[2023-04-18] MEDS ORDERED: ALBUMIN HUMAN 5% 12.5 GM/250 ML VIAL IV ONE (14:15)
[2023-04-18] MEDS ORDERED: VASOPRESSIN 20 UNIT/ML VIAL ONE (14:49)
[2023-04-18 15:04] LABS: Basophils # (auto) 0.05 K/uL (0.00-0.20); Basophils % (auto) 0.6 %; Eosinophils # (auto) 0.06 K/uL (0.00-0.50); Eosinophils % (auto) 0.7 %; Hematocrit (blood only) 38.5 % (37.0-47.0); Hemoglobin 12.8 g/dl (12.0-16.0); Immature Granulocytes # (auto) 0.04 K/uL (0.01-0.20); Immature Granulocytes % (auto) 0.5 %; Lymphocytes # (auto) 1.63 K/uL (1.20-3.40); Lymphocytes % (auto) 18.9 %; Mean Corpuscular Hemoglobin 33.3 pg (25.0-34.0); Mean Corpuscular Hgb Conc 33.2 g/dL (32.0-36.0); Mean Corpuscular Volume 100.3 fL (80.0-100.0); Mean Platelet Volume 11.7 fL (9.4-12.4); Monocytes # (auto) 0.73 K/uL (0.11-0.59); Monocytes % (auto) 8.5 %; Neutrophils # (auto) 6.11 K/uL (1.40-6.50); Neutrophils % (auto) 70.8 %; Platelet Count 131 K/uL (130-400); RDW Coefficient of Variation 15.5 % (11.5-14.5); RDW Standard Deviation 57.2 fL (36.4-46.3); Red Blood Count 3.84 M/uL (4.20-5.40); White Blood Count 8.62 K/ul (4.8-10.8)
--- NOTE | 2023-04-18 15:08 | Operative Report ---
PG Post Operative Report Pre & Post Diagnosis Operation Date: 04/18/23 11:35 Pre-Op Diagnosis: Displaced left intertrochanteric hip fracture Post-Op Diagnosis: Displaced left intertrochanteric hip fracture I identified the patient and participated in the time-out.: Yes Procedure Operation Date: 04/18/23 11:35 Actual Procedures p Left Long Trochanteric Nail(Left) - Dyllan Sumner DO Surgeon Dyllan Sumner DO Exhibition [employer]ver Dyllan Vásquez PA-C Estimated Blood Loss 750 Findings Consistent with Post-Op Diagnosis Specimens None Description of Procedure On April 18, 2023 Ami fell and went to [facility] emergency room. X- rays and clinical examination were diagnostic for a displaced left intertrochanteric hip fracture. After discussions at bedside, she elected proceed with intramedullary nail fixation of her left hip. She was taken over to the preoperative holding area. The operative extremity identified and signed. She was given a preoperative antibiotic. She was taken back to the operating room put under general anesthesia. She was then transferred to the fracture table. The left leg was brought out to traction. The left hip was prepped and draped in sterile fashion. A timeout was done. The patient and the operative extremity was properly identified. Fluoroscopic images were used to attempt to reduce the hip. I was unable to reduce the hip. A lateral incision was made. Incision was made just lateral to the greater trochanter. Care was taken down through the fascia. The IT band was opened up. The fracture site was then identified and cleaned out. The wound was irrigated. The fracture was then reduced with a reduction clamp. Fluoroscopic images showed near anatomic alignment of the fracture. A guidepin was then placed at the tip of the greater trochanter and advanced down the femoral canal. A 17 mm opening reamer was used to open the canal site. A guidepin was then placed down to the knee. The tibial nail measured to be 380 mm. A single 12 mm reamer was passed. The final Synthes 11 x 380 mm TFN nail was then impacted into place. Appropriate placement was checked on orthogonal fluoroscopic images. A small stab incision was made for the lateral cannula for the helical blade. The cannula was then advanced to the lateral cortex. A guidepin was placed into the center center position of the femoral head. The lateral cortex was then drilled. 105 mm screw was then impacted into place. The screw was then locked. The outrigger was removed. Final fluoroscopic image s showed anatomic alignment of the fracture. Attempt was made a single perfect [place] screw distally. Her bone quality was very weak. There was a small cortical break and a decision was made not to place screws. I did not want to create any stress fractures in this area. The wounds were then irrigated. The IT band was closed with #1 Vicryl. Skin was closed with 2-0 Vicryl and liana. She was then placed in a soft dressing. She was then extubated and transferred to a hospital bed. She was taken to the postanesthesia care unit in stable condition. She tolerated the procedure well. Dyllan Vásquez PA-C, was present for the entire procedure. He was critical for patient positioning, prepping, draping, retraction exposure, wound closure and application of sterile dressing. I attest to the content of the Intraoperative Record and any orders documented therein. Any exceptions are noted below.
[2023-04-18] MEDS: BUPIVACAINE/EPINEPHRINE 0.5% MPF 1:200,000 30 ML VIAL ONE (15:17)
--- NOTE | 2023-04-18 15:35 | Fluoroscopy Report ---
INTRAOPERATIVE RADIOGRAPHS CLINICAL HISTORY: Open reduction and internal fixation of the left proximal femur. Fluoro time: 123 seconds Ka,r: 48.31 mGy FINDINGS: 2 spot fluoroscopic views of the left proximal femur are correlated with radiographs dated 04/18/2023. There has been intertrochanteric and intramedullary nail fixation of a comminuted intertro chanteric fracture of the left proximal femur. Near-anatomic alignment has been restored. Overlying s oft tissue edema is observed. IMPRESSION: Intraoperative images from open reduction and internal fixation of the left proximal femu r. Electronically signed by: Vince New M.D. 04/18/2023 3:33 PM
[2023-04-18] MEDS: PHENYLEPHRINE 100MCG/ML 5ML SYR IV PRN (16:09)
--- NOTE | 2023-04-18 16:16 | Hospitalist Progress Note ---
Date of Service April 18, 2023 Assessment & Plan (1) Closed hip fracture: Plan: 77yo female presenting with closed left intertrochanteric fracture following a ground level fall in her home. Neurovascularly intact. Pain is well controlled after Morphine IV. Patient independent and ambulatory at baseline. Per RCRI criteria patient is at low risk for perioperative MACE. Her AF is well controlled. She may proceed to surgery with no additional testing. I did discuss anticoagulation with ortho via electronic text, they are aware her last dose was pm of 04/17 -Check UA, pending at this time -Hold Eliquis - patient takes this for non-valvular atrial fibrillation. Last dose 04/17/23 PM -Orthopedic Surgery consultation appreciated, for OR 04/17 (2) Atrial fibrillation: Plan: Rate controlled -Continue Metoprolol -Hold Eliquis in preparation for surgery. Last dose 04/17/23 PM, resume 24 hours post op if ok with orthopedics (3) Hypertension: Plan: bp is lower will reduced dose of metoprolol and change to tartrate Admission and Anticipated Discharge Date Admission Date: April 18, 2023 Subjective pt is a bit loopy from morphine iv and has lower blood pressure leg is shortened and externally rotated with intact pulses Physical Exam Physical Exam: cardiac exam is regular although history of afib lungs are clear ext wtih intact distal pulses, pink and with intact sensation Results & Data Results & Data Vital Signs (Past 12 Hours) Vital Signs Temp Pulse Pulse Pulse Resp BP BP 04/18/23 16:05 100 H 16 87/61 L 04/18/23 15:55 95 H 13 98/45 L 04/18/23 15:45 101 H 13 127/79 04/18/23 15:37 96.8 F L 109 H 21 90/62 L 04/18/23 11:18 97.7 F 82 20 102/72 04/18/23 09:25 04/18/23 09:25 65 18 108/76 04/18/23 07:30 14 04/18/23 07:30 89/60 L 04/18/23 07:01 139/84 04/18/23 07:01 12 04/18/23 07:00 16 04/18/23 06:30 16 135/92 04/18/23 06:01 16 150/84 H 04/18/23 05:13 88 18 04/18/23 05:12 82 23 191/121 H 04/18/23 05:09 80 04/18/23 05:02 97.2 F L 80 18 162/111 H Pulse Ox O2 Del Method O2 Flow Rate 04/18/23 16:05 96 Oxymask 4 04/18/23 15:55 98 Oxymask 4 04/18/23 15:45 98 Oxymask 4 04/18/23 15:37 99 Oxymask 6 04/18/23 11:18 99 Room Air 04/18/23 09:25 96 Room Air 04/18/23 09:25 96 04/18/23 07:30 99 2 04/18/23 07:30 04/18/23 07:01 04/18/23 07:01 94 2 04/18/23 07:00 97 2 04/18/23 06:30 98 Nasal Cannula 2 04/18/23 06:01 96 Room Air 04/18/23 05:13 94 Room Air 04/18/23 05:12 96 Room Air 04/18/23 05:09 04/18/23 05:02 94 Room Air Laboratory Results reviewed cbc reviewed prp PG Care Time/CCT Total # of Minutes Spent Total Time Spent with Patient: Total time spent is greater than 50% in coordination of care (as documented) at patient's floor/unit and/or counseling patient: Coding Level of Care Code 57503 SUB INP/OBS CARE 3/50MIN Diagnoses Closed hip fracture S72.002A Encounter type: initial encounter Laterality: left Paroxysmal atrial fibrillation I48.0 Atrial fibrillation type: paroxysmal Essential hypertension I10 Hypertension type: essential hypertension (1) Closed hip fracture Encounter type: initial encounter Laterality: left Qualified Code(s): S72.002A - Fracture of unspecified part of neck of left femur, initial encounter for closed fracture (2) Atrial fibrillation Atrial fibrillation type: paroxysmal Qualified Code(s): I48.0 - Paroxysmal atrial fibrillation (3) Hypertension Hypertension type: essential hypertension Qualified Code(s): I10 - Essential (primary) hypertension
[2023-04-18] MEDS: PHENYLEPHRINE 100MCG/ML 5ML SYR ONE (16:41)
[2023-04-18] MEDS: ALBUMIN 5% 250 ML IV ONE (16:45)
[2023-04-18] MEDS ORDERED: SODIUM CHLORIDE 0.9% 250 ML IV PRN ×2 (17:10→23:30)
[2023-04-18 17:39] LABS: Hematocrit (blood only) 32.9 % (37.0-47.0); Hemoglobin 10.6 g/dl (12.0-16.0); Mean Corpuscular Hemoglobin 33.1 pg (25.0-34.0); Mean Corpuscular Hgb Conc 32.2 g/dL (32.0-36.0); Mean Corpuscular Volume 102.8 fL (80.0-100.0); Mean Platelet Volume 10.7 fL (9.4-12.4); Platelet Count 109 K/uL (130-400); RDW Coefficient of Variation 15.3 % (11.5-14.5); RDW Standard Deviation 58.1 fL (36.4-46.3); White Blood Count 12.47 K/ul (4.8-10.8)
[2023-04-18 17:59] LABS: Basophils # (auto) 0.04 K/uL (0.00-0.20); Basophils % (auto) 0.3 %; Eosinophils # (auto) 0.01 K/uL (0.00-0.50); Eosinophils % (auto) 0.1 %; Immature Granulocytes # (auto) 0.07 K/uL (0.01-0.20); Immature Granulocytes % (auto) 0.6 %; Lymphocytes # (auto) 0.49 K/uL (1.20-3.40); Lymphocytes % (auto) 3.9 %; Monocytes # (auto) 0.43 K/uL (0.11-0.59); Monocytes % (auto) 3.4 %; Neutrophils # (auto) 11.43 K/uL (1.40-6.50); Neutrophils % (auto) 91.7 %
--- NOTE | 2023-04-18 18:41 | Anesthesiology Progress Note ---
Date of Service April 18, 2023 Anesthesia Post Procedure Vital Signs Vital Signs: Temp Pulse Pulse Pulse Resp BP BP 04/18/23 17:55 107 H 16 96/42 L 04/18/23 17:45 109 H 16 79/46 L 04/18/23 17:35 107 H 17 92/54 L 04/18/23 17:25 108 H 15 89/50 L 04/18/23 17:15 100 H 20 89/59 L 04/18/23 17:05 99 H 16 90/47 L 04/18/23 16:58 100 H 15 93/61 L 04/18/23 16:50 106 H 15 78/45 L 04/18/23 16:45 106 H 15 102/46 L 04/18/23 16:35 36.3 C L 105 H 19 84/45 L 04/18/23 16:25 109 H 13 97/46 L 04/18/23 16:15 96 H 18 87/46 L 04/18/23 16:10 99 H 14 99/60 L 04/18/23 16:05 100 H 16 87/61 L 04/18/23 15:55 95 H 13 98/45 L 04/18/23 15:45 101 H 13 127/79 04/18/23 15:37 36.0 C L 109 H 21 90/62 L 04/18/23 11:18 36.5 C 82 20 102/72 04/18/23 09:25 04/18/23 09:25 65 18 108/76 04/18/23 07:30 14 04/18/23 07:30 89/60 L 04/18/23 07:01 139/84 04/18/23 07:01 12 04/18/23 07:00 16 04/18/23 06:30 16 135/92 04/18/23 06:01 16 150/84 H 04/18/23 05:13 88 18 04/18/23 05:12 82 23 191/121 H 04/18/23 05:09 80 04/18/23 05:02 36.2 C L 80 18 162/111 H Pulse Ox O2 Del Method O2 Flow Rate 04/18/23 17:55 92 Room Air 0 04/18/23 17:45 92 Room Air 0 04/18/23 17:35 92 Room Air 0 04/18/23 17:25 100 Room Air 0 04/18/23 17:15 100 Oxymask 4 04/18/23 17:05 100 Oxymask 4 04/18/23 16:58 100 Oxymask 4 04/18/23 16:50 100 Oxymask 4 04/18/23 16:45 100 Oxymask 4 04/18/23 16:35 100 Oxymask 4 04/18/23 16:25 99 Oxymask 4 04/18/23 16:15 100 Oxymask 4 04/18/23 16:10 98 Oxymask 4 04/18/23 16:05 96 Oxymask 4 04/18/23 15:55 98 Oxymask 4 04/18/23 15:45 98 Oxymask 4 04/18/23 15:37 99 Oxymask 6 04/18/23 11:18 99 Room Air 04/18/23 09:25 96 Room Air 04/18/23 09:25 96 04/18/23 07:30 99 2 04/18/23 07:30 04/18/23 07:01 04/18/23 07:01 94 2 04/18/23 07:00 97 2 04/18/23 06:30 98 Nasal Cannula 2 04/18/23 06:01 96 Room Air 04/18/23 05:13 94 Room Air 04/18/23 05:12 96 Room Air 04/18/23 05:09 04/18/23 05:02 94 Room Air Pain Intensity Left Leg: Pain Intensity: 5 Transfer of Care Handoff Completed per policy Notes Mental Status: alert / awake / arousable and participated in evaluation Patient Amnestic to Procedure: Yes Nausea / Vomiting: adequately controlled Pain: adequately controlled Airway Patency, RR, SpO2: stable & adequate BP & HR: stable & adequate Hydration State: stable & adequate Anesthetic Complications: no major complications apparent and Pt Satisfied with anesthetic care Notes: Patient with 750ml of EBL during case. She received a liter of IVF intraoperatively along with 250ml 5% albumin. CBC was done both during the surgery and afterwards. If did show a decline from 14 preop to 10.6 afterwards in recovery. In PACU, she continued to have low BP's that responded to an additional 1 liter of LR and 250ml 5% albumin along with several doses of vasoactive medication (phenylephrine). Primary hospitalist team was updated and saw patient in recovery and felt she should be transferred to PCU after discussion with ICU team. Patient had additional IV placed (18 G) and was sent to PCU in stable condition. Of note, patient was awake and conversant and denied any headache, blurry vision, lightheadedness, SOB or chest pain.
[2023-04-18] MEDS ORDERED: POLYETHYLENE (MIRALAX) 17 GM PACK PO PRN (18:47)
--- NOTE | 2023-04-18 18:54 | Communication Note ---
Date of Service: April 18, 2023 Called postoperatively the patient had a estimated 750 estimated blood loss was volume resuscitated with thousand of crystalloid and 500 albumin. She remained with poor blood pressures and postoperative care unit. She was examined she was cool pale her mentation was intact her wound is not bleeding but her leg was swollen. Blood recheck approximately 5 PM did show hemoglobin drop from 12-10. There is another hemoglobin check at 8 PM this evening. She is typed and crossed for 1 unit packed red blood cells. Physical exam despise being pale she was not tachycardic at this time her card lung exam was diminished but clear her abdomen is NABS and soft. Assessment really possible acute blood loss anemia which is significant hastened by her recent Eliquis use. Will have a short decision to transfuse this patient will continue with IV fluid resuscitation holding her metoprolol and DVT prevention of aspirin at this time
[2023-04-18] MEDS: ceFAZolin 2000MG 2,000 MG/15 ML SYR IV SCH ×2 (19:35→20:51)
[2023-04-18] MEDS: ESCITALOPRAM OXALATE 10 MG TAB PO SCH (19:36)
[2023-04-18] MEDS: GABAPENTIN 300 MG CAP PO SCH (20:51)
[2023-04-18] MEDS ORDERED: ASPIRIN 81 MG ECTAB PO SCH (21:00)
--- NOTE | 2023-04-19 07:09 | Orthopedic Progress Note ---
Date of Service April 19, 2023 Assessment & Plan (1) Closed hip fracture: Unfortunately this was a bad fracture. I did have to open up the hip laterally and used a clamp to get the hip together before passing the nail. I would expect her to be a little bit slower to recover than the standard nail fixation. She can be weightbearing as tolerated on the left hip. We will go slow and steady with it. She can resume her Eliquis starting today if it is okay with the hospitalist team. She is orthopedically stable for discharge when medically ready. Full orthopedic discharge instructions were placed in the discharge summary. Viktoriya Mueller was seen and examined at bedside this morning. Overall she is doing okay. She is having a lot of pain in the hip. She has not been out of bed yet. She has no other complaints.. Review of Systems All systems reviewed & are unremarkable except as noted in HPI & below. Physical Exam On physical examination left hip, the dressing is clean and dry. Her leg is out full extension. She has active dorsiflexion plantarflexion of her left ankle.. Results & Data Results & Data Laboratory Results . Diagnostic Findings Postoperative x-rays of the left hip show the prosthesis to be in anatomic alignment without any evidence of fracture complication, or loosening.. PG Care Time/CCT Total # of Minutes Spent Total Time Spent with Patient: Total time spent is greater than 50% in coordination of care (as documented) at patient's floor/unit and/or counseling patient: Coding Level of Care Code 92168 Post Operative Follow-Up Diagnoses Closed hip fracture S72.002A Encounter type: initial encounter Laterality: left (1) Closed hip fracture Encounter type: initial encounter Laterality: left Qualified Code(s): S72.002A - Fracture of unspecified part of neck of left femur, initial encounter for closed fracture
[2023-04-19 07:24] LABS: Appearance Urine Cloudy (Clear); Bilirubin Urine Negative (Negative); Blood Urine Negative (Negative); Color Urine Dark Yellow; Epithelial Cell Urine Auto >30 /lpf (0-5); Glucose Urine UA Negative (Negative); Ketones Urine Negative (Negative); Leukocyte Esterase Urine 1+ (Negative); Nitrite Urine Negative (Negative); Protein Urine 1+ (Negative); RBC Urine Automated 0-4 /hpf (0-4); Specific Gravity Urine 1.031 (1.000-1.030); Urobilinogen Urine Negative (Negative); WBC Urine Automated >30 /hpf (0-5); pH Urine 5.5 (4.5-7.5)
[2023-04-19 07:52] LABS: Mucus Urine Present (None Prsent)
[2023-04-19 07:53] LABS: Bacteria Urine Automated 1+ (Negative)
[2023-04-19] MEDS: oxyCODONE HCL IR 5 MG TAB (IMMEDIATE RELEASE) PO PRN (08:08)
--- NOTE | 2023-04-19 08:23 | XRay Report ---
XR femur LT 2V routine HISTORY: 77 years-old Female Post-Operative implant position COMPARISON: Pelvis and hip radiographs of same day TECHNIQUE: 2 views of the left femur FINDINGS: Status post placement of an intertrochanteric nail with medullary paula fixating the acute and comminut ed intratrochanteric fracture demonstrating improved alignment. Lateral skin liana with expected po stoperative soft tissue swelling and deep tissue air. Arterial calcifications. 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 IMPRESSION: Improved alignment of the acute and comminuted intertrochanteric left femoral fracture st atus post ORIF. ACT 112: Negative or not required by law. The above report was generated using voice recognition software. It may contain grammatical, syntax o r spelling errors. Electronically signed by: Panfilo Henry M.D. 04/19/2023 8:20 AM
[2023-04-19 09:24] LABS: Hematocrit (blood only) 27.9 % (37.0-47.0); Hemoglobin 9.1 g/dl (12.0-16.0); Immature Granulocytes # (auto) 0.02 K/uL (0.01-0.20); Immature Granulocytes % (auto) 0.3 %; Lymphocytes # (auto) 0.71 K/uL (1.20-3.40); Lymphocytes % (auto) 9.3 %; Mean Corpuscular Hemoglobin 33.2 pg (25.0-34.0); Mean Corpuscular Hgb Conc 32.6 g/dL (32.0-36.0); Mean Corpuscular Volume 101.8 fL (80.0-100.0); Mean Platelet Volume 11.2 fL (9.4-12.4); Monocytes # (auto) 0.93 K/uL (0.11-0.59); Monocytes % (auto) 12.2 %; Neutrophils # (auto) 5.94 K/uL (1.40-6.50); Neutrophils % (auto) 78.2 %; Platelet Count 99 K/uL (130-400); RDW Coefficient of Variation 17.2 % (11.5-14.5); RDW Standard Deviation 63.9 fL (36.4-46.3); Red Blood Count 2.74 M/uL (4.20-5.40)
[2023-04-19 09:37] LABS: BUN Creatinine Ratio 29.5 (10-20); Calcium 7.1 mg/dl (8.6-10.3); Creatinine Clr Calc Pharmacy 65.6 ml/min; Est GFR (African American) 67.9 ml/min; Est GFR (Non-African American) 58.6 ml/min; Potassium 4.5 mmol/L (3.5-5.1)
[2023-04-19] MEDS: MoRPHine SULFATE 4 MG/ML 1 ML CARP\\VIAL IV PRN (11:46)
[2023-04-19] MEDS ORDERED: METOPROLOL TARTRATE 1 MG/ML VIAL IV PRN (14:01)
--- NOTE | 2023-04-19 14:01 | Hospitalist Progress Note ---
Date of Service April 19, 2023 Assessment & Plan (1) Closed hip fracture: Plan: 77yo female presenting with closed left intertrochanteric fracture following a ground level fall in her home. Neurovascularly intact. Pain is well controlled after Morphine IV. Patient independent and ambulatory at baseline. Per RCRI criteria patient is at low risk for perioperative MACE. Her AF is well controlled. She may proceed to surgery with no additional testing. I did discuss anticoagulation with ortho via electronic text, they are aware her last dose was pm of 04/17 -Check UA, pending at this time patient did receive cefazolin perioperatively which will provide some coverage if her urine is positive we will await -Hold Eliquis - patient takes this for non-valvular atrial fibrillation. Last dose 04/17/23 PM patient did have acute blood loss anemia postoperatively and was transfused 1 unit of blood watch cautiously perhaps needing additional unit Status post left long trochanteric nail with Dr. Sumner 04/18/2023 (2) Atrial fibrillation: Plan: Rate controlled -Continue Metoprolol -Hold Eliquis in preparation for surgery. Last dose 04/17/23 PM, resume 24 hours post op if ok with orthopedics (3) Hypertension: Plan: bp is lower holding medication at this time, may be responsible for some of her tachycardiawill add as needed metoprolol IV cautiously with a lower blood pressure and institute tartrate as soon as able Admission and Anticipated Discharge Date Admission Date: April 18, 2023 Subjective Patient with symptoms of leg discomfort. She is tachycardic and hypotensive at rest. She did receive 1 unit packed red blood cells. Her hemoglobin has decreased 1 g from yesterday till today. She however still remains above 9. I likely believe she will need an additional unit of blood however she has not yet met the transfusion threshold and she has no endorgan issues currently other than tachycardia hypotension and fatigue Her leg is now in better alignment she has some swelling in her thigh likely from hematoma from her initial fracture Physical Exam Physical Exam: She is pale she is awake she is oriented x 3 Card exam is tachycardic Lungs are clear but diminished She has some tenderness to the anterior tibial area near the anterior tibialis muscle likely injured during her initial fall, did have knee x-ray on presentation without evidence of injury of the tibia-fibula Results & Data Results & Data Vital Signs (Past 12 Hours) Vital Signs Temp Pulse Pulse Resp BP BP Pulse Ox 04/19/23 11:47 98.2 F 125 H 18 94/57 L 96 04/19/23 09:00 04/19/23 08:00 109 H 04/19/23 07:05 98.6 F 111 H 17 104/63 96 04/19/23 05:00 04/19/23 04:45 117 H 04/19/23 02:41 97.7 F 107 H 17 92/56 L 98 04/19/23 02:08 97.7 F 106 H 17 97 Pulse Ox O2 Del Method O2 Del Method O2 Flow Rate O2 Flow Rate 04/19/23 11:47 Room Air 04/19/23 09:00 Room Air 04/19/23 08:00 04/19/23 07:05 Nasal Cannula 2.0 04/19/23 05:00 96 Nasal Cannula 2 04/19/23 04:45 04/19/23 02:41 2 04/19/23 02:08 Laboratory Results Reviewed CBC reviewed chemistry Abnormal urinalysis awaiting culture results PG Care Time/CCT Total # of Minutes Spent Total Time Spent with Patient: Total time spent is greater than 50% in coordination of care (as documented) at patient's floor/unit and/or counseling patient: Coding Level of Care Code 66962 SUB INP/OBS CARE 3/50MIN Diagnoses Closed hip fracture S72.002A Encounter type: initial encounter Laterality: left Paroxysmal atrial fibrillation I48.0 Atrial fibrillation type: paroxysmal Essential hypertension I10 Hypertension type: essential hypertension (1) Closed hip fracture Encounter type: initial encounter Laterality: left Qualified Code(s): S72.002A - Fracture of unspecified part of neck of left femur, initial encounter for closed fracture (2) Atrial fibrillation Atrial fibrillation type: paroxysmal Qualified Code(s): I48.0 - Paroxysmal atrial fibrillation (3) Hypertension Hypertension type: essential hypertension Qualified Code(s): I10 - Essential (primary) hypertension
--- NOTE | 2023-04-19 15:52 | XCELERA ---
[id number] [id number]
[2023-04-19] MEDS: ASPIRIN 81 MG ECTAB PO SCH (20:43)
--- NOTE | 2023-04-20 06:09 | Orthopedic Progress Note ---
Date of Service April 20, 2023 Assessment & Plan (1) Closed hip fracture: She is doing about as well as expected. She is having a lot of pain in her hip and will difficulty putting full weight on it. We do want to go slow and steady with this. It was a pretty bad fracture. She can be weightbearing as tolerated as pain allows. She can resume her Eliquis per hospitalist recommendations. She is orthopedically stable for discharge when medically ready. Full orthopedic discharge instructions were placed in the discharge summary. She will follow-up orthopedics in about 2 weeks. Viktoriya Mueller was seen and examined at bedside this morning. Overall she is doing about as well as expected. She was able to put a little weight on it yesterday but she was having a lot of pain. She is not having as much pain while lying in bed. She has no other complaints.. Review of Systems All systems reviewed & are unremarkable except as noted in HPI & below. Physical Exam On physical examination left hip, the dressing is clean and dry. Her leg is out full extension.. Results & Data Results & Data Laboratory Results . Diagnostic Findings . PG Care Time/CCT Total # of Minutes Spent Total Time Spent with Patient: Total time spent is greater than 50% in coordination of care (as documented) at patient's floor/unit and/or counseling patient: Coding Level of Care Code 87373 Post Operative Follow-Up Diagnoses Closed hip fracture S72.002A Encounter type: initial encounter Laterality: left (1) Closed hip fracture Encounter type: initial encounter Laterality: left Qualified Code(s): S72.002A - Fracture of unspecified part of neck of left femur, initial encounter for closed fracture
[2023-04-20 08:29] LABS: Hematocrit (blood only) 25.8 % (37.0-47.0); Hemoglobin 8.2 g/dl (12.0-16.0); Mean Corpuscular Hemoglobin 32.7 pg (25.0-34.0); Mean Corpuscular Hgb Conc 31.8 g/dL (32.0-36.0); Mean Corpuscular Volume 102.8 fL (80.0-100.0); Platelet Count 79 K/uL (130-400); RDW Standard Deviation 63.3 fL (36.4-46.3); Red Blood Count 2.51 M/uL (4.20-5.40)
[2023-04-20 08:46] LABS: BUN Creatinine Ratio 41.3 (10-20); C Reactive Protein 9.7 mg/dl (0-0.5); Calcium 6.9 mg/dl (8.6-10.3); Creatinine Clr Calc Pharmacy 84.3 ml/min; Est GFR (African American) 90.4 ml/min; Potassium 4.1 mmol/L (3.5-5.1)
[2023-04-20] MEDS ORDERED: SODIUM CHLORIDE 0.9% 250 ML IV PRN (14:02)
--- NOTE | 2023-04-20 14:07 | Hospitalist Progress Note ---
Date of Service April 20, 2023 Assessment & Plan (1) Closed hip fracture: Plan: 77yo female presenting with closed left intertrochanteric fracture following a ground level fall in her home. Neurovascularly intact. Pain is well controlled after Morphine IV. Patient independent and ambulatory at baseline. -Check UA, pending at this time patient did receive cefazolin perioperatively which will provide some coverage if her urine is positive we will await -Hold Eliquis - patient takes this for non-valvular atrial fibrillation. Last dose 04/17/23 PM acute blood loss anemia postoperatively will be transfused additional unit 04/20/23 for total of 2 units platelet counts are lowering will hold asa, use scd when able restart eliquis Status post left long trochanteric nail with Dr. Sumner 04/18/2023 (2) Atrial fibrillation: Plan: Rate no not controlled -Continue Metoprolol iv prn, try to sneak in some low dose tartrate, add digoxin on 04/20/23 -Hold Eliquis in preparation for surgery. Last dose 04/17/23 PM, resume when anemia is stable (3) Hypertension: Plan: bp is lower holding medication at this time, may be responsible for some of her tachycardiawill add as needed metoprolol IV cautiously with a lower blood pressure and institute tartrate as soon as able Admission and Anticipated Discharge Date Admission Date: April 18, 2023 Subjective Patient has continued leg discomfort. Her atrial fibrillation has been poorly controlled but her blood pressures been low likely from acute blood loss anemia. Her hemoglobin dropped an additional gram today to 8.2 and an additional t ransfusion will be ordered. With regard to her atrial fibrillation rapid ventricular response. Her rate may be causing some of her lower blood pressure subsequently we will try to control her rate with digoxin. We cannot use other medications at this point because her blood pressure is so low Regard to acute blood loss anemia and the patient also now has a lowering platelet count. Her aspirin will be held. He will be hopeful that once her bleeding stabilizes we can return to anticoagulation for atrial fibrillation which will serve 2 purposes both to prevent VTE from the A-fib but also po stoperative blood clots. While holding her aspirin will use SCDs. Overall the patient looks weak and tired she complains of shortness of breath she is pale Physical Exam Physical Exam: She is pale she is awake she is oriented x 3 Card exam is tachycardic irregularly irregular atrial fibrillation on the m onitor Lungs are clear but diminished She has some tenderness to the anterior tibial area near the anterior tibialis muscle likely injured during her initial fall, did have knee x-ray on presentation without evidence of injury of the tibia-fibula Results & Data Results & Data Vital Signs (Past 12 Hours) Vital Signs Temp Pulse Resp BP Pulse Ox Pulse Ox O2 Del Method 04/20/23 11:09 97.9 F 122 H 96/59 L 95 Nasal Cannula 04/20/23 08:01 99.5 F 113 H 18 97/45 L 94 Nasal Cannula 04/20/23 07:58 Nasal Cannula 04/20/23 05:00 95 04/20/23 04:02 98.1 F 120 H 20 99/61 L 97 Nasal Cannula O2 Del Method O2 Flow Rate O2 Flow Rate 04/20/23 11:09 2 04/20/23 08:01 2.0 04/20/23 07:58 2 04/20/23 05:00 Nasal Cannula 2 04/20/23 04:02 2 Laboratory Results Reviewed chemistry reviewed CBC PG Care Time/CCT Total # of Minutes Spent Total Time Spent with Patient: Total time spent is greater than 50% in coordination of care (as documented) at patient's floor/unit and/or counseling patient: Coding Level of Care Code 72523 SUB INP/OBS CARE 3/50MIN Diagnoses Closed hip fracture S72.002A Encounter type: initial encounter Laterality: left Paroxysmal atrial fibrillation I48.0 Atrial fibrillation type: paroxysmal Essential hypertension I10 Hypertension type: essential hypertension (1) Closed hip fracture Encounter type: initial encounter Laterality: left Qualified Code(s): S72.002A - Fracture of unspecified part of neck of left femur, initial encounter for closed fracture (2) Atrial fibrillation Atrial fibrillation type: paroxysmal Qualified Code(s): I48.0 - Paroxysmal atrial fibrillation (3) Hypertension Hypertension type: essential hypertension Qualified Code(s): I10 - Essential (primary) hypertension
[2023-04-20] MEDS: DIGOXIN 250 MCG in SYRINGE 9 ML IV STA (15:03)
[2023-04-20] MEDS: MAGNESIUM SULFATE / D5W 1 GM/100 ML BAG IV ONE (15:05)
[2023-04-20] MEDS: METOPROLOL TARTRATE 25 MG TAB PO ONE (16:28)
--- NOTE | 2023-04-20 21:42 | Communication Note ---
Date of Service: April 20, 2023 Peña chacon called at approximately 9:15 PM. Tom was called due to altered mental status. Nursing states that patient was unable to state her name fully or her date of . Last known well was approximately 9 PM. When evaluating the patient bedside. Patient was able to state her full name and was able to tell me the date. She also was able to tell me where she was currently located in [facility]. NIH scale 0. -CT head without contrast ordered no acute findings of stroke. -EKG showed A-fib. -CBC, BMP, troponin, and VBG showed no changes in labs. -Hold off on stroke protocol as no focal deficits were found on physical exam. Majority of strokelike symptoms resolved. Was monitored in the ICU for neuro symptoms.
--- NOTE | 2023-04-20 21:53 | CT Scan Report ---
Exam(s): CT HEAD Without Contrast EXAM: CT Head Without Intravenous Contrast CLINICAL HISTORY: Reason for exam: AMS. TECHNIQUE: Axial computed tomography images of the head/brain without intravenous contrast. CTDI is 37.68 mGy and DLP is 625.8 mGy-cm. Automated exposure control was utilized for the study. A dose lowering technique was utilized adhering to the principles of ALARA. COMPARISON: 03/11/2023. FINDINGS: Brain: Mild generalized brain atrophy. No hemorrhage. No significant white matter disease. Ventricles: Unremarkable. No ventriculomegaly. Bones/joints: Unremarkable. No acute fracture. Soft tissues: Unremarkable. Sinuses: Mucosal thickening of the left maxillary sinus, likely sequela of chronic or prior sinusitis. No air-fluid level seen. Remainder of the paranasal sinuses are clear. Mastoid air cells: Unremarkable as visualized. Normal bilateral mastoid air cells. IMPRESSION: 1. Involutional changes, otherwise normal CT brain for age. 2. Sequela of left maxillary sinus disease. 3. No skull fracture. Electronically signed by: Dinorah Coyle MD 04/20/23 21:52 PM
[2023-04-20] MEDS: DIGOXIN 250 MCG in SYRINGE 9 ML IV ONE (22:02)
[2023-04-20 22:46] LABS: Base Excess VBG 2.8 mEq/L; HCO3 VBG 29 mmol/L; Oxygen Saturation VBG 90.9 %; PCO2 VBG 51 mmHg (38-50); PO2 VBG 54 mmHg; pH VBG 7.36 (7.36-7.41)
[2023-04-20 22:54] LABS: Basophils # (auto) 0.03 K/uL (0.00-0.20); Basophils % (auto) 0.4 %; Eosinophils # (auto) 0.05 K/uL (0.00-0.50); Eosinophils % (auto) 0.7 %; Hematocrit (blood only) 25.4 % (37.0-47.0); Hemoglobin 8.3 g/dl (12.0-16.0); Immature Granulocytes # (auto) 0.04 K/uL (0.01-0.20); Immature Granulocytes % (auto) 0.5 %; Lymphocytes # (auto) 0.83 K/uL (1.20-3.40); Lymphocytes % (auto) 11.3 %; Mean Corpuscular Hemoglobin 33.1 pg (25.0-34.0); Mean Corpuscular Hgb Conc 32.7 g/dL (32.0-36.0); Mean Corpuscular Volume 101.2 fL (80.0-100.0); Mean Platelet Volume 10.6 fL (9.4-12.4); Monocytes # (auto) 0.79 K/uL (0.11-0.59); Monocytes % (auto) 10.7 %; Neutrophils # (auto) 5.63 K/uL (1.40-6.50); Neutrophils % (auto) 76.4 %; Nucleated RBC # (auto) 0.02 K/uL (0.00-0.12); Nucleated RBC % (auto) 0.3 %; Platelet Count 88 K/uL (130-400); RDW Coefficient of Variation 16.4 % (11.5-14.5); RDW Standard Deviation 60.3 fL (36.4-46.3); Red Blood Count 2.51 M/uL (4.20-5.40); White Blood Count 7.37 K/ul (4.8-10.8)
[2023-04-20 23:07] LABS: BUN Creatinine Ratio 42.4 (10-20); Creatinine Clr Calc Pharmacy 95.9 ml/min; Est GFR (African American) 100.2 ml/min; Est GFR (Non-African American) 86.4 ml/min; Potassium 4.3 mmol/L (3.5-5.1)
[2023-04-20 23:14] LABS: Troponin I High Sensitivity 9.8 pg/ml (0-14)
[2023-04-20] MEDS: LACTATED RINGER'S 1,000 ML IV SCH (23:41)
[2023-04-21 07:32] LABS: Hematocrit (blood only) 24.3 % (37.0-47.0); Hemoglobin 7.9 g/dl (12.0-16.0); Mean Corpuscular Hemoglobin 33.2 pg (25.0-34.0); Mean Corpuscular Hgb Conc 32.5 g/dL (32.0-36.0); Mean Corpuscular Volume 102.1 fL (80.0-100.0); Mean Platelet Volume 10.8 fL (9.4-12.4); Platelet Count 96 K/uL (130-400); RDW Coefficient of Variation 16.5 % (11.5-14.5); RDW Standard Deviation 60.6 fL (36.4-46.3); Red Blood Count 2.38 M/uL (4.20-5.40); White Blood Count 6.12 K/ul (4.8-10.8)
[2023-04-21] MEDS: METOPROLOL TARTRATE 25 MG TAB PO SCH (08:31)
[2023-04-21] MEDS: ACETAMINOPHEN 500 MG TAB PO PRN (08:31)
--- NOTE | 2023-04-21 13:11 | Hospitalist Progress Note ---
Date of Service April 21, 2023 Assessment & Plan (1) Closed hip fracture: Plan: 77yo female presenting with closed left intertrochanteric fracture following a ground level fall in her home. Neurovascularly intact. Pain is well controlled after Morphine IV. Patient independent and ambulatory at baseline. Urine culture from 04/19 negative -Hold Eliquis - patient takes this for non-valvular atrial fibrillation. Last dose 04/17/23 PM consider restarting Eliquis on 04/22 if hemoglobin remained stable acute blood loss anemia postoperatively will be transfused additional unit 04/20/23 for total of 2 units platelet counts are lowering will hold asa, use scd when able restart eliquis platelet count did improve slightly on 04/21/2023 Status post left long trochanteric nail with Dr. Sumner 04/18/2023 Age-related osteoporosis with current pathological fracture, left femur Morbid obesity with BMI 45.1 (2) Atrial fibrillation: Plan: Rate no with improved control -Add metoprolol tartrate 25 twice daily digoxin subtherapeutic additional dosing on 04/10/1923 -Hold Eliquis in preparation for surgery. Last dose 04/17/23 PM, resume 04/22/2023 if anemia is stable (3) Hypertension: Plan: Resuming p.o. metoprolol tartrate Admission and Anticipated Discharge Date Admission Date: April 18, 2023 Subjective Pt has improved ventricular rate, still very weak, may have consideration of rehab anemia persists but is stable Physical Exam Physical Exam: Pt is awake but sleepy cardiac is irregular and rate around 100 lungs are clear leg with pain to touch, good distal cap refill Results & Data Results & Data Vital Signs (Past 12 Hours) Vital Signs Temp Pulse Resp BP BP BP BP 04/21/23 11:54 91 H 96/55 L 91/53 L 04/21/23 11:37 98.8 F 77 18 78/41 L 98/63 L 82/48 L 04/21/23 07:33 97.9 F 102 H 19 102/60 04/21/23 03:43 99.1 F 104 H 18 108/62 Pulse Ox O2 Del Method O2 Flow Rate 04/21/23 11:54 04/21/23 11:37 95 Nasal Cannula 2.0 04/21/23 07:33 94 Nasal Cannula 2.0 04/21/23 03:43 95 Nasal Cannula 2 Laboratory Results Reviewed CBC reviewed chemistry Reviewed digoxin level ordered additional digoxin parenterally PG Care Time/CCT Total # of Minutes Spent Total Time Spent with Patient: Total time spent is greater than 50% in coordination of care (as documented) at patient's floor/unit and/or counseling patient: Coding Level of Care Code 37987 SUB INP/OBS CARE 3/50MIN Diagnoses Closed hip fracture S72.002A Encounter type: initial encounter Laterality: left Paroxysmal atrial fibrillation I48.0 Atrial fibrillation type: paroxysmal Essential hypertension I10 Hypertension type: essential hypertension (1) Closed hip fracture Encounter type: initial encounter Laterality: left Qualified Code(s): S72.002A - Fracture of unspecified part of neck of left femur, initial encounter for closed fracture (2) Atrial fibrillation Atrial fibrillation type: paroxysmal Qualified Code(s): I48.0 - Paroxysmal atrial fibrillation (3) Hypertension Hypertension type: essential hypertension Qualified Code(s): I10 - Essential (primary) hypertension
[2023-04-21] MEDS: DIGOXIN 125 MCG in SYRINGE 9.5 ML IV STA (19:49)
[2023-04-22 09:58] LABS: Hematocrit (blood only) 23.3 % (37.0-47.0); Hemoglobin 7.5 g/dl (12.0-16.0); Mean Corpuscular Hemoglobin 33.2 pg (25.0-34.0); Mean Corpuscular Hgb Conc 32.2 g/dL (32.0-36.0); Mean Corpuscular Volume 103.1 fL (80.0-100.0); Mean Platelet Volume 10.6 fL (9.4-12.4); Nucleated RBC # (auto) 0.02 K/uL (0.00-0.12); Nucleated RBC % (auto) 0.4 %; Platelet Count 112 K/uL (130-400); RDW Coefficient of Variation 16.4 % (11.5-14.5); RDW Standard Deviation 60.3 fL (36.4-46.3); Red Blood Count 2.26 M/uL (4.20-5.40); White Blood Count 5.25 K/ul (4.8-10.8)
[2023-04-22 10:06] LABS: BUN Creatinine Ratio 38.1 (10-20); Calcium 7.1 mg/dl (8.6-10.3); Creatinine Clr Calc Pharmacy 101.4 ml/min; Est GFR (African American) 101.7 ml/min; Est GFR (Non-African American) 87.7 ml/min; Potassium 4.1 mmol/L (3.5-5.1)
[2023-04-22] MEDS: DIGOXIN 125 MCG in SYRINGE 9.5 ML IV SCH (15:24)
[2023-04-22] MEDS: traMADol HCL 50 MG TABLET PO PRN (15:30)
--- NOTE | 2023-04-22 17:20 | Hospitalist Progress Note ---
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 Neurovascularly intact. Pain is well controlled after Morphine IV. Patient independent and ambulatory at baseline. Urine culture from 04/19 negative, repeat 04/22/23 -Hold Eliquis - patient takes this for non-valvular atrial fibrillation. Last dose 04/17/23 PM acute blood loss anemia postoperatively will be transfused additional unit 04/20/23 for total of 2 units,still some down trending platelet counts are lowering will hold asa, use scd when able restart Eliquis platelet count did improve slightly on 04/21/2023 Status post left long trochanteric nail with Dr. Sumner 04/18/2023 Age-related osteoporosis with current pathological fracture, left femur Morbid obesity with BMI 45.1 (3) Atrial fibrillation: Plan: Rate no with improved control -Add metoprolol tartrate 25 twice daily digoxin subtherapeutic additional dosing on 04/10/1923 hold eliquis hgb down trending since rate control stop digoxin consider rapid rate from physiologic stressors (4) Hypertension: Plan: Resuming p.o. metoprolol tartrate Admission and Anticipated Discharge Date Admission Date: April 18, 2023 Subjective pt is confused not oriented and having some visual hallucinations will recheck for uti and give one dose ceftrixone will check am cortisol one dose of seroquel hs to see if sleep deprivation Physical Exam Physical Exam: Pt is awake but sleepy, conversant but not oriented to place [place] cardiac is irregular and rate controlled lungs are clear leg with pain to touch, good distal cap refill Results & Data Results & Data Vital Signs (Past 12 Hours) Vital Signs Temp Pulse Pulse Pulse Resp BP Pulse Ox 04/22/23 16:00 97 H 04/22/23 15:23 99.0 F 91 H 20 103/64 98 04/22/23 11:54 97.9 F 81 19 127/60 98 04/22/23 10:30 04/22/23 08:35 108 H 105/67 04/22/23 08:05 98.8 F 89 18 99/59 L 94 O2 Del Method O2 Flow Rate 04/22/23 16:00 04/22/23 15:23 Nasal Cannula 2 04/22/23 11:54 Nasal Cannula 2.0 04/22/23 10:30 Nasal Cannula 2 04/22/23 08:35 04/22/23 08:05 Nasal Cannula 2.0 PG Care Time/CCT Total # of Minutes Spent Total Time Spent with Patient: Total time spent is greater than 50% in coordination of care (as documented) at patient's floor/unit and/or counseling patient: Coding Level of Care Code 41422 SUB INP/OBS CARE 3/50MIN Diagnoses Encephalopathy G93.40 Closed hip fracture S72.002A Encounter type: initial encounter Laterality: left Paroxysmal atrial fibrillation I48.0 Atrial fibrillation type: paroxysmal Essential hypertension I10 Hypertension type: essential hypertension (2) Closed hip fracture Encounter type: initial encounter Laterality: left Qualified Code(s): S72.002A - Fracture of unspecified part of neck of left femur, initial encounter for closed fracture (3) Atrial fibrillation Atrial fibrillation type: paroxysmal Qualified Code(s): I48.0 - Paroxysmal atrial fibrillation (4) Hypertension Hypertension type: essential hypertension Qualified Code(s): I10 - Essential (primary) hypertension
[2023-04-22] MEDS: cefTRIAXone SODIUM 2,000 MG in DEXTROSE 5 % MINI-B 50 ML IV STA (18:50)
[2023-04-22] MEDS: QUEtiapine FUMARATE 25 MG TABLET PO ONE (21:00)
[2023-04-22] MEDS: LACTATED RINGER'S 1,000 ML IV SCH (21:02)
[2023-04-22] MEDS: THIAMINE HCL 200 MG in SODIUM CHLORIDE 0.9% 50 ML IV SCH (21:08)
[2023-04-23 08:20] LABS: Hematocrit (blood only) 23.8 % (37.0-47.0); Hemoglobin 7.7 g/dl (12.0-16.0); Mean Corpuscular Hemoglobin 34.1 pg (25.0-34.0); Mean Corpuscular Hgb Conc 32.4 g/dL (32.0-36.0); Mean Corpuscular Volume 105.3 fL (80.0-100.0); Mean Platelet Volume 11.1 fL (9.4-12.4); Platelet Count 92 K/uL (130-400); RDW Coefficient of Variation 16.5 % (11.5-14.5); RDW Standard Deviation 62.1 fL (36.4-46.3); Red Blood Count 2.26 M/uL (4.20-5.40)
[2023-04-23 08:33] LABS: BUN Creatinine Ratio 37.5 (10-20); Creatinine Clr Calc Pharmacy 114.4 ml/min; Est GFR (African American) 105.7 ml/min; Est GFR (Non-African American) 91.2 ml/min; Potassium 4.4 mmol/L (3.5-5.1)
[2023-04-23] MEDS: MoRPHine SULFATE 2 MG/ML CARP IV PRN (11:42)
--- NOTE | 2023-04-23 19:52 | Hospitalist Progress Note ---
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 Neurovascularly intact. Pain is well controlled after Morphine IV. Patient independent and ambulatory at baseline. Urine culture from 04/19 negative, repeat 04/22/23 -Hold Eliquis - patient takes this for non-valvular atrial fibrillation. Last dose 04/17/23 PM acute blood loss anemia postoperatively transfused 2 units packed red blood cells last given on 04/20/23 Apixaban is currently on hold. Platelet counts did fall however they are rebounding we will institute twice daily aspirin therapy at this time but re institute apixaban when hemoglobin appears to be more assuredly stable Status post left long trochanteric nail with Dr. Sumner 04/18/2023 Age-related osteoporosis with current pathological fracture, left femur Morbid obesity with BMI 45.1 (3) Atrial fibrillation: Plan: Rate no with improved control -Add metoprolol tartrate 25 twice daily digoxin subtherapeutic additional dosing on 04/10/1923 hold eliquis hgb down trending since rate control stop digoxin consider rapid rate from physiologic stressors if rate starts to creep upward may consider to reinstitute digoxin therapy although this was not a prehospital medication for her (4) Hypertension: Plan: Resuming p.o. metoprolol tartrate Plan Disposition is challenging with encephalopathy certainly the patient will need rehab at some point Admission and Anticipated Discharge Date Admission Date: April 18, 2023 Subjective Patient remains with some fatigue after her procedure. She remains with acute blood loss anemia with some variability of her hemoglobin. There is no obvious signs of increasing blood loss. No defined signs of encephalopathy was undertaken however urine culture is still pending (this is a repeat specimen) Attempts to limit her lemonade any opiate for pain control has been undertaken Physical Exam Physical Exam: Patient is awake she is oriented x 3 however she is fatigued and slow speech at times No focal neurological deficits are seen but her leg cannot be tested due to the recent hip fracture repair Card exam is regular there is a slight murmur Lungs are diminished at the bases but she is infrequently out of bed Her distal extremities do have intact pulses and capillary refill distally Results & Data Results & Data Vital Signs (Past 12 Hours) Vital Signs Temp Pulse Resp BP Pulse Ox O2 Del Method O2 Flow Rate 04/23/23 19:17 98.2 F 103 H 18 137/75 98 Nasal Cannula 2 04/23/23 15:38 97.7 F 90 16 113/67 97 Nasal Cannula 2 Laboratory Results Reviewed CBC reviewed chemistry PG Care Time/CCT Total # of Minutes Spent Total Time Spent with Patient: Total time spent is greater than 50% in coordination of care (as documented) at patient's floor/unit and/or counseling patient: Coding Level of Care Code 80796 SUB INP/OBS CARE 3/50MIN Diagnoses Encephalopathy G93.40 Closed hip fracture S72.002A Encounter type: initial encounter Laterality: left Paroxysmal atrial fibrillation I48.0 Atrial fibrillation type: paroxysmal Essential hypertension I10 Hypertension type: essential hypertension (2) Closed hip fracture Encounter type: initial encounter Laterality: left Qualified Code(s): S72.002A - Fracture of unspecified part of neck of left femur, initial encounter for closed fracture (3) Atrial fibrillation Atrial fibrillation type: paroxysmal Qualified Code(s): I48.0 - Paroxysmal atrial fibrillation (4) Hypertension Hypertension type: essential hypertension Qualified Code(s): I10 - Essential (primary) hypertension
[2023-04-23] MEDS: ASPIRIN 81 MG ECTAB PO SCH (20:17)
[2023-04-24 06:54] LABS: Hematocrit (blood only) 24.9 % (37.0-47.0); Hemoglobin 7.9 g/dl (12.0-16.0); Mean Corpuscular Hemoglobin 33.1 pg (25.0-34.0); Mean Corpuscular Hgb Conc 31.7 g/dL (32.0-36.0); Mean Corpuscular Volume 104.2 fL (80.0-100.0); Mean Platelet Volume 10.9 fL (9.4-12.4); Platelet Count 117 K/uL (130-400); RDW Standard Deviation 64.2 fL (36.4-46.3); Red Blood Count 2.39 M/uL (4.20-5.40); White Blood Count 4.38 K/ul (4.8-10.8)
[2023-04-24 07:20] LABS: BUN Creatinine Ratio 48.9 (10-20); Creatinine Clr Calc Pharmacy 142.9 ml/min; Est GFR (African American) 113.6 ml/min; Potassium 4.3 mmol/L (3.5-5.1)
[2023-04-24] MEDS: CYANOCOBALAMIN 1000 MCG/ML VIAL IM SCH (08:50)
[2023-04-24] MEDS: POLYETHYLENE (MIRALAX) 17 GM PACK PO SCH (12:32)
[2023-04-24] MEDS: ACETAMINOPHEN 325 MG TAB PO SCH (13:08)
[2023-04-24] MEDS: MAGNESIUM HYDROXIDE SUSP 30 ML UDC PO PRN (13:08)
--- NOTE | 2023-04-24 22:29 | Hospitalist Progress Note ---
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 (2) Closed hip fracture: Plan: 77yo female presenting with closed left intertrochanteric fracture following a ground level fall in her home. Neurovascularly intact. Pain is well controlled after Morphine IV. Patient independent and ambulatory at baseline. Urine culture from 04/19 negative, repeat 04/22/23 -Hold Eliquis - patient takes this for non-valvular atrial fibrillation. Last dose 04/17/23 PM acute blood loss anemia postoperatively transfused 2 units packed red blood cells last given on 04/20/23 Apixaban is currently on hold. Platelet counts did fall however they are rebounding we will institute twice daily aspirin therapy at this time but reinstitute apixaban when hemoglobin appears to be more assuredly stable Status post left long trochanteric nail with Dr. Sumner 04/18/2023 Age-related osteoporosis with current pathological fracture, left femur Morbid obesity with BMI 45.1 (3) Atrial fibrillation: Plan: Rate no with improved control -Add metoprolol tartrate 25 twice daily digoxin subtherapeutic additional dosing on 04/10/1923 hold eliquis hgb down trending since rate control stop digoxin consider rapid rate from physiologic stressors if rate starts to creep upward may consider to reinstitute digoxin therapy although this was not a prehospital medication for her (4) Hypertension: Plan: Resuming p.o. metoprolol tartrate Plan Disposition is challenging with encephalopathy certainly the patient will need rehab at some point Admission and Anticipated Discharge Date Admission Date: April 18, 2023 Subjective Patient reports no new symptoms. Review of Systems Review of Systems: All systems reviewed & are unremarkable except as noted in HPI & below Physical Exam Physical Exam: Patient is awake she is oriented x 3 however she is fatigued and slow speech at times No focal neurological deficits are seen but her leg cannot be tested due to the recent hip fracture repair Card exam is regular there is a slight murmur Lungs are diminished at the bases but she is infrequently out of bed Her distal extremities do have intact pulses and capillary refill distally Results & Data Results & Data Vital Signs (Past 12 Hours) Vital Signs Temp Pulse Resp BP Pulse Ox O2 Del Method O2 Flow Rate 04/24/23 20:31 37.4 C 89 22 103/61 94 Room Air 04/24/23 17:37 95 Room Air 04/24/23 15:47 37.1 C 85 16 100/56 L 100 Nasal Cannula 2 PG Care Time/CCT Total # of Minutes Spent Total Time Spent with Patient: Total time spent is greater than 50% in coordination of care (as documented) at patient's floor/unit and/or counseling patient: Coding Level of Care Code 07157 SUB INP/OBS CARE 2/35MIN Diagnoses Encephalopathy G93.40 Closed hip fracture S72.002A Encounter type: initial encounter Laterality: left Paroxysmal atrial fibrillation I48.0 Atrial fibrillation type: paroxysmal Essential hypertension I10 Hypertension type: essential hypertension (2) Closed hip fracture Encounter type: initial encounter Laterality: left Qualified Code(s): S72.002A - Fracture of unspecified part of neck of left femur, initial encounter for closed fracture (3) Atrial fibrillation Atrial fibrillation type: paroxysmal Qualified Code(s): I48.0 - Paroxysmal atrial fibrillation (4) Hypertension Hypertension type: essential hypertension Qualified Code(s): I10 - Essential (primary) hypertension
[2023-04-25 07:02] LABS: Hematocrit (blood only) 24.3 % (37.0-47.0); Hemoglobin 7.9 g/dl (12.0-16.0); Mean Corpuscular Hemoglobin 33.3 pg (25.0-34.0); Mean Corpuscular Hgb Conc 32.5 g/dL (32.0-36.0); Mean Corpuscular Volume 102.5 fL (80.0-100.0); Mean Platelet Volume 10.7 fL (9.4-12.4); Platelet Count 131 K/uL (130-400); RDW Coefficient of Variation 17.6 % (11.5-14.5); RDW Standard Deviation 63.6 fL (36.4-46.3); Red Blood Count 2.37 M/uL (4.20-5.40); White Blood Count 4.42 K/ul (4.8-10.8)
[2023-04-25 07:31] LABS: BUN Creatinine Ratio 40.4 (10-20); Creatinine Clr Calc Pharmacy 122.5 ml/min; Est GFR (African American) 108.3 ml/min; Est GFR (Non-African American) 93.5 ml/min; Potassium 4.4 mmol/L (3.5-5.1)
[2023-04-25] MEDS: bisacodyL 10 MG SUPP PR PRN (11:11)
[2023-04-25] MEDS: NITROFURANTOIN MONOHYDRATE 100 MG CAP PO SCH (11:23)
--- NOTE | 2023-04-25 14:13 | Orthopedic Progress Note ---
Date of Service April 25, 2023 Assessment & Plan (1) Closed hip fracture: Ami had a severely displaced fracture and she has been slow to recover. I think that is just going to take some time. Right now she is only on morphine for pain control. I will leave it up to the hospitalist to change her pain me dications to what they feel may be more suitable. She will need to be discharged home on oral pain medications when she goes to rehab. She can be weightbearing as tolerated on the left leg but I do want her to go slow and steady. She is orthopedically stable for discharge when medically ready. She should follow-up with orthopedics in 2 to 3 weeks from the day of surgery. Full orthopedic discharge instructions were placed in the discharge summary. Subjective Ami was seen and examined at bedside this morning. Overall she has been very slow to ambulate. She has been having a lot of pain. The morphine does not seem to be helping. She has not been able to walk yet with physical therapy.. Review of Systems All systems reviewed & are unremarkable except as noted in HPI & below. Physical Exam Physical examination of the left hip, the dressing is clean and mostly dry. Her leg lengths are essentially equal. There is a lot of ecchymosis and bruising in the area.. Results & Data Results & Data Laboratory Results . Diagnostic Findings . PG Care Time/CCT Total # of Minutes Spent Total Time Spent with Patient: Total time spent is greater than 50% in coordination of care (as documented) at patient's floor/unit and/or counseling patient: Coding Level of Care Code 08492 Post Operative Follow-Up Diagnoses Closed hip fracture S72.002A Encounter type: initial encounter Laterality: left (1) Closed hip fracture Encounter type: initial encounter Laterality: left Qualified Code(s): S72.00 2A - Fracture of unspecified part of neck of left femur, initial encounter for closed fracture
--- NOTE | 2023-04-25 21:54 | Hospitalist Progress Note ---
Date of Service April 25, 2023 Assessment & Plan (1) Encephalopathy: Plan: pt is with some confusion and hallucinations slight improvement on 04/23/2023 Still pending urine culture for metabolic encephalopathy, given one dose of ceftriaxone 04/22/2023 also concern for sleep deprivation stopping any and all meds that can affect [employer] Had discussion with insurance regarding rehab, despite encephalopathy, insurance denied peer to peer. awaiting placement for friday. (2) Closed hip fracture: Plan: 77yo female presenting with closed left intertrochanteric fracture following a ground level fall in her home. Neurovascularly intact. Pain is well controlled after Morphine IV. Patient independent and ambulatory at baseline. Urine culture from 04/19 negative, repeat 04/22/23 -Hold Eliquis - patient takes this for non-valvular atrial fibrillation. Last dose 04/17/23 PM acute blood loss anemia postoperatively transfused 2 units packed red blood cells last given on 04/20/23 Apixaban is currently on hold. Platelet counts did fall however they are rebounding we will institute twice daily aspirin therapy at this time but reinstitute apixaban when hemoglobin appears to be more assuredly stable Status post left long trochanteric nail with Dr. Sumner 04/18/2023 Age-related osteoporosis with current pathological fracture, left femur Morbid obesity with BMI 45.1 (3) Atrial fibrillation: Plan: Rate no with improved control -Add metoprolol tartrate 25 twice daily digoxin subtherapeutic additional dosing on 04/10/1923 hold eliquis hgb down trending since rate control stop digoxin consider rapid rate from physiologic stressors if rate starts to creep upward may consider to reinstitute digoxin therapy although this was not a prehospital medication for her (4) Hypertension: Plan: Resuming p.o. metoprolol tartrate Plan Disposition is challenging with encephalopathy certainly the patient will need rehab at some point Admission and Anticipated Discharge Date Admission Date: April 18, 2023 Subjective Patient reports no new symptoms. Review of Systems Review of Systems: All systems reviewed & are unremarkable except as noted in HPI & below Physical Exam Physical Exam: Patient is awake she is oriented x 3 however she is fatigued and slow speech at times No focal neurological deficits are seen but her leg cannot be tested due to the recent hip fracture repair Card exam is regular there is a slight murmur Lungs are diminished at the bases but she is infrequently out of bed Her distal extremities do have intact pulses and capillary refill distally Results & Data Results & Data Vital Signs (Past 12 Hours) Vital Signs Temp Pulse Resp BP Pulse Ox O2 Del Method O2 Flow Rate 04/25/23 20:42 37.4 C 90 18 120/67 98 Nasal Cannula 2 04/25/23 15:11 37.5 C 83 18 108/66 97 Room Air 04/25/23 12:08 109/71 04/25/23 11:51 37.1 C 80 17 98/58 L 97 Nasal Cannula 2 PG Care Time/CCT Total # of Minutes Spent Total Time Spent with Patient: Total time spent is greater than 50% in coordination of care (as documented) at patient's floor/unit and/or counseling patient: Coding Level of Care Code 41272 SUB INP/OBS CARE MIN Diagnoses Encephalopathy G93.40 Closed hip fracture S72.002A Encounter type: initial encounter Laterality: left Paroxysmal atrial fibrillation I48.0 Atrial fibrillation type: paroxysmal Essential hypertension I10 Hypertension type: essential hypertension (2) Closed hip fracture Encounter type: initial encounter Laterality: left Qualified Code(s): S72.002A - Fracture of unspecified part of neck of left femur, initial encounter for closed fracture (3) Atrial fibrillation Atrial fibrillation type: paroxysmal Qualified Code(s): I48.0 - Paroxysmal atrial fibrillation (4) Hypertension Hypertension type: essential hypertension Qualified Code(s): I10 - Essential (primary) hypertension
[2023-04-26 07:50] LABS: Hematocrit (blood only) 24.9 % (37.0-47.0); Hemoglobin 8.1 g/dl (12.0-16.0); Mean Corpuscular Hemoglobin 33.9 pg (25.0-34.0); Mean Corpuscular Hgb Conc 32.5 g/dL (32.0-36.0); Mean Corpuscular Volume 104.2 fL (80.0-100.0); Mean Platelet Volume 10.7 fL (9.4-12.4); Platelet Count 148 K/uL (130-400); RDW Coefficient of Variation 17.9 % (11.5-14.5); RDW Standard Deviation 66.1 fL (36.4-46.3); Red Blood Count 2.39 M/uL (4.20-5.40); White Blood Count 4.68 K/ul (4.8-10.8)
[2023-04-26 08:21] LABS: BUN Creatinine Ratio 42.9 (10-20); Calcium 7.3 mg/dl (8.6-10.3); Est GFR (African American) 110.5 ml/min; Est GFR (Non-African American) 95.3 ml/min; Potassium 4.6 mmol/L (3.5-5.1)
--- NOTE | 2023-04-26 21:54 | Hospitalist Progress Note ---
Date of Service April 26, 2023 Assessment & Plan (1) Encephalopathy: Plan: pt is with some confusion and hallucinations slight improvement on 04/23/2023 Still pending urine culture for metabolic encephalopathy, given one dose of ceftriaxone 04/22/2023 also concern for sleep deprivation stopping any and all meds that can affect [employer] Had discussion with insurance regarding rehab, despite encephalopathy, insurance denied peer to peer. awaiting placement for friday. (2) Closed hip fracture: Plan: 77yo female presenting with closed left intertrochanteric fracture following a ground level fall in her home. Neurovascularly intact. Pain is well controlled after Morphine IV. Patient independent and ambulatory at baseline. Urine culture from 04/19 negative, repeat 04/22/23 -Hold Eliquis - patient takes this for non-valvular atrial fibrillation. Last dose 04/17/23 PM acute blood loss anemia postoperatively transfused 2 units packed red blood cells last given on 04/20/23 Apixaban is currently on hold. Platelet counts did fall however they are rebounding we will institute twice daily aspirin therapy at this time but reinstitute apixaban when hemoglobin appears to be more assuredly stable Status post left long trochanteric nail with Dr. Sumner 04/18/2023 Age-related osteoporosis with current pathological fracture, left femur Morbid obesity with BMI 45.1 (3) Atrial fibrillation: Plan: Rate no with improved control -Add metoprolol tartrate 25 twice daily digoxin subtherapeutic additional dosing on 04/10/1923 hold eliquis hgb down trending since rate control stop digoxin consider rapid rate from physiologic stressors if rate starts to creep upward may consider to reinstitute digoxin therapy although this was not a prehospital medication for her (4) Hypertension: Plan: Resuming p.o. metoprolol tartrate Plan Disposition is challenging with encephalopathy certainly the patient will need rehab at some point Admission and Anticipated Discharge Date Admission Date: April 18, 2023 Subjective Patient reports no new symptoms. Review of Systems Review of Systems: All systems reviewed & are unremarkable except as noted in HPI & below Physical Exam Physical Exam: Patient is awake she is oriented x 3 however she is fatigued and slow speech at times No focal neurological deficits are seen but her leg cannot be tested due to the recent hip fracture repair Card exam is regular there is a slight murmur Lungs are diminished at the bases but she is infrequently out of bed Her distal extremities do have intact pulses and capillary refill distally Results & Data Results & Data Vital Signs (Past 12 Hours) Vital Signs Temp Pulse Resp BP Pulse Ox O2 Del Method O2 Flow Rate 04/26/23 21:07 37.1 C 81 18 112/68 98 Nasal Cannula 2 04/26/23 15:45 37.1 C 85 18 101/65 99 Nasal Cannula 2 04/26/23 10:24 Nasal Cannula 2 PG Care Time/CCT Total # of Minutes Spent Total Time Spent with Patient: Total time spent is greater than 50% in coordination of care (as documented) at patient's floor/unit and/or counseling patient: Coding Level of Care Code 68061 SUB INP/OBS CARE MIN Diagnoses Encephalopathy G93.40 Closed hip fracture S72.002A Encounter type: initial encounter Laterality: left Paroxysmal atrial fibrillation I48.0 Atrial fibrillation type: paroxysmal Essential hypertension I10 Hypertension type: essential hypertension (2) Closed hip fracture Encounter type: initial encounter Laterality: left Qualified Code(s): S72.002A - Fracture of unspecified part of neck of left femur, initial encounter for closed fracture (3) Atrial fibrillation Atrial fibrillation type: paroxysmal Qualified Code(s): I48.0 - Paroxysmal atrial fibrillation (4) Hypertension Hypertension type: essential hypertension Qualified Code(s): I10 - Essential (primary) hypertension
[2023-04-27 07:33] LABS: Hematocrit (blood only) 25.9 % (37.0-47.0); Hemoglobin 8.1 g/dl (12.0-16.0); Mean Corpuscular Hemoglobin 32.5 pg (25.0-34.0); Mean Corpuscular Hgb Conc 31.3 g/dL (32.0-36.0); Mean Platelet Volume 10.9 fL (9.4-12.4); Platelet Count 142 K/uL (130-400); RDW Coefficient of Variation 18.1 % (11.5-14.5); RDW Standard Deviation 67.3 fL (36.4-46.3); Red Blood Count 2.49 M/uL (4.20-5.40); White Blood Count 4.84 K/ul (4.8-10.8)
[2023-04-27 07:49] LABS: BUN Creatinine Ratio 44.2 (10-20); Calcium 7.3 mg/dl (8.6-10.3); Creatinine Clr Calc Pharmacy 148.1 ml/min; Est GFR (African American) 115.3 ml/min; Est GFR (Non-African American) 99.5 ml/min; Potassium 4.4 mmol/L (3.5-5.1)
[2023-04-27] MEDS ORDERED: Nursing to Pharmacy Communication SCH (21:30)
--- NOTE | 2023-04-27 22:59 | Hospitalist Progress Note ---
Date of Service April 27, 2023 Assessment & Plan (1) Encephalopathy: Plan: pt is with some confusion and hallucinations slight improvement on 04/23/2023 Still pending urine culture for metabolic encephalopathy, given one dose of ceftriaxone 04/22/2023 also concern for sleep deprivation stopping any and all meds that can affect HEAD CHEF Had discussion with insurance regarding rehab, despite encephalopathy, insurance denied peer to peer. awaiting placement for friday. Encepahloapthy appears to be improved. (2) Closed hip fracture: Plan: 77yo female presenting with closed left intertrochanteric fracture following a ground level fall in her home. Neurovascularly intact. Pain is well controlled after Morphine IV. Patient independent and ambulatory at baseline. Urine culture from 04/19 negative, repeat 04/22/23 -Hold Eliquis - patient takes this for non-valvular atrial fibrillation. Last dose 04/17/23 PM acute blood loss anemia postoperatively transfused 2 units packed red blood cells last given on 04/20/23 Apixaban is currently on hold. Platelet counts did fall however they are rebounding we will institute twice daily aspirin therapy at this time but reinstitute apixaban when hemoglobin appears to be more assuredly stable Status post left long trochanteric nail with Dr. Sumner 04/18/2023 Age-related osteoporosis with current pathological fracture, left femur Morbid obesity with BMI 45.1 (3) Atrial fibrillation: Plan: Rate no with improved control -Add metoprolol tartrate 25 twice daily digoxin subtherapeutic additional dosing on 04/10/1923 hold eliquis hgb down trending since rate control stop digoxin consider rapid rate from physiologic stressors if rate starts to creep upward may consider to reinstitute digoxin therapy although this was not a prehospital medication for her (4) Hypertension: Plan: Resuming p.o. metoprolol tartrate Plan Disposition is challenging with encephalopathy certainly the patient will need rehab at some point Admission and Anticipated Discharge Date Admission Date: April 18, 2023 Subjective 77 yo female reports no new symptoms. Review of Systems Review of Systems: All systems reviewed & are unremarkable except as noted in HPI & below Physical Exam Physical Exam: Patient is awake she is oriented x 3 however she is fatigued and slow speech at times No focal neurological deficits are seen but her leg cannot be tested due to the recent hip fracture repair Card exam is regular there is a slight murmur Lungs are diminished at the bases but she is infrequently out of bed Her distal extremities do have intact pulses and capillary refill distally Results & Data Results & Data Vital Signs (Past 12 Hours) Vital Signs Temp Pulse Resp BP Pulse Ox O2 Del Method O2 Flow Rate 04/27/23 21:50 37.4 C 04/27/23 21:25 109/64 04/27/23 20:10 Nasal Cannula 2 04/27/23 19:59 37.3 C 80 18 93/57 L 97 Nasal Cannula 2 04/27/23 14:46 37.2 C 77 18 95/59 L 97 Nasal Cannula 2 PG Care Time/CCT Total # of Minutes Spent Total Time Spent with Patient: Total time spent is greater than 50% in coordination of care (as documented) at patient's floor/unit and/or counseling patient: Coding Level of Care Code 95651 SUB INP/OBS CARE MIN Diagnoses Encephalopathy G93.40 Closed hip fracture S72.002A Encounter type: initial encounter Laterality: left Paroxysmal atrial fibrillation I48.0 Atrial fibrillation type: paroxysmal Essential hypertension I10 Hypertension type: essential hypertension (2) Closed hip fracture Encounter type: initial encounter Laterality: left Qualified Code(s): S72.002A - Fracture of unspecified part of neck of left femur, initial encounter for closed fracture (3) Atrial fibrillation Atrial fibrillation type: paroxysmal Qualified Code(s): I48.0 - Paroxysmal atrial fibrillation (4) Hypertension Hypertension type: essential hypertension Qualified Code(s): I10 - Essential (primary) hypertension
[2023-04-28 07:31] LABS: Hemoglobin 8.6 g/dl (12.0-16.0); Mean Corpuscular Hemoglobin 33.9 pg (25.0-34.0); Mean Corpuscular Hgb Conc 31.9 g/dL (32.0-36.0); Mean Corpuscular Volume 106.3 fL (80.0-100.0); Mean Platelet Volume 10.6 fL (9.4-12.4); Platelet Count 133 K/uL (130-400); RDW Coefficient of Variation 18.5 % (11.5-14.5); RDW Standard Deviation 69.2 fL (36.4-46.3); Red Blood Count 2.54 M/uL (4.20-5.40); White Blood Count 4.18 K/ul (4.8-10.8)
[2023-04-28 07:50] LABS: BUN Creatinine Ratio 43.2 (10-20); Calcium 7.4 mg/dl (8.6-10.3); Creatinine Clr Calc Pharmacy 144.8 ml/min; Est GFR (African American) 114.4 ml/min; Est GFR (Non-African American) 98.7 ml/min; Potassium 4.3 mmol/L (3.5-5.1)
[2023-04-28] MEDS ORDERED: oxyCODONE HCL IR 5 MG TAB (IMMEDIATE RELEASE) PO PRN (08:32)
[2023-04-28] MEDS: oxyCODONE HCL IR 5 MG TAB (IMMEDIATE RELEASE) PO PRN (11:07)
--- NOTE | 2023-04-28 20:50 | Hospitalist Progress Note ---
Date of Service April 28, 2023 Assessment & Plan (1) Encephalopathy: Plan: pt is with some confusion and hallucinations slight improvement on 04/23/2023 Still pending urine culture for metabolic encephalopathy, given one dose of ceftriaxone 04/22/2023 also concern for sleep deprivation stopping any and all meds that can affect [employer] Had discussion with insurance regarding rehab, despite encephalopathy, insurance denied peer to peer. awaiting placement for friday. Encepahloapthy appears to be improved. Awaiting placement. reviewed labs on on 04/28 (2) Closed hip fracture: Plan: 77yo female presenting with closed left intertrochanteric fracture following a ground level fall in her home. Neurovascularly intact. Pain is well controlled after Morphine IV. Patient independent and ambulatory at baseline. Urine culture from 04/19 negative, repeat 04/22/23 -Hold Eliquis - patient takes this for non-valvular atrial fibrillation. Last dose 04/17/23 PM acute blood loss anemia postoperatively transfused 2 units packed red blood cells last given on 04/20/23 Apixaban is currently on hold. Platelet counts did fall however they are rebounding we will institute twice daily aspirin therapy at this time but reinstitute apixaban when hemoglobin appears to be more assuredly stable Status post left long trochanteric nail with Dr. Sumner 04/18/2023 Age-related osteoporosis with current pathological fracture, left femur Morbid obesity with BMI 45.1 (3) Atrial fibrillation: Plan: Rate no with improved control -Add metoprolol tartrate 25 twice daily digoxin subtherapeutic additional dosing on 04/10/1923 hold eliquis hgb down trending since rate control stop digoxin consider rapid rate from physiologic stressors if rate starts to creep upward may consider to reinstitute digoxin therapy although this was not a prehospital medication for her (4) Hypertension: Plan: Resuming p.o. metoprolol tartrate Plan Disposition is challenging with encephalopathy certainly the patient will need rehab at some point Admission and Anticipated Discharge Date Admission Date: April 18, 2023 Subjective Patient reports no new symptoms. Review of Systems Review of Systems: All systems reviewed & are unremarkable except as noted in HPI & below Physical Exam Physical Exam: Patient is awake she is oriented x 3 however she is fatigued and slow speech at times No focal neurological deficits are seen but her leg cannot be tested due to the recent hip fracture repair Card exam is regular there is a slight murmur Lungs are diminished at the bases but she is infrequently out of bed Her distal extremities do have intact pulses and capillary refill distally Results & Data Results & Data Vital Signs (Past 12 Hours) Vital Signs Temp Pulse Resp BP Pulse Ox O2 Del Method O2 Flow Rate 04/28/23 15:22 36.4 C L 74 16 130/72 99 Nasal Cannula 1 04/28/23 12:27 91 Nasal Cannula 04/28/23 12:24 36.7 C 84 20 124/73 88 L Room Air PG Care Time/CCT Total # of Minutes Spent Total Time Spent with Patient: Total time spent is greater than 50% in coordination of care (as documented) at patient's floor/unit and/or counseling patient: Coding Level of Care Code 97393 SUB INP/OBS CARE MIN Diagnoses Encephalopathy G93.40 Closed hip fracture S72.002A Encounter type: initial encounter Laterality: left Paroxysmal atrial fibrillation I48.0 Atrial fibrillation type: paroxysmal Essential hypertension I10 Hypertension type: essential hypertension (2) Closed hip fracture Encounter type: initial encounter Laterality: left Qualified Code(s): S72.002A - Fracture of unspecified part of neck of left femur, initial encounter for closed fracture (3) Atrial fibrillation Atrial fibrillation type: paroxysmal Qualified Code(s): I48.0 - Paroxysmal atrial fibrillation (4) Hypertension Hypertension type: essential hypertension Qualified Code(s): I10 - Essential (primary) hypertension
[2023-04-28] MEDS: traMADol HCL 50 MG TABLET PO PRN (21:46)
[2023-04-29 07:16] LABS: Hematocrit (blood only) 26.8 % (37.0-47.0); Hemoglobin 8.4 g/dl (12.0-16.0); Mean Corpuscular Hemoglobin 33.2 pg (25.0-34.0); Mean Corpuscular Hgb Conc 31.3 g/dL (32.0-36.0); Mean Corpuscular Volume 105.9 fL (80.0-100.0); Mean Platelet Volume 10.8 fL (9.4-12.4); Platelet Count 144 K/uL (130-400); RDW Coefficient of Variation 18.5 % (11.5-14.5); RDW Standard Deviation 69.4 fL (36.4-46.3); Red Blood Count 2.53 M/uL (4.20-5.40); White Blood Count 4.61 K/ul (4.8-10.8)
[2023-04-29 07:28] LABS: Calcium 7.4 mg/dl (8.6-10.3); Creatinine Clr Calc Pharmacy 127.4 ml/min; Est GFR (African American) 109.7 ml/min; Est GFR (Non-African American) 94.7 ml/min; Potassium 4.5 mmol/L (3.5-5.1)
--- NOTE | 2023-04-29 13:32 | Discharge Summary ---
Date of Service April 29, 2023 Admission HPI Per Admitting Provider Ami Hagen is a pleasant 77yo female with history of AF on Eliquis anticoagulation, hypertension presenting with left hip fracture. Patient was in the bathroom last night getting washed up for bed. She was wearing nylon stockings and her feet began to slip with her legs spreading apart. She was unable to stop sliding so she called her for help. He was unable to help her and she ultimately fell onto her left side. She had pain in the left leg and heard a "pop" sound. She was unable to get up. EMS was called. In the ER she is afebrile, hypertensive otherwise doing well. Pain controlled after receiving Morphine. No additional complaints - no chest pain, palpitations, cough, SOB. No head trauma or LOC. No urinary symptoms. ER Course: Morphine 4mg IV Zofran NSS Principal Diagnosis left hip fracture Discharge Exam Patient is awake she is oriented x 3 however she is fatigued and slow speech at times No focal neurological deficits are seen but her leg cannot be tested due to the recent hip fracture repair Card exam is regular there is a slight murmur Lungs are diminished at the bases but she is infrequently out of bed Her distal extremities do have intact pulses and capillary refill distally Discharge Data Allergies Allergy/AdvReac Type Severity Reaction Status Date / Time adhesive Allergy Intermediate RASH, Verified 04/15/23 15:11 BLISTERING latex Allergy Mild SKIN Verified 04/15/23 15:11 TEARING alendronate sodium AdvReac Intermediate SICK TO Verified 04/15/23 15:11 STOMACH Consultations 04/18/23 06:20 ED Decision to Admit Stat 04/18/23 09:25 Consult Anesthesiology Routine Procedures Performed Operation Date: 04/18/23 11:35 Actual Procedures p Left Long Trochanteric Nail(Left) - Dyllan Sumner, Ordered Studies 04/18/23 FL femur LT 2V Routine 04/20/23 21:30 CT head/brain wo con Stat Hospital Course (1) Encephalopathy: pt is with some confusion and hallucinations slight improvement on 04/23/2023 Still pending urine culture for metabolic encephalopathy, given one dose of ceftriaxone 04/22/2023 also concern for sleep deprivation stopping any and all meds that can affect MOUNTER SAXOPHONES Had discussion with insurance regarding rehab, despite encephalopathy, insurance denied peer to peer. Encepahloapthy appears to be improved. Will continue pain medicine regimen as noted below. However, will continue to hold lyrica. WIll recommend restarting lyrica at a lower dose and slowly taper this up. (2) Closed hip fracture: 77yo female presenting with closed left intertrochanteric fracture following a ground level fall in her home. Neurovascularly intact. Pain is well controlled after Morphine IV. Patient independent and ambulatory at baseline. Urine culture from 04/19 negative, repeat 04/22/23 -Held Eliquis - patient takes this for non-valvular atrial fibrillation. Last dose 04/17/23 PM acute blood loss anemia postoperatively transfused 2 units packed red blood cells last given on 04/20/23 Apixiban was reinstituted as hemoglobin appeared to be more assuredly stable Status post left long trochanteric nail with Dr. Sumner 04/18/2023 Age-related osteoporosis with current pathological fracture, left femur Morbid obesity with BMI 45.1 (3) Atrial fibrillation: Rate no with improved control -Add metoprolol tartrate 25 twice daily digoxin subtherapeutic additional dosing on 04/10/1923 hold eliquis hgb down trending since rate control stop digoxin consider rapid rate from physiologic stressors if rate starts to creep upward may consider to reinstitute digoxin therapy although this was not a prehospital medication for her (4) Hypertension: Resuming p.o. metoprolol tartrate Total Time Total Time Spent Total Time Spent (In Minutes): 32 Discharge Plan Discharge Items Patient Disposition: Transfer [facility] Reason For Visit: LEFT HIP FRACTURE Discharge Diagnosis: left hip fracture Activity: As commented below Non-emergency contact: Primary Care Provider Call non-emergency contact if: you have any medication questions Follow-up/Referrals: Nohemi Syed CRNP [Primary Care Provider] - Diet: Regular Addtl Attending Provider Instructions: ORTHOPEDIC INSTRUCTIONS Hip Fracture Activity and Therapy Recommendations: 1. You were shown a series of exercises in the hospital. Do these exercises three times each day if you are able. 2. Get up and walk several times each day if you are capable. Make sure you have assistance is needed. For the first four weeks, try not to stand or walk for more than one hour at a time. If you do stand or walk for more than one hour, you will not hurt anything, but your leg will likely swell. 3. As you feel comfortable, you may change from the walker or crutches to a cane and then to independent walking if you are able. Please be safe. Medications: 1. Narcotic You will likely be sent from the hospital with the narcotic pain medication that worked best throughout your stay. 2. Eliquis -continue your Eliquis as prescribed. 3. Other medications may be given for specific circumstances. If you have any questions, please call the office at [phone]. 4. Resume previous home medications unless otherwise instructed TEDs/Elastic Stockings: The white elastic stockings help limit swelling and prevent blood clots from forming in your legs. The more you wear them, the more they work. Wear them for six weeks. Dressing Care: Sandhya can be open to air as long as the incisions are not draining. If the incisions are draining or if the sandhya are getting caught on your clothes then please cover the sandhya with dry gauze. Change the dressings as necessary to keep the incision as dry as possible Showering: You may shower 5 days from the day of surgery as long as the incisions are not draining. Do not soak the incision. Let soapy water run over the sandhya and pat them dry. Things To Watch For: 1. Drainage from the incision site that occurs more than one week after your surgery. 2. Increased redness at the incision site. 3. Fever above 102 degrees Fahrenheit. 4. Unusual chest pain or shortness of breath. 5. Call [facility] at with any of the above problems Follow-Up Visit: Follow-up with Dr. Sumner's PA (Dyllan Vásquez) 2-3 weeks after your day of surgery. He will remove your sandhya and answer any questions. If you have any additional questions or concerns, Dr Sumner is usually in the office at the same time and will be available Please call the office to set up an appointment for a time that works for you. Addtl Certified Breastfeeding Educator Provider Instructions: Followup with PCP in 1-2 weeks Will need a urology followup as she missed her appointment due to being in the hospital Pending Studies at Discharge: No Stand-Alone Forms: My [facility] Skilled Items Patient informed of condition?: Yes DNR: No Discharge Level of Care: Skilled Communicable Disease: No Discharge Prognosis: Stable Lines: None Urinary Catheter: No Medications and DC Order Prescriptions: New aspirin 81 mg Tablet,Delayed Release (Dr/Ec) 81 mg PO BID Qty: 60 0RF tramadol 50 mg Tablet 50 mg PO Q6H PRN (Reason: mild pain (scale score 1-4)) Qty: 10 0RF oxycodone 5 mg Tablet 5 mg PO Q6H PRN (Reason: moderate pain (scale score 5-6)) Qty: 10 0RF oxycodone 5 mg Tablet 10 mg PO Q6H PRN (Reason: severe pain (scale score 7-10)) Qty: 10 0RF nitrofurantoin monohyd/m-cryst 100 mg Capsule 100 mg PO BID Qty: 2 0RF polyethylene glycol 3350 [Miralax] 17 gram Powder In Packet 17 g PO DAILY Qty: 14 0RF sennosides-docusate sodium [Senna with Docusate Sodium] 8.6-50 mg tablet 1 tab-cap PO HS PRN (Reason: while on opiates) Qty: 30 0RF Continued denosumab 60 mg/mL syringe 60 mg subcut .Q6 month Qty: 1 2RF Rx Instructions: inject every 6 months at doctors office. Buy and Bill Approved from 02/04/20-02/02/24 2 visits [id number] Eliquis 5 mg tablet 5 mg PO BID Qty: 180 3RF Rx Instructions: TAKES AT 1200 & 2400 nystatin 100,000 unit/gram powder 1 applic topical DAILY PRN (Reason: Skin Irritation) Qty: 60 3RF Rx Instructions: Apply a small dusting to the abdominal fold topical daily; furosemide 20 mg tablet 20 mg PO DAILY PRN (Reason: edema) Qty: 90 0RF escitalopram oxalate 10 mg tablet 10 mg PO DAILY Qty: 90 3RF cyanocobalamin (vitamin B-12) [Vitamin B-12] 1,000 mcg Tablet 1,000 mcg PO QAM cholecalciferol (vitamin D3) [Vitamin D3] 2,000 unit tablet 2,000 unit PO QAM calcium citrate 250 mg calcium Tablet 250 mg PO QAM multivitamin with minerals Tablet 1 tab PO DAILY Changed metoprolol succinate [Toprol XL] 50 mg tablet extended release 24 hr 50 mg PO PM Qty: 90 3RF Discontinued gabapentin 300 mg capsule 300 mg PO QPM Qty: 90 1RF Discharge Orders: Discharge Order (Routine); Ordered 04/29/23 Ordered By: Zach Mcdonnell Admission Data Admit Date/Time: 04/18/23 06:38 Attending Provider: Zach Mcdonnell Admit Provider: Carolina Burgess Primary Care Provider: Nohemi Syed Other Providers: [facility]; Carolina Burgess; Tabitha Hogue; Isamar Bourne; Imani Horne; Lorie Chapa; Brice Pierson; Kyle Harrell; Abel Medley; Luis Churchill; Lizette Churchill; Dyllan Bah; Kim Woods; Eleazar George; Kameron Vega; Dion Zafar; Jelani Jaimes; Claudia Martínez; Luis Lagunas; Melony Lagunas; Leon Allen; Jhoana Shelton; Kunal Arroyo; Nohemi Downey; Alicia Abad; Kiko Alvares; Carolina Fisher; Anna Maradiaga; Gay Moore; Marla Medeiros; Floyd Medeiros V; Joshua Orozco; Isamar Macedo; Jimenez Escobar; Jaelyn Cheney; Floyd Gipson; Ramon Martínez; Darrius Adrian; Deborah Todd; Bianca Senior; Floyd Geronimo; Ciro Santiago; Trinity Carson; Vince Knutson; Khushbu Edwards; Elaine Khan; Fernando Escamilla; Jamey Jaimes; Naya Marsh; Amada Summers; Dat Colmenares; Navi Quigley; Brice Ponce Jr; Catailna Garcia; Daisy Ngo; Grecia Pierre; Kiko Glover; Luis Mckeon; Chely Browning; aDisy Warner; Sung Hanson; Brandon Chaudhary; Toño Noguera; Maverick Chino; Rosa Maria An; Gregorio Jo; Gela Gutierrez; Mari Morrow; [facility] Other Interventions: Discharge Summary Assessment (RN) Last Done: 04/29/23 09:15 Coding Level of Care Code 49794 INP/OBS DISCH >30 MIN Diagnoses Encephalopathy G93.40 Closed hip fracture S72.002A Encounter type: initial encounter Laterality: left Paroxysmal atrial fibrillation I48.0 Atrial fibrillation type: paroxysmal Essential hypertension I10 Hypertension type: essential hypertension
== END 2023-04-29 12:47 | DRG 480 ==
LOC: SUATTDRO → ED 05:05 → EDINP 06:38 → SUATTDRO 06:38 → EDINP 11:17 → 2S 15:33 → 3E 04-22 21:30